=== PATIENT | male | born 1935 | race Caucasian/White ===

== ENCOUNTER → 2018-12-07 16:05 | Outpatient (CLI) | payer MEDICARE, OTHER, SELFPAY ==
[2018-12-07 13:15] VITALS: BMI 40.7
[2018-12-07 16:29] LABS: Absolute Lymphocyte Count 1.25 X10^3/uL (0.83-4.51); Absolute Neutrophil Count 6.2 X10^3/uL (2.0-7.7); Basophil# 0.05 X10^3/uL; Basophil% 0.5 % (0-1); Eosinophils% 3.1 % (0-5); Hemoglobin 14.7 g/dL (13.0-16.5); Lymphocyte # 1.25 X10^3/ul (4.0); Mean Corp Hgb Conc 33.4 g/dL (32-36); Mean Corpuscular Hgb 33.8 pg (27.0-32.0); Mean Corpuscular Volume 101.1 fL (80-94); Mean Platelet Vol. 8.9 fl (6.2-12.0); Monocyte# 1.74 X10^3/uL; Monocyte% 18.1 % (0-10); NRBC Flagged by Analyzer 0 % (0-5); Neutrophil # 6.24 X10^3/uL (2.7-7.7); Neutrophil % 64.8 % (47-70); POSITIVE DIFFERENTIAL YES; Platelet Count 293 K/mm3 (150-450); RBC Distribution Width CV 11.9 % (11.6-14.6); Red Blood Count 4.35 M/mm3 (4.6-6.2); White Blood Count 9.6 K/mm3 (4.4-11.0)
[2018-12-07 16:43] LABS: Differential Indicated SCAN CRITERIA MET
[2018-12-07 16:49] LABS: Anion Gap 6 (5-15); BUN 28 mg/dL (7-18); BUN/Creat Ratio 25.5 RATIO (10-20); Chloride 104 mmol/L (98-107); EST Glomerular Filtration Rate 68 mL/min (>60); Est Glom Filt Rate - Afr Amer 82 mL/min (>60); Glucose 139 mg/dL (74-106); Potassium 4.7 mmol/L (3.5-5.1); Sodium Level 140 mmol/L (136-145)
[2018-12-07 17:53] LABS: Reactive Lymphocyte RARE
== END ==
PROVIDERS: Nurse Practitioner Family; Family Provider Family Medicine; PCP Family Medicine; Referring Provider Orthopaedic Surgery; Visit Provider Orthopaedic Surgery
DX: Z01.810 Encounter for preprocedural cardiovascular examination (principal); Z01.818 Encounter for other preprocedural examination; I25.10 Atherosclerotic heart disease of native coronary artery without angina pectoris; I25.5 Ischemic cardiomyopathy; E78.00 Pure hypercholesterolemia, unspecified; Z95.5 Presence of coronary angioplasty implant and graft
CPT/HCPCS: 36415; 80048; 85025

== ENCOUNTER 2018-12-23 14:50 | Inpatient (IN) | payer MEDICARE, OTHER, SELFPAY ==
[2018-12-07 13:15] VITALS: BMI 40.7
[2018-12-23] VITALS (22 sets, daily range): BP systolic 96–146; BP diastolic 61–73; PULSE 68–94; RESP 12–16; TEMP 36.3–37.4; O2SAT 89–99; BMI 39.9; BMI 38.5
[2018-12-23] MEDS: Etomidate 20 MG/10 ML Vial IV (15:02)
[2018-12-23] MEDS: Rocuronium Bromide 50 MG/5 ML Vial 100 MG IV (15:05)
[2018-12-23] MEDS: Propofol 200 MG/20 ML Vial 80 MG IV BOLUS (15:07)
--- NOTE | 2018-12-23 15:07 | RAD_ITS ---
STUDY: X-RAY CHEST REASON FOR EXAM: Male, 83 years old. Endotracheal tube and orogastric tube placement. TECHNIQUE: Single AP portable view of the chest. COMPARISON: Comparison is made with prior study dated August 01, 2016. FINDINGS: An endotracheal tube is in situ. The tip is at 3.5 cm proximal to the juliane. An orogastric tube is seen. The tip is in the body of the stomach. Mild increased markings at the lung bases suggestive of atelectasis and/or scarring. There is no demonstrated pleural abnormality. Normal size heart. Normal mediastinum and aristides. Normal visualized pulmonary arteries. There is atherosclerotic calcification of the aortic arch with tortuosity. There are diffuse degenerative changes of the visualized thoracic spine. Normal visualized ribs, clavicles, and shoulders. There is no demonstrated abnormality of the visualized soft tissue structures of the upper abdomen. RAD/Chest 1 View (Portable) IMPRESSION: Mild increased markings at the lung bases suggestive of atelectasis and/or scarring. The tip of the endotracheal tube is at 3.5 cm proximal to the juliane. The tip of the orogastric tube is seen within the body of the stomach. Electronically Signed: Lake Thayer, at 15:41 EDT , Service support ,
--- NOTE | 2018-12-23 15:09 | ED.VIS.GEN ---
History of Present Illness Chief Complaint: Allergic Reaction Detail of Chief Complaint: Swollen tongue and difficulty speaking Informant: Patient Onset: Hours - Hour prior to presentation Context: Sudden Onset Timing: Continuous Quality: Angioedema Location: Upper airway Current Severity: Severe Maximum Severity: Severe Worsened by: Lisinopril Relieved by: Nothing Associated Symptoms: Difficulty speaking and swallowing Narrative: Patient is an elderly male on lisinopril who presents because of swelling of his tongue with difficulty swallowing and speaking. This started 1 hour prior to presentation. When patient was examined his Ashley Tiffany score was 4. He was moved from room 20 to room 1 and prepped for intubation. Patient was informed what was going to be done and why you need to be done. He acknowledged by and had yes that he understood what was going to occur and why. History is limited secondary to the acuity and severity of his presentation Prior similar symptoms: No Recent Illness/Hospitalization: No - Past Medical History (1) Presence of stent in coronary artery Status: Chronic Comment: PTCA/stent to mid LAD 11/26/05 (2) Pure hypercholesterolemia Status: Chronic (3) Encounter for long-term current use of high risk medication Status: Chronic (4) Diabetes mellitus type 2, controlled Status: Chronic (5) Cardiac dysrhythmia, unspecified Status: Chronic (6) Ischemic cardiomyopathy Status: Chronic Past Medical History - Allergies and Home Meds Allergies/Adverse Reactions: Allergies No Known Allergies Allergy (Verified 12/23/18 14:53) Primary Care Physician: David Howard MD [Primary Care Provider] - Prior records reviewed: Yes Surgical History: noncontributory Lives: Spouse/ Significant Other Smoking Status: Former smoker Alcohol: None Drugs: None Review of Systems ROS: Unable to Obtain ENT: Reports: - - Clean of tongue with difficulty speaking and swallowing Respiratory: Reports: Dyspnea Allergy: Reports: Swelling of the mouth, Swelling of the tongue Physical Exam Vital Signs/Narrative: Vital Signs Temp Pulse Resp BP Pulse Ox 12/23/18 14:59 79 12 143/70 H 96 12/23/18 14:51 97.4 F L 94 16 146/70 H 95 Inital Vital Signs reviewed: Yes General: Well nourished, Well developed, Obese, Acute Distress Head: Normocephalic, Atraumatic Eyes: Perrl, EOMI. Negative for: Pale conjunctiva, Scleral icterus ENT: Moist mucous membranes, No rhinorrhea Neck: Supple, Nontender, No lymphadenopathy, No JVD, - - Swelling of the anterior neck. Trachea is midline. There is stridor with auscultation of the neck noted. Cardiovascular: Regular rate, Regular rhythm, No murmurs, Normal S1, Normal S2 Respiratory: No distress, CTA bilaterally, Chest nontender Abdomen: Soft, Nontender, Nondistended, Normal bowel sounds Rectal: Deferred Back: Nontender Extremities: Nontender, No edema Skin: Normal color, No rash, No Trauma. Negative for: Cyanosis, Diaphoresis, Jaundice Neurological: Alert, Oriented x3, Cranial nerves II-XII grossly intact, Normal Strength, Normal Sensation Psychological: Normal affect, Normal Mood Diagnostic/Tx/Re-eval Chest X-Ray - ED: 1 View, Read by ED Physician, Normal, Heart, Mediastinum, Bony Structures, No Acute Disease, Chronic Changes, - - Single view x-ray of the chest reveals endotracheal tube to be 2.57 m above the juliane. Single view x-ray of the abdomen, KUB, reveal OG to be in proper position. 12/23/18 15:07 Chest 1 View (Portable) [RAD] Stat Laboratory Results 12/23/18 15:15 WBC 13.4 H RBC 4.51 L Hgb 15.0 Hct 44.8 MCV 99.3 H MCH 33.3 H MCHC 33.5 RDW Std Deviation 43.0 RDW Coeff of [place] 11.7 Plt Count 345 MPV 8.9 - Medical Decision Making Cook presents with presumed allergic reaction. Patient has angioedema secondary to lisinopril. In light of the abrupt onset of symptoms and presentation with a Ashley Tiffany score of 4 he was moved from room 20 to room 1 and prepped oral tracheal invasion. He was preoccupied with 100% nonrebreather mask. He received 20 mg etomidate. Using glide scope a 7.5 Sin[place] endotracheal tube was placed with minimal difficulty. Breath sounds were noted bilateral with appropriate capnometer color change. Patient did not tolerate the endotracheal tube with bagging. He was subsequently chemically paralyzed with 100 mg rocuronium and given a 80 mg bolus of propofol and placed on propofol drip. Baseline blood work was ordered as well as chest x-ray to confirm endotracheal tube placement and abdominal x-ray to confirm placement of NG. Dowling was placed for accurate I's and O's. - Critical Care Time Critical care time (excluding procedures): 30-74 minutes, Discussing w/Patient &/or Family/Professor Of Marketing, Discussing w/Consultants, Arranging Admission or Transfer - Critical care time 33 minutes. Case was discussed with the hospitalist Dr. Davila. Procedures Procedure(s): Intubation after administration of 20 mg of etomidate. He was in bed using glide scope. Once airway was secured he was chemically paralyzed. There was swelling of the tongue, epiglottis false cords. There was also swelling of soft tissue above the glottis. ED Disposition - Plan for ED Patient: Disposition: Acute Care Hospital [facility] Diagnosis: Angioedema due to angiotensin converting enzyme inhibitor (JINNY-I) Referrals: David Howard MD [Primary Care Provider] -
[2018-12-23] MEDS: Propofol 10MG/Ml 1,000 MG/100 ML Bottle 7.6 MG CONT INF (15:15)
[2018-12-23] MEDS: 0.9% Normal Saline 1,000 ML 150 ML IV ×2 (15:15→17:50)
[2018-12-23 15:28] LABS: Hematocrit 44.8 % (40-54); Mean Corp Hgb Conc 33.5 g/dL (32-36); Mean Corpuscular Hgb 33.3 pg (27.0-32.0); Mean Corpuscular Volume 99.3 fL (80-94); Mean Platelet Vol. 8.9 fl (6.2-12.0); Platelet Count 345 K/mm3 (150-450); RBC Distribution Width CV 11.7 % (11.6-14.6); Red Blood Count 4.51 M/mm3 (4.6-6.2); White Blood Count 13.4 K/mm3 (4.4-11.0)
[2018-12-23 15:50] LABS: ALB/GLOB Ratio 0.7 RATIO (0.9-2.4); AST(SGOT) 16 U/L (15-37); Alanine Aminotransfer ALT/SGPT 24 U/L (16-61); Albumin, Serum 2.9 g/dL (3.2-5.0); Alkaline Phosphatase 25 U/L (45-117); Anion Gap 6 (5-15); BUN 26 mg/dL (7-18); BUN/Creat Ratio 26.7 RATIO (10-20); Calcium,Total 9.1 mg/dL (8.5-10.1); Chloride 102 mmol/L (98-107); Creatinine, Serum 0.98 mg/dL (0.70-1.30); EST Glomerular Filtration Rate 78 mL/min (>60); Est Glom Filt Rate - Afr Amer 94 mL/min (>60); Estimated Creatinine Clearance 57.94 ml/min; Globulin 4.4 g/dL (2.2-4.2); Glucose 114 mg/dL (74-106); Potassium 4.5 mmol/L (3.5-5.1); Protein, Total 7.3 g/dL (6.4-8.2); Sodium Level 137 mmol/L (136-145)
--- NOTE | 2018-12-23 16:00 | EKG12_ITS ---
Test Reason : ANGIO EDEMA Blood Pressure : / mmHG Vent. Rate : 069 BPM Atrial Rate : 069 BPM P-R Int : 184 ms QRS Dur : 084 ms QT Int : 406 ms P-R-T Axes : 031 -33 016 degrees QTc Int : 435 ms Sinus rhythm with Premature atrial complexes Left axis deviation Possible Anterior infarct , age undetermined Abnormal ECG Confirmed by JOSEPH OTT ([id number]), clinical editor RIGO VASQUES ([id number]) on 12/29/2018 1:25:49 PM Referred By: Julieth Davila Confirmed By:JOSEPH OTT
--- NOTE | 2018-12-23 16:04 | PCM.HP.STD ---
History of Present Illness Date of Admission: 12/23/18 Chief Complaint: tongue swelling The patient is a 83 year old M with an extensive past medical history as listed. He was admitted through the ED on 12/23/2018 with a complaint of tongue swelling difficulty speaking. This started about 1 hour prior to presentation. On arrival in the ED he was immediately intubated on account of severity of tongue swelling. He was also sedated and paralyzed. JVD mostly to be due to lisinopril which is been taking for many years. Patient seen in the emergency room after he had been intubated and sedated and paralyzed. He was unarousable and so review of systems could not be obtained. No family member was available. He has been admitted to the ICU to be managed for angioedema. 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) 11-26-05 PTCA/stent to mid LAD Encounter for long-term current use of high risk medication (Chronic) Snoring (Chronic) Abnormal stress test (Chronic) Diabetes mellitus type 2, controlled (Chronic) Cardiac dysrhythmia, unspecified (Chronic) H/O percutaneous transluminal coronary angioplasty (Chronic) 11-26-05 PTCA/stent to mid LAD Sinus bradycardia (Chronic) PVC (premature ventricular contraction) (Chronic) Other primary cardiomyopathies (Chronic) Ischemic cardiomyopathy (Chronic) Old myocardial infarction (Chronic) Acute TX, subendocardial, subsequent episode of care (Chronic) Medical History: Medical History (Last Reviewed 12/07/18 @ 15:34 by Mervin Rachel, RUSSELL-C) Presence of stent in coronary artery (Chronic) Onset Date: ~11/26/05 Z95.5 PTCA/stent to mid LAD 11/26/05 Pure hypercholesterolemia (Chronic) E78.00 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9 Arthritis M19.90 Cancer C80.1 Heart disease I51.9 Hypertension I10 Allergies No Known Allergies Allergy (Verified 12/23/18 14:53) Home Medications: Ambulatory Orders Medication Instructions Recorded Aspirin 325 mg PO DAILY@0800 08/07/16 Glucosam/Chond/MSM/[place]/Hyal 1 ea PO DAILY 08/07/16 [Glucosamine-Chondr Complex Tab] Metformin HCl [Glucophage] 500 mg PO DAILY 08/07/16 Multivitamins,Therapeutic 1 tab PO DAILY 08/07/16 [Multivitamin] Nitroglycerin (INPATIENT USE) 0.4 mg SUBLINGUAL Q5M PRN 08/07/16 [Nitrostat] atenolol 25 mg tablet 12.5 mg PO DAILY #45 tab 01/18/18 atorvastatin 20 mg tablet 20 mg PO QHS #90 tab 08/24/18 clopidogrel 75 mg tablet 75 mg PO DAILY #90 tab 08/24/18 lisinopril 20 mg tablet 20 mg PO DAILY #90 tab 08/24/18 traMADol [Ultram] 50 - 100 mg PO Q6H PRN 12/23/18 Surgical History: Surgical History (Last Reviewed 12/07/18 @ 15:34 by Mervin Rachel NP-C) H/O percutaneous transluminal coronary angioplasty (Chronic) Z98.61 8-30-06 PTCA/stent to mid LAD HISTORY OF ANAL [place] HISTORY OF HEART CATH AND STENTS HISTORY OF RIGHT CHEEK BONE SURGERY HISTORY OF RIGHT WRIST SURGERY History of left knee replacement Z96.652 History of right knee joint replacement Z96.651 History of rotator cuff surgery Z98.890 Surgical History: noncontributory Psychiatric History: No pertinent psych hx Lives: Spouse/ Significant Other Smoking Status: Unknown if ever smoked Alcohol: None Drugs: None Review of Systems Unable to obtain accurate/complete ROS d/t: patient intubated, sedated, paralysed VTE Information - Inpt Only VTE Present on Admission: No VTE Pharm Prophylaxis ordered?: Yes Patient Problems: Active and Suspected Problems (Last Reviewed 12/07/18 @ 15:34 by Mervin Rachel MEDICAL SCREENER-C) Angioedema due to angiotensin converting enzyme inhibitor (JINNY-I) (Acute) - Physical Exam General: - - intubated, sedated HEENT: - - tongue markedly7 swollen. Intubated Oral: Moist Mucosa Neck: Supple, No JVD, Negative Carotid Bruits Lungs: Clear to auscultation, Normal air movement Cardiovascular: Regular rate, Regular Rhythm, Normal S1, Normal S2, No murmurs Abdomen: Bowel Sounds Present, Soft, Non Tender Extremities: No clubbing, No cyanosis, No edema, Capillary Refill Less than 3 Seconds Skin: No rashes, No breakdown Musculoskeletal: No Tenderness to Palpation of Joints or Extremities Lymphatic: No Cervical, Supraclavicular, or Inguinal Adenopathy Neurological: - - intubated, Sedated, RASS score -4 Psych/Mental Status: - - sedated,. unarousable Vital Signs Temp Pulse Resp BP Pulse Ox 97.4 F L 70 14 126/70 H 99 12/23/18 14:51 12/23/18 16:00 12/23/18 16:00 12/23/18 16:00 12/23/18 16:00 Oxygen Delivery Method Mechanical Ventilator Weight: 278 lb Body Mass Index (BMI) 39.9 Laboratory Tests Past 24 Hrs 12/23/18 12/23/18 15:15 15:15 WBC 13.4 H RBC 4.51 L Hgb 15.0 Hct 44.8 MCV 99.3 H MCH 33.3 H MCHC 33.5 RDW Std Deviation 43.0 RDW Coeff of [place] 11.7 Plt Count 345 MPV 8.9 Sodium 137 Potassium 4.5 Chloride 102 Carbon Dioxide 29.0 Anion Gap 6 BUN 26 H Creatinine 0.98 Estim Creat Clear Calc 57.94 Est GFR (MDRD) Af Amer 94 Est GFR (MDRD) Non-Af 78 BUN/Creatinine Ratio 26.7 H Glucose 114 H Calcium 9.1 Total Bilirubin 1.00 AST 16 ALT 24 Alkaline Phosphatase 25 L Total Protein 7.3 Albumin 2.9 L Globulin 4.4 H Albumin/Globulin Ratio 0.7 L Diagnostic Data Chest X-Ray 12/23/18 15:07 IMPRESSION: Mild increased markings at the lung bases suggestive of atelectasis and/or scarring. The tip of the endotracheal tube is at 3.5 cm proximal to the juliane. The tip of the orogastric tube is seen within the body of the stomach. Electronically Signed: Lake Thayer, at 15:41 EDT , Service support , Assessment/Plan All Active Problems (Last Reviewed 12/07/18 @ 15:34 by Mervin Rachel, RUSSELL-C) Angioedema due to angiotensin converting enzyme inhibitor (JINNY-I) (Acute) Acute bronchitis (Acute) 83 y/o admitted with a complaint of tongue swelling and promptly intubated in the ED. 1. Acute hypoxic respiratory failure due to airway occlusion from angioedema patient promptly intubated in the ED. Admit to ICU Start IV Benadryl and IV Solu-Medrol Gently with IV fluids. Consult reticle printer. Discontinue lisinopril and enter into allergies record. ABG done after intubation showed pH of 7.37 PCO2 of 52 and PaO2 of 107. 2. Angioedema due to lisinopril: As under 1. 3. Ischemic cardiomyopathy: Aspirin and Plavix as well as statin. 4. Hypertension: On atenolol. Lisinopril discontinued permanently. 5. History of sinus bradycardia: stable 6. Diabetes mellitus type II: On metformin. Insulin sliding scale. Accuchecks q6hrly DVT prophylaxis: lovenox Code Visit Inpatient E&M: 86888 Init Hosp L3 Procedures: 07610 Critial Care 1st Hr
[2018-12-23 16:05] LABS: Base Excess 5 mmol/L (-2 to +2); Bicarbonate 30.2 mmol/L (22-26); Blood Gas Specimen Type ART; FI02 40; Mode A-C; O2 Delivery Device Vent; PEEP 5; PO2 107 mmHG (75-100); RR 14; SITE R Radial; SO2 98 % (95-99); Time Given 1600; Total Carbon Dioxide 32 mmol/L; Vt 450; pCO2 52.1 mmHg (35-45); pH 7.37 (7.35-7.45)
[2018-12-23] MEDS: fentaNYL drip 100 ML 5 MCG IV (17:45)
[2018-12-23] MEDS: Propofol 10MG/Ml 1,000 MG/100 ML Bottle 18.9 MG CONT INF (19:13)
[2018-12-23 19:26] LABS: Bedside Glucose 136 mg/dL (70-110)
[2018-12-23] MEDS: DiphenhydrAMINE 50 MG/ML Syringe IV (19:28)
--- NOTE | 2018-12-23 23:45 | NURSING ---
informed hospitalists of low urine output; will continue to monitor.
[2018-12-24] VITALS (37 sets, daily range): BP systolic 90–147; BP diastolic 53–92; PULSE 60–85; RESP 13–23; TEMP 36.6–37.3; O2SAT 93–98
[2018-12-24] MEDS: 0.9% Normal Saline 1,000 ML 150 ML IV ×2 (00:35→07:12)
[2018-12-24] MEDS: DiphenhydrAMINE 50 MG/ML Syringe IV ×3 (00:36→11:11)
[2018-12-24] MEDS: Propofol 10MG/Ml 1,000 MG/100 ML Bottle 15.1 MG CONT INF (01:00)
[2018-12-24 01:36] LABS: Bedside Glucose 131 mg/dL (70-110)
[2018-12-24 04:15] LABS: Absolute Lymphocyte Count 0.77 X10^3/uL (0.83-4.51); Absolute Neutrophil Count 11.7 X10^3/uL (2.0-7.7); Basophil# 0.03 X10^3/uL; Basophil% 0.2 % (0-1); Eosinophil# 0.01 X10^3/uL; Eosinophils% 0.1 % (0-5); Hematocrit 49.6 % (40-54); Hemoglobin 16.1 g/dL (13.0-16.5); Lymphocyte # 0.77 X10^3/ul (4.0); Lymphocyte % 5.8 % (19-41); Mean Corp Hgb Conc 32.5 g/dL (32-36); Mean Corpuscular Hgb 32.9 pg (27.0-32.0); Mean Corpuscular Volume 101.2 fL (80-94); Mean Platelet Vol. 8.9 fl (6.2-12.0); Monocyte# 0.68 X10^3/uL; Monocyte% 5.1 % (0-10); NRBC Flagged by Analyzer 0 % (0-5); Neutrophil # 11.67 X10^3/uL (2.7-7.7); Platelet Count 332 K/mm3 (150-450); RBC Distribution Width SD 45.3 fl (35.1-43.9); White Blood Count 13.3 K/mm3 (4.4-11.0)
[2018-12-24 04:33] LABS: Anion Gap 10 (5-15); BUN 34 mg/dL (7-18); BUN/Creat Ratio 30.4 RATIO (10-20); Calcium,Total 8.5 mg/dL (8.5-10.1); Chloride 105 mmol/L (98-107); Creatinine, Serum 1.12 mg/dL (0.70-1.30); EST Glomerular Filtration Rate 66 mL/min (>60); Est Glom Filt Rate - Afr Amer 80 mL/min (>60); Estimated Creatinine Clearance 50.69 ml/min; Glucose 155 mg/dL (74-106); Potassium 5.4 mmol/L (3.5-5.1); Sodium Level 141 mmol/L (136-145)
[2018-12-24 05:21] LABS: Bedside Glucose 122 mg/dL (70-110)
--- NOTE | 2018-12-24 06:29 | PCM.CON.CC ---
Reason for Consult Date of Consultation: 12/24/18 Reason for Consultation: Acute respiratory failure/angioedema History of Present Illness: The patient is an 83-year-old male, with a history as outlined below, who presented to the emergency department on December 23 after having developed rather acute onset tongue swelling and difficulty with speech. The patient is currently prescribed an JINNY inhibitor on an outpatient basis. The patient does have a known history of coronary artery disease. On presentation to the emergency department, the patient was initially noted to be afebrile and hemodynamically stable. Laboratory evaluation revealed a mildly elevated white blood cell count to 13,000. Chemistry profile was largely unremarkable. Following arrival to the ED, the patient was emergently intubated. Postintubation arterial blood gas revealed a pH of 7.37 with a corresponding PCO2 of 52 and PO2 of 107. The patient was placed on Benadryl, Pepcid and IV steroids. He was subsequently admitted to the medical intensive care unit for further management. There were no overnight issues reported by the nursing staff. The patient sedation was placed on hold this morning and he did in fact pass a spontaneous awakening trial. He did have a notable cuff leak, but still had a rather significant amount of tongue swelling present. Therefore, his sedation was restarted and he was placed back on assist control mode of mechanical ventilation. Past Medical History Past Medical History (Chronic Problems): Chronic Problems (Last Reviewed 12/07/18 @ 15:34 by ROSE Sierra) Presence of stent in coronary artery (Chronic ~11/26/05) PTCA/stent to mid LAD 11/26/05 Pure hypercholesterolemia (Chronic) Atherosclerosis of grindstone coronary artery of grindstone heart without angina pectoris (Chronic) 11-26-05 PTCA/stent to mid LAD Encounter for long-term current use of high risk medication (Chronic) Snoring (Chronic) Abnormal stress test (Chronic) Diabetes mellitus type 2, controlled (Chronic) Cardiac dysrhythmia, unspecified (Chronic) H/O percutaneous transluminal coronary angioplasty (Chronic) 11-26-05 PTCA/stent to mid LAD Sinus bradycardia (Chronic) PVC (premature ventricular contraction) (Chronic) Other primary cardiomyopathies (Chronic) Ischemic cardiomyopathy (Chronic) Old myocardial infarction (Chronic) Acute MD, subendocardial, subsequent episode of care (Chronic) Medical History: Medical History (Last Reviewed 12/07/18 @ 15:34 by ROSE Sierra) Presence of stent in coronary artery (Chronic) Onset Date: ~11/26/05 Z95.5 PTCA/stent to mid LAD 11/26/05 Pure hypercholesterolemia (Chronic) E78.00 Atherosclerosis of grindstone coronary artery of grindstone heart without angina pectoris (Chronic) I25.10 11-26-05 PTCA/stent to mid LAD Encounter for long-term current use of high risk medication (Chronic) Z79.899 Snoring (Chronic) R06.83 Abnormal stress test (Chronic) R94.39 Diabetes mellitus type 2, controlled (Chronic) E11.9 Cardiac dysrhythmia, unspecified (Chronic) I49.9 Sinus bradycardia (Chronic) R00.1 PVC (premature ventricular contraction) (Chronic) I49.3 Other primary cardiomyopathies (Chronic) I42.8 Ischemic cardiomyopathy (Chronic) I25.5 Old myocardial infarction (Chronic) I25.2 Acute MD, subendocardial, subsequent episode of care (Chronic) I21.4 Acute bronchitis (Acute) J20.9 Arthritis M19.90 Cancer C80.1 Heart disease I51.9 Hypertension I10 Allergies lisinopril Allergy (Verified 12/23/18 16:52) Angioedema Home Medications: Ambulatory Orders Medication Instructions Recorded Aspirin 325 mg PO DAILY@0800 08/07/16 Glucosam/Chond/MSM/[place]/Hyal 1 ea PO DAILY 08/07/16 [Glucosamine-Chondr Complex Tab] Metformin HCl [Glucophage] 500 mg PO DAILY 08/07/16 Multivitamins,Therapeutic 1 tab PO DAILY 08/07/16 [Multivitamin] Nitroglycerin (INPATIENT USE) 0.4 mg SUBLINGUAL Q5M PRN 08/07/16 [Nitrostat] atenolol 25 mg tablet 12.5 mg PO DAILY #45 tab 01/18/18 atorvastatin 20 mg tablet 20 mg PO QHS #90 tab 08/24/18 clopidogrel 75 mg tablet 75 mg PO DAILY #90 tab 08/24/18 lisinopril 20 mg tablet 20 mg PO DAILY #90 tab 08/24/18 traMADol [Ultram] 50 - 100 mg PO Q6H PRN 12/23/18 Surgical History: Surgical History (Last Reviewed 12/07/18 @ 15:34 by ROSE Sierra) H/O percutaneous transluminal coronary angioplasty (Chronic) Z98.61 3006 PTCA/stent to mid LAD HISTORY OF ANAL F[place] HISTORY OF HEART CATH AND STENTS HISTORY OF RIGHT CHEEK BONE SURGERY HISTORY OF RIGHT WRIST SURGERY History of left knee replacement Z96.652 History of right knee joint replacement Z96.651 History of rotator cuff surgery Z98.890 Surgical History: noncontributory Psychiatric History: No pertinent psych hx Lives: Spouse/ Significant Other Smoking Status: Former smoker Alcohol: None Drugs: None Review of Systems Unable to obtain accurate/complete ROS d/t: Due to current intubation and mechanical ventilation status. Patient Problems: Active and Suspected Problems (Last Reviewed 12/07/18 @ 15:34 by Mervin Rachel NP-C) Angioedema due to angiotensin converting enzyme inhibitor (JINNY-I) (Acute) Objective: The patient's most recent lab work, culture data and imaging studies have all been personally reviewed. - Physical Exam General: - - Intubated, sedated and mechanically ventilated. HEENT: Atraumatic, PERRLA, Normocephalic Oral: - - Moderate degree of tongue swelling still exists. Endotracheal and OG tubes remain in place. Neck: Supple, No Nodes Lungs: No rhonchi, No wheeze, No rales Cardiovascular: Regular rate, Regular Rhythm, Normal S1, Normal S2 Abdomen: Bowel Sounds Present, Soft, Non Tender, Obese Extremities: No clubbing, No cyanosis, Edema Skin: No breakdown Musculoskeletal: No Tenderness to Palpation of Joints or Extremities Lymphatic: No Cervical, Supraclavicular, or Inguinal Adenopathy Neurological: - - No focal neurological deficits. Vital Signs Temp Pulse Resp BP Pulse Ox 98.6 F 66 14 91/64 96 12/24/18 06:00 12/24/18 06:00 12/24/18 06:00 12/24/18 06:00 12/24/18 06:00 Oxygen Delivery Method Mechanical Ventilator Weight: 272 lb 4.334 oz Body Mass Index (BMI) 38.5 Intake and Output for Last 24 Hours 12/22/18 12/23/18 12/24/18 23:59 23:59 23:59 Intake Total 1349.86 / 1506.12 1021.59 / 1021.59 Output Total 150 / 200 150 / 150 Balance 1199.86 / 1306.12 871.59 / 871.59 Laboratory Tests Past 24 Hrs 12/23/18 12/23/18 12/23/18 15:15 15:15 16:00 WBC 13.4 H RBC 4.51 L Hgb 15.0 Hct 44.8 MCV 99.3 H MCH 33.3 H MCHC 33.5 RDW Std Deviation 43.0 RDW Coeff of [place] 11.7 Plt Count 345 MPV 8.9 Immature Gran % (Auto) Neut % (Auto) Lymph % (Auto) [place] % (Auto) Eos % (Auto) Baso % (Auto) Absolute Neuts (auto) Absolute Lymphs (auto) Nucleated RBC % Specimen Type ART Sample Site R Radial pH 7.37 Bicarbonate Actual 30.2 H POC Total CO2 32 Base Excess 5 H O2 Saturation 98 O2 % 40 ABG pCO2 52.1 H ABG pO2 107 H Hossein Test NA Respiration Rate 14 O2 Delivery Device Vent Minute Volume 6.00 Vent Mode A-C Tidal Volume 450 POC PEEP 5 Blood Gas Notified Whom ED Blood Gas Notified Time 1600 Sodium 137 Potassium 4.5 Chloride 102 Carbon Dioxide 29.0 Anion Gap 6 BUN 26 H Creatinine 0.98 Estim Creat Clear Calc 57.94 Est GFR (MDRD) Af Amer 94 Est GFR (MDRD) Non-Af 78 BUN/Creatinine Ratio 26.7 H Glucose 114 H Calcium 9.1 Total Bilirubin 1.00 AST 16 ALT 24 Alkaline Phosphatase 25 L Total Protein 7.3 Albumin 2.9 L Globulin 4.4 H Albumin/Globulin Ratio 0.7 L 12/24/18 12/24/18 04:00 04:00 WBC 13.3 H RBC 4.90 Hgb 16.1 Hct 49.6 MCV 101.2 H MCH 32.9 H MCHC 32.5 RDW Std Deviation 45.3 H RDW Coeff of [place] 12.0 Plt Count 332 MPV 8.9 Immature Gran % (Auto) 0.800 Neut % (Auto) 88.0 H Lymph % (Auto) 5.8 L [place] % (Auto) 5.1 Eos % (Auto) 0.1 Baso % (Auto) 0.2 Absolute Neuts (auto) 11.7 H Absolute Lymphs (auto) 0.77 L Nucleated RBC % 0 Specimen Type Sample Site pH Bicarbonate Actual POC Total CO2 Base Excess O2 Saturation O2 % ABG pCO2 ABG pO2 Hossein Test Respiration Rate O2 Delivery Device Minute Volume Vent Mode Tidal Volume POC PEEP Blood Gas Notified Whom Blood Gas Notified Time Sodium 141 Potassium 5.4 H Chloride 105 Carbon Dioxide 26.0 Anion Gap 10 BUN 34 H Creatinine 1.12 Estim Creat Clear Calc 50.69 Est GFR (MDRD) Af Amer 80 Est GFR (MDRD) Non-Af 66 BUN/Creatinine Ratio 30.4 H Glucose 155 H Calcium 8.5 Total Bilirubin AST ALT Alkaline Phosphatase Total Protein Albumin Globulin Albumin/Globulin Ratio POC Glucose 12/24/18 12/24/18 12/23/18 05:16 00:30 19:07 POC Glucose 122 H 131 H 136 H Clinical Impression(s) from Imaging Studies Chest X-Ray 12/23/18 15:07 IMPRESSION: Mild increased markings at the lung bases suggestive of atelectasis and/or scarring. The tip of the endotracheal tube is at 3.5 cm proximal to the juliane. The tip of the orogastric tube is seen within the body of the stomach. Electronically Signed: [place], at 15:41 EDT , Service support , Assessment/Plan Active and Suspected Problems (Last Reviewed 12/07/18 @ 15:34 by Mervin Rachel NP-C) Angioedema due to angiotensin converting enzyme inhibitor (JINNY-I) (Acute) RECOMMENDATIONS: 1. Plan to continue assist control mode of mechanical ventilation. Plan for paired spontaneous awakening and breathing trials tomorrow morning. 2. Continue Pepcid, Benadryl and steroids. 3. Wean FiO2 to maintain oxygen saturations at or above 90%. 4. Okay from my perspective to begin tube feeds today. IMPRESSIONS: 1. Acute respiratory failure due to angioedema in the setting of IJNNY inhibitor use Continue current supportive measures including invasive mechanical ventilatory support, along with IV steroids, Benadryl and Pepcid. Anticipate further improvement in the patient's oropharyngeal edema, with hopes for potential extubation tomorrow. The patient will be placed back on assist control mode of mechanical ventilation. Tube feeds can be initiated today from my perspective. 2. Coronary artery disease status post PCI Continue outpatient medical regimen. 3. Obesity/hyperlipidemia/diabetes mellitus/hypertension Complicates care, management, recovery and prognosis. Okay to continue home medications. Physical therapy evaluation is pending. TIME: 40 minutes of critical care time, independent of procedures, was spent addressing the patient's acute respiratory failure, angioedema, coronary artery disease, review of all data and collaboration with the care team. ([id number]) Code Visit 9xxxx: [id number] Critical care first hour
--- NOTE | 2018-12-24 06:43 | PN_ITS ---
Patient Problems: Active and Suspected Problems (Last Reviewed 12/07/18 @ 15:34 by Mervin Rachel NP-C) Angioedema due to angiotensin converting enzyme inhibitor (JINNY-I) (Acute) Subjective: The patient is a 83-year-old male with a past medical history of coronary artery disease with PTCA/REMIGIO to mid LAD on 11/26/2005, hyperlipidemia, diabetes mellitus type 2, sinus bradycardia, ischemic cardiomyopathy and obesity who presented to the emergency department at [facility] on 12/23/2018 complaining of tongue swelling. He was immediately intubated in the emergency department due to the degree of tongue swelling. He had been taking lisinopril for many years. Vital signs at presentation to the emergency department were temperature 97.4, heart rate 94, blood pressure 146/70, respiratory rate 16 and he was 95% saturated on room air. CBC was remarkable for an elevated white blood cell count at 13.4. BMP was remarkable for an increased BUN at 26 with a creatinine of 0.98. An ABG obtained while mechanically ventilated with a tidal volume of 450, FiO2 of 40% and PEEP of 5 showed a pH of 7.37, PCO2 of 52 and a PO2 of 107. Chest x-ray obtained post intubation showed the ET tube to be in good position and the NG showed the tip of the tube body of the stomach. There were increased lung markings in the bases. He was admitted to the intensive care unit with a diagnosis of angioedema and Dr. Burks was consulted to participate in management. All events of the past 24 hours of been reviewed. Currently being mechanically ventilated and on fentanyl and propofol for sedation. Afebrile since admission Hemodynamically stable and requiring no pressors Fluid balance since admission is +2 L All lab was personally reviewed. The white blood cell count is 13.3 with a left shift. Hemoglobin and platelets are within normal limits. Potassium is elevated at 5.4 today and the BUN is 34 with a creatinine of 1.12, up from 0.98 at admission. Blood sugars are well controlled...but he is NPO at present. He is on sliding scale insulin until extubated. He is alert and appropriate this AM. Denies CP, abdominal pain, sore throat. Is writing me notes. He has weakness of Both upper extremities and for the past 3 weeks also weakness of his legs....has been having trouble getting up from a chair. Was sent to PT. His dtr tells me that he had an EMG of the LUE prior to CTS surgery and that some one told her he may have a problem with his cervical spine. No numbness in the legs......difficult getting hx while he is intubated - Physical Exam General: Alert, No apparent distress, - - intubated and mechanically ventilated. HEENT: Atraumatic, PERRLA, EOMI, Normocephalic Oral: Moist Mucosa, - - tongue is swollen but, apparently better than yesterday. He had an air leak today. Neck: No JVD, Negative Carotid Bruits, No Nodes, Trachea Midline Lungs: Clear to auscultation - anterior and lateral Cardiovascular: Regular rate, Regular Rhythm, Normal S1, Normal S2, No murmurs, No rub noted, No Gallop Abdomen: Bowel Sounds Present, Soft, Non Tender, Non-Distended, - - No guarding with palpation Extremities: No clubbing, No cyanosis, No edema, Peripheral Pulses Normal Skin: No rashes, No breakdown Musculoskeletal: No Muscle Wasting, Arthritic Changes Neurological: Cranial nerves II-XII grossly intact, Neuro grossly intact Psych/Mental Status: Appropriate - CAM negative RASS is 0 Vital Signs Temp Pulse Resp BP Pulse Ox 98.6 F 66 14 91/64 96 12/24/18 06:00 12/24/18 06:00 12/24/18 06:00 12/24/18 06:00 12/24/18 06:00 Oxygen Delivery Method Mechanical Ventilator Weight: 272 lb 4.334 oz Body Mass Index (BMI) 38.5 Intake and Output for Last 24 Hours 12/22/18 12/23/18 12/24/18 23:59 23:59 23:59 Intake Total 1349.86 / 1506.12 1021.59 / 1021.59 Output Total 150 / 200 150 / 150 Balance 1199.86 / 1306.12 871.59 / 871.59 Laboratory Tests Past 24 Hrs 12/23/18 12/23/18 12/23/18 15:15 15:15 16:00 WBC 13.4 H RBC 4.51 L Hgb 15.0 Hct 44.8 MCV 99.3 H MCH 33.3 H MCHC 33.5 RDW Std Deviation 43.0 RDW Coeff of [place] 11.7 Plt Count 345 MPV 8.9 Immature Gran % (Auto) Neut % (Auto) Lymph % (Auto) [place] % (Auto) Eos % (Auto) Baso % (Auto) Absolute Neuts (auto) Absolute Lymphs (auto) Nucleated RBC % Specimen Type ART Sample Site R Radial pH 7.37 Bicarbonate Actual 30.2 H POC Total CO2 32 Base Excess 5 H O2 Saturation 98 O2 % 40 ABG pCO2 52.1 H ABG pO2 107 H Hossein Test NA Respiration Rate 14 O2 Delivery Device Vent Minute Volume 6.00 Vent Mode A-C Tidal Volume 450 POC PEEP 5 Blood Gas Notified Whom ED MD Blood Gas Notified Time 1600 Sodium 137 Potassium 4.5 Chloride 102 Carbon Dioxide 29.0 Anion Gap 6 BUN 26 H Creatinine 0.98 Estim Creat Clear Calc 57.94 Est GFR (MDRD) Af Amer 94 Est GFR (MDRD) Non-Af 78 BUN/Creatinine Ratio 26.7 H Glucose 114 H Calcium 9.1 Total Bilirubin 1.00 AST 16 ALT 24 Alkaline Phosphatase 25 L Total Protein 7.3 Albumin 2.9 L Globulin 4.4 H Albumin/Globulin Ratio 0.7 L 12/24/18 12/24/18 04:00 04:00 WBC 13.3 H RBC 4.90 Hgb 16.1 Hct 49.6 MCV 101.2 H MCH 32.9 H MCHC 32.5 RDW Std Deviation 45.3 H RDW Coeff of [place] 12.0 Plt Count 332 MPV 8.9 Immature Gran % (Auto) 0.800 Neut % (Auto) 88.0 H Lymph % (Auto) 5.8 L [place] % (Auto) 5.1 Eos % (Auto) 0.1 Baso % (Auto) 0.2 Absolute Neuts (auto) 11.7 H Absolute Lymphs (auto) 0.77 L Nucleated RBC % 0 Specimen Type Sample Site pH Bicarbonate Actual POC Total CO2 Base Excess O2 Saturation O2 % ABG pCO2 ABG pO2 Hossein Test Respiration Rate O2 Delivery Device Minute Volume Vent Mode Tidal Volume POC PEEP Blood Gas Notified Whom Blood Gas Notified Time Sodium 141 Potassium 5.4 H Chloride 105 Carbon Dioxide 26.0 Anion Gap 10 BUN 34 H Creatinine 1.12 Estim Creat Clear Calc 50.69 Est GFR (MDRD) Af Amer 80 Est GFR (MDRD) Non-Af 66 BUN/Creatinine Ratio 30.4 H Glucose 155 H Calcium 8.5 Total Bilirubin AST ALT Alkaline Phosphatase Total Protein Albumin Globulin Albumin/Globulin Ratio POC Glucose 12/24/18 12/24/18 12/23/18 05:16 00:30 19:07 POC Glucose 122 H 131 H 136 H Medical Necessity - Tobacco Use Smoking Status: Former smoker Assessment/Plan All Active Problems (Last Reviewed 12/07/18 @ 15:34 by Mervin Rachel, CUSTOMER EXPERIENCE MANAGER-C) Angioedema due to angiotensin converting enzyme inhibitor (JINNY-I) (Acute) Acute bronchitis (Acute) Impressions 1. angioedema requiring intubation and mechanical ventilation. Likely culprit is the Lisinopril. We will continue intubation and mechanical ventilation today as his tongue is still significantly swollen and there is some swelling of the lips. Check for an air leak again in the a.m. and reassess. Continue Solu- Medrol, Benadryl and famotidine. 2. weakness of all 4 extremities - relatively recent onset...Needs an MRI of the cervical and the lumbar spine after he is intubated. PT/OT ordered. Obtain the EMG report from [facility] 3. CAD with PTCA/REMIGIO to the mid LAD on 11/26/2005 4. Hyperlipidemia/diabetes mellitus type 2/ischemic cardiomyopathy with an EF of 55% in 2014/obesity-chronic problems, restart home meds down the NG -Plavix and aspirin per NG tube and atenolol 12.5 mg per NG. Decrease IV fluid rate to 75. Start tube feed. Continue famotidine for GI prophylaxis Continue Lovenox for DVT prophylaxis Code Visit Inpatient E&M: 31596 Disch Hosp
[2018-12-24 07:15] LABS: Magnesium 2.1 mg/dL (1.6-2.6); Phosphorus 4.8 mg/dL (2.5-4.9)
[2018-12-24 07:59] LABS: Hemoglobin A1c 6.6 % (4.2-6.3)
--- NOTE | 2018-12-24 10:07 | CASEMGMT ---
LW/POA in summary tab of echart. Pt's Amarilis Hsu is listed as pt's POA. MICHELET John
[2018-12-24] MEDS: Chlorhexidine 15 ML PO ×2 (10:52→21:19)
[2018-12-24] MEDS: CHLORHEXIDINE GLUC 2% CLOTH 1 EACH TOWELETTE TOPICAL (10:52)
[2018-12-24] MEDS: Enoxaparin 40 MG/0.4 ML Syringe SC (10:53)
[2018-12-24] MEDS: Propofol 10MG/Ml 1,000 MG/100 ML Bottle 7.6 MG CONT INF (11:00)
[2018-12-24] MEDS: Insulin Lispro 100 UNIT/ML INSULN.PEN SC ×2 (11:34→18:34)
[2018-12-24 11:35] LABS: Bedside Glucose 162 mg/dL (70-110)
--- NOTE | 2018-12-24 12:01 | CASEMGMT ---
CM spoke w/daughter Venita, invited SW to join in conversation. Daughter explains that pt has been caring for his at home, and she has concerns about how she will manage without him there--she suspects may have some dementia. She states she went to [facility] this morning to see if pt's may be able to go there for respite while pt is in the hospital. She also spoke about pt having just had carpel tunnel surgery last week. Also, he has been having difficulty getting up at times due to some weakness on one side. We spoke about aide services at home, assisted living, transportation. SW provided lists of all three to daughter. We also talked about pt needing rehab when he leaves here, SNF list provided. Daughter states if pt needs rehab she would prefer rehab here or TCU. SW explained will make referral and SW can follow up on Thursday. SW did call rehab/TCU referral line and left pt's name, requested call back to SW on Thursday regarding appropriate level of care for pt and bed availability. SW will continue to follow. MICHELET John
--- NOTE | 2018-12-24 12:05 | CASEMGMT ---
RN CM MAT MAKING MACHINE TENDER CM to room to meet with patient for initial transition planning/care coordination assessment. Pt remains intubated and is sleeping at this time. Pt's daughter, Venita, @ bedside and stepped out of room to talk with RN DANA. Care providers, pharmacy, and demographics verified/updated at this time. During assessment, daughter voiced concerns with her father being in the hospital as he has been primary caregiver for his and needing resources. RN CM ased Gina SEGOVIA, to come talk with daughter at this time as well. See Gina's notes/documentation. PCP: Lee Specialists: [facility]--Orthopedic. Pt just had carpal tunnel surgery last Thursday per daughter. [place]--cardiology Preferred Pharmacy: [facility] [place] Insurance: [facility] Popular Pays Prescription Benefit: Yes Living Will/HPOA: Has both LW and HCPOA, who is his , Amarilis. 1st alternative is daughter: Venita. 2nd alternative is daughter: Isa LNOK: , 2 daughters: Venita and Isa Living Arrangements: Lives in ranch-style home w/4 steps to enter into the garage. FFSU. Pt does go to the lower level to do laundry. Pt is primary caregiver for his , who Venita states has been having some memory issues. uses a walker and needs assistance w/home mgmt tasks, so pt has been managing this as well. Pt manages his own medications. Venita states pt has had right-sided arm and leg weakness for the past several weeks and has had difficulty with getting up at times. She states she has been looking into getting help in the home for pt and his . (Refer to Gina SEGOVIA, note) Transportation: Patient DME: Has a couple of canes. Venita driver thinks he could use a walker. During assessment, a sales agent casualty insurance came in to see pt and Venita left to go talk with him prior to assessment being completed. CM to follow for any DME needs pt may have prior to discharge if he returns home. HHC/SNF: Venita driver is not sure if he has been to a SNF and states he has used HHC in the past, but is unsure of name of agency. Venita states pt has been going to [facility] for OP therapy. Venita states thinks pt would benefit from a SNF for therapy. She states if he does not qualify for SNF @ discharge or if he is not agreeable she thinks HHC would be beneficial. Given list of HHC agencies. She states [facility]. CM/SW to follow for further discharge planning/needs. Advised daughter to ask for CM/SW if any further questions/concerns/needs arise. Voices understanding. PLAN: TBD. SNF vs HHC. Pt remains intubated and PT/OT evals pending. Will await on pt's progress, evals, and pt preference/choice to determine appropriate and safe discharge plan. Gabriel GIPSONN RN CM
[2018-12-24] MEDS: fentaNYL drip 100 ML 5 MCG IV (13:48)
[2018-12-24] MEDS: Vital AF 1.2 Cal Liq 1,500 ML 60 ML GT (15:37)
[2018-12-24 18:40] LABS: Bedside Glucose 173 mg/dL (70-110)
[2018-12-25] VITALS (53 sets, daily range): BP systolic 94–142; BP diastolic 43–97; PULSE 64–140; RESP 9–23; TEMP 36.4–37.1; O2SAT 92–100
[2018-12-25] MEDS: Propofol 10MG/Ml 1,000 MG/100 ML Bottle 7.6 MG CONT INF
[2018-12-25] MEDS: Insulin Lispro 100 UNIT/ML INSULN.PEN SC ×4 (00:06→18:38)
[2018-12-25 00:15] LABS: Bedside Glucose 187 mg/dL (70-110)
--- NOTE | 2018-12-25 06:17 | PCM.PN.INT ---
Subjective: The patient was seen and examined at the bedside this morning. Events from the last 24 hours have been reviewed. The patient is currently afebrile, hemodynamically stable and maintaining appropriate oxygen saturations with an FiO2 requirement of 35%. The patient's tongue swelling has improved this morning. The patient was placed on a spontaneous breathing trial this morning and he did well initially. However, during the latter half of his spontaneous breathing trial, he went into atrial fibrillation with a rapid ventricular rate. The patient was then placed back on assist control mode of mechanical ventilation. I do not see a history of atrial fibrillation in the patient's medical chart. Repeat labs are currently pending. EKG was obtained. Orders for an amiodarone bolus and drip were placed. Objective: The patient's most recent lab work, culture data and imaging studies have all been personally reviewed. General: Alert, No apparent distress, - - Remains intubated and mechanically ventilated. No ventilator dyssynchrony noted. HEENT: Atraumatic, PERRLA, Normocephalic Oral: No Gingival or Mucosal Lesions/ Ulcerations, - - Tongue swelling has improved significantly from yesterday. Neck: Supple, No Nodes, Trachea Midline Lungs: - - Clear across anterior lung troy Cardiovascular: Normal S1, Normal S2, Irregular Rate, Tachycardic Abdomen: Bowel Sounds Present, Soft, Non Tender, Obese Extremities: No clubbing, No cyanosis, No edema Skin: No breakdown Musculoskeletal: No Tenderness to Palpation of Joints or Extremities Lymphatic: No Cervical, Supraclavicular, or Inguinal Adenopathy Neurological: - - No focal neurological deficits. Vital Signs Temp Pulse Resp BP Pulse Ox 98.4 F 140 H 17 111/43 L 97 12/25/18 06:00 12/25/18 06:00 12/25/18 06:00 12/25/18 06:00 12/25/18 06:00 Oxygen Delivery Method Mechanical Ventilator Weight: 272 lb 14.916 oz Body Mass Index (BMI) 38.5 Intake and Output for Last 24 Hours 12/23/18 12/24/18 12/25/18 23:59 23:59 23:59 Intake Total 1349.86 / 1506.12 2947.21 / 3298.81 414.6 / 414.6 Output Total 150 / 200 600 / 850 250 / 250 Balance 1199.86 / 1306.12 2347.21 / 2448.81 164.6 / 164.6 Labs (Last 48 Hours) 12/23/18 12/23/18 12/23/18 15:15 15:15 16:00 WBC 13.4 H RBC 4.51 L Hgb 15.0 Hct 44.8 MCV 99.3 H MCH 33.3 H MCHC 33.5 RDW Std Deviation 43.0 RDW Coeff of [place] 11.7 Plt Count 345 MPV 8.9 Immature Gran % (Auto) Neut % (Auto) Lymph % (Auto) [place] % (Auto) Eos % (Auto) Baso % (Auto) Absolute Neuts (auto) Absolute Lymphs (auto) Nucleated RBC % Specimen Type ART Sample Site R Radial pH 7.37 Bicarbonate Actual 30.2 H POC Total CO2 32 Base Excess 5 H O2 Saturation 98 O2 % 40 ABG pCO2 52.1 H ABG pO2 107 H Hossein Test NA Respiration Rate 14 O2 Delivery Device Vent Minute Volume 6.00 Vent Mode A-C Tidal Volume 450 POC PEEP 5 Blood Gas Notified Whom ED MD Blood Gas Notified Time 1600 Sodium 137 Potassium 4.5 Chloride 102 Carbon Dioxide 29.0 Anion Gap 6 BUN 26 H Creatinine 0.98 Estim Creat Clear Calc 57.94 Est GFR (MDRD) Af Amer 94 Est GFR (MDRD) Non-Af 78 BUN/Creatinine Ratio 26.7 H Glucose 114 H Hemoglobin A1c Calcium 9.1 Phosphorus Magnesium Total Bilirubin 1.00 AST 16 ALT 24 Alkaline Phosphatase 25 L Total Protein 7.3 Albumin 2.9 L Globulin 4.4 H Albumin/Globulin Ratio 0.7 L POC Glucose 12/23/18 12/24/18 12/24/18 19:07 00:30 04:00 WBC RBC Hgb Hct MCV MCH MCHC RDW Std Deviation RDW Coeff of [place] Plt Count MPV Immature Gran % (Auto) Neut % (Auto) Lymph % (Auto) [place] % (Auto) Eos % (Auto) Baso % (Auto) Absolute Neuts (auto) Absolute Lymphs (auto) Nucleated RBC % Specimen Type Sample Site pH Bicarbonate Actual POC Total CO2 Base Excess O2 Saturation O2 % ABG pCO2 ABG pO2 Hossein Test Respiration Rate O2 Delivery Device Minute Volume Vent Mode Tidal Volume POC PEEP Blood Gas Notified Whom Blood Gas Notified Time Sodium 141 Potassium 5.4 H Chloride 105 Carbon Dioxide 26.0 Anion Gap 10 BUN 34 H Creatinine 1.12 Estim Creat Clear Calc 50.69 Est GFR (MDRD) Af Amer 80 Est GFR (MDRD) Non-Af 66 BUN/Creatinine Ratio 30.4 H Glucose 155 H Hemoglobin A1c Calcium 8.5 Phosphorus Magnesium Total Bilirubin AST ALT Alkaline Phosphatase Total Protein Albumin Globulin Albumin/Globulin Ratio POC Glucose 136 H 131 H 12/24/18 12/24/18 12/24/18 04:00 04:00 04:00 WBC 13.3 H RBC 4.90 Hgb 16.1 Hct 49.6 MCV 101.2 H MCH 32.9 H MCHC 32.5 RDW Std Deviation 45.3 H RDW Coeff of [place] 12.0 Plt Count 332 MPV 8.9 Immature Gran % (Auto) 0.800 Neut % (Auto) 88.0 H Lymph % (Auto) 5.8 L [place] % (Auto) 5.1 Eos % (Auto) 0.1 Baso % (Auto) 0.2 Absolute Neuts (auto) 11.7 H Absolute Lymphs (auto) 0.77 L Nucleated RBC % 0 Specimen Type Sample Site pH Bicarbonate Actual POC Total CO2 Base Excess O2 Saturation O2 % ABG pCO2 ABG pO2 Hossein Test Respiration Rate O2 Delivery Device Minute Volume Vent Mode Tidal Volume POC PEEP Blood Gas Notified Whom Blood Gas Notified Time Sodium Potassium Chloride Carbon Dioxide Anion Gap BUN Creatinine Estim Creat Clear Calc Est GFR (MDRD) Af Amer Est GFR (MDRD) Non-Af BUN/Creatinine Ratio Glucose Hemoglobin A1c 6.6 H Calcium Phosphorus 4.8 Magnesium 2.1 Total Bilirubin AST ALT Alkaline Phosphatase Total Protein Albumin Globulin Albumin/Globulin Ratio POC Glucose 12/24/18 12/24/18 12/24/18 05:16 11:31 18:32 WBC RBC Hgb Hct MCV MCH MCHC RDW Std Deviation RDW Coeff of [place] Plt Count MPV Immature Gran % (Auto) Neut % (Auto) Lymph % (Auto) [place] % (Auto) Eos % (Auto) Baso % (Auto) Absolute Neuts (auto) Absolute Lymphs (auto) Nucleated RBC % Specimen Type Sample Site pH Bicarbonate Actual POC Total CO2 Base Excess O2 Saturation O2 % ABG pCO2 ABG pO2 Hossein Test Respiration Rate O2 Delivery Device Minute Volume Vent Mode Tidal Volume POC PEEP Blood Gas Notified Whom Blood Gas Notified Time Sodium Potassium Chloride Carbon Dioxide Anion Gap BUN Creatinine Estim Creat Clear Calc Est GFR (MDRD) Af Amer Est GFR (MDRD) Non-Af BUN/Creatinine Ratio Glucose Hemoglobin A1c Calcium Phosphorus Magnesium Total Bilirubin AST ALT Alkaline Phosphatase Total Protein Albumin Globulin Albumin/Globulin Ratio POC Glucose 122 H 162 H 173 H 12/25/18 00:01 WBC RBC Hgb Hct MCV MCH MCHC RDW Std Deviation RDW Coeff of [place] Plt Count MPV Immature Gran % (Auto) Neut % (Auto) Lymph % (Auto) [place] % (Auto) Eos % (Auto) Baso % (Auto) Absolute Neuts (auto) Absolute Lymphs (auto) Nucleated RBC % Specimen Type Sample Site pH Bicarbonate Actual POC Total CO2 Base Excess O2 Saturation O2 % ABG pCO2 ABG pO2 Hossein Test Respiration Rate O2 Delivery Device Minute Volume Vent Mode Tidal Volume POC PEEP Blood Gas Notified Whom Blood Gas Notified Time Sodium Potassium Chloride Carbon Dioxide Anion Gap BUN Creatinine Estim Creat Clear Calc Est GFR (MDRD) Af Amer Est GFR (MDRD) Non-Af BUN/Creatinine Ratio Glucose Hemoglobin A1c Calcium Phosphorus Magnesium Total Bilirubin AST ALT Alkaline Phosphatase Total Protein Albumin Globulin Albumin/Globulin Ratio POC Glucose 187 H Clinical Impression(s) from Imaging Studies Chest X-Ray 12/23/18 15:07 IMPRESSION: Mild increased markings at the lung bases suggestive of atelectasis and/or scarring. The tip of the endotracheal tube is at 3.5 cm proximal to the juliane. The tip of the orogastric tube is seen within the body of the stomach. Electronically Signed: [place], at 15:41 EDT , Service support , Medical Necessity - Tobacco Use Smoking Status: Former smoker Assessment/Plan All Active Problems (Last Reviewed 12/07/18 @ 15:34 by ROSE Sierra) Angioedema due to angiotensin converting enzyme inhibitor (JINNY-I) (Acute) Acute bronchitis (Acute) RECOMMENDATIONS: 1. Obtain EKG. Administer amiodarone bolus, which will then be followed by continuous infusion. 2. Continue patient on assist control mode mechanical ventilation for now. 3. Once atrial fibrillation is brought under control, the patient will be a candidate for a trial of extubation. 4. Recheck BNP, mag and phosphorus. 5. Steroids can be discontinued. IMPRESSIONS: 1. Acute respiratory failure due to angioedema in the setting of JINNY inhibitor use Continue current supportive measures including invasive mechanical ventilatory support. Oropharyngeal swelling is improved significantly in light of treatment with steroids, Benadryl and Pepcid. Unfortunately, the patient developed atrial fibrillation this morning, which will preclude his ability to be extubated. We will initiate medical management of his atrial fibrillation, and once under control, the patient can be placed back on a spontaneous breathing trial. 2. New onset atrial fibrillation/coronary artery disease status post PCI The patient received an amiodarone bolus and was started on a continuous infusion. Once the patient's atrial fibrillation is brought under control, consideration will be given to proceeding with a trial of extubation. Troponins and echo are pending. 3. Obesity/hyperlipidemia/diabetes mellitus/hypertension Complicates care, management, recovery and prognosis. Okay to continue home medications. TIME: 38 minutes of critical care time, independent of procedures, was spent addressing the patient's acute respiratory failure, angioedema, coronary artery disease, new onset A fib, review of all data and collaboration with the care team. ([id number]) Code Visit [id number]: [id number] Critical care first hour
[2018-12-25] MEDS: CHLORHEXIDINE GLUC 2% CLOTH 1 EACH TOWELETTE TOPICAL (06:39)
[2018-12-25 06:46] LABS: Bedside Glucose 189 mg/dL (70-110)
[2018-12-25 06:53] LABS: Anion Gap 2 (5-15); BUN 37 mg/dL (7-18); BUN/Creat Ratio 36.3 RATIO (10-20); Calcium,Total 8.6 mg/dL (8.5-10.1); Chloride 105 mmol/L (98-107); Creatinine, Serum 1.02 mg/dL (0.70-1.30); EST Glomerular Filtration Rate 74 mL/min (>60); Est Glom Filt Rate - Afr Amer 89 mL/min (>60); Estimated Creatinine Clearance 55.66 ml/min; Glucose 204 mg/dL (74-106); Potassium 4.7 mmol/L (3.5-5.1); Sodium Level 136 mmol/L (136-145)
[2018-12-25 06:58] LABS: Magnesium 2.1 mg/dL (1.6-2.6); Phosphorus 3.5 mg/dL (2.5-4.9)
--- NOTE | 2018-12-25 07:50 | PN_ITS ---
Patient Problems: Active and Suspected Problems (Last Reviewed 12/07/18 @ 15:34 by Mervin Rachle, PAIL BAILER-C) Angioedema due to angiotensin converting enzyme inhibitor (JINNY-I) (Acute) Subjective: Day #3 ventilator All events of the past 24 hours of been reviewed. Afebrile since admission. Hemodynamically stable. He remains intubated and mechanically ventilated. During the last portion of his spontaneous breathing trial today he went into atrial fibrillation with rapid ventricular response. Heart rate has ranged from 10 8-1 40. Fluid balance since admission is +[phone]. All lab was personally reviewed. Potassium is 4.7 and the magnesium is 2.1 today. Creatinine is 1.02 with a BUN of 37. Blood sugars are well controlled. Hemoglobin A1c is 6.6. EKG shows atrial fibrillation with rapid ventricular response. No ST segment elevation. No significant ST or T wave changes. Denies chest pain, shortness of breath, lightheadedness, abdominal pain, nausea. He does have a history of coronary artery disease and has had a stent to the mid LAD in 2005. He has never had an echocardiogram at this institution. - Physical Exam General: Alert, Cooperative, - - motioning that he wants the tube out HEENT: Atraumatic, PERRLA, EOMI, Normocephalic Oral: Moist Mucosa, - - tongue swelling is significantly decreased today Neck: Supple, Trachea Midline Lungs: Clear to auscultation Cardiovascular: Normal S1, Normal S2, No murmurs, Irregular Rate, No rub noted, No Gallop, Tachycardic, - - Telemetry shows AF with RVR....has been started on amiodarone Abdomen: Bowel Sounds Present, Soft, Non Tender, Non-Distended Extremities: No cyanosis, No edema, Peripheral Pulses Normal Skin: No rashes, No breakdown Neurological: Cranial nerves II-XII grossly intact, Neuro grossly intact Psych/Mental Status: - - frustrated the the ETT is still in Vital Signs Temp Pulse Resp BP Pulse Ox 98.6 F 115 H 19 H 125/73 H 96 12/25/18 07:00 12/25/18 07:21 12/25/18 07:21 12/25/18 07:21 12/25/18 07:21 Oxygen Delivery Method Mechanical Ventilator Weight: 272 lb 14.916 oz Body Mass Index (BMI) 38.5 Intake and Output for Last 24 Hours 12/23/18 12/24/18 12/25/18 23:59 23:59 23:59 Intake Total 1349.86 / 1506.12 2947.21 / 3298.81 814.22 / 814.22 Output Total 150 / 200 600 / 850 500 / 500 Balance 1199.86 / 1306.12 2347.21 / 2448.81 314.22 / 314.22 Laboratory Tests Past 24 Hrs 12/24/18 12/25/18 12/25/18 04:00 04:20 04:20 Sodium 136 Potassium 4.7 Chloride 105 Carbon Dioxide 29.0 Anion Gap 2 L BUN 37 H Creatinine 1.02 Estim Creat Clear Calc 55.66 Est GFR (MDRD) Af Amer 89 Est GFR (MDRD) Non-Af 74 BUN/Creatinine Ratio 36.3 H Glucose 204 H Hemoglobin A1c 6.6 H Calcium 8.6 Phosphorus 3.5 Magnesium 2.1 POC Glucose 12/25/18 12/25/18 12/24/18 06:40 00:01 18:32 POC Glucose 189 H 187 H 173 H 12/24/18 11:31 POC Glucose 162 H Medical Necessity - Tobacco Use Smoking Status: Former smoker Assessment/Plan All Active Problems (Last Reviewed 12/07/18 @ 15:34 by Mervin Rachel NP-C) Angioedema due to angiotensin converting enzyme inhibitor (JINNY-I) (Acute) Acute bronchitis (Acute) Impressions 1. angioedema requiring intubation and mechanical ventilation. Likely culprit is the Lisinopril. Remains intubated due to new onset AF with RVR. Will likely extubate when the rate is controlled 2. weakness of all 4 extremities - relatively recent onset...Needs an MRI of the cervical and the lumbar spine after he is intubated. PT/OT ordered. Obtain the EMG report from [facility] 3. CAD with PTCA/REMIGIO to the mid LAD on 11/26/2005 4. Hyperlipidemia/diabetes mellitus type 2/ischemic cardiomyopathy with an EF of 55% in 2013/obesity-chronic problems, restart home meds down the NG -Plavix and aspirin per NG tube and atenolol 12.5 mg per NG. 5. New onset of AF RVR in a pt with known CAD and a LAD stent in 2005. check CE's, ECHO. Start cardizem infusion at 5 mg/hr after a 10 mg bolus. Check CE's. DC steroids Code Visit Inpatient E&M: 07920 Subs Hosp L3
--- NOTE | 2018-12-25 07:58 | ECHOCS_ITS ---
Reason For Study: AFIB/FLUTTER Procedure This was a 2D Doppler, Color Flow transthoracic echocardiogram. The study was technically difficult. Due to body habitus, arrhytnmia and patient on vent. Contrast injection was performed. Exam performed portable in ICU/CCU. Left Ventricle Normal LV size. Mild concentric left ventricular hypertrophy. Segmental dysfunction with preserved ejection fraction (see wall motion). The estimated ejection fraction is 65 %. Unable to assess diastolic dysfunction. Anterior [place] : Akinetic. Inferior [place] : Hypokinetic. Lateral [place] : Dyskinetic. Septal [place] : Akinetic. Right Ventricle Normal RV size. Normal systolic function. Atria The left atrium is mildly enlarged. Normal right atrium. No doppler evidence for ASD. Mitral Valve There is no mitral annular calcification. Normal mitral valve. Trivial mitral valve insufficiency. Tricuspid Valve Normal tricuspid valve. Mild tricuspid valve insufficiency. Right ventricular systolic pressure estimated to be 29 mmHg. Aortic Valve The aortic valve is not well visualized. Pulmonic Valve The pulmonic valve is not well visualized. Great Vessels Normal sized aortic root. Pericardium/Pleural No pericardial effusion. Medication Diluted definity 5.0ml given slow IV push to enhance endocardial definition. MMode/2D Measurements & Calculations LVIDd: 4.9 cm IVSd: 1.3 cm Ao root diam: 3.6 cm LVIDs: 3.9 cm LVPWd: 1.3 cm RVDd: 3.6 cm FS: 20.5 % LAV(MOD-bp): 70.5 ml LA A4 area: 21.7 cm2 LA dimension(2D): 4.3 cm LAV(MOD-bp) Indexed: 29.6 ml/m2 LAV(MOD-sp2): 70.0 ml LAV(MOD-sp4): 70.7 ml RA A4 area: 19.3 cm2 Doppler Measurements & Calculations MV E max issa: 58.0 cm/sec Ao V2 max: 98.0 cm/sec LV V1 max: 62.2 cm/sec Ao max P.8 mmHg LV V1 max P.5 mmHg TR max issa: 252.4 cm/sec TR max P.5 mmHg Interpretation Summary The study was technically difficult. Contrast injection was performed. Segmental dysfunction with preserved ejection fraction (see wall motion). The estimated ejection fraction is 65 %. Mild concentric left ventricular hypertrophy. The left atrium is mildly enlarged. Trivial mitral valve insufficiency. Mild tricuspid valve insufficiency. Right ventricular systolic pressure estimated to be 29 mmHg. Unable to assess diastolic dysfunction. Ordering Physician: Yaneli Spaulding Referring Physician: David Howard Performed By: Theodora Schulz, KERRY, RVT
[2018-12-25 08:19] LABS: Cholesterol 108 mg/dL (200); High Density Lipoprotein 30 mg/dL; Triglycerides 162 mg/dL; Very Low Density Lipoprotein 32 mg/dL (5-40)
[2018-12-25] MEDS: dilTIAZem 25 MG/5 ML Vial 10 MG IV BOLUS (08:38)
--- NOTE | 2018-12-25 09:29 | CM.UR ---
Participated in interdisciplinary rounds this am. Patient failed SBT as he went into afib RVR about an hour into trial. Placed back on vent settings until able to get rate controlled. Echo being performed during rounds. Daughter present during rounds. Angely Gale RN, CCM.
[2018-12-25] MEDS: Enoxaparin 40 MG/0.4 ML Syringe SC (09:55)
[2018-12-25] MEDS: Chlorhexidine 15 ML PO ×2 (09:55→21:35)
[2018-12-25] MEDS: fentaNYL drip 100 ML 7.5 MCG IV (12:10)
[2018-12-25] MEDS: Propofol 10MG/Ml 1,000 MG/100 ML Bottle 11.3 MG CONT INF ×2 (12:11→20:39)
[2018-12-25 12:31] LABS: Bedside Glucose 179 mg/dL (70-110)
[2018-12-25] MEDS: Vital AF 1.2 Cal Liq 1,500 ML 60 ML GT (16:24)
[2018-12-25 18:46] LABS: Bedside Glucose 173 mg/dL (70-110)
[2018-12-25 23:25] LABS: Bedside Glucose 129 mg/dL (70-110)
[2018-12-26] VITALS (44 sets, daily range): BP systolic 94–141; BP diastolic 58–81; PULSE 57–120; RESP 12–20; TEMP 36.3–37.2; O2SAT 91–99
[2018-12-26 04:27] LABS: Anion Gap 5 (5-15); BUN 30 mg/dL (7-18); BUN/Creat Ratio 35.4 RATIO (10-20); Calcium,Total 8.1 mg/dL (8.5-10.1); Chloride 104 mmol/L (98-107); Creatinine, Serum 0.85 mg/dL (0.70-1.30); EST Glomerular Filtration Rate 92 mL/min (>60); Est Glom Filt Rate - Afr Amer 111 mL/min (>60); Glucose 174 mg/dL (74-106); Magnesium 2.1 mg/dL (1.6-2.6); Potassium 4.1 mmol/L (3.5-5.1); Sodium Level 139 mmol/L (136-145)
[2018-12-26 05:16] LABS: Bedside Glucose 83 mg/dL (70-110)
--- NOTE | 2018-12-26 06:23 | PCM.PN.INT ---
Subjective: The patient was seen and examined at the bedside this morning. Events from the last 24 hours have been reviewed. The patient is currently afebrile, hemodynamically stable and maintaining appropriate oxygen saturations on spontaneous mode mechanical ventilation with an FiO2 requirement of 25%. The patient has done well this morning on his spontaneous breathing trial. The patient remains on amiodarone and Cardizem. His rate has been under good control until his spontaneous breathing trial. Objective: The patient's most recent lab work, culture data and imaging studies have all been personally reviewed. General: Alert, Cooperative, - - Remains intubated and mechanically ventilated. HEENT: Atraumatic, PERRLA, Normocephalic Oral: No Gingival or Mucosal Lesions/ Ulcerations, - - Endotracheal and OG tubes remain in place Neck: Supple, No Nodes, Trachea Midline Lungs: No rhonchi, No wheeze, No rales, Diminished Cardiovascular: Normal S1, Normal S2, Irregular Rate, Tachycardic Abdomen: Bowel Sounds Present, Soft, Non Tender, Obese Extremities: No clubbing, No cyanosis, No edema Skin: No breakdown Musculoskeletal: No Tenderness to Palpation of Joints or Extremities, No Muscle Wasting Lymphatic: No Cervical, Supraclavicular, or Inguinal Adenopathy Neurological: Neuro grossly intact, - - The patient is alert and following commands appropriately. Vital Signs Temp Pulse Resp BP Pulse Ox 98.7 F 102 H 12 136/80 H 94 12/26/18 06:00 12/26/18 06:00 12/26/18 06:00 12/26/18 06:00 12/26/18 06:00 Oxygen Delivery Method Mechanical Ventilator Weight: 274 lb 11.135 oz Body Mass Index (BMI) 38.5 Intake and Output for Last 24 Hours 12/24/18 12/25/18 12/26/18 23:59 23:59 23:59 Intake Total 2947.21 / 3298.81 2693.36 / 2708.14 704.22 / 704.22 Output Total 600 / 850 1350 / 1350 50 / 50 Balance 2347.21 / 2448.81 1343.36 / 1358.14 654.22 / 654.22 Labs (Last 48 Hours) 12/24/18 12/24/18 12/24/18 04:00 04:00 11:31 Sodium Potassium Chloride Carbon Dioxide Anion Gap BUN Creatinine Estim Creat Clear Calc Est GFR (MDRD) Af Amer Est GFR (MDRD) Non-Af BUN/Creatinine Ratio Glucose Hemoglobin A1c 6.6 H Calcium Phosphorus 4.8 Magnesium 2.1 Troponin I Triglycerides Cholesterol LDL Cholesterol VLDL Cholesterol HDL Cholesterol POC Glucose 162 H 12/24/18 12/25/18 12/25/18 18:32 00:01 04:20 Sodium 136 Potassium 4.7 Chloride 105 Carbon Dioxide 29.0 Anion Gap 2 L BUN 37 H Creatinine 1.02 Estim Creat Clear Calc 55.66 Est GFR (MDRD) Af Amer 89 Est GFR (MDRD) Non-Af 74 BUN/Creatinine Ratio 36.3 H Glucose 204 H Hemoglobin A1c Calcium 8.6 Phosphorus Magnesium Troponin I Triglycerides Cholesterol LDL Cholesterol VLDL Cholesterol HDL Cholesterol POC Glucose 173 H 187 H 12/25/18 12/25/18 12/25/18 04:20 04:20 06:40 Sodium Potassium Chloride Carbon Dioxide Anion Gap BUN Creatinine Estim Creat Clear Calc Est GFR (MDRD) Af Amer Est GFR (MDRD) Non-Af BUN/Creatinine Ratio Glucose Hemoglobin A1c Calcium Phosphorus 3.5 Magnesium 2.1 Troponin I Triglycerides 162 Cholesterol 108 LDL Cholesterol 46 VLDL Cholesterol 32 HDL Cholesterol 30 L POC Glucose 189 H 12/25/18 12/25/18 12/25/18 09:30 12:10 13:17 Sodium Potassium Chloride Carbon Dioxide Anion Gap BUN Creatinine Estim Creat Clear Calc Est GFR (MDRD) Af Amer Est GFR (MDRD) Non-Af BUN/Creatinine Ratio Glucose Hemoglobin A1c Calcium Phosphorus Magnesium Troponin I < 0.015 < 0.015 Triglycerides Cholesterol LDL Cholesterol VLDL Cholesterol HDL Cholesterol POC Glucose 179 H 12/25/18 12/25/18 12/25/18 16:30 18:36 23:22 Sodium Potassium Chloride Carbon Dioxide Anion Gap BUN Creatinine Estim Creat Clear Calc Est GFR (MDRD) Af Amer Est GFR (MDRD) Non-Af BUN/Creatinine Ratio Glucose Hemoglobin A1c Calcium Phosphorus Magnesium Troponin I < 0.015 Triglycerides Cholesterol LDL Cholesterol VLDL Cholesterol HDL Cholesterol POC Glucose 173 H 129 H 12/26/18 12/26/18 03:36 05:05 Sodium 139 Potassium 4.1 Chloride 104 Carbon Dioxide 30.0 Anion Gap 5 BUN 30 H Creatinine 0.85 Estim Creat Clear Calc 66.80 Est GFR (MDRD) Af Amer 111 Est GFR (MDRD) Non-Af 92 BUN/Creatinine Ratio 35.4 H Glucose 174 H Hemoglobin A1c Calcium 8.1 L Phosphorus Magnesium 2.1 Troponin I Triglycerides Cholesterol LDL Cholesterol VLDL Cholesterol HDL Cholesterol POC Glucose 83 Clinical Impression(s) from Imaging Studies Chest X-Ray 12/23/18 15:07 IMPRESSION: Mild increased markings at the lung bases suggestive of atelectasis and/or scarring. The tip of the endotracheal tube is at 3.5 cm proximal to the juliane. The tip of the orogastric tube is seen within the body of the stomach. Electronically Signed: [place], at 15:41 EDT , Service support , Medical Necessity - Tobacco Use Smoking Status: Former smoker Assessment/Plan All Active Problems (Last Reviewed 12/07/18 @ 15:34 by Mervin Rachel, BIOLOGICAL SCIENCE TECHNICIAN FISH-C) Angioedema due to angiotensin converting enzyme inhibitor (JINNY-I) (Acute) Atrial fibrillation (Acute) Acute bronchitis (Acute) RECOMMENDATIONS: 1. Proceed with a trial of extubation this morning. 2. Once extubated, wean supplemental oxygen to maintain saturations at or above 90%. 3. Continue Cardizem for now. 4. Cardiology consultation, given persistent atrial fibrillation. 5. Encourage incentive spirometer use and mobilize patient as tolerated. IMPRESSIONS: 1. Acute respiratory failure due to angioedema in the setting of JINNY inhibitor use Continue current supportive measures including invasive mechanical ventilatory support. Oropharyngeal swelling is improved significantly in light of treatment with steroids, Benadryl and Pepcid. The patient's heart rate is under better control today than yesterday. The patient passed his spontaneous breathing trial and is currently a candidate for extubation. Once extubated, we will plan to wean supplemental oxygen to maintain saturations at or above 90%. Encourage incentive spirometer use and mobilize patient as tolerated. 2. New onset atrial fibrillation/coronary artery disease status post PCI The patient developed new onset atrial fibrillation approximately 24 hours ago. He is followed longitudinally by Dr. Fuentes on an outpatient basis. Repeat echocardiogram revealed intact systolic function. We will plan to continue current medical management. A consultation has been placed to cardiology to assist with management. The patient may be a candidate for bedside cardioversion. 3. Obesity/hyperlipidemia/diabetes mellitus/hypertension Complicates care, management, recovery and prognosis. Okay to continue home medications. TIME: 37 minutes of critical care time, independent of procedures, was spent addressing the patient's acute respiratory failure, angioedema, coronary artery disease, new onset A fib, review of all data and collaboration with the care team. ([id number]) Code Visit [id number]: [id number] Critical care first hour
--- NOTE | 2018-12-26 07:19 | NURSING ---
pt extubated at 0650 via respiratory therapist, this RN and Dr. Burks at bedside, pt tolerated well, placed on 2L NC. Propofol and fentanyl D/C'd.
[2018-12-26 08:24] LABS: Absolute Lymphocyte Count 1.02 X10^3/uL (0.83-4.51); Absolute Neutrophil Count 12.1 X10^3/uL (2.0-7.7); Basophil# 0.03 X10^3/uL; Basophil% 0.2 % (0-1); Eosinophil# 0.01 X10^3/uL; Eosinophils% 0.1 % (0-5); Hematocrit 44.7 % (40-54); Hemoglobin 14.7 g/dL (13.0-16.5); Lymphocyte # 1.02 X10^3/ul (4.0); Lymphocyte % 6.4 % (19-41); Mean Corp Hgb Conc 32.9 g/dL (32-36); Mean Corpuscular Volume 100.2 fL (80-94); Monocyte# 2.81 X10^3/uL; Monocyte% 17.5 % (0-10); NRBC Flagged by Analyzer 0 % (0-5); Neutrophil # 12.09 X10^3/uL (2.7-7.7); Neutrophil % 75.3 % (47-70); POSITIVE DIFFERENTIAL YES; Platelet Count 247 K/mm3 (150-450); RBC Distribution Width CV 11.9 % (11.6-14.6); RBC Distribution Width SD 43.8 fl (35.1-43.9); Red Blood Count 4.46 M/mm3 (4.6-6.2)
--- NOTE | 2018-12-26 08:25 | CON.PCM_ITS ---
Problem List (1) Angioedema due to angiotensin converting enzyme inhibitor (JINNY-I) Status: Acute (2) Atrial fibrillation Status: Acute (3) Atherosclerosis of [place] coronary artery of [place] heart without angina pectoris Status: Chronic Comment: 11-26-05 PTCA/stent to mid LAD (4) Presence of stent in coronary artery Status: Chronic Comment: PTCA/stent to mid LAD 11/26/05 (5) Ischemic cardiomyopathy Status: Chronic (6) Pure hypercholesterolemia Status: Chronic Reason for Consult Date of Consultation: 12/26/18 History of Present Illness: The patient is a 83 year old with a past cardiovascular history which is included underlying CAD, IN, ischemic mediated cardiomyopathy, status post LAD PCI-remote, hyperlipidemia, who was being evaluated and treated for angioedema thought secondary to JINNY inhibitor therapy. He had been on medical management. He presented to the [facility] emergency department with difficulty breathing. He was noted to have angioedema of the tongue. He was subsequently mechanically intubated/ventilated and placed in the ICU for further evaluation and care. He has been undergoing evaluation care per Dr. Burks. He has now been successfully extubated. However, yesterday, during a weaning trial, he developed atrial fibrillation. He was treated at that time with rate control therapy with IV diltiazem and antiarrhythmic therapy with IV amiodarone. He has had rate control but has remained in atrial fibrillation. There have been no other acute cardiovascular findings reported. He is now being referred for cardiovascular consultation for his atrial fibrillation. In the interim the patient states he has been doing well. He denies any ongoing symptoms of classic angina pectoris. Separate from his acute issue he has had no complaint of ongoing shortness of breath or dyspnea. There has been no near syncope or syncope. He is recovering from left carpal tunnel surgery. [] Past Medical History Allergies/Adverse Reactions: Allergies lisinopril Allergy (Verified 12/23/18 16:52) Angioedema Home Medications: Ambulatory Orders Medication Instructions Recorded Aspirin 325 mg PO DAILY@0800 08/07/16 Glucosam/Chond/MSM/Silvis/Hyal 1 ea PO DAILY 08/07/16 [Glucosamine-Chondr Complex Tab] Metformin HCl [Glucophage] 500 mg PO DAILY 08/07/16 Multivitamins,Therapeutic 1 tab PO DAILY 08/07/16 [Multivitamin] Nitroglycerin (INPATIENT USE) 0.4 mg SUBLINGUAL Q5M PRN 08/07/16 [Nitrostat] atenolol 25 mg tablet 12.5 mg PO DAILY #45 tab 01/18/18 atorvastatin 20 mg tablet 20 mg PO QHS #90 tab 08/24/18 clopidogrel 75 mg tablet 75 mg PO DAILY #90 tab 08/24/18 lisinopril 20 mg tablet 20 mg PO DAILY #90 tab 08/24/18 traMADol [Ultram] 50 - 100 mg PO Q6H PRN 12/23/18 Past Medical History (Chronic Problems): Chronic Problems (Last Reviewed 12/07/18 @ 15:34 by Mervin Rachel NP-C) Presence of stent in coronary artery (Chronic ~11/26/05) PTCA/stent to mid LAD 11/26/05 Pure hypercholesterolemia (Chronic) Atherosclerosis of [place] coronary artery of [place] heart without angina pectoris (Chronic) 11-26-05 PTCA/stent to mid LAD Encounter for long-term current use of high risk medication (Chronic) Snoring (Chronic) Abnormal stress test (Chronic) Diabetes mellitus type 2, controlled (Chronic) Cardiac dysrhythmia, unspecified (Chronic) H/O percutaneous transluminal coronary angioplasty (Chronic) 11-26-05 PTCA/stent to mid LAD Sinus bradycardia (Chronic) PVC (premature ventricular contraction) (Chronic) Other primary cardiomyopathies (Chronic) Ischemic cardiomyopathy (Chronic) Old myocardial infarction (Chronic) Acute IN, subendocardial, subsequent episode of care (Chronic) Surgical History: noncontributory, - - Cardiac intervention: PCI Psychiatric History: No pertinent psych hx Lives: Spouse/ Significant Other Smoking Status: Former smoker Alcohol: None Drugs: None Review of Systems - Review of Systems General: Denies: Fever, Night Sweats, Fatigue HEENT: Reports: - - Tongue swelling Cardiovascular: Reports: Shortness of Breath. Denies: Chest Discomfort, Orthopnea, PND, Peripheral Edema, Palpitations, Lightheadedness, Dizziness, Near Syncope, Syncope Respiratory: Reports: Shortness of Breath. Denies: Cough, Sputum Production, Hemoptysis Gastrointestinal: Denies: Hematemesis, Hematochezia, Melena Genitourinary: Denies: Dysuria, Hematuria Skin: Denies: Rash Subjectve: This is an 83-year-old white male in the ICU status post extubation appears to be resting comfortably at the moment. Objective: Vital Signs Temp Pulse Resp BP Pulse Ox 98.7 F 117 H 20 H 136/80 H 99 12/26/18 06:00 12/26/18 07:34 12/26/18 06:50 12/26/18 06:00 12/26/18 06:50 Oxygen Delivery Method Room Air Weight: 274 lb 11.135 oz Body Mass Index (BMI) 38.5 Intake and Output for Last 24 Hours 12/24/18 12/25/18 12/26/18 23:59 23:59 23:59 Intake Total 2947.21 / 3298.81 2693.36 / 2708.14 716.72 / 716.72 Output Total 600 / 850 1350 / 1350 50 / 50 Balance 2347.21 / 2448.81 1343.36 / 1358.14 666.72 / 666.72 General: Awake, Alert, Oriented x 3, Cooperative, No Acute Distress, Obese HEENT: Atraumatic, Normocephalic, PERRL, EOMI, Sclera Non Icteric Oral: Moist Mucosa Neck: Supple, Good ROM, No JVD Lungs: Clear to auscultation Cardiovascular: Regular Rhythm, Normal S1, Normal S2 Abdomen: Bowel Sounds Present, Soft, Non Tender Extremities: - - Mild bilateral upper extremity edema: Hands Neurological: No Focal Motor or Sensory Deficit Psych/Mental Status: Appropriate 12/25/18 09:30: Troponin I < 0.015 12/25/18 13:17: Troponin I < 0.015 12/25/18 16:30: Troponin I < 0.015 12/26/18 03:36: Sodium 139, Potassium 4.1, Chloride 104, Carbon Dioxide 30.0, Anion Gap 5, BUN 30 H, Creatinine 0.85, Est GFR (MDRD) Af Amer 111, Est GFR (MDRD) Non-Af 92, BUN/Creatinine Ratio 35.4 H, Glucose 174 H, Calcium 8.1 L, Magnesium 2.1 Rhythm: Atrial fibrillation EKG: Atrial fibrillation ECHO: Interpretation Summary The study was technically difficult. Contrast injection was performed. Segmental dysfunction with preserved ejection fraction (see wall motion). The estimated ejection fraction is 65 %. Mild concentric left ventricular hypertrophy. The left atrium is mildly enlarged. Trivial mitral valve insufficiency. Mild tricuspid valve insufficiency. Right ventricular systolic pressure estimated to be 29 mmHg. Unable to assess diastolic dysfunction. Stress Test: DATE OF SERVICE: 08/05/2016 EXERCISE TOLERANCE TEST: The patient exercised on a Ochoa protocol for 5 minutes completing stage 1 and 2 minutes of stage 2, achieving a peak heart rate of 129 beats per minute (93% predicted maximum heart rate) and a peak blood pressure of 194/76 mmHg. The baseline ECG demonstrated normal sinus rhythm. The peak exercise ECG demonstrated no obvious ECG changes. There was a rare PVC during exercise. There were occasional PACs and rare PVC during recovery. There was an isolated ventricular couplet during recovery. The functional capacity was considered average. The patient had no complaint of chest discomfort during exercise or recovery. The examination was discontinued secondary to dyspnea. IMPRESSION: 1. Technically adequate (percent predicted maximum heart rate greater than 85%), exercise tolerance test. 2. Peak exercise ECG with no obvious ECG changes. 3. Rare PVC during exercise. 4. Occasional PAC and rare PVC during recovery. 5. Isolated ventricular couplet during recovery. 6. Nuclear images pending. MYOCARDIAL PERFUSION IMAGING STUDY: TECHNIQUE: The patient was injected with 14.9 mCi of Tc99m Cardiolite and subsequently rest SPECT Cardiolite nuclear imaging was obtained in the horizontal long, vertical long and short axes views. The patient exercised on a Ochoa protocol for 5 minutes completing stage 1 and 2 minutes of stage 2, achieving a peak heart rate of 129 beats per minute (93% predicted maximal heart rate) with a peak blood pressure of 194/76 mmHg and a peak MET capacity of 7 METs. The patient was injected with 45.1 mCi of Tc99m Cardiolite and subsequently stress SPECT Cardiolite nuclear imaging was obtained in the horizontal long, vertical long and short axes views. A gated Cardiolite study at peak stress was obtained. INTERPRETATION: Rest and stress SPECT Cardiolite nuclear imaging status post realignment, normalization, and attenuation correction demonstrate areas of extracardiac/hepatic and gastrointestinal tracer uptake near the inferior segments. There appears to be notation of area of diminished tracer uptake in the apical regions at rest. Status post stress, there is notation of continued evidence of diminished tracer uptake in the apical region as well as the appearance of diminished tracer uptake in the distal anterior regions. There are similar type findings on the resting and stress polar map images. There is notation of diminished end systolic thickening and brightening in the aforementioned areas and on the gated Cardiolite study, diminished myocardial thickening and inward wall motion. The reported LVEF is 63%. The aforementioned findings appear compatible with an area of previous myocardial injury/infarction involving the apical region with associated myocardial perfusion changes compatible with periinfarct related myocardial ischemia involving portions of the distal anterior regions as well. IMPRESSION: 1. Rest and stress SPECT Cardiolite nuclear imaging demonstrate myocardial perfusion changes appearing compatible with the effects of previous myocardial injury/infarction involving the apical regions with associated myocardial perfusion changes appearing compatible with periinfarct related myocardial ischemia as well as myocardial ischemia involving the distal anterior segments as well. 2. The gated Cardiolite study reports an LVEF of 63%. Cardiac Cath: 08-08-16 DOMINANCE: Right Dominant LEFT HEART ASSESSMENT Left Ventricular Ejection Fraction: by LV Gram 55 % Apical Akinesis Normal Left Ventricular End Diastolic Pressure LVEDP: 12 mmHg LEFT MAIN: Non-obstructive, Distal eccentric 25 % Stenosis LEFT ANTERIOR DESCENDING ARTERY: PROX LAD: Diffuse eccentric 25 % Stenosis MID LAD: Previously placed stent is patent DISTAL LAD: Previously placed stent is patent CIRCUMFLEX ARTERY: Mild luminal irregularities OM 1: Proximal - Diffuse eccentric 25 % Stenosis RIGHT CORONARY ARTERY: Diffuse ectatic I eccentric 25 % Stenosis VALVE FINDINGS: Normal Aortic Valva function Normal Mitral Valva function AORTIC ROOT: Angiographically normal PCI: 11-26-2005: LAD PCI CXR: Preliminary review: Chest x-ray preextubation: Concerns of atelectasis: Please see official report Assessment/Plan 1. Angioedema The patient presented with findings compatible with angioedema. It was thought this was secondary to JINNY inhibitor therapy. The patient subsequently required ICU evaluation with mechanical intubation/ventilation. He has subsequently now been extubated. He will remain off JINNY inhibitor therapy. 2. Atrial fibrillation The patient demonstrated, during his ICU weaning trial yesterday, the development of atrial fibrillation. He has been treated with rate control therapy and antiarrhythmic therapy. He has remained in atrial fibrillation. He is going to be treated with additional medical management with anticoagulation. This will include IV heparin at this time until he is able to take oral medications. In the meantime consideration is given, noting the timing of his onset of atrial fibrillation, the duration of his atrial fibrillation, he has lack of conversion with medical therapy with IV amiodarone, to proceed with further attempts at regaining sinus rhythm with synchronized biphasic DC cardioversion. 3. CAD status post IN (remote) status post LAD PTCA/stent (remote) The patient does have the aforementioned history. He is undergone extensive noninvasive and invasive evaluation in the past. He has been treated medically. He has had no evidence of ongoing acute coronary syndrome. He will need continued future medical management. 4. Ischemic mediated cardiomyopathy The patient does have an underlying ischemic mediated cardiomyopathy. His overall LV systolic function appears to remain preserved at this time. He will continue medical management. Based upon his diagnosis of angioedema secondary to JINNY inhibitor therapy this will no longer include JINNY inhibitors. 5. Hyperlipidemia The patient will continue lipid-lowering therapy as deemed appropriate. Comment: The patient's case has been previously discussed and reviewed with the patient, the patient's family members present, and with Dr. Burks. This note was generated with [employer]end[employer] dictation software. It may contain incorrect words, spelling, and punctuation that were not noted in checking the note before signing.
[2018-12-26 08:27] LABS: Differential Indicated SCAN CRITERIA MET
[2018-12-26 08:33] LABS: International Normalized Ratio 1.2; Partial Thromboplast Time 24.1 Seconds (24.1-36.2)
[2018-12-26 08:41] LABS: Differential Comment SCANNED
[2018-12-26] MEDS: Heparin Injection (Vial) 5,000 UNIT/ML VIAL 9500 UNIT IV (08:52)
[2018-12-26] MEDS: HEPARIN/D5w 25,000 UNITS 25,000 UNITS/250 ML IV.SOLN. 16 UNITS IV (08:52)
[2018-12-26] MEDS: CHLORHEXIDINE GLUC 2% CLOTH 1 EACH TOWELETTE TOPICAL (08:53)
--- NOTE | 2018-12-26 09:18 | PN_ITS ---
Patient Problems: Active and Suspected Problems (Last Reviewed 12/07/18 @ 15:34 by Mervin Rachel NP-C) Angioedema due to angiotensin converting enzyme inhibitor (JINNY-I) (Acute) Atrial fibrillation (Acute) Subjective: Feeling well today, denies any shortness of breath or swelling. Vitals/I&O's: Vital Signs Temp Pulse Resp BP Pulse Ox 98.4 F 101 H 16 137/76 H 94 12/26/18 08:00 12/26/18 08:00 12/26/18 08:00 12/26/18 08:00 12/26/18 08:00 Oxygen Delivery Method Mechanical Ventilator Weight: 274 lb 11.135 oz Body Mass Index (BMI) 38.5 Intake and Output for Last 24 Hours 12/24/18 12/25/18 12/26/18 23:59 23:59 23:59 Intake Total 2947.21 / 3298.81 2693.36 / 2708.14 716.72 / 716.72 Output Total 600 / 850 1350 / 1350 50 / 50 Balance 2347.21 / 2448.81 1343.36 / 1358.14 666.72 / 666.72 General: Alert, Oriented x3, Cooperative, No apparent distress HEENT: Atraumatic, PERRLA, EOMI, Normocephalic Oral: Moist Mucosa Neck: Supple, No JVD Lungs: Clear to auscultation, Normal air movement, No rhonchi, No wheeze, No rales, Diminished Cardiovascular: Normal S1, Normal S2, No murmurs, Tachycardic, - - Irregular rhythm Abdomen: Soft, Non Tender, Non-Distended, No Hepato-splenomegaly Extremities: No edema, Capillary Refill Less than 3 Seconds Skin: No rashes, No breakdown Neurological: Neuro grossly intact, Sensory exam intact to light touch and pain Psych/Mental Status: Normal Affect, Appropriate Laboratory Results 12/25/18 09:30: Troponin I < 0.015 12/25/18 12:10: POC Glucose 179 H 12/25/18 13:17: Troponin I < 0.015 12/25/18 16:30: Troponin I < 0.015 12/25/18 18:36: POC Glucose 173 H 12/25/18 23:22: POC Glucose 129 H 12/26/18 03:36: Sodium 139, Potassium 4.1, Chloride 104, Carbon Dioxide 30.0, Anion Gap 5, BUN 30 H, Creatinine 0.85, Estim Creat Clear Calc 66.80, Est GFR (MDRD) Af Amer 111, Est GFR (MDRD) Non-Af 92, BUN/Creatinine Ratio 35.4 H, Glucose 174 H, Calcium 8.1 L, Magnesium 2.1 12/26/18 05:05: POC Glucose 83 12/26/18 08:05: WBC 16.0 H, RBC 4.46 L, Hgb 14.7, Hct 44.7, MCV 100.2 H, MCH 33.0 H, MCHC 32.9, RDW Std Deviation 43.8, RDW Coeff of [place] 11.9, Plt Count 247, MPV 9.0, Immature Gran % (Auto) 0.500, Neut % (Auto) 75.3 H, Lymph % (Auto) 6.4 L, [place] % (Auto) 17.5 H, Eos % (Auto) 0.1, Baso % (Auto) 0.2, Absolute Neuts (auto) 12.1 H, Absolute Lymphs (auto) 1.02, Nucleated RBC % 0, Differential Comment SCANNED, Diff Path Review July12/26/18 08:05: PT 15.0 H, INR 1.2, APTT 24.1 Current Medications Chlorhexidine Gluconate () 1 each TOPICAL DAILY [facility] Last Admin: 12/26/18 08:53 Dose: 1 each Documented by: Dextrose (D50w Syringe) 0 gm IV X1 PRN; Protocol PRN Reason: Hypoglycemia Glucagon () 1 mg IM .X1 PRN PRN Reason: Hypoglycemia Heparin Sodium (Porcine) (Heparin Na) 0 unit IV UD PRN; Protocol Famotidine 20 mg/ Sodium (Chloride) 10 mls @ 300 mls/hr IV Q12 JIGAR Last Infusion: 12/25/18 21:38 Dose: Infused Documented by: Diltiazem HCl 125 mg/ Dextrose 125 mls @ 5 mls/hr CONT INF .Q25H JIGAR; Protocol Last Titration: 12/26/18 06:50 Dose: 15 mg/hr, 15 mls/hr Documented by: Sodium Chloride () 250 mls @ 15 mls/hr IV .[id number] PRN PRN Reason: SALINE FLUSH Heparin Sodium/Dextrose () 25,000 units in 250 mls @ 16 mls/hr IV .[id number] [facility]; Protocol Last Admin: 12/26/18 08:52 Dose: 1,600 units/hr, 16 mls/hr Documented by: Amiodarone HCl/Dextrose (Nexterone 360 Mg/200 Ml Bag) 360 mg in 200 mls @ 16.667 mls/hr CONT INF .Q12H [facility] Last Admin: 12/26/18 09:04 Dose: Not Given Documented by: Insulin Human Lispro (Humalog Kwikpen (Bkc)) 0 unit SC Q6 JIGAR; Protocol Last Admin: 12/26/18 05:05 Dose: Not Given Documented by: Sodium Chloride () 10 - 40 ml IV UD PRN PRN Reason: SALINE FLUSH Medical Necessity - Tobacco Use Smoking Status: Former smoker Assessment/Plan All Active Problems (Last Reviewed 12/07/18 @ 15:34 by Mervin Rachel, CASH POSTING REPRESENTATIVE-C) Angioedema due to angiotensin converting enzyme inhibitor (JINNY-I) (Acute) Atrial fibrillation (Acute) Acute bronchitis (Acute) 1. Acute respiratory failure secondary to angioedema from lisinopril -Currently extubated -Maintaining oxygen saturations on nasal cannula -No lip or tongue swelling evident on exam -Continue with IV fluids 2. CAD status post stents/HTN/HLD/new onset A. fib -Continue with amiodarone and Cardizem drip -Appreciate cardiology input, may proceed with cardioversion today -If he is successfully cardioverted and can discontinue his drips, may consider transfer to PCU this afternoon -Prior to discharge we will have to determine a different regimen for his blood pressure management -We will continue with aspirin and Plavix when he can take p.o. 3. DM 2 -We will hold his metformin -Continue with sliding scale insulin and Accu-Cheks DVT: Heparin drip Code Visit Inpatient E&M: 83156 Subs Hosp L2
[2018-12-26] MEDS: Propofol 200 MG/20 ML Vial 40 MG IV BOLUS (10:56)
[2018-12-26] MEDS: Propofol 200 MG/20 ML Vial 30 MG IV BOLUS (10:58)
--- NOTE | 2018-12-26 11:05 | NURSING ---
Dr. Fuentes and Dr. Burks at bedside to begin cardioversion with this RN present. Lifepak pads placed per Dr. Fuentes's direction. PSN staff at bedside as well. 1055 - HR 84, SpO2 92%, RR 20, BP 121/72 1056 - 40 mg diprivan given IVP per Dr. Burks 1057 - HR 83, SpO2 94%, RR 17, BP 100/87 1058 - 30 mg diprivan given IVP per Dr. Burks 1100 - HR 65, SpO2 94%, RR 19, BP 120/69, lifepak charged with 200J, shock delivered per Dr. Fuentes, NSR noted on monitor 1103 - HR 62, SpO2 95%, RR 20, BP 117/75 1110 - Pt responsive to verbal stimuli, able to move extremeties x4, oriented x3
--- NOTE | 2018-12-26 11:11 | PCM.OP.PRO ---
Procedure Report Date of Procedure: 12/26/18 CONSCIOUS SEDATION REPORT DATE OF SERVICE: December 26, 2018 BRIEF HISTORY OF PRESENT ILLNESS: The patient is an 83-year-old male who presented to [facility] on December 23 with respiratory failure in the setting of angioedema. The patient subsequently went into atrial fibrillation with a rapid ventricular rate on December 25. The patient was maintained on Cardizem and amiodarone, but failed to convert to normal sinus rhythm. Therefore, the decision was made to proceed with bedside cardioversion. The patient has no known prior history of atrial fibrillation. He denies any previous anesthetic complications. PHYSICAL EXAMINATION: VITAL SIGNS: Reviewed and were acceptable. GENERAL: The patient is an obese male, in no apparent distress, speaking in full sentences. HEENT: Normocephalic, atraumatic. Mucous membranes are moist and pink. Good mouth opening noted. Trachea is midline. Good neck mobility. CHEST: S1, S2 irregularly irregular. No murmurs, rubs or gallops were noted. LUNGS: Clear to auscultation bilaterally without appreciable wheezes, rales or rhonchi. ABDOMEN: Soft, nontender, nondistended. Positive bowel sounds. EXTREMITIES: There is no clubbing, cyanosis or edema. ASA Class: II DESCRIPTION OF PROCEDURE: After confirmation of informed consent, the patient's anesthesia plan was reviewed in detail. Propofol was chosen. Risks and benefits were reviewed and the patient agreed to proceed. At 1056, the patient was given his first bolus of propofol. In total, the patient required 70 mg of propofol to achieve an appropriate level of sedation. Following this, the patient received a 200 joule synchronized cardioversion by Dr. Fuentes at the bedside. This was successful in achieving normal sinus rhythm. The patient was monitored until 1110, at which time he reached his baseline mental status and function. The patient tolerated the procedure well. COMPLICATIONS: None ESTIMATED BLOOD LOSS: None RECOMMENDATIONS: Okay to recover in usual fashion. Code Visit [id number]: Other Procedure See Report - 11218
--- NOTE | 2018-12-26 11:30 | CARDIOVERS ---
Cardioversion Cardioversion: Date: 12-25-18 Procedure: Synchronized Biphasic DC Cardioversion Indications: Atrial fibrillation Consent: [Per the Patient] Anesthesia: per Dr. Burks of pulmonology and critical care medicine with propofol 70 mg IV push total Procedure: Synchronized Biphasic DC Cardioversion: 200 J x1: Result: Sinus rhythm Complications: no apparent complications This note was generated with CloudHashing[employer] software. It may contain incorrect words, spelling, and punctuation that were not noted in checking the note before signing.
--- NOTE | 2018-12-26 11:32 | EKG12_ITS ---
Test Reason : RHYTHM CHANGES Blood Pressure : / mmHG Vent. Rate : 135 BPM Atrial Rate : 147 BPM P-R Int : 000 ms QRS Dur : 086 ms QT Int : 312 ms P-R-T Axes : 000 -19 036 degrees QTc Int : 468 ms Atrial fibrillation Poor R-wave Progression Inferior IA, age undetermined, cannot be excluded Abnormal ECG Confirmed by HANANE EATON, FELIX ([id number]), department editor RIGO VASQUES ([id number]) on 01/06/2019 8:21:56 AM Referred By: Julieth Davila Confirmed By:FELIX KOO MD
[2018-12-26 12:26] LABS: Bedside Glucose 135 mg/dL (70-110)
[2018-12-26] MEDS: Amiodarone 200 MG Tablet PO ×2 (15:01→21:40)
[2018-12-26] MEDS: Atenolol 25 MG Tablet PO (15:02)
[2018-12-26 15:38] LABS: Partial Thromboplast Time 140.1 Seconds (24.1-36.2)
[2018-12-26 17:35] LABS: Bedside Glucose 118 mg/dL (70-110)
[2018-12-27] VITALS (17 sets, daily range): BP systolic 115–142; BP diastolic 38–68; PULSE 54–64; RESP 11–22; TEMP 36.3–36.8; O2SAT 92–99
[2018-12-27 00:26] LABS: Bedside Glucose 103 mg/dL (70-110)
[2018-12-27 04:48] LABS: Hematocrit 38.2 % (40-54); Hemoglobin 12.3 g/dL (13.0-16.5); Mean Corp Hgb Conc 32.2 g/dL (32-36); Mean Corpuscular Hgb 32.6 pg (27.0-32.0); Mean Corpuscular Volume 101.3 fL (80-94); Mean Platelet Vol. 9.3 fl (6.2-12.0); Platelet Count 187 K/mm3 (150-450); RBC Distribution Width SD 44.8 fl (35.1-43.9); Red Blood Count 3.77 M/mm3 (4.6-6.2); White Blood Count 10.5 K/mm3 (4.4-11.0)
[2018-12-27 04:54] LABS: Partial Thromboplast Time 49.4 Seconds (24.1-36.2)
[2018-12-27] MEDS: Amiodarone 200 MG Tablet PO ×2 (05:23→14:46)
[2018-12-27] MEDS: HEPARIN/D5w 25,000 UNITS 25,000 UNITS/250 ML IV.SOLN. 11 UNITS IV (05:23)
[2018-12-27] MEDS: Heparin Injection (Vial) 5,000 UNIT/ML VIAL IV (05:25)
[2018-12-27 06:20] LABS: Bedside Glucose 103 mg/dL (70-110)
--- NOTE | 2018-12-27 07:12 | PCM.PN.INT ---
Subjective: Patient did okay overnight. Patient did receive a cardioversion yesterday and has remained in normal sinus rhythm. Nursing reports some hematuria overnight, but no obstruction has been reported. Patient does report mild dysuria, but feels he can adequately empty the bladder. Patient has remained on minimal nasal cannula oxygen. No other sources of bleeding of been reported. Objective: Patient received cardioversion and conscious sedation yesterday without complication. General: Alert, Oriented x3, Cooperative, No apparent distress, Well developed, Well nourished, - - Obese. Speaking in full sentences. HEENT: Atraumatic, PERRLA, EOMI, Normocephalic, - - No scleral icterus or injection noted. Oral: Moist Mucosa, No Gingival or Mucosal Lesions/ Ulcerations Neck: Supple, No JVD, No Nodes, Trachea Midline Lungs: No rhonchi, No wheeze, No rales, Diminished, - - Symmetric expansion. Cardiovascular: Regular rate, Regular Rhythm, Normal S1, Normal S2, No murmurs, No rub noted, No Gallop Abdomen: Bowel Sounds Present, Soft, Non Tender, Non-Distended, Obese Extremities: No clubbing, No cyanosis, Capillary Refill Less than 3 Seconds, Edema - 1-2+ Skin: No rashes, No breakdown Musculoskeletal: No Tenderness to Palpation of Joints or Extremities Lymphatic: No Cervical, Supraclavicular, or Inguinal Adenopathy Neurological: Cranial nerves II-XII grossly intact, Neuro grossly intact, Motor Exam 5/5 strength throughout Psych/Mental Status: Alert and oriented to time, place, person, mood and affect Vital Signs Temp Pulse Resp BP Pulse Ox 36.3 C L 57 L 13 121/67 H 99 12/27/18 04:00 12/27/18 06:00 12/27/18 06:00 12/27/18 06:00 12/27/18 06:00 Oxygen Flow Rate (L/min) 3 Oxygen Delivery Method Nasal Cannula Weight: 122.7 kg Body Mass Index (BMI) 38.5 Intake and Output for Last 24 Hours 12/25/18 12/26/18 12/27/18 23:59 23:59 23:59 Intake Total 2693.36 / 2708.14 1729.24 / 1729.24 50.83 / 50.83 Output Total 1350 / 1350 575 / 575 Balance 1343.36 / 1358.14 1154.24 / 1154.24 50.83 / 50.83 Labs (Last 48 Hours) 12/25/18 12/25/18 12/25/18 04:20 09:30 12:10 WBC RBC Hgb Hct MCV MCH MCHC RDW Std Deviation RDW Coeff of [place] Plt Count MPV Immature Gran % (Auto) Neut % (Auto) Lymph % (Auto) [place] % (Auto) Eos % (Auto) Baso % (Auto) Absolute Neuts (auto) Absolute Lymphs (auto) Nucleated RBC % Differential Comment Diff Path Review PT INR APTT Sodium Potassium Chloride Carbon Dioxide Anion Gap BUN Creatinine Estim Creat Clear Calc Est GFR (MDRD) Af Amer Est GFR (MDRD) Non-Af BUN/Creatinine Ratio Glucose Calcium Magnesium Troponin I < 0.015 Triglycerides 162 Cholesterol 108 LDL Cholesterol 46 VLDL Cholesterol 32 HDL Cholesterol 30 L POC Glucose 179 H 12/25/18 12/25/18 12/25/18 13:17 16:30 18:36 WBC RBC Hgb Hct MCV MCH MCHC RDW Std Deviation RDW Coeff of [place] Plt Count MPV Immature Gran % (Auto) Neut % (Auto) Lymph % (Auto) [place] % (Auto) Eos % (Auto) Baso % (Auto) Absolute Neuts (auto) Absolute Lymphs (auto) Nucleated RBC % Differential Comment Diff Path Review PT INR APTT Sodium Potassium Chloride Carbon Dioxide Anion Gap BUN Creatinine Estim Creat Clear Calc Est GFR (MDRD) Af Amer Est GFR (MDRD) Non-Af BUN/Creatinine Ratio Glucose Calcium Magnesium Troponin I < 0.015 < 0.015 Triglycerides Cholesterol LDL Cholesterol VLDL Cholesterol HDL Cholesterol POC Glucose 173 H 12/25/18 12/26/18 12/26/18 23:22 03:36 05:05 WBC RBC Hgb Hct MCV MCH MCHC RDW Std Deviation RDW Coeff of [place] Plt Count MPV Immature Gran % (Auto) Neut % (Auto) Lymph % (Auto) [place] % (Auto) Eos % (Auto) Baso % (Auto) Absolute Neuts (auto) Absolute Lymphs (auto) Nucleated RBC % Differential Comment Diff Path Review PT INR APTT Sodium 139 Potassium 4.1 Chloride 104 Carbon Dioxide 30.0 Anion Gap 5 BUN 30 H Creatinine 0.85 Estim Creat Clear Calc 66.80 Est GFR (MDRD) Af Amer 111 Est GFR (MDRD) Non-Af 92 BUN/Creatinine Ratio 35.4 H Glucose 174 H Calcium 8.1 L Magnesium 2.1 Troponin I Triglycerides Cholesterol LDL Cholesterol VLDL Cholesterol HDL Cholesterol POC Glucose 129 H 83 12/26/18 12/26/18 12/26/18 08:05 08:05 12:16 WBC 16.0 H RBC 4.46 L Hgb 14.7 Hct 44.7 MCV 100.2 H MCH 33.0 H MCHC 32.9 RDW Std Deviation 43.8 RDW Coeff of [place] 11.9 Plt Count 247 MPV 9.0 Immature Gran % (Auto) 0.500 Neut % (Auto) 75.3 H Lymph % (Auto) 6.4 L [place] % (Auto) 17.5 H Eos % (Auto) 0.1 Baso % (Auto) 0.2 Absolute Neuts (auto) 12.1 H Absolute Lymphs (auto) 1.02 Nucleated RBC % 0 Differential Comment SCANNED Diff Path Review May foll PT 15.0 H INR 1.2 APTT 24.1 Sodium Potassium Chloride Carbon Dioxide Anion Gap BUN Creatinine Estim Creat Clear Calc Est GFR (MDRD) Af Amer Est GFR (MDRD) Non-Af BUN/Creatinine Ratio Glucose Calcium Magnesium Troponin I Triglycerides Cholesterol LDL Cholesterol VLDL Cholesterol HDL Cholesterol POC Glucose 135 H 12/26/18 12/26/18 12/26/18 15:10 17:33 21:50 WBC RBC Hgb Hct MCV MCH MCHC RDW Std Deviation RDW Coeff of [place] Plt Count MPV Immature Gran % (Auto) Neut % (Auto) Lymph % (Auto) [place] % (Auto) Eos % (Auto) Baso % (Auto) Absolute Neuts (auto) Absolute Lymphs (auto) Nucleated RBC % Differential Comment Diff Path Review PT INR APTT 140.1 H* 132.0 H* Sodium Potassium Chloride Carbon Dioxide Anion Gap BUN Creatinine Estim Creat Clear Calc Est GFR (MDRD) Af Amer Est GFR (MDRD) Non-Af BUN/Creatinine Ratio Glucose Calcium Magnesium Troponin I Triglycerides Cholesterol LDL Cholesterol VLDL Cholesterol HDL Cholesterol POC Glucose 118 H 12/27/18 12/27/18 12/27/18 00:22 04:20 04:20 WBC 10.5 RBC 3.77 L Hgb 12.3 L Hct 38.2 L MCV 101.3 H MCH 32.6 H MCHC 32.2 RDW Std Deviation 44.8 H RDW Coeff of [place] 12.0 Plt Count 187 MPV 9.3 Immature Gran % (Auto) Neut % (Auto) Lymph % (Auto) [place] % (Auto) Eos % (Auto) Baso % (Auto) Absolute Neuts (auto) Absolute Lymphs (auto) Nucleated RBC % Differential Comment Diff Path Review PT INR APTT 49.4 H Sodium Potassium Chloride Carbon Dioxide Anion Gap BUN Creatinine Estim Creat Clear Calc Est GFR (MDRD) Af Amer Est GFR (MDRD) Non-Af BUN/Creatinine Ratio Glucose Calcium Magnesium Troponin I Triglycerides Cholesterol LDL Cholesterol VLDL Cholesterol HDL Cholesterol POC Glucose 103 12/27/18 06:15 WBC RBC Hgb Hct MCV MCH MCHC RDW Std Deviation RDW Coeff of [place] Plt Count MPV Immature Gran % (Auto) Neut % (Auto) Lymph % (Auto) [place] % (Auto) Eos % (Auto) Baso % (Auto) Absolute Neuts (auto) Absolute Lymphs (auto) Nucleated RBC % Differential Comment Diff Path Review PT INR APTT Sodium Potassium Chloride Carbon Dioxide Anion Gap BUN Creatinine Estim Creat Clear Calc Est GFR (MDRD) Af Amer Est GFR (MDRD) Non-Af BUN/Creatinine Ratio Glucose Calcium Magnesium Troponin I Triglycerides Cholesterol LDL Cholesterol VLDL Cholesterol HDL Cholesterol POC Glucose 103 Medical Necessity - Tobacco Use Smoking Status: Former smoker Assessment/Plan All Active Problems (Last Reviewed 12/07/18 @ 15:34 by Mervin Rachel, HOME HOSPICE AIDE-C) Angioedema due to angiotensin converting enzyme inhibitor (JINNY-I) (Acute) Atrial fibrillation (Acute) Acute bronchitis (Acute) RECOMMENDATIONS: 1. Wean supplemental oxygen as tolerated 2. Walking oximetry prior to discharge 3. Rate control per cardiology 4. Encourage incentive spirometer and mobilization as tolerated 5. Okay to leave the intensive care unit from my perspective IMPRESSIONS: 1. Acute respiratory failure due to angioedema in the setting of JINNY inhibitor use Patient extubated with good response. Patient has been on steroids, Benadryl and Pepcid. Patient responded well to cardioversion. Anticipate improvement in oxygenation given normal sinus rhythm. Wean oxygen as tolerated. Patient will need a walking oximetry prior to discharge. Ambulation as tolerated will help with any additional atelectasis. 2. New onset atrial fibrillation/coronary artery disease status post PCI Patient did develop new onset atrial fibrillation during the hospitalization. Patient has had intact systolic function and is on medical management. Patient received a cardioversion yesterday with good response. Electrolytes were acceptable yesterday. These will likely be rechecked if patient were to recur with A. fib. 3. Obesity/hyperlipidemia/diabetes mellitus/hypertension Complicates care, management, recovery and prognosis. Okay to continue home medications. Code Visit Inpatient E&M: [id number] [facility] Hosp L3
--- NOTE | 2018-12-27 08:10 | EKG12_ITS ---
Test Reason : Blood Pressure : / mmHG Vent. Rate : 058 BPM Atrial Rate : 058 BPM P-R Int : 194 ms QRS Dur : 088 ms QT Int : 466 ms P-R-T Axes : 037 -15 -03 degrees QTc Int : 457 ms Sinus bradycardia Poor R- wave progression Confirmed by HANANE EATON, FELIX ([id number]), sound editor RIGO VASQUES ([id number] on 01/06/2019 8:31:24 AM Referred By: Julieth Davila Confirmed By:FELIX KOO MD
--- NOTE | 2018-12-27 08:11 | PN.CARD_ITS ---
Subjectve: The patient is awake and alert. He denies any ongoing chest discomfort or difficulty breathing. There has been no obvious palpitations or rapid rates. Objective: Vital Signs Temp Pulse Resp BP Pulse Ox 97.4 F L 64 17 142/63 H 92 12/27/18 04:00 12/27/18 08:00 12/27/18 08:00 12/27/18 08:00 12/27/18 08:00 Oxygen Flow Rate (L/min) 3 Oxygen Delivery Method Room Air Weight: 270 lb 8.115 oz Body Mass Index (BMI) 38.5 Intake and Output for Last 24 Hours 12/25/18 12/26/18 12/27/18 23:59 23:59 23:59 Intake Total 2693.36 / 2708.14 1729.24 / 1729.24 50.83 / 50.83 Output Total 1350 / 1350 575 / 575 Balance 1343.36 / 1358.14 1154.24 / 1154.24 50.83 / 50.83 General: Awake, Alert, Oriented x 3, Cooperative, No Acute Distress, Obese HEENT: Atraumatic, Normocephalic, PERRL, EOMI, Sclera Non Icteric Oral: Moist Mucosa Neck: Supple, Good ROM, No JVD Lungs: Clear to auscultation Cardiovascular: Regular Rhythm, Normal S1, Normal S2 Abdomen: Bowel Sounds Present, Soft, Non Tender Extremities: - - Mild bilateral hand edema Psych/Mental Status: Appropriate 12/26/18 08:05: WBC 16.0 H, RBC 4.46 L, Hgb 14.7, Hct 44.7, MCV 100.2 H, MCH 33.0 H, MCHC 32.9, Plt Count 247, MPV 9.0, Immature Gran % (Auto) 0.500, Neut % (Auto) 75.3 H, Lymph % (Auto) 6.4 L, [place] % (Auto) 17.5 H, Eos % (Auto) 0.1, Baso % (Auto) 0.2, Absolute Neuts (auto) 12.1 H, Nucleated RBC % 0 12/26/18 08:05: PT 15.0 H, INR 1.2, APTT 24.1 12/26/18 15:10: APTT 140.1 H* 12/26/18 21:50: APTT 132.0 H* 12/27/18 04:20: WBC 10.5, RBC 3.77 L, Hgb 12.3 L, Hct 38.2 L, MCV 101.3 H, MCH 32.6 H, MCHC 32.2, Plt Count 187, MPV 9.3 12/27/18 04:20: APTT 49.4 H Rhythm: Sinus rhythm EKG: Sinus bradycardia; leftward axis; poor R wave progression Medical Necessity - Tobacco Use Smoking Status: Former smoker Assessment/Plan 1. Angioedema The patient presented with findings compatible with angioedema. It was thought this was secondary to JINNY inhibitor therapy. The patient subsequently required ICU evaluation with mechanical intubation/ventilation. He has subsequently now been extubated. He will remain off JINNY inhibitor therapy. 2. Atrial fibrillation The patient is now status post medical therapy and synchronized biphasic DC cardioversion. He appears to be remaining in sinus rhythm at this time. At the present time he will continue medical therapy with rate control therapy, antiarrhythmic therapy, and anticoagulant therapy. Over time consideration will be given as to whether or not he needs to remain on long-term antiarrhythmic therapy and anticoagulant therapy. 3. CAD status post NM (remote) status post LAD PTCA/stent (remote) The patient does have the aforementioned history. He is undergone extensive noninvasive and invasive evaluation in the past. He has been treated medically. He has had no evidence of ongoing acute coronary syndrome. He will need continued future medical management. 4. Ischemic mediated cardiomyopathy The patient does have an underlying ischemic mediated cardiomyopathy. His overall LV systolic function appears to remain preserved at this time. He will continue medical management. Based upon his diagnosis of angioedema secondary to JINNY inhibitor therapy this will no longer include JINNY inhibitors. 5. Hyperlipidemia The patient will continue lipid-lowering therapy as deemed appropriate. Comment: The patient's case has been previously discussed and reviewed with the patient. This note was generated with [employer] software. It may contain incorrect words, spelling, and punctuation that were not noted in checking the note before signing.
--- NOTE | 2018-12-27 09:27 | DCINST_ITS ---
- Discharge Diagnoses Current Active Problems: Current Active and Chronic Problems (Last Reviewed 12/07/18 @ 15:34 by ROSE Sierra) Angioedema due to angiotensin converting enzyme inhibitor (JINNY-I) (Acute) Atrial fibrillation (Acute) You will use the following diet at home:: Cardiac Your food should be the consistency of: Regular Your liquids should be the consistency of: Regular/Thin Discharge Activity: Return to Normal Activity Call your doctor if you observe: Fever of 101 or Higher, Shortness of breath, Dizziness, Fainting spells, Swelling in the ankles, Chest pain, Increased palpitations (irregular heartbeat) Allergies/Adverse Reactions: Allergies lisinopril Allergy (Verified 12/23/18 16:52) Angioedema Medications to take at Discharge Aspirin 325 mg PO DAILY@0800 08/07/16 Glucosam/Chond/MSM/[place]/Hyal [Glucosamine-Chondr Complex Tab] 1 ea PO DAILY 08/07/16 Metformin HCl [Glucophage] 500 mg PO DAILY 08/07/16 Multivitamins,Therapeutic [Multivitamin] 1 tab PO DAILY 08/07/16 Nitroglycerin (INPATIENT USE) [Nitrostat] 0.4 mg SUBLINGUAL Q5M PRN 08/07/16 atenolol 25 mg tablet 12.5 mg PO DAILY #45 tab 01/18/18 atorvastatin 20 mg tablet 20 mg PO QHS #90 tab 08/24/18 traMADol [Ultram] 50 - 100 mg PO Q6H PRN 12/23/18 Amiodarone HCl [Cordarone] 200 mg PO BID #14 tab 12/27/18 Amiodarone HCl [Cordarone] 200 mg PO DAILY #30 tab 12/27/18 Amiodarone HCl [Cordarone] 200 mg PO TID #15 tab 12/27/18 Rivaroxaban [Xarelto] 20 mg PO DINNER #30 tab 12/27/18 The following prescriptions were given: Amiodarone HCl [Cordarone] 200 mg PO DAILY #30 tab Transmission Status: Pending to [facility] Amiodarone HCl [Cordarone] 200 mg PO BID #14 tab Transmission Status: Pending to [facility] Amiodarone HCl [Cordarone] 200 mg PO TID #15 tab Transmission Status: Pending to [facility] Rivaroxaban [Xarelto] 20 mg PO DINNER #30 tab Transmission Status: Pending to [facility] Primary Care Physician: David Howard MD [Primary Care Provider] - Please follow up with your Primary Care Physician in: 3-5 days Test Results: Test results from this visit will be discussed in further detail at your follow- up appointment, if applicable. Please Follow Up With: Cornelius Fuentes MD When: 1-2 weeks
--- NOTE | 2018-12-27 09:29 | PCM.DC.SUM ---
Discharge Date and Diagnosis - Problem List Patient Problems: Active and Suspected Problems (Last Reviewed 12/07/18 @ 15:34 by ROSE Sierra) Angioedema due to angiotensin converting enzyme inhibitor (JINNY-I) (Acute) Atrial fibrillation (Acute) Date of Admission: 12/23/18 Date of Discharge: 12/27/18 - Primary Discharge Diagnosis Active and Suspected Problems (Last Reviewed 12/07/18 @ 15:34 by ROSE Sierra) Angioedema due to angiotensin converting enzyme inhibitor (JINNY-I) (Acute) Atrial fibrillation (Acute) - Secondary Discharge Diagnosis Chronic Problems (Last Reviewed 12/07/18 @ 15:34 by ROSE Sierra) Presence of stent in coronary artery (Chronic ~11/26/05) PTCA/stent to mid LAD 11/26/05 Pure hypercholesterolemia (Chronic) 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) 11-26-05 PTCA/stent to mid LAD Encounter for long-term current use of high risk medication (Chronic) Snoring (Chronic) Abnormal stress test (Chronic) Diabetes mellitus type 2, controlled (Chronic) Cardiac dysrhythmia, unspecified (Chronic) H/O percutaneous transluminal coronary angioplasty (Chronic) 11-26-05 PTCA/stent to mid LAD Sinus bradycardia (Chronic) PVC (premature ventricular contraction) (Chronic) Other primary cardiomyopathies (Chronic) Ischemic cardiomyopathy (Chronic) Old myocardial infarction (Chronic) Acute HI, subendocardial, subsequent episode of care (Chronic) Hospital Course and Treatment Imaging Results: CXR: IMPRESSION: Mild increased markings at the lung bases suggestive of atelectasis and/or scarring. The tip of the endotracheal tube is at 3.5 cm proximal to the juliane. The tip of the orogastric tube is seen within the body of the stomach. Echo: Interpretation Summary The study was technically difficult. Contrast injection was performed. Segmental dysfunction with preserved ejection fraction (see wall motion). The estimated ejection fraction is 65 %. Mild concentric left ventricular hypertrophy. The left atrium is mildly enlarged. Trivial mitral valve insufficiency. Mild tricuspid valve insufficiency. Right ventricular systolic pressure estimated to be 29 mmHg. Unable to assess diastolic dysfunction. Cardioversion: Date: 12-25-18 Procedure: Synchronized Biphasic DC Cardioversion Indications: Atrial fibrillation Consent: [Per the Patient] Anesthesia: per Dr. Burks of pulmonology and critical care medicine with propofol 70 mg IV push total Procedure: Synchronized Biphasic DC Cardioversion: 200 J x1: Result: Sinus rhythm Complications: no apparent complications CONSCIOUS SEDATION REPORT DATE OF SERVICE: December 26, 2018 BRIEF HISTORY OF PRESENT ILLNESS: The patient is an 83-year-old male who presented to [facility] on December 23 with respiratory failure in the setting of angioedema. The patient subsequently went into atrial fibrillation with a rapid ventricular rate on December 25. The patient was maintained on Cardizem and amiodarone, but failed to convert to normal sinus rhythm. Therefore, the decision was made to proceed with bedside cardioversion. The patient has no known prior history of atrial fibrillation. He denies any previous anesthetic complications. PHYSICAL EXAMINATION: VITAL SIGNS: Reviewed and were acceptable. GENERAL: The patient is an obese male, in no apparent distress, speaking in full sentences. HEENT: Normocephalic, atraumatic. Mucous membranes are moist and pink. Good mouth opening noted. Trachea is midline. Good neck mobility. CHEST: S1, S2 irregularly irregular. No murmurs, rubs or gallops were noted. LUNGS: Clear to auscultation bilaterally without appreciable wheezes, rales or rhonchi. ABDOMEN: Soft, nontender, nondistended. Positive bowel sounds. EXTREMITIES: There is no clubbing, cyanosis or edema. ASA Class: II DESCRIPTION OF PROCEDURE: After confirmation of informed consent, the patient's anesthesia plan was reviewed in detail. Propofol was chosen. Risks and benefits were reviewed and the patient agreed to proceed. At 1056, the patient was given his first bolus of propofol. In total, the patient required 70 mg of propofol to achieve an appropriate level of sedation. Following this, the patient received a 200 joule synchronized cardioversion by Dr. Fuentes at the bedside. This was successful in achieving normal sinus rhythm. The patient was monitored until 1110, at which time he reached his baseline mental status and function. The patient tolerated the procedure well. COMPLICATIONS: None ESTIMATED BLOOD LOSS: None RECOMMENDATIONS: Okay to recover in usual fashion. Consults: Cardiology ICU Procedures: 2-D Echocardiogram, Cardioversion, Intubation Summary of Care Provided: Per HPI: The patient is a 83 year old M with an extensive past medical history as listed. He was admitted through the ED on 12/23/2018 with a complaint of tongue swelling difficulty speaking. This started about 1 hour prior to presentation. On arrival in the ED he was immediately intubated on account of severity of tongue swelling. He was also sedated and paralyzed. JVD mostly to be due to lisinopril which is been taking for many years. Patient seen in the emergency room after he had been intubated and sedated and paralyzed. He was unarousable and so review of systems could not be obtained. No family member was available. He has been admitted to the ICU to be managed for angioedema. Hospital Course: 1. Acute respiratory failure secondary to angioedema from [id number]old male who presented to the ER on 12/23/2018 with tongue swelling and. Started about an hour prior to coming into the ER. They felt that he was having angioedema from his lisinopril and because of the degree of swelling in the ER and transferred to the ICU. He was started on Benadryl and Solu-Medrol which have since been discontinued. He was extubated on 12/26/2018 and has since done well. He is currently on room air on discharge and discharged without oxygen after having an ambulatory pulse ox which was normal. It was discussed with him that he could go home today pending a pulse ox evaluation that he would have to continue on amiodarone Xarelto on discharge. He is okay with going home and I discussed with him that should return to the hospital if he has any worsening symptoms of shortness of breath or palpitations. 2. CAD status post stent/HTN/HLD/new onset A. fib-during his stay in the ICU he did develop new onset A. fib and was started on heparin drip. His aspirin and Plavix have been held. He was restarted on his atenolol however he needed to be initiated on a Cardizem and amiodarone drip as well for the RVR. Cardiology was consulted and felt that based on the degree of certainty that this was a new onset A. fib and his anticoagulation that he has been on, he was cardioverted successfully to sinus rhythm on 12/26/2018. He has done well since and is currently on a oral amiodarone taper which he will be discharged on as well as getting his first dose of Xarelto today before discharge. He can resume Xarelto starting 12/28/2018, and the directions for his amiodarone taper are on his prescriptions. He will continue with his aspirin however in light of the Xarelto he will discontinue his Plavix. Also, given the fact that he is now unable to take lisinopril he will have to have his blood pressure monitored as an outpatient and have adjustments made to his blood pressure regimen. Currently in the hospital he is been anywhere between 120s and 140s systolic. 3. His other medical diagnoses were evaluated and his home medications were continued where appropriate Patient Problems: Active and Suspected Problems (Last Reviewed 12/07/18 @ 15:34 by Mervin Rachel NP-C) Angioedema due to angiotensin converting enzyme inhibitor (JINNY-I) (Acute) Atrial fibrillation (Acute) Objective: General: Alert, Oriented x3, Cooperative, No apparent distress HEENT: Atraumatic, PERRLA, EOMI, Normocephalic Oral: Moist Mucosa Neck: Supple, No JVD Lungs: Clear to auscultation, Normal air movement, No rhonchi, No wheeze, No rales, Diminished Cardiovascular: Regular rate, regular rhythm normal S1, Normal S2, No murmurs Abdomen: Soft, Non Tender, Non-Distended, No Hepato-splenomegaly Extremities: No edema, Capillary Refill Less than 3 Seconds Skin: No rashes, No breakdown Neurological: Neuro grossly intact, Sensory exam intact to light touch and pain Psych/Mental Status: Normal Affect, Appropriat - Physical Exam Vital Signs Temp Pulse Resp BP Pulse Ox 97.4 F L 60 15 142/63 H 93 12/27/18 04:00 12/27/18 09:00 12/27/18 09:00 12/27/18 09:00 12/27/18 09:00 Oxygen Flow Rate (L/min) 3 Oxygen Delivery Method Room Air Weight: 270 lb 8.115 oz Body Mass Index (BMI) 38.5 Intake and Output for Last 24 Hours 12/25/18 12/26/18 12/27/18 23:59 23:59 23:59 Intake Total 2693.36 / 2708.14 1729.24 / 1729.24 50.83 / 50.83 Output Total 1350 / 1350 575 / 575 Balance 1343.36 / 1358.14 1154.24 / 1154.24 50.83 / 50.83 Laboratory Tests Past 24 Hrs 12/26/18 12/26/18 12/27/18 15:10 21:50 04:20 WBC 10.5 RBC 3.77 L Hgb 12.3 L Hct 38.2 L MCV 101.3 H MCH 32.6 H MCHC 32.2 RDW Std Deviation 44.8 H RDW Coeff of Zaire 12.0 Plt Count 187 MPV 9.3 APTT 140.1 H* 132.0 H* 12/27/18 04:20 WBC RBC Hgb Hct MCV MCH MCHC RDW Std Deviation RDW Coeff of Zaire Plt Count MPV APTT 49.4 H POC Glucose 12/27/18 12/27/18 12/26/18 06:15 00:22 17:33 POC Glucose 103 103 118 H 12/26/18 12:16 POC Glucose 135 H Discharge Activity: Return to Normal Activity Call your doctor if you observe: Fever of 101 or Higher, Shortness of breath, Dizziness, Fainting spells, Swelling in the ankles, Chest pain, Increased palpitations (irregular heartbeat) Home Medications: Medications to take at Discharge Aspirin 325 mg PO DAILY@0800 08/07/16 Glucosam/Chond/MSM/Mojave/Hyal [Glucosamine-Chondr Complex Tab] 1 ea PO DAILY 08/07/16 Metformin HCl [Glucophage] 500 mg PO DAILY 08/07/16 Multivitamins,Therapeutic [Multivitamin] 1 tab PO DAILY 08/07/16 Nitroglycerin (INPATIENT USE) [Nitrostat] 0.4 mg SUBLINGUAL Q5M PRN 08/07/16 atenolol 25 mg tablet 12.5 mg PO DAILY #45 tab 01/18/18 atorvastatin 20 mg tablet 20 mg PO QHS #90 tab 08/24/18 traMADol [Ultram] 50 - 100 mg PO Q6H PRN 12/23/18 Amiodarone HCl [Cordarone] 200 mg PO BID #14 tab 12/27/18 Amiodarone HCl [Cordarone] 200 mg PO DAILY #30 tab 12/27/18 Amiodarone HCl [Cordarone] 200 mg PO TID #15 tab 12/27/18 Rivaroxaban [Xarelto] 20 mg PO DINNER #30 tab 12/27/18 Following Prescrptions Were Given to Patient: Amiodarone HCl [Cordarone] 200 mg PO DAILY #30 tab Transmission Status: Received by [facility] Amiodarone HCl [Cordarone] 200 mg PO BID #14 tab Transmission Status: Received by [facility] Amiodarone HCl [Cordarone] 200 mg PO TID #15 tab Transmission Status: Received by [facility] Rivaroxaban [Xarelto] 20 mg PO DINNER #30 tab Transmission Status: Received by [facility] Primary Care Physician: David Howard MD [Primary Care Provider] - Please follow up with your Primary Care Physician in: 3-5 days Please Follow Up With: Cornelius Fuentes MD When: 1-2 weeks Disposition: Home Minutes spent on discharge:: 35 Patient Condition:: Stable Medical Necessity - Tobacco Use Smoking Status: Former smoker Meaningful Use Info Meaningful Use Diagnoses (Choose all that apply): None applicable Code Visit Inpatient E&M: 94885 Disch Hosp
[2018-12-27 10:02] LABS: Pathologist Review Reviewed
[2018-12-27] MEDS: Atenolol 25 MG Tablet PO (10:18)
--- NOTE | 2018-12-27 13:40 | CASEMGMT ---
Addendum entered by Veena Slade 12/27/18 14:23: During earlier DC planning discussion- Patient did state that he had a walker at home that he could use if needed. JODY Nuñez Original Note: Case Management DC Planning Progress Note: S/w patient and patient Dtr Venita at bedside, plan for DC today, at the time of discussion pending PT/OT eval. Per Patient and Dtr preference would be to DC back home with HHC-preference [facility]. States based off PT/OT eval recommendations would determine and change in this goal/plan. States would like SW as patient does the driving and patient with h/o falls, Dtr Venita lives in [place]. Patient with recent wrist surgery approx x1week prior to this hospitalization and states was supposed to get sutures removed tomorrow but has transportation issue if he is unable to drive and currently home bound. Was supposed to have Outpatient PT prior to this hospitalization. Resources given for transportation, medical alert device, [facility] contact information, as well as [employer] and others. 1239- VM left for Izabela at [facility] notifying of referral placed, and DC home today. Nursing updated and aware. 1342- Confirmed with Izabela at [facility] that received referral and id good to go. JODY Nuñez
--- NOTE | 2018-12-27 13:55 | CHAPLAIN ---
Type of Pastoral Visit _x__ Initial Visit ___ Follow-up Visit ___ On-call Visit ___ General Patient Visit ___ Spiritual Assessment ___ Family Conference ___ Bereavement ___ Rapid Response ___ Code Blue ___ Other (describe below) Pastoral Care Referral From _x__ Patient ___ Family ___ Nurse ___ Physician ___ Asphalt Heater Tender ___ Industrial Waste Inspector ___ Other (describe below) Sacrament/Intervention _x__ Active listening ___ Anointing ___ Jehovah'S Witness ___ Bereavement ___ Communion ___ Mary Ann exploration ___ ___ Life review _x__ Prayer ___ Reconciliation ___ Sacrament of Sick _x__ Supportive presence ___ Wedding ___ Other (describe below) Pastoral Comments
--- NOTE | 2018-12-28 14:12 | CASEMGMT ---
TERRI CM Discharge Follow-up Phone Call: MATT: Tammi Strata: 4 Call Date: 12/28/18 Discharge Date: 12/27/18 Time of Call: 2505 Duration: 1minute ? Admitting Diagnosis: Angioedema secondary to lisinopril, Afib RVR Discharge follow-up call placed to patient's home number. Pt stated he was doing well since discharge. [facility] health RN was in the home presently. Further assessment deferred due to home health presence. Nanette Davidson RN
== END 2018-12-27 14:55 | disposition home health service (06) | DRG 915 ==
LOC: ED 15:46 → ICU 16:21
PROVIDERS: Internal Medicine; Internal Medicine Cardiovascular Disease; Internal Medicine Critical Care Medicine; Admitting Provider Student in an Organized Health Care Education/Training Program; Emergency Provider Emergency Medicine; Family Provider Family Medicine; PCP Family Medicine; Referring Provider Student in an Organized Health Care Education/Training Program; Visit Provider Family Medicine
DX: T78.3XXA Angioneurotic edema, initial encounter (principal); J96.01 Acute respiratory failure with hypoxia; T46.4X5A Adverse effect of angiotensin-converting-enzyme inhibitors, initial encounter; I48.91 Unspecified atrial fibrillation; I10 Essential (primary) hypertension; E11.9 Type 2 diabetes mellitus without complications; I25.5 Ischemic cardiomyopathy; I25.10 Atherosclerotic heart disease of native coronary artery without angina pectoris; E78.00 Pure hypercholesterolemia, unspecified; E66.9 Obesity, unspecified; Z79.82 Long term (current) use of aspirin; Z79.84 Long term (current) use of oral hypoglycemic drugs; Z87.891 Personal history of nicotine dependence; Z79.02 Long term (current) use of antithrombotics/antiplatelets; Z95.5 Presence of coronary angioplasty implant and graft; Z68.38 Body mass index [BMI] 38.0-38.9, adult; I25.2 Old myocardial infarction
CPT/HCPCS: 31500; 31720; 36600; 51702; 71045; 80048; 80053; 80061; 82803; 82962; 83036; 83735; 84100; 84484; 85025; 85027; 85610; 85730; 92960; 93005; 93306; 94002; 94003; 94660; 95831; 97162; 97166; 97530; 97802; 99251; 99285; J7030; Q9957; A4216; C8929; G0463; J3490

== ENCOUNTER → 2019-01-17 08:07 | Outpatient (CLI) | payer MEDICARE, OTHER, SELFPAY ==
[2019-01-10 11:23] VITALS: BMI 38.5
[2019-01-17 09:37] LABS: Erythrocyte Sedimentation Rate 37 mm/hr (0-20)
[2019-01-17 09:39] LABS: Absolute Lymphocyte Count 1.56 X10^3/uL (0.83-4.51); Absolute Neutrophil Count 5.8 X10^3/uL (2.0-7.7); Basophil# 0.06 X10^3/uL; Basophil% 0.6 % (0-1); Eosinophil# 0.26 X10^3/uL; Eosinophils% 2.7 % (0-5); Hematocrit 43.2 % (40-54); Hemoglobin 13.8 g/dL (13.0-16.5); Lymphocyte # 1.56 X10^3/ul (4.0); Lymphocyte % 16.4 % (19-41); Mean Corp Hgb Conc 31.9 g/dL (32-36); Mean Corpuscular Volume 103.3 fL (80-94); Mean Platelet Vol. 9.3 fl (6.2-12.0); Monocyte# 1.79 X10^3/uL; Monocyte% 18.8 % (0-10); NRBC Flagged by Analyzer 0 % (0-5); Neutrophil # 5.78 X10^3/uL (2.7-7.7); Neutrophil % 60.7 % (47-70); POSITIVE DIFFERENTIAL YES; Platelet Count 261 K/mm3 (150-450); RBC Distribution Width CV 13.4 % (11.6-14.6); RBC Distribution Width SD 51.3 fl (35.1-43.9); Red Blood Count 4.18 M/mm3 (4.6-6.2); White Blood Count 9.5 K/mm3 (4.4-11.0)
[2019-01-17 09:42] LABS: Differential Indicated SCAN CRITERIA MET
[2019-01-17 09:53] LABS: Rheumatoid Factor < 10.0 IU/mL (<15)
[2019-01-17 10:17] LABS: Differential Comment SCANNED; Platelet Estimate ADEQUATE (ADEQ)
[2019-01-17 14:06] LABS: Pathologist Review Reviewed
[2019-01-18 15:08] LABS: ANTINUCLEAR ANTIBODIES DIRECT Negative (Negative)
== END ==
PROVIDERS: Family Provider Family Medicine; PCP Family Medicine; Referring Provider Orthopaedic Surgery; Visit Provider Orthopaedic Surgery
DX: I10 Essential (primary) hypertension (principal); M19.011 Primary osteoarthritis, right shoulder
CPT/HCPCS: 36415; 84550; 85025; 85652; 86038; 86140; 86431

== ENCOUNTER → 2019-10-13 07:21 | Outpatient (CLI) | payer MEDICARE, OTHER, SELFPAY ==
[2019-04-28 13:13] VITALS: BMI 42.5
--- NOTE | 2019-10-14 08:49 | PFT ---
INTRODUCTION: The patient is an 84-year-old male that presents for pulmonary function studies secondary to high risk medication use. Respiratory therapy reports good patient effort. Bronchodilators were used during testing. INTERPRETATION: Forced expiration spirometry demonstrates no evidence of a large airways obstructive ventilatory defect. There was no significant response to aerosolized bronchodilators, based upon strict ATS criteria. Spirograms are of good quality and plateau normally. Body plethysmography was performed and reveals a decreased TLC to 4.76 L, 73% of predicted, indicative of a mild restrictive ventilatory impairment. The remainder of the lung volumes are symmetrically reduced. Diffusing capacity by single breath CO is within normal limits at 97% of predicted. IMPRESSION: Isolated mild restrictive ventilatory impairment, most likely secondary to body habitus.
== END ==
PROVIDERS: PCP Family Medicine; Referring Provider Internal Medicine Cardiovascular Disease; Visit Provider Internal Medicine Cardiovascular Disease
DX: I25.10 Atherosclerotic heart disease of native coronary artery without angina pectoris (principal); I25.5 Ischemic cardiomyopathy; I48.0 Paroxysmal atrial fibrillation; E78.00 Pure hypercholesterolemia, unspecified; Z95.5 Presence of coronary angioplasty implant and graft
CPT/HCPCS: 94060; 94726; 94729

== ENCOUNTER → 2019-11-25 08:52 | Outpatient (CLI) | payer MEDICARE, OTHER, SELFPAY ==
[2019-10-27 13:36] VITALS: BMI 42.5
--- NOTE | 2019-11-25 08:54 | ECHOCS_ITS ---
Reason For Study: Afib/Flutter Procedure This was a 2D Doppler, Color Flow transthoracic echocardiogram. The study was technically difficult. Contrast injection was performed. Exam performed in department. Left Ventricle Normal LV size. Mild concentric left ventricular hypertrophy. Segmental dysfunction with preserved ejection fraction (see wall motion). The estimated ejection fraction is 60 %. There is evidence of diastolic dysfunction. Anterior Laurens : Akinetic. Inferior Laurens : Hypokinetic. Septal Laurens : Hypokinetic. Right Ventricle Normal RV size. Normal systolic function. Atria The left atrium is mildly enlarged. Normal right atrium. No doppler evidence for ASD. Mitral Valve There is no mitral annular calcification. Normal mitral valve. The mitral valve chordae are thickened and/or calcified. Mild (1+) mitral valve insufficiency. Tricuspid Valve Normal tricuspid valve. Trivial tricuspid valve insufficiency. Right ventricular systolic pressure estimated to be 43 mmHg. Aortic Valve The aortic valve is not well visualized. Pulmonic Valve The pulmonic valve is not well visualized. Great Vessels The aortic root is not well visualized. Pericardium/Pleural No pericardial effusion. Medication 22 gauge I.V. with prn adaptor inserted into right arm. Diluted definity 3ml given slow IV push to enhance endocardial definition. MMode/2D Measurements & Calculations LVIDd: 5.6 cm IVSd: 1.4 cm LA dimension: 4.7 cm LVIDs: 4.0 cm LVPWd: 1.4 cm FS: 28.2 % LAV(MOD-bp): 85.4 ml LA A4 area: 28.3 cm2 RA A4 area: 24.7 cm2 LAV(MOD-bp) Indexed: 34.6 ml/m2 LAV(MOD-sp2): 73.4 ml LAV(MOD-sp4): 90.4 ml Time Measurements MV dec time: 0.33 sec Doppler Measurements & Calculations MV E max anderson: 44.9 cm/sec Lat Peak E' Anderson: 7.5 cm/sec Med Peak E' Anderson: 6.4 cm/sec MV A max anderson: 67.9 cm/sec E/E' lat: 6.0 E/E' med: 7.0 MV E/A: 0.66 MV V2 max: 85.8 cm/sec MV P1/2t max anderson: 67.7 cm/sec Ao V2 max: 114.7 cm/sec MV max P.9 mmHg MV P1/2t: 85.0 msec Ao max P.3 mmHg MV V2 mean: 42.7 cm/sec MV dec slope: 233.3 cm/sec2 MV mean P.88 mmHg MV V2 VTI: 27.4 cm MVA(P1/2t): 2.6 cm2 LV V1 max: 83.8 cm/sec PA V2 max: 60.8 cm/sec TR max anderson: 314.9 cm/sec LV V1 max P.8 mmHg TR max P.7 mmHg Interpretation Summary The study was technically difficult. Contrast injection was performed. Segmental dysfunction with preserved ejection fraction (see wall motion). The estimated ejection fraction is 60 %. Mild concentric left ventricular hypertrophy. The left atrium is mildly enlarged. The mitral valve chordae are thickened and/or calcified. Mild (1+) mitral valve insufficiency. Trivial tricuspid valve insufficiency. Right ventricular systolic pressure estimated to be 43 mmHg. There is evidence of diastolic dysfunction. Ordering Physician: Mervin Rachel Referring Physician: David Howard Performed By: Danilo Cárdenas RCS
== END ==
PROVIDERS: PCP Family Medicine; Referring Provider Nurse Practitioner Family; Visit Provider Nurse Practitioner Family
DX: I25.10 Atherosclerotic heart disease of native coronary artery without angina pectoris (principal); I48.91 Unspecified atrial fibrillation; Z95.5 Presence of coronary angioplasty implant and graft; I25.5 Ischemic cardiomyopathy
CPT/HCPCS: 93306; Q9957; A4216; C8929

== ENCOUNTER 2020-05-23 14:17 | Outpatient (RCR) | payer MEDICARE, OTHER, SELFPAY ==
[2019-10-27 13:36] VITALS: BMI 42.5
== END 2020-05-23 23:59 ==
LOC: IMMUN 14:17
PROVIDERS: PCP Family Medicine; Referring Provider Family Medicine; Visit Provider Family Medicine
DX: Z23 Encounter for immunization (principal)
CPT/HCPCS: 0011A; 0012A; 91301

== ENCOUNTER 2021-05-30 13:33 | Outpatient (CLI) | payer MEDICARE, OTHER, SELFPAY ==
--- NOTE | 2021-05-30 13:45 | RAD_ITS ---
EXAM: XR CHEST, 2 VIEWS : 1934 CLINICAL INDICATION: CP TECHNIQUE: Frontal and lateral views of the chest. This report was created using [employer] report generation technology. COMPARISON: 16/09/2018 FINDINGS: LUNGS AND PLEURAL SPACES: There is minimal left basilar airspace disease which may represent scar or atelectasis. No pneumothorax. No effusion. HEART: Unremarkable. Cardiac silhouette not enlarged. MEDIASTINUM: Central airways and mediastinal contour are unremarkable. BONES/JOINTS: Unremarkable. SOFT TISSUES: Unremarkable. RAD/Chest PA and Lateral IMPRESSION: Minimal left basilar airspace disease which may represent scar or atelectasis. There is no focal consolidation. at 0251 Reported and signed by: Willie To MD Electronically Signed: Willie To MD at 2:50 EST ,
[2021-05-30 14:48] LABS: BNP,B-Type NATRIURETIC PEPTIDE 103.6 pg/mL (0-100)
== END 2021-05-30 23:59 | disposition home or self-care (01) ==
PROVIDERS: PCP Family Medicine; Referring Provider Physician Assistant Medical; Visit Provider Physician Assistant Medical
DX: R06.00 Dyspnea, unspecified (principal)
CPT/HCPCS: 36415; 71046; 83880

== ENCOUNTER 2021-06-18 06:59 | Outpatient (CLI) | payer MEDICARE, OTHER, SELFPAY ==
--- NOTE | 2021-06-18 12:38 | STRESSREP_ITS ---
Stress Test Report Date: 06-18-2021 Procedure: Pharmacologic stress nuclear imaging study Indications: Shortness of breath/dyspnea on exertion; fatigue; CAD; PCI Consent: Per the patient Procedure: The patient underwent pharmacologic (Regadenoson 0.4mg ) evaluation with a peak heart rate of 79 beats per minute (58%predicted maximal heart rate) and a peak blood pressure of 130/62 mmHg. The baseline ECG demonstrated normal sinus rhythm. The peak pharmacologic ECG demonstrated no obvious ECG changes. There was an isolated ventricular couplet in recovery. There was no complaint of chest discomfort during pharmacologic infusion or recovery. The examination was discontinued secondary to completion of protocol. Impression: 1. Pharmacologic (Regadenoson) evaluation 2. Peak pharmacologic ECG with no obvious ECG changes. 3. There was an isolated ventricular couplet in recovery. 4. Nuclear images pending Myocardial perfusion imaging study: Technique: The patient was injected with 14.9 millicuries of technetium 99m Cardiolite and subsequently rest SPECT Cardiolite nuclear imaging was obtained in the horizontal long, vertical long, and short axis views. The patient underwent pharmacologic (Regadenoson) evaluation with a peak heart rate of 79 beats per minute (58% percent predicted maximal heart rate) and a peak blood pressure of 130/62 mmHg. The patient was injected with 44.5 millicuries of technetium 99m Cardiolite and subsequently stress SPECT Cardiolite nuclear imaging was obtained in the horizontal long, vertical long, and short axis views. A gated Cardiolite study at peak stress was obtained. Interpretation: Rest and stress SPECT Cardiolite nuclear imaging status post realignment, normalization, and attenuation correction demonstrate the appearance of diminished myocardial perfusion/tracer uptake in the apical areas without significant change between rest and stress. There is diminished end-systolic thickening and brightening in the aforementioned area. The gated Cardiolite study demonstrates diminished myocardial thickening and inward wall motion in the aforementioned areas. The reported LVEF is 54%. Impression: 1. Rest and stress SPECT Cardiolite nuclear imaging demonstrate myocardial perfusion changes appearing compatible with an area of previous myocardial injury/infarction involving the apical segments with no myocardial perfusion changes considered diagnostic for associated stress-induced myocardial ischemia. 2. The gated Cardiolite study reports an LVEF of 54%. This note was generated with [employer] software. It may contain incorrect words, spelling, and punctuation that were not noted in checking the note before signing.
== END 2021-06-18 23:59 | disposition home or self-care (01) ==
LOC: CVS 07:01
PROVIDERS: PCP Family Medicine; Referring Provider Nurse Practitioner Family; Visit Provider Nurse Practitioner Family
DX: I25.10 Atherosclerotic heart disease of native coronary artery without angina pectoris (principal); I48.0 Paroxysmal atrial fibrillation; Z95.5 Presence of coronary angioplasty implant and graft; E78.00 Pure hypercholesterolemia, unspecified; I25.5 Ischemic cardiomyopathy; R06.00 Dyspnea, unspecified
CPT/HCPCS: 78452; 93017; A9500; A4216; J2785

== ENCOUNTER 2022-09-03 09:55 | Inpatient (IN) | payer MEDICARE, OTHER, SELFPAY ==
[2022-09-03] VITALS (12 sets, daily range): BP systolic 116–172; BP diastolic 53–90; PULSE 49–88; RESP 15–66; TEMP 35.7–37.1; O2SAT 91–99; BMI 42.3; BMI 39.6
[2022-09-03] MEDS: Aspirin 81 MG TAB.CHEW 324 MG PO (10:12)
--- NOTE | 2022-09-03 10:12 | ED.VIS.CHEST ---
HPI History of Present Illness Chief Complaint: Chest Pain Informant: patient Onset/Context/Timing Onset: Days Activity at onset: gradual Timing: Intermittent Quality: Positive for Aching Location: Substernal Current Severity: Gone Maximum Severity: Mild Worsened By: Exertion Relieved By: Rest and NTG Associated Symptoms: Positive for Dyspnea; Negative for Nausea, Vomiting, Diaphoresis, Cough, Lightheadedness, Acid Reflux or Palpitations Narrative Narrative: 87-year-old male history of prior AK, CAD, 3 cardiac stents on Plavix and aspirin, cardiomyopathy, A-fib. Said he had a stress test 2 years ago which was negative. He has not had a heart catheter several years. Thursday he had chest pain that was relieved with sublingual nitro he was just watching TV at that time. He had it again on Thursday night and while walking yesterday he got short of breath and has some chest discomfort. Again relieved by nitroglycerin glycerin. Currently is pain-free symptom-free. Called his tree chipper office. They recommended he come the emergency department for evaluation. 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) Arthritis Atherosclerosis of [place] coronary artery of [place] heart without angina pectoris Cancer Cardiac dysrhythmia, unspecified Diabetes mellitus type 2, controlled Encounter for long-term current use of high risk medication Heart disease History of cardioversion (~12/26/18) Hypertension Ischemic cardiomyopathy Old myocardial infarction Other primary cardiomyopathies Paroxysmal atrial fibrillation Polymyalgia rheumatica Presence of stent in coronary artery (~11/26/05) Pure hypercholesterolemia PVC (premature ventricular contraction) Sinus bradycardia Snoring Home Medications multivitamin with folic acid 400 mcg tablet 1 tab PO DAILY 08/07/16 [History Last Taken 12/23/18] famotidine 20 mg tablet 20 mg PO QHS 01/20/19 [History Last Taken Unknown] aspirin 81 mg tablet,delayed release (Adult Low Dose Aspirin) 81 mg PO DAILY 04/28/19 [History Last Taken Unknown] glucosam 500 mg-chondroit 66.7 mg-msm 500 mg-boron 2 mg-hyaluro tablet 1 tab PO DAILY 07/12/20 [History Last Taken Unknown] levothyroxine 50 mcg tablet 50 mcg PO DAILY 07/12/20 [History Last Taken Unknown] cholecalciferol (vitamin D3) 50 mcg (2,000 unit) tablet 50 mcg PO BID 07/23/21 [History Last Taken Unknown] metformin 500 mg tablet,extended release 24 hr 500 mg PO DAILY 07/23/21 [History Last Taken Unknown] prednisone 1 mg tablet 3 mg PO DAILY 07/23/21 [History Last Taken Unknown] furosemide 40 mg tablet 40 mg PO DAILY #90 tabs 10/07/21 [Rx Last Taken Unknown] atenolol 25 mg tablet 12.5 mg PO DAILY #45 tabs 11/06/21 [Rx Last Taken Unknown] nitroglycerin 0.4 mg sublingual tablet 0.4 mg sublingual Q5M PRN Chest Pain #25 tabs 12/18/21 [Rx Last Taken Unknown] atorvastatin 20 mg tablet 20 mg PO QHS #90 tabs 04/28/22 [Rx Last Taken Unknown] clopidogrel 75 mg tablet (Plavix) 75 mg PO DAILY #90 tabs 05/12/22 [Rx Last Taken Unknown] Allergy/AdvReac Type Severity Reaction Status Date / Time lisinopril Allergy Angioedema Verified 09/03/22 09:56 Family History Father CVA (cerebral vascular accident) Mother Cancer lung Brother Cancer Surgical History HISTORY OF ANAL FISTULA HISTORY OF HEART CATH AND STENTS History of left knee replacement HISTORY OF RIGHT CHEEK BONE SURGERY History of right knee joint replacement HISTORY OF RIGHT WRIST SURGERY History of rotator cuff surgery Presence of coronary angioplasty implant and graft (~11/26/05) Social History Smoking Status: Former smoker how long ago did patient quit smokin years ago alcohol intake: current alcohol intake frequency: a few times a week Alcohol type: beer substance use type: does not use caffeine: Yes Type: coffee Number of servings: 2 what type of physical activity do you participate in: other details: [place], Football [place] seatbelt use: always do you feel safe at home: Yes ROS ROS ED ROS Narrative Chest discomfort. Review of Systems ROS Unobtainable: Denies due to encephalopathy Constitutional Constitutional ED: Denies chills or fever(s) Eyes Eyes: Reports none ENT ENT ED: Denies ear pain Cardiovascular Cardiovascular: Reports as per HPI and chest pain; Denies palpitations or racing heartbeat Respiratory/Chest Respiratory/Chest: Reports dyspnea on exertion; Denies cough Gastrointestinal Gastrointestinal: Denies abdominal pain Genitourinary Genitourinary ED: Denies dysuria Musculoskeletal Musculoskeletal: Denies arthralgias Integumentary Denies abscess Neurologic Neurologic: Denies headache(s) Psychiatric Psychiatric: Denies anxiety or depression Endocrine Endocrinology: Denies cold intolerance Hematologic/Lymphatic Hematologic/Lymphatic: Denies easy bleeding Allergic/Immunologic Allergic/Immunologic ED: Denies mouth swelling EXAM Physical Exam Narrative Exam Narrative: Well-appearing 87-year-old male vital signs stable afebrile. Pulse ox 94% on room air no signs of hypoxia. He is in no distress. Currently symptom-free. H EENT exam unremarkable. Neck nontender no JVD. Lungs clear to auscultation bilaterally. Heart regular rate about 70 no murmur. Chest wall nontender. Abdomen soft nontender. Moving all 4 extremities. Calves are nontender without significant edema or cords. Neurologically is awake and alert. Answering questions following commands. Const Vital Signs: 09/03/22 09:56 09/03/22 10:01 09/03/22 10:10 Temperature 97.8 F Temperature Source Temporal Pulse Rate 71 76 Respiratory Rate 18 66 H Blood Pressure 118/90 H 172/84 H Blood Pressure Mean 99 113 Pulse Ox 94 91 97 Oxygen Delivery Method Room Air Room Air Nasal Cannula Oxygen Flow Rate (L/min) 2 Positive well nourished and obese; Negative for cachectic, contractures or unkempt General Appearance ED: NAD; Negative for unkempt, cachectic, contractures or pallor Nutritional Appearance: obese; Negative for cachectic HEENT Reports moist mucous membranes normocephalic and atraumatic; Negative for trauma or tenderness Eyes PERRL and EOMs intact bilaterally General Eye ED: Negative for pale conjunctiva or scleral icterus Neck no lymphadenopathy, supple and no JVD General: Negative for tenderness Chest Wall inspection of chest normal Chest: Negative for tenderness Resp normal respiratory effort and clear to auscultation bilaterally Effort and Inspection: Negative for respiratory distress Auscultation: Negative for rales, rhonchi or wheezes Cardio regular rate, regular rhythm, S1 normal heart sound, S2 normal heart sound and no murmurs Rate: Negative for bradycardia or tachycardic Rhythm: Negative for abnormal rhythm GI normal to inspection, nondistended, normoactive bowel sounds, soft to palpation, non-tender, non-distended and no masses Auscultation: Negative for hyperactive bowel sounds Back/Spine no CVA tenderness and no thoracic nor lumbar tenderness General Back: Negative for CVA tenderness Cervical Spine: Negative for cervical spine tenderness Extremity normal to inspection General Extremety ED: Negative for edema, pulses abnormal or tenderness General Extremity: Negative for edema or pulses abnormal Neuro oriented x3 and CN's II-XII intact bilaterally Sensorium / Orientation: awake, alert, oriented to person, oriented to place and oriented to time; Negative for confused or lethargic Motor Exam: strength 5/5 throughout Psych Appearance: Negative for unkempt Attitude: No agitated Mood & Affect: Negative for depressed, anxious or tearful Skin no rashes or lesions noted General Skin Exam: Negative for jaundice or pallor Rashes: No rashes noted Trauma: Negative for abrasion or laceration Heart Score History: Moderately Suspicious ECG: Normal Age: >/= 65 years Risk Factors: >/= 3 Risk Factors or History of CAD Troponin: </= Normal Limit Score: 5 MDM MDM MDM Narrative Medical decision making narrative: 87-year-old male with exertional nonexertional chest pain with a known history of a prior AK and 3 cardiac stents. Improved with nitroglycerin consistent with angina. Patient undergo cardiac work-up. His EKG is unremarkable. Patient has had nitroglycerin for a lengthy period of time and has never had to take it and has taken it now 3 times in the last several days and has worked each time to relieve his chest pain. Most likely will need to be admitted for further evaluation. Repeat exam patient is doing well at 11:11 AM. I have both his tree chipper and the hospitalist on page for admission. History & Record Review Discussion w/independent historian: Patient Lab Data Attestation: I reviewed the patient's lab results. Lab results narrative: CBC unremarkable. White count of 9. H&H of 15.1 and 46. Platelets 276. Chest x-ray chronic no acute process. Chemistries unremarkable gap at 2 normal BUN and creatinine. Glucose 134. Initial troponin 22. Labs: Laboratory Results - last 24 hr 09/03/22 09/03/22 10:10 10:10 WBC 9.8 RBC 4.50 L Hgb 15.1 Hct 46.1 MCV 102.4 H MCH 33.6 H MCHC 32.8 RDW Std Deviation 48.6 H RDW Coeff of [place] 12.9 Plt Count 276 MPV 9.3 Immature Gran % (Auto) 0.400 Neut % (Auto) 68.5 Lymph % (Auto) 12.4 L [place] % (Auto) 16.9 H Eos % (Auto) 1.1 Baso % (Auto) 0.7 Absolute Neuts (auto) 6.7 Absolute Lymphs (auto) 1.22 Nucleated RBC % 0 Sodium 138 Potassium 4.9 Chloride 106 Carbon Dioxide 30.0 Anion Gap 2 L BUN 16 Creatinine 0.89 Estim Creat Clear Calc 57.37 Est GFR (MDRD) Af Amer 104 Est GFR (MDRD) Non-Af 86 BUN/Creatinine Ratio 18.1 Glucose 134 H Calcium 8.9 Troponin I High Sens 22 Radiography Chest X-Ray - ED: 1 View, Read by ED Physician, Normal, Heart, Lungs, Mediastinum, Bony Structures, No Acute Disease and Chronic Changes Diagnostic Testing: Clinical Impression(s) from Imaging Studies Chest X-Ray 09/03/22 10:30 IMPRESSION: Mild stable increased markings at the lung bases suggestive of scarring. Electronically Signed: Lake Thayer MD at 11:01 EDT , Chest x-ray, portable, single view, interpreted by myself shows chronic changes no new process. Rhythm Strip Rhythm Strip: Sinus Rhythm Rate: 67 Ectopy: None EKG Initial EKG: Interpretation: Sinus Rhythm and No Acute Injury Pattern Comments: Normal sinus rhythm rate of 67 no acute signs of AK or ischemia. Unchanged from a prior EKG from November 2018. Discharge Plan Triage Chief Complaint: Chest Pain ED Provider: Valeriano Marshall Dx/Rx/DC Orders Clinical Impression: Accelerating angina, History of myocardial infarction, History of placement of stent in LAD coronary artery Prescriptions: No Action famotidine 20 mg tablet 20 mg PO QHS aspirin [Adult Low Dose Aspirin] 81 mg tablet,delayed release (DR/EC) 81 mg PO DAILY levothyroxine 50 mcg tablet 50 mcg PO DAILY cholecalciferol (vitamin D3) 50 mcg (2,000 unit) tablet 50 mcg PO BID metformin 500 mg tablet extended release 24 hr 500 mg PO DAILY prednisone 1 mg tablet 3 mg PO DAILY Label Comments: TAKE 4 TABLETS BY MOUTH ONCE A DAY multivitamin with folic acid 1 TABLET tablet 1 tab PO DAILY hiwlyaeu-duqyb-zbd-boron-hyal 500-66.7-500-2 mg tablet 1 tab PO DAILY furosemide 40 mg tablet 40 mg PO DAILY Qty: 90 3RF atenolol 25 mg tablet 12.5 mg PO DAILY Qty: 45 3RF nitroglycerin 0.4 mg tablet, sublingual 0.4 mg SUBLINGUAL Q5M PRN (Reason: Chest Pain) Qty: 25 3RF atorvastatin 20 mg tablet 20 mg PO QHS Qty: 90 3RF clopidogrel [Plavix] 75 mg tablet 75 mg PO DAILY Qty: 90 3RF Primary Care Provider: David Howard Referrals: David Howard MD [Primary Care Provider] - Disposition Disposition: Acute Care Hospital [facility]
[2022-09-03 10:22] LABS: Absolute Lymphocyte Count 1.22 X10^3/uL (0.83-4.51); Absolute Neutrophil Count 6.7 X10^3/uL (2.0-7.7); Basophil# 0.07 X10^3/uL; Basophil% 0.7 % (0-1); Eosinophil# 0.11 X10^3/uL; Eosinophils% 1.1 % (0-5); Hematocrit 46.1 % (40-54); Hemoglobin 15.1 g/dL (13.0-16.5); Lymphocyte # 1.22 X10^3/ul (0.83-4.51); Lymphocyte % 12.4 % (19-41); Mean Corp Hgb Conc 32.8 g/dL (32-36); Mean Corpuscular Hgb 33.6 pg (27.0-32.0); Mean Corpuscular Volume 102.4 fL (80-94); Mean Platelet Vol. 9.3 fl (6.2-12.0); Monocyte# 1.66 X10^3/uL; Monocyte% 16.9 % (0-10); NRBC Flagged by Analyzer 0 % (0-5); Neutrophil % 68.5 % (47-70); POSITIVE DIFFERENTIAL YES; Platelet Count 276 K/mm3 (150-450); RBC Distribution Width CV 12.9 % (11.6-14.6); RBC Distribution Width SD 48.6 fl (35.1-43.9); White Blood Count 9.8 K/mm3 (4.4-11.0)
--- NOTE | 2022-09-03 10:30 | RAD_ITS ---
STUDY: X-RAY CHEST REASON FOR EXAM: Male, 87 years old. Chest pain TECHNIQUE: Single AP portable view of the chest. COMPARISON: Comparison is made with prior study dated May 30, 2021. FINDINGS: EKG electrodes are seen. Stable increased markings at the lung bases suggesting mild scarring. There is no demonstrated pleural abnormality. There is mild cardiac enlargement. Normal mediastinum and aristides. Normal visualized pulmonary arteries. There is atherosclerotic tortuosity of the aortic arch and descending thoracic aorta. There are diffuse degenerative changes of the visualized thoracic spine. Normal visualized ribs, clavicles, and shoulders. There is no demonstrated abnormality of the visualized soft tissue structures of the upper abdomen. RAD/Chest 1 View (Portable) IMPRESSION: Mild stable increased markings at the lung bases suggestive of scarring. Electronically Signed: Lake Thayer MD at 11:01 EDT ,
[2022-09-03 10:42] LABS: Differential Indicated SCAN CRITERIA MET
[2022-09-03 10:48] LABS: Anion Gap 2 (5-15); BUN 16 mg/dL (7-18); BUN/Creat Ratio 18.1 RATIO (10-20); Calcium,Total 8.9 mg/dL (8.5-10.1); Chloride 106 mmol/L (98-107); Creatinine, Serum 0.89 mg/dL (0.70-1.30); EST Glomerular Filtration Rate 86 mL/min (>60); Est Glom Filt Rate - Afr Amer 104 mL/min (>60); Estimated Creatinine Clearance 57.37 ml/min; Glucose 134 mg/dL (74-106); Potassium 4.9 mmol/L (3.5-5.1); Sodium Level 138 mmol/L (136-145); Troponin-I HS (w/2H Reflex) 22 pg/mL (3.0-78.0)
--- NOTE | 2022-09-03 11:15 | HP.PCM.HOS_ITS ---
HPI - General General Date of Admission: 09/03/22 Date of Service: 09/03/22 Chief Complaint: chest pain HPI Narrative ROCK WESLEY, is a 87 M with a PMH as outlined who presents via the ED on 09/03/2022 with a complaint of chest pain. He has a history of CAD s/p stents x 3 as well as cardiomyopathy and afib. He started having chest pain 3 days ago which as relieved with SL nitroglycerin. Chest pain recurred on Thursday and also the day before admission when it was reproducible with palpation. He therefore decided to come in to the ED to be checked out. He denied any lightheadedness, nausea, palpitaitons or any other symptoms. Review of systems is otherwise negative. Vitals at time of review were etmp of 98F, MI of 63, BP of 116/68, MI of 16 and he was saturating at 95% n 2L of oxygen. CBC was unremarkable and BMP was also unremarkable. CXR showed mild stable increased markings at the lung bases suggestive of scarring. Troponins x 2 were negative. 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) Arthritis Atherosclerosis of [place] coronary artery of [place] heart without angina pectoris Cancer Cardiac dysrhythmia, unspecified Diabetes mellitus type 2, controlled Encounter for long-term current use of high risk medication Heart disease History of cardioversion (~12/26/18) Hypertension Ischemic cardiomyopathy Old myocardial infarction Other primary cardiomyopathies Paroxysmal atrial fibrillation Polymyalgia rheumatica Presence of stent in coronary artery (~11/26/05) Pure hypercholesterolemia PVC (premature ventricular contraction) Sinus bradycardia Snoring Home Medications multivitamin with folic acid 400 mcg tablet 1 tab PO DAILY 08/07/16 [History Last Taken 09/03/22] famotidine 20 mg tablet 20 mg PO QHS 01/20/19 [History Last Taken 09/02/22] aspirin 81 mg tablet,delayed release (Adult Low Dose Aspirin) 81 mg PO DAILY 04/28/19 [History Last Taken 09/02/22] glucosam 500 mg-chondroit 66.7 mg-msm 500 mg-boron 2 mg-hyaluro tablet 1 tab PO DAILY 07/12/20 [History Last Taken 09/02/22] levothyroxine 50 mcg tablet 50 mcg PO DAILY 07/12/20 [History Last Taken 09/03/22] cholecalciferol (vitamin D3) 50 mcg (2,000 unit) tablet 50 mcg PO BID 07/23/21 [History Last Taken 09/03/22] metformin 500 mg tablet,extended release 24 hr 500 mg PO DAILY 07/23/21 [History Last Taken 09/03/22] furosemide 40 mg tablet 40 mg PO DAILY #90 tabs 10/07/21 [Rx Last Taken 09/03/22] atenolol 25 mg tablet 12.5 mg PO DAILY #45 tabs 11/06/21 [Rx Last Taken 09/03/22] nitroglycerin 0.4 mg sublingual tablet 0.4 mg sublingual Q5M PRN Chest Pain #25 tabs 12/18/21 [Rx Last Taken 09/02/22] atorvastatin 20 mg tablet 20 mg PO QHS #90 tabs 04/28/22 [Rx Last Taken 09/02/22] clopidogrel 75 mg tablet (Plavix) 75 mg PO DAILY #90 tabs 05/12/22 [Rx Last Taken 09/03/22] Allergy/AdvReac Type Severity Reaction Status Date / Time lisinopril Allergy Angioedema Verified 09/03/22 09:56 Family History Father CVA (cerebral vascular accident) Mother Cancer lung Brother Cancer Surgical History HISTORY OF ANAL FISTULA HISTORY OF HEART CATH AND STENTS History of left knee replacement HISTORY OF RIGHT CHEEK BONE SURGERY History of right knee joint replacement HISTORY OF RIGHT WRIST SURGERY History of rotator cuff surgery Presence of coronary angioplasty implant and graft (~11/26/05) Social History Smoking Status: Former smoker how long ago did patient quit smokin years ago alcohol intake: current alcohol intake frequency: a few times a week Alcohol type: beer substance use type: does not use caffeine: Yes Type: coffee Number of servings: 2 what type of physical activity do you participate in: other details: [place], golf seatbelt use: always do you feel safe at home: Yes ROS Constitutional Constitutional: Denies anorexia, chills, fatigue, fever(s), malaise or weakness ENT HEENT: Denies dysphagia or headache(s) Cardiovascular Cardiovascular: Denies chest pain, dyspnea on exertion, edema, lightheadedness, orthopnea, rapid heart rate or syncope Gastrointestinal Gastrointestinal: Denies abdominal pain, constipation, diarrhea, nausea or vomiting Genitourinary Genitourinary: Denies burning urination or dysuria Musculoskeletal Musculoskeletal: Denies arthralgias or joint pain Neurologic Neurologic: Denies abnormal gait, confusion, dizziness, focal weakness or headache(s) Psychiatric Psychiatric: Denies anxiety Endocrine Endocrinology: Denies change in body appearance Hematologic/Lymphatic Hematologic/Lymphatic: Denies anemia Vital Signs Vital Signs Vital Signs: 09/03/22 09:56 09/03/22 10:01 09/03/22 10:10 Temperature 97.8 F Temperature Source Temporal Pulse Rate 71 76 Respiratory Rate 18 66 H Blood Pressure 118/90 H 172/84 H Blood Pressure Mean 99 113 Pulse Ox 94 91 97 Oxygen Delivery Method Room Air Room Air Nasal Cannula Oxygen Flow Rate (L/min) 2 09/03/22 11:10 Temperature Temperature Source Pulse Rate 63 Respiratory Rate 15 Blood Pressure 116/68 Blood Pressure Mean 84 Pulse Ox 95 Oxygen Delivery Method Nasal Cannula Oxygen Flow Rate (L/min) 2 Weight Weight: 286 lb 9.615 oz Body Mass Index (BMI) 42.3 Physical Exam Const alert, oriented x3 and no apparent distress General Appearance: cooperative HEENT normocephalic, head/scalp atraumatic, hearing grossly normal bilaterally and moist oral mucous membranes Mouth: oral and palatal mucosa normal Eyes PERRL, EOMs intact bilaterally and conjunctivae normal Neck no lymphadenopathy and supple Resp normal respiratory effort, no retractions, no use of accessory muscles and clear to auscultation bilaterally Cardio regular rate, regular rhythm, S1 normal heart sound, S2 normal heart sound and no murmurs GI normal to inspection, nondistended, normoactive bowel sounds, soft to palpation, non-tender and non-distended Extremity normal to inspection, full ROM and no clubbing, cyanosis or edema Neuro oriented x3, CN's II-XII intact bilaterally, moves all extremities and no focal motor deficits Sensorium / Orientation: awake and alert Motor Exam: strength 5/5 throughout Psych affect normal Results Lab / Micro Data Result Diagrams: 09/03/22 10:10 09/03/22 10:10 Labs: Laboratory Results - last 24 hr 09/03/22 10:10: WBC 9.8, RBC 4.50 L, Hgb 15.1, Hct 46.1, MCV 102.4 H, MCH 33.6 H , MCHC 32.8, RDW Std Deviation 48.6 H, RDW Coeff of [place] 12.9, Plt Count 276, MPV 9.3, Immature Gran % (Auto) 0.400, Neut % (Auto) 68.5, Lymph % (Auto) 12.4 L, [place] % (Auto) 16.9 H, Eos % (Auto) 1.1, Baso % (Auto) 0.7, Absolute Neuts (auto) 6.7, Absolute Lymphs (auto) 1.22, Nucleated RBC % 0 09/03/22 10:10: Sodium 138, Potassium 4.9, Chloride 106, Carbon Dioxide 30.0, Anion Gap 2 L, BUN 16, Creatinine 0.89, Estim Creat Clear Calc 57.37, Est GFR (MDRD) Af Amer 104, Est GFR (MDRD) Non-Af 86, BUN/Creatinine Ratio 18.1, Glucose 134 H, Calcium 8.9, Troponin I High Sens 22 Rhythm Strip Rhythm Strip: Sinus Rhythm Rate: 67 Ectopy: None Radiology Impression Chest X-Ray 09/03/22 10:30 IMPRESSION: Mild stable increased markings at the lung bases suggestive of scarring. Electronically Signed: Lake Thayer MD at 11:01 EDT Reading Location ID and State: [facility] / [place] , Service support , Assessment & Plan Assessment/Plan (1) Chest pain: PLAN: Plan #Chest pain to rule out ACS * has been having episodic chest pain for 3 days prior to admission, only relieved by SL nitroglycerin * troponins x 2 were negative. * CXR showed no acute cardiopulmonary process * due to his extensive history of CAD s/p stents 15 years ago, cardiology consulted * on aspirin, plavix or statin. * per cardiology, for cardiac cath tomorrow. per cardiology, to give a dose of S Q lovenox therapeutic dose x 1. * #Hypertension; on lisinopril and atenolol #CAD s/p stents: on aspirin, statin and plavix #Hypothyroidism: on statin #TYpe 2 diabetes mellitus: on metformin. ISS. Accuchecks ACHS GERD: on PPI DVT prophylaxis; lovenox Code status: full code * Patient counseled extensively about different types of CODE STATUS including full code, DNR CCA and DNR CCA. Patient elects to be full code. * Total [id number] time 16 minutes. Charges/Coding Visit Charges Inpatient E&M: 67640 Init Hosp L2 Procedures Hospitalists Procedures: 77294 Advncd Care Plan 30 Min
[2022-09-03 11:39] LABS: Differential Comment SCANNED
[2022-09-03 12:17] LABS: Reflex Troponin-HS? (from REC) Y
[2022-09-03 12:58] LABS: Troponin-I HS 25 pg/mL (3.0-78.0)
[2022-09-03] MEDS: Enoxaparin 120 MG/0.8 ML Syringe SC (16:03)
--- NOTE | 2022-09-03 17:03 | PCM.CONS.C ---
Assessment & Plan Assessment/Plan (1) Accelerating angina: PLAN: He presents with what appears to be accelerating angina. My recommendation at this time is to continue the current medical therapy and to perform a left heart catheterization. Risk benefits alternatives have been explained to him he understands and agrees to proceed. Depending on the findings further recommendations will be made. (2) Presence of stent in coronary artery: PLAN: Does have a history of coronary artery stenting. I would not recommend that we make any changes at this particular time. (3) Hypertension: PLAN: His blood pressure appears to be under good control. No major changes will be made he will continue on the current medical therapy. Thank you for allowing me to participate in the care of your patient. Please don't hesitate to call if any issues arise. HPI Consult Data Date of Consult: 09/03/22 HPI Narrative HPI Narrative: ROCK WESLEY, is a 87 M who presents to the emergency room after calling our office today with complaints of epigastric discomfort and belching for which she had taken an antacid with no relief and subsequently taking sublingual nitroglycerin with relief. He also had a discomfort after exerting himself. He denied any dizziness or diaphoresis near syncope or syncope. He has been compliant with all his medications up-to-date. In the emergency room he was evaluated and noted to have have normal EKG and no abnormal cardiac enzymes. However due to his suggestive history he was admitted for further evaluation and management. He has a history of coronary artery disease status post stenting to mid and distal LAD in October 2005, ischemic cardiomyopathy, hyperlipidemia, sinus bradycardia, paroxysmal atrial fibrillation with cardioversion on 12/26/2018, PVCs, and diabetes. In addition,As you recall he was evaluated at [facility] for concerns of JINNY inhibitor angioedema in November 2018.? He required temporary intubation/ventilation.? During his hospitalization he had an episode of atrial fibrillation.? He was treated medically with rate control therapy antiarrhythmic therapy and anticoagulant therapy.? He required synchronized biphasic DC cardioversion to regain sinus rhythm.? 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) Arthritis Atherosclerosis of [place] coronary artery of [place] heart without angina pectoris Cancer Cardiac dysrhythmia, unspecified Diabetes mellitus type 2, controlled Encounter for long-term current use of high risk medication Heart disease History of cardioversion (~12/26/18) Hypertension Ischemic cardiomyopathy Old myocardial infarction Other primary cardiomyopathies Paroxysmal atrial fibrillation Polymyalgia rheumatica Presence of stent in coronary artery (~11/26/05) Pure hypercholesterolemia PVC (premature ventricular contraction) Sinus bradycardia Snoring Home Medications multivitamin with folic acid 400 mcg tablet 1 tab PO DAILY 08/07/16 [History Last Taken 09/03/22] famotidine 20 mg tablet 20 mg PO QHS 01/20/19 [History Last Taken 09/02/22] aspirin 81 mg tablet,delayed release (Adult Low Dose Aspirin) 81 mg PO DAILY 04/28/19 [History Last Taken 09/02/22] glucosam 500 mg-chondroit 66.7 mg-msm 500 mg-boron 2 mg-hyaluro tablet 1 tab PO DAILY 07/12/20 [History Last Taken 09/02/22] levothyroxine 50 mcg tablet 50 mcg PO DAILY 07/12/20 [History Last Taken 09/03/22] cholecalciferol (vitamin D3) 50 mcg (2,000 unit) tablet 50 mcg PO BID 07/23/21 [History Last Taken 09/03/22] metformin 500 mg tablet,extended release 24 hr 500 mg PO DAILY 07/23/21 [History Last Taken 09/03/22] furosemide 40 mg tablet 40 mg PO DAILY #90 tabs 10/07/21 [Rx Last Taken 09/03/22] atenolol 25 mg tablet 12.5 mg PO DAILY #45 tabs 11/06/21 [Rx Last Taken 09/03/22] nitroglycerin 0.4 mg sublingual tablet 0.4 mg sublingual Q5M PRN Chest Pain #25 tabs 12/18/21 [Rx Last Taken 09/02/22] atorvastatin 20 mg tablet 20 mg PO QHS #90 tabs 04/28/22 [Rx Last Taken 09/02/22] clopidogrel 75 mg tablet (Plavix) 75 mg PO DAILY #90 tabs 05/12/22 [Rx Last Taken 09/03/22] Allergy/AdvReac Type Severity Reaction Status Date / Time lisinopril Allergy Angioedema Verified 09/03/22 09:56 Family History Father CVA (cerebral vascular accident) Mother Cancer lung Brother Cancer Surgical History HISTORY OF ANAL FISTULA HISTORY OF HEART CATH AND STENTS History of left knee replacement HISTORY OF RIGHT CHEEK BONE SURGERY History of right knee joint replacement HISTORY OF RIGHT WRIST SURGERY History of rotator cuff surgery Presence of coronary angioplasty implant and graft (~11/26/05) Social History Smoking Status: Former smoker how long ago did patient quit smokin years ago alcohol intake: current alcohol intake frequency: a few times a week Alcohol type: beer substance use type: does not use caffeine: Yes Type: coffee Number of servings: 2 what type of physical activity do you participate in: other details: [address] [place], golf seatbelt use: always do you feel safe at home: Yes ROS Constitutional Constitutional: Denies fever(s) or weight loss Eyes Eyes: Reports systems reviewed and no addt'l complaints, except as documented ENT HEENT: Reports systems reviewed and no addt'l complaints, except as documented Cardiovascular Cardiovascular: Reports chest pain at rest and chest pain with activity; Denies dyspnea at rest, dyspnea on exertion, edema, palpitations or paroxysmal nocturnal dyspnea Respiratory/Chest Respiratory/Chest: Denies dyspnea on exertion, productive cough, shortness of breath at rest or shortness of breath with exertion Gastrointestinal Gastrointestinal: Denies change in bowel habits, nausea, vomiting or weight changes Genitourinary Genitourinary: Denies difficulty urinating Musculoskeletal Musculoskeletal: Denies joint stiffness or muscle weakness Integumentary Integumentary: Denies lesions Neurologic Neurologic: Denies dizziness or syncope Psychiatric Psychiatric: Denies anxiety Endocrine Endocrinology: Denies excessive sweating or fatigue Hematologic/Lymphatic Hematologic/Lymphatic: Denies anemia Allergic/Immunologic Allergic/Immunologic: Denies seasonal rhinorrhea Physical Exam Const alert, oriented x3 and no apparent distress General Appearance: cooperative HEENT hearing grossly normal bilaterally Head and Scalp: atraumatic Eyes EOMs intact bilaterally Neck General: normal visual inspection Chest inspection of chest normal and palpation of chest normal Resp normal respiratory effort Auscultation: clear to auscultation bilaterally Cardio regular rate, regular rhythm, S1 normal heart sound and S2 normal heart sound Jugular Venous Distention: JVD GI normal to inspection, nondistended, normoactive bowel sounds Extremity normal capillary refill and no pedal edema Peripheral Pulses: Yes pulses 2+ throughout and femoral pulses present Skin no rashes or lesions noted Neuro oriented x3 and CN's II-XII intact bilaterally Psych Appearance: grossly normal and appropriate Risk Stratification Risk Stratification Applicable: Yes Age >/= 65: Yes >/= 3 CAD Risk Factors (HTN, HLD, DM, family hx of CAD, or current smoker): Yes Aspirin Use in the Past 7 Days: Yes Severe Angina (>/= episodes in 24 hours): No EKG ST Changes >/= 0.5mm: No Positive Cardiac Marker: No EMA Risk Stratification Score: 3 EMA % Risk: 13% Risk Objective Data Vital Signs: Vital Signs Temp Pulse Resp BP Pulse Ox O2 Del Method O2 Flow Rate 97.9 F 49 L 16 131/53 H 94 Nasal Cannula 2 09/03/22 16:11 09/03/22 16:11 09/03/22 16:11 09/03/22 16:11 09/03/22 16:11 09/03/22 16:11 09/03/22 16:11 Oxygen Flow Rate (L/min) 2 Oxygen Delivery Method Nasal Cannula Weight: 280 lb 0.9 oz Body Mass Index (BMI) 39.6 Lab / Micro Data Result Diagrams: 09/03/22 10:10 09/03/22 10:10 Labs: Laboratory Results - last 24 hr 09/03/22 10:10: WBC 9.8, RBC 4.50 L, Hgb 15.1, Hct 46.1, MCV 102.4 H, MCH 33.6 H, MCHC 32.8, RDW Std Deviation 48.6 H, RDW Coeff of [place] 12.9, Plt Count 276, MPV 9.3, Immature Gran % (Auto) 0.400, Neut % (Auto) 68.5, Lymph % (Auto) 12.4 L, [place] % (Auto) 16.9 H, Eos % (Auto) 1.1, Baso % (Auto) 0.7, Absolute Neuts (auto) 6.7, Absolute Lymphs (auto) 1.22, Nucleated RBC % 0, Differential Comment SCANNED 09/03/22 10:10: Sodium 138, Potassium 4.9, Chloride 106, Carbon Dioxide 30.0, Anion Gap 2 L, BUN 16, Creatinine 0.89, Estim Creat Clear Calc 57.37, Est GFR (MDRD) Af Amer 104, Est GFR (MDRD) Non-Af 86, BUN/Creatinine Ratio 18.1, Glucose 134 H, Calcium 8.9, Troponin I High Sens 22 09/03/22 12:32: Troponin I High Sens 25 Rhythm Strip Rhythm Strip: Sinus Rhythm Rate: 67 Ectopy: None Cardiology Labs/Tests 09/03/22 10:10: WBC 9.8, RBC 4.50 L, Hgb 15.1, Hct 46.1, MCV 102.4 H, MCH 33.6 H, MCHC 32.8, Plt Count 276, MPV 9.3, Immature Gran % (Auto) 0.400, Neut % (Auto) 68.5, Lymph % (Auto) 12.4 L, [place] % (Auto) 16.9 H, Eos % (Auto) 1.1, Baso % (Auto) 0.7, Absolute Neuts (auto) 6.7, Nucleated RBC % 0 09/03/22 10:10: Sodium 138, Potassium 4.9, Chloride 106, Carbon Dioxide 30.0, Anion Gap 2 L, BUN 16, Creatinine 0.89, Est GFR (MDRD) Af Amer 104, Est GFR (MDRD) Non-Af 86, BUN/Creatinine Ratio 18.1, Glucose 134 H, Calcium 8.9 Rhythm: EKG: ECHO: Stress Test: Cardiac Cath: PCI: CT Surgery: Holter monitor: EPS: PPM: CXR: Chest CT Scan: Radiography Diagnostic Testing: Radiology Impression Chest X-Ray 09/03/22 10:30 IMPRESSION: Mild stable increased markings at the lung bases suggestive of scarring. Electronically Signed: Lake Thayer MD at 11:01 EDT ,
[2022-09-03 18:03] LABS: Bedside Glucose 156 mg/dL (74-106)
[2022-09-03] MEDS: Famotidine 20 MG Tablet PO (21:19)
[2022-09-03] MEDS: Cholecalciferol (VIT D3) 25 MCG TABLET (1,000 UNITS) 50 MCG PO (21:19)
[2022-09-03] MEDS: Atorvastatin Calcium 20 MG Tablet PO (21:19)
[2022-09-03 22:17] LABS: Bedside Glucose 113 mg/dL (74-106)
[2022-09-04] VITALS (12 sets, daily range): BP systolic 97–136; BP diastolic 53–83; PULSE 45–63; RESP 16–18; TEMP 35.7–36.7; O2SAT 92–99
[2022-09-04 06:12] LABS: Absolute Neutrophil Count 5.2 X10^3/uL (2.0-7.7); Basophil# 0.07 X10^3/uL; Basophil% 0.8 % (0-1); Eosinophil# 0.36 X10^3/uL; Eosinophils% 4.3 % (0-5); Hematocrit 44.1 % (40-54); Lymphocyte % 15.6 % (19-41); Mean Corp Hgb Conc 31.7 g/dL (32-36); Mean Corpuscular Hgb 33.3 pg (27.0-32.0); Mean Corpuscular Volume 104.8 fL (80-94); Mean Platelet Vol. 9.6 fl (6.2-12.0); Monocyte# 1.37 X10^3/uL; Monocyte% 16.4 % (0-10); NRBC Flagged by Analyzer 0 % (0-5); Neutrophil % 62.5 % (47-70); Platelet Count 253 K/mm3 (150-450); Red Blood Count 4.21 M/mm3 (4.6-6.2); White Blood Count 8.3 K/mm3 (4.4-11.0)
[2022-09-04] MEDS: Atenolol 25 MG Tablet 12.5 MG PO (06:16)
[2022-09-04] MEDS: Levothyroxine 50 MCG Tablet PO (06:16)
[2022-09-04] MEDS: Clopidogrel Bisulfate 75 MG Tablet PO (06:16)
[2022-09-04] MEDS: Aspirin E.C. 81 MG Tablet PO (06:16)
[2022-09-04 06:46] LABS: Anion Gap 6 (5-15); BUN 19 mg/dL (7-18); BUN/Creat Ratio 24.1 RATIO (10-20); Calcium,Total 8.7 mg/dL (8.5-10.1); Chloride 102 mmol/L (98-107); Creatinine, Serum 0.79 mg/dL (0.70-1.30); EST Glomerular Filtration Rate 99 mL/min (>60); Est Glom Filt Rate - Afr Amer 119 mL/min (>60); Estimated Creatinine Clearance 52.72 ml/min; Glucose 108 mg/dL (74-106); Potassium 3.8 mmol/L (3.5-5.1); Sodium Level 138 mmol/L (136-145)
[2022-09-04 07:12] LABS: Bedside Glucose 108 mg/dL (74-106)
--- NOTE | 2022-09-04 10:35 | CASEMGMT ---
Advanced directives, including POA and LW are on file. Martha Burton, ADJUSTER AND INSPECTOR, AIRPORT BAGGAGE SCREENER
--- NOTE | 2022-09-04 10:40 | CASEMGMT ---
Sw presented to bedside and introduced self to patient and his daughter. Sw explained sw role during current admission. Sw completed SDOH with patient- no concerns and no resources requested at this time. Martha Burton, HOUSEKEEPING MANAGER, [employer]
--- NOTE | 2022-09-04 11:01 | PN_ITS ---
Subjective Subjective Patient seen and examined. He had no complaints and had an uneventful night. Review of systems otherwise negative. Chest pain did not recur. He is getting cardiac cath today. Objective Data Objective Data Vital Signs: Vital Signs Temp Pulse Resp BP Pulse Ox O2 Del Method O2 Flow Rate 98.1 F 58 L 18 136/64 H 96 Nasal Cannula 2 09/04/22 08:45 09/04/22 08:45 09/04/22 08:45 09/04/22 08:45 09/04/22 08:45 09/04/22 08:45 09/04/22 08:45 Oxygen Flow Rate (L/min) 2 Oxygen Delivery Method Nasal Cannula Weight: 280 lb 0.9 oz Body Mass Index (BMI) 39.6 Intake & Output: Intake and Output for Last 24 Hours 09/02/22 09/03/22 09/04/22 23:59 23:59 23:59 Intake Total 200 / 200 Balance 200 / 200 Lab / Micro Data Result Diagrams: 09/04/22 04:42 09/04/22 04:42 Labs: Laboratory Results - last 24 hr 09/03/22 10:10: Differential Comment SCANNED 09/03/22 12:32: Troponin I High Sens 25 09/03/22 17:46: POC Glucose 156 H 09/03/22 21:18: POC Glucose 113 H 09/04/22 04:42: WBC 8.3, RBC 4.21 L, Hgb 14.0, Hct 44.1, MCV 104.8 H, MCH 33.3 H , MCHC 31.7 L, RDW Std Deviation 50.0 H, RDW Coeff of [place] 13.0, Plt Count 253, MPV 9.6, Immature Gran % (Auto) 0.400, Neut % (Auto) 62.5, Lymph % (Auto) 15.6 L , [place] % (Auto) 16.4 H, Eos % (Auto) 4.3, Baso % (Auto) 0.8, Absolute Neuts (auto) 5.2, Absolute Lymphs (auto) 1.30, Nucleated RBC % 0 09/04/22 04:42: Sodium 138, Potassium 3.8, Chloride 102, Carbon Dioxide 30.0, Anion Gap 6, BUN 19 H, Creatinine 0.79, Estim Creat Clear Calc 52.72, Est GFR (MDRD) Af Amer 119, Est GFR (MDRD) Non-Af 99, BUN/Creatinine Ratio 24.1 H, Glucose 108 H, Calcium 8.7 09/04/22 06:10: POC Glucose 108 H Radiography Diagnostic Testing: Radiology Impression Chest X-Ray 09/03/22 10:30 IMPRESSION: Mild stable increased markings at the lung bases suggestive of scarring. Electronically Signed: Lake Thayer MD at 11:01 EDT , Rhythm Strip Rhythm Strip: Sinus Rhythm Rate: 67 Ectopy: None Physical Exam Const alert, oriented x3 and no apparent distress General Appearance: cooperative HEENT normocephalic, head/scalp atraumatic, hearing grossly normal bilaterally and moist oral mucous membranes Eyes PERRL, EOMs intact bilaterally and conjunctivae normal Neck no lymphadenopathy and supple Resp normal respiratory effort, normal air movement, no retractions, no use of accessory muscles and clear to auscultation bilaterally Cardio regular rate, regular rhythm, S1 normal heart sound, S2 normal heart sound and no murmurs GI normal to inspection, nondistended, normoactive bowel sounds, soft to palpation, non-tender and non-distended Extremity normal to inspection, full ROM, normal capillary refill and no clubbing, cyanosis or edema Skin General Skin Exam: no breakdown Neuro oriented x3, CN's II-XII intact bilaterally, moves all extremities and no focal motor deficits Sensorium / Orientation: awake and alert Motor Exam: strength 5/5 throughout Psych thought process normal, cooperative and affect normal Appearance: appropriate Assessment & Plan Assessment/Plan (1) Chest pain: PLAN: Plan #Chest pain to rule out ACS * has been having episodic chest pain for 3 days prior to admission, only relieved by SL nitroglycerin * troponins x 2 were negative. * CXR showed no acute cardiopulmonary process * due to his extensive history of CAD s/p stents 15 years ago, cardiology consulted * on aspirin, plavix or statin. * for cardiac cath today * * #Hypertension; on lisinopril and atenolol #CAD s/p stents: on aspirin, statin and plavix #Hypothyroidism: on statin #TYpe 2 diabetes mellitus: on metformin. ISS. Accuchecks ACHS GERD: on PPI DVT prophylaxis; lovenox Code status: full code * Charges/Coding Visit Charges Inpatient E&M: 48263 Subs Hosp L2
--- NOTE | 2022-09-04 14:01 | CRPHASE1 ---
Patient Communication PHII Cardiac Rehab Discussed with Patient:: Yes Guide to Cardiac Rehab Given to Patient:: Yes Cardiac Rehab Facility Choice List Given to Patient:: Yes Choice Program [facility] CR PHII:: Communication Given to CR Choice Program Other:: Communication Given to CR American Sign Language Interpreter:: Jv Matute Cardiac Rehabilitation Info Cardiac Rehabilitation Program Information: Cardiac Rehab The cardiac rehab team at [facility] consists of highly skilled exercise physiologists, nurses, respiratory therapists and physicians working together with you. Our purpose is to help you have a full recovery and achieve the goals you set for yourself. Over the years many of our patients have returned to activities they assumed they would never do again! We can help restore your confidence and motivation to make lifestyle changes that can have a significant impact on your health and quality of life! We can help answer questions and concerns you may have about exercise, lifestyle, medications, diet, stress and anxiety which are common following a hospitalization. WE monitor ECG and vital signs during exercise and discuss your progress with you and report to your physician(s). Cardiac Rehab is proven to help reduce readmissions, improve functional capacity and lower recurrence of problems with your heart. Our Cardiac Rehab program is Certified by the [place] [employer]monary [employer] (AACVPR) and Accredited by the [place] [employer] through our [facility]. You can contact us at . We invite you to call us with your questions or to get started in our program. If you have other questions or concerns be sure to ask your physician/provider during your follow-up visit. WE look forward to seeing you!
--- NOTE | 2022-09-04 14:04 | CRPH1.INST_ITS ---
General Education CAD and cardiac anatomy and function:: Patient communicates acknowledgment Explanation of diagnoses and procedures:: Patient communicates acknowledgment Sign/Symptoms of OR:: Patient communicates acknowledgment Antiplatelet therapy: Patient communicates acknowledgment Proper use of NTG-SL: Patient communicates acknowledgment Emergency procedures and activation of EMS: Patient communicates acknowledgment Compliance of all prescribed medications: Patient communicates acknowledgment Smoking Patient Nicotine/Smoking Risk Factors Are:: Non-smoker Recommendations Include:: Smoking cessation strategies/Smoking packet, Second- hand smoke recommendation, Previous smoker; encourage continued cessation Nicotine/Smoking Response Code:: Patient communicates acknowledgment Dyslipidemia Recommendations Include:: Lipid profile not available Dyslipidemia Response Code:: Patient communicates acknowledgment Overweight/Obesity Patient Overweight/Obesity Risk Factors Are:: Obesity - > or = 30 Recommendations Include:: Weight loss of 5-10% Overweight/Obesity:: Patient communicates acknowledgment Hypertension Recommendations Include:: Maintain BP <130/85 Hypertension:: Patient communicates acknowledgment Heart Disease Patient Heart Disease Risk Factors Are:: Family history of heart disease < 65 years old, Previous cardiac event Recommendations Include:: Educated family members of their risk Heart Disease Response Code:: Patient communicates acknowledgment Diabetes Patient Diabetes Risk Factors Are:: Elevated blood sugars, Post-op hyperglycemia Recommendations Include:: Maintain fasting blood sugars 70-110 md/dL, Maintain HgbA1c of 6% or less, Monitor blood sugar as prescribed, Diabetic dietary guidelines, Decrease/maintain body weight Diabetes:: Patient communicates acknowledgment Metabolic Syndrome Patient Metabolic Syndrome Risk Factors Are [3 of 5]:: Fasting blood sugar > 100 mg/dL, Waist circumference > 35 [female] or 40 [male], High triglyceride >150, Hypertension, Low HDL <40 [male] or < 50 [female] Recommendations Include:: Does not meet criteria, Reinforce compliance to risk factor modifications, Patient is diabetic, Encouraged follow-up with Primary Care Physician Metabolic Syndrome Response Code:: Patient communicates acknowledgment Sedentary Patient Sedentary Risk Factors Are:: Lack of regular exercise Recommendations Include:: Aerobic exercise 5-7 times/week for 20-30 minutes continuously, Benefits of regular exercise, Discussed home walking program, Monitored Outpatient Cardiac Rehab Sedentary Response Code:: Patient communicates acknowledgment Stress Patient Stress Risk Factors Are:: Patient denies stress as a risk factor Recommendations Include:: Identification of stressors, and assessment of coping skills, Stress management techniques Stress Response Code:: Patient communicates acknowledgment
--- NOTE | 2022-09-04 14:13 | CL.I_ITS ---
Patient Name: ROCK WESLEY Study Date: 09/04/2022 Performing: Cari Matute MD Ht: 70 inches 179.07 cm : 1935 Wt: 280.4 lbs 127.03 kg Age: 87 Gender: male BSA: 2.42 PROCEDURE(S) PERFORMED IC12-(02716/C9600)REMIGIO W/WO PTCA, SINGLE CORONARY ARTERY CLINICAL PROFILE AND CO-MORBIDITIES Heart Failure: None CAD Presentations: Unstable angina. CONCLUSIONS Successful REMIGIO to dRCA RECOMMENDATIONS DESCRIPTION OF PROCEDURE The patient arrived to the procedure lab. The risks and benefits of the procedure as well as a full description of our services here and current unavailability of surgical backup were fully explained to the patient and/or their significant other prior to the catheterization. The Timeout was completed, verifying the correct patient and procedure. The patient's procedural site was prepped and draped in the usual fashion. Local anesthetic was given subcutaneously to right radial region with Lidocaine 2% Using a modified Seldinger technique,arterial access was obtained via the right radial artery, a 6Fr sheath was inserted. Right Coronary Artery selective angiography was then performed in multiple views using a 5 Fr. 4.0 [place] catheter. Left Coronary Artery selective angiography was performed in multiple views using a 5 Fr. 4.0 [place] catheter. Left Ventriculography was performed in STUBBS projection using a 5 Fr. Pigtail catheter. LV to AO pullback pressures were then recorded.The images were reviewed and options discussed. A decision was then made to proceed with an Intervention, IVUS or other adjunct procedure. AL1 Guide catheter was inserted and engaged into the RCA. BMW Valentines Guide wire was advanced to the RCA. Emerge 1.50 x 15 Balloon catheter was inserted. Balloon catheter was advanced across lesion in the right coronary, distal. PTCA balloon inflated at 14 atms for 20 secs. PTCA balloon inflated at 14 atms for 7 secs. PTCA balloon inflated at 14 atms for 8 secs. Emerge 3.0 x 20 Balloon catheter was inserted. Balloon catheter was advanced across lesion in the right coronary, distal. PTCA balloon inflated at 6 atms for 6 secs. PTCA balloon inflated at 10 atms for 17 secs. Angiogram performed post balloon dilatation. NC Emerge 3.50 x 30 Balloon catheter was inserted. Balloon catheter was advanced across lesion in the right coronary, distal. PTCA balloon inflated at 12 atms for 20 secs. PTCA balloon inflated at 20 atms for 23 secs. PTCA balloon inflated at 20 atms for 10 secs. PTCA balloon inflated at 20 atms for 8 secs. Resolute [place] 4.0 x 38 Drug Eluting stent was inserted. NC Emerge 3.50 x 30 Balloon catheter was reinserted Balloon catheter was advanced across lesion in the right coronary, distal. Resolute [place] 4.0 x 38 Drug Eluting stent was reinserted Drug Eluting stent was advanced across the lesion in the right coronary, distal. Angiogram performed pre stent deployment. Angiogram performed post stent deployment. 4x22 Resolute Drug Eluting stent was inserted. Drug Eluting stent was advanced across the lesion in the right coronary, distal. Angiogram performed post stent deployment. Priority One inserted Pass # 1 Priority One Removed AL 1 Guide catheter was inserted and engaged into the LCA. XB 3.5 Guide catheter was inserted and engaged into the LCA. BMW Guide wire was advanced to the Circumflex. BMW Guide wire was exchanged for a Whisper The arterial sheath was pulled and a TR Band was applied for hemostasis INTERVENTION INFORMATION LESION SITE: RCA (Distal) Lesion Complexity: High/C, chronic total occlusion: No, lesion at bifurcation: No, thrombus present: No, lesion length: 50 mm, culprit lesion: Yes, Previously treated lesion: No Pre Stenosis: 99 % Pre intervention EMA flow: 3 PROCEDURE: Drug Eluting Stent with pre dilatation. Post Stenosis: 0 % Post intervention EMA flow: 3 Lesion Devices: Cordis 6 Fr AL1.0 100cm Guide Catheter Mitchell .014 190cm BMW Valentines Straight Darren Sci EMERGE MR 1.50x15 BALLOON Darren Sci EMERGE MR 3.00x20 BALLOON Darren Sci NC EMERGE MR 3.50x30 BALLOON Medtronic Resolute [place] RX REMIGIO 4.0x38 [employer] 6 Serbian GuideLiner Medtronic Resolute [place] RX REMIGIO 4.0x22 Terumo Priority One Aspiration Catheter LESION SITE: Circumflex (Ostial) PROCEDURE: Unsuccessful angioplasty. Wire did not cross We tried to cross the lesion with a BMW wire and then a whisper wire. Initial attempts were unsuccessful. Since we had given a fair amount of contrast and radiation to fix the RCA, we felt that it is best not to pursue further attempts at PCI of LCx at this time. If patient has significant anginal symptoms despite maximal medical therapy then, he can be referred for PCI of pLCx to a tertiary center Lesion Devices: Mitchell .014 190cm BMW Valentines Straight Cordis 6 Fr XB3.5 100cm Guide Catheter Mitchell .014 190cm HT Whisper MS [place] COMPLICATIONS No Complications PROCEDURE MEDICATIONS Versed 1 mg IV Fentanyl 50 mcg IV Versed 1 mg IV Versed 1 mg IV Fentanyl 25 mcg IV Fentanyl 25 mcg IV Oxygen: 2 L/min via nasal cannula Oxygen: 4 L/min via nasal cannula Heparin given IA 09/04/2022 11:33:19 Heparin 8000 unit(s) IV 09/04/2022 12:04:13 Verapamil 2.5mg, Ntg 100mcgs, 3000 units of Heparin given IA 09/04/2022 11:33:19 SUMMARY OF HEMODYNAMIC DATA Time AIR REST ECG 11:11:08 Art 129/66 (85) 11:23:57 AO 145/70 (98) SA 11:36:21 LV 131/15, 24 11:48:24 LV 129/14, 21 11:48:33 LV 138/17, 24 11:49:30 LV 131/16, 23 11:49:38 LVp 129/18, 28 11:49:43 AOp 131/65 (91) 11:49:50 Signed By Cari Matute MD On 09/04/2022 14:12:25 Cari Matute MD
[2022-09-04] MEDS: 0.9% Normal Saline 1,000 ML 80 ML IV (14:21)
[2022-09-04] MEDS: Furosemide 40 MG Tablet PO (14:24)
[2022-09-04] MEDS: Cholecalciferol (VIT D3) 25 MCG TABLET (1,000 UNITS) 50 MCG PO ×2 (14:24→21:42)
[2022-09-04] MEDS: Multivitamins,Therapeutic Tablet 1 TABLET PO (14:24)
[2022-09-04 14:45] LABS: Bedside Glucose 110 mg/dL (74-106)
--- NOTE | 2022-09-04 15:01 | EKG12_ITS ---
Test Reason : Blood Pressure : / mmHG Vent. Rate : 046 BPM Atrial Rate : 046 BPM P-R Int : 216 ms QRS Dur : 084 ms QT Int : 458 ms P-R-T Axes : 021 -37 -52 degrees QTc Int : 400 ms Sinus bradycardia with marked sinus arrhythmia with 1st degree A-V block Left axis deviation Inferior infarct , age undetermined Anterolateral infarct , age undetermined Abnormal ECG When compared with ECG of 03-SEP-2022 10:01, MANUAL COMPARISON REQUIRED, DATA IS UNCONFIRMED Confirmed by ISRRAEL EATON, SEFERINO ([id number]), supervising editor trailer AAYUSH [facility] ([id number]) on 09/08/2022 1:45:07 PM Referred By: ZACHERY Confirmed By:SEFERINO ARCOS MD
--- NOTE | 2022-09-04 16:13 | CL.D_ITS ---
Patient Name: ROCK WESLEY Study Date: 09/04/2022 Performing: Blake Shaffer MD Ht: 70 inches 179.07 cm : 1935 Wt: 280.4 lbs 127.03 kg Age: 87 Gender: male BSA: 2.42 PROCEDURE(S) PERFORMED DC01-(40062)LHC/COR/LV IC12-(84204/C9600)REMIGIO W/WO PTCA, SINGLE CORONARY ARTERY CLINICAL PROFILE AND INDICATIONS Indications: Suspected CAD Heart Failure: None Stress/Imaging Stress/Image Study Performed: No CAD Presentations: Unstable angina. Unstable angina. CONCLUSIONS Severe coronary artery disease involving the right coronary artery with 2 sequential 90 and 95% stenosis respectively, ostial 99% left circumflex artery stenosis and patent stents noted in the LAD with mild distal left main disease. RECOMMENDATIONS Referred for immediate PCI DESCRIPTION OF PROCEDURE The patient arrived to the procedure lab. The risks and benefits of the procedure as well as a full description of our services here and current unavailability of surgical backup were fully explained to the patient and/or their significant other prior to the catheterization. The Timeout was completed, verifying the correct patient and procedure. The patient's procedural site was prepped and draped in the usual fashion. Local anesthetic was given subcutaneously to right radial region with Lidocaine 2%. Using a modified Seldinger technique, arterial access was obtained via the right radial artery, a 6Fr sheath was inserted. Right Coronary Artery selective angiography was then performed in multiple views using a 5 Fr. 4.0 [place] catheter. Left Coronary Artery selective angiography was performed in multiple views using a 5 Fr. 4.0 [place] catheter. Left Ventriculography was performed in STUBBS projection using a 5 Fr. Pigtail catheter. LV to AO pullback pressures were then recorded.The arterial sheath was pulled and a TR Band was applied for hemostasis CORONARY ANGIOGRAPHY DOMINANCE: Right Dominant LEFT HEART ASSESSMENT Left Ventricular Ejection Fraction: by LV Gram 55 % Normal LV wall motion Normal Left Ventricular systolic function LEFT MAIN: Distal left main with 30% stenosis LEFT ANTERIOR DESCENDING ARTERY: Previously stented vessel which is patent with mild 30% in-stent stenosis and diffuse distal disease CIRCUMFLEX ARTERY: OSTIAL CIRC: 99 % Stenosis RAMUS: Mild luminal irregularities less than 30% RIGHT CORONARY ARTERY: Dominant right coronary artery calcified and tortuous with mid segment 90% eccentric stenosis followed by another 95% stenosis and then bifurcating to posterior descending artery and posterolateral vessel both of which were large. COMPLICATIONS No Complications PROCEDURE MEDICATIONS Versed 1 mg IV Fentanyl 50 mcg IV Versed 1 mg IV Versed 1 mg IV Fentanyl 25 mcg IV Fentanyl 25 mcg IV Oxygen: 2 L/min via nasal cannula Oxygen: 4 L/min via nasal cannula Heparin given IA 09/04/2022 11:33:19 Heparin 8000 unit(s) IV 09/04/2022 12:04:13 Verapamil 2.5mg, Ntg 100mcgs, 3000 units of Heparin given IA 09/04/2022 11:33:19 SUMMARY OF HEMODYNAMIC DATA Time AIR REST ECG 11:11:08 Art 129/66 (85) 11:23:57 AO 145/70 (98) SA 11:36:21 LV 131/15, 24 11:48:24 LV 129/14, 21 11:48:33 LV 138/17, 24 11:49:30 LV 131/16, 23 11:49:38 LVp 129/18, 28 11:49:43 AOp 131/65 (91) 11:49:50 Signed By Blake Shaffer MD On 09/04/2022 16:12:15 Blake Shaffer MD
--- NOTE | 2022-09-04 16:42 | CASEMGMT ---
Addendum entered by Kristie Brady 09/04/22 16:59: Pt states he lives alone, drives, and is indep w/ADL's and IADL's. His dtr will take him home @ discharge. He denies having any discharge planning needs or concerns. CM to follow for anti-coag @ d/c. Original Note: TERRI CORTEZ NOTE: Intro role of CM to patient and [facility] form explained re: Observation status for treatment of chest pain.? Explained hospitalization will be paid per?his insurance policy for Outpatient billing?and condition will continue to be evaluated for Inpt necessity. Also let pt know that [facility] sends paper in the billing packet with their phone number if questions arise. Discussed Pharmacy section of [facility] form and self administered medication guideline.? Pt verbalizes understanding and does not have further questions. ?Form signed, copy made and placed in chart, and original given to pt. Gabriel LENTZ RN, CM
[2022-09-04 16:57] LABS: Bedside Glucose 127 mg/dL (74-106)
[2022-09-04] MEDS: Atorvastatin Calcium 20 MG Tablet PO (21:42)
[2022-09-04] MEDS: Famotidine 20 MG Tablet PO (21:42)
[2022-09-04] MEDS: Fluorometholone 0.1% Susp 1 DRP DROPS EACH EYE (21:43)
[2022-09-04 22:11] LABS: Bedside Glucose 110 mg/dL (74-106)
[2022-09-05] VITALS (7 sets, daily range): BP systolic 124–156; BP diastolic 67–68; PULSE 62–70; RESP 16–18; TEMP 36.6–36.8; O2SAT 87–95
[2022-09-05 04:26] LABS: Absolute Lymphocyte Count 0.99 X10^3/uL (0.83-4.51); Absolute Neutrophil Count 6.4 X10^3/uL (2.0-7.7); Basophil# 0.05 X10^3/uL; Basophil% 0.5 % (0-1); Eosinophil# 0.34 X10^3/uL; Eosinophils% 3.6 % (0-5); Hematocrit 42.4 % (40-54); Hemoglobin 13.7 g/dL (13.0-16.5); Lymphocyte # 0.99 X10^3/ul (0.83-4.51); Lymphocyte % 10.5 % (19-41); Mean Corp Hgb Conc 32.3 g/dL (32-36); Mean Corpuscular Hgb 33.4 pg (27.0-32.0); Mean Corpuscular Volume 103.4 fL (80-94); Mean Platelet Vol. 9.2 fl (6.2-12.0); Monocyte# 1.57 X10^3/uL; Monocyte% 16.7 % (0-10); NRBC Flagged by Analyzer 0 % (0-5); Neutrophil # 6.42 X10^3/uL (2.7-7.7); Neutrophil % 68.4 % (47-70); POSITIVE DIFFERENTIAL YES; Platelet Count 243 K/mm3 (150-450); RBC Distribution Width SD 48.9 fl (35.1-43.9); White Blood Count 9.4 K/mm3 (4.4-11.0)
[2022-09-05 05:17] LABS: Differential Indicated SCAN CRITERIA MET
[2022-09-05 05:18] LABS: Differential Comment SCANNED
--- NOTE | 2022-09-05 05:21 | EKG12_ITS ---
Test Reason : PCI Blood Pressure : / mmHG Vent. Rate : 056 BPM Atrial Rate : 056 BPM P-R Int : 196 ms QRS Dur : 086 ms QT Int : 420 ms P-R-T Axes : -04 -29 -33 degrees QTc Int : 405 ms Sinus bradycardia with sinus arrhythmia Inferior infarct , age undetermined Anterior infarct , age undetermined Abnormal ECG When compared with ECG of 04-SEP-2022 15:01, MANUAL COMPARISON REQUIRED, DATA IS UNCONFIRMED Confirmed by ISRRAEL EATON, SEFERINO ([id number]), editorial clerk AAYUSH [facility] ([id number]) on 09/08/2022 1:46:52 PM Referred By: Confirmed By:SEFERINO ARCOS MD
[2022-09-05 05:35] LABS: ALB/GLOB Ratio 0.7 RATIO (0.9-2.4); AST(SGOT) 17 U/L (15-37); Alanine Aminotransfer ALT/SGPT 19 U/L (16-61); Albumin, Serum 2.8 g/dL (3.2-5.0); Alkaline Phosphatase 20 U/L (45-117); Anion Gap 6 (5-15); BUN 17 mg/dL (7-18); Calcium,Total 8.9 mg/dL (8.5-10.1); Chloride 103 mmol/L (98-107); Creatinine, Serum 0.77 mg/dL (0.70-1.30); EST Glomerular Filtration Rate 101 mL/min (>60); Est Glom Filt Rate - Afr Amer 122 mL/min (>60); Estimated Creatinine Clearance 52.72 ml/min; Globulin 3.8 g/dL (2.2-4.2); Glucose 107 mg/dL (74-106); Protein, Total 6.6 g/dL (6.4-8.2); Sodium Level 138 mmol/L (136-145)
[2022-09-05 06:54] LABS: Bedside Glucose 125 mg/dL (74-106)
--- NOTE | 2022-09-05 08:25 | PN.CARD_ITS ---
Subjective Subjective Patient seen and evaluated. Appears to be doing well at this time. Status post PCI of the right coronary artery. Objective Data Vital Signs: Vital Signs Temp Pulse Resp BP Pulse Ox O2 Del Method O2 Flow Rate 97.9 F 70 16 126/68 H 92 Nasal Cannula 2 09/05/22 08:08 09/05/22 08:08 09/05/22 08:08 09/05/22 08:08 09/05/22 08:11 09/05/22 08:11 09/05/22 08:11 Oxygen Flow Rate (L/min) 2 Oxygen Delivery Method Nasal Cannula Weight: 280 lb 0.9 oz Body Mass Index (BMI) 39.6 Intake & Output: Intake and Output for Last 24 Hours 09/03/22 09/04/22 09/05/22 23:59 23:59 23:59 Intake Total 200 / 200 540 / 540 1060 / 1060 Balance 200 / 200 540 / 540 1060 / 1060 Lab / Micro Data Result Diagrams: 09/05/22 03:53 09/05/22 03:53 Labs: Laboratory Results - last 24 hr 09/04/22 14:20: POC Glucose 110 H 09/04/22 16:03: POC Glucose 127 H 09/04/22 21:47: POC Glucose 110 H 09/05/22 03:53: WBC 9.4, RBC 4.10 L, Hgb 13.7, Hct 42.4, MCV 103.4 H, MCH 33.4 H , MCHC 32.3, RDW Std Deviation 48.9 H, RDW Coeff of [place] 13.0, Plt Count 243, MPV 9.2, Immature Gran % (Auto) 0.300, Neut % (Auto) 68.4, Lymph % (Auto) 10.5 L, [place] % (Auto) 16.7 H, Eos % (Auto) 3.6, Baso % (Auto) 0.5, Absolute Neuts (auto) 6.4, Absolute Lymphs (auto) 0.99, Nucleated RBC % 0, Differential Comment SCANNED 09/05/22 03:53: Sodium 138, Potassium 4.0, Chloride 103, Carbon Dioxide 29.0, Anion Gap 6, BUN 17, Creatinine 0.77, Estim Creat Clear Calc 52.72, Est GFR (MDR D) Af Amer 122, Est GFR (MDRD) Non-Af 101, BUN/Creatinine Ratio 22.0 H, Glucose 107 H, Calcium 8.9, Total Bilirubin 1.10 H, AST 17, ALT 19, Alkaline Phosphatase 20 L, Total Protein 6.6, Albumin 2.8 L, Globulin 3.8, Albumin/Globulin Ratio 0.7 L 09/05/22 06:36: POC Glucose 125 H Rhythm Strip Rhythm Strip: Sinus Rhythm Rate: 67 Ectopy: None Cardiology Labs/Tests 09/05/22 03:53: WBC 9.4, RBC 4.10 L, Hgb 13.7, Hct 42.4, MCV 103.4 H, MCH 33.4 H , MCHC 32.3, Plt Count 243, MPV 9.2, Immature Gran % (Auto) 0.300, Neut % (Auto) 68.4, Lymph % (Auto) 10.5 L, [place] % (Auto) 16.7 H, Eos % (Auto) 3.6, Baso % (Auto) 0.5, Absolute Neuts (auto) 6.4, Nucleated RBC % 0 09/05/22 03:53: Sodium 138, Potassium 4.0, Chloride 103, Carbon Dioxide 29.0, Anion Gap 6, BUN 17, Creatinine 0.77, Est GFR (MDRD) Af Amer 122, Est GFR (MDRD) Non-Af 101, BUN/Creatinine Ratio 22.0 H, Glucose 107 H, Calcium 8.9, Total Bilirubin 1.10 H Rhythm: EKG: ECHO: Stress Test: Cardiac Cath: PCI: CT Surgery: Holter monitor: EPS: PPM: CXR: Chest CT Scan: Physical Exam Const alert, oriented x3 and no apparent distress General Appearance: cooperative HEENT hearing grossly normal bilaterally Head and Scalp: atraumatic Eyes EOMs intact bilaterally Neck General: normal visual inspection Chest inspection of chest normal and palpation of chest normal Resp normal respiratory effort Auscultation: clear to auscultation bilaterally Cardio regular rate, regular rhythm, S1 normal heart sound and S2 normal heart sound Jugular Venous Distention: JVD GI normal to inspection, nondistended, normoactive bowel sounds Extremity normal capillary refill and no pedal edema Peripheral Pulses: Yes pulses 2+ throughout and femoral pulses present Skin no rashes or lesions noted Neuro oriented x3 and CN's II-XII intact bilaterally Psych Appearance: grossly normal and appropriate Assessment & Plan Assessment/Plan (1) Accelerating angina: PLAN: He presents with what appears to be accelerating angina. His cardiac catheterization demonstrated patent stent in the LAD, severe disease noted in the ostial circumflex artery and severe disease noted of the right coronary artery. He underwent PCI of the right coronary artery. The circumflex artery could not be crossed. And medical therapy will be continued for the above. He should continue his current medical therapy including clopidogrel and we will add isosorbide. He will be followed up as an outpatient with cardiac rehabilitation. (2) Presence of stent in coronary artery: PLAN: Does have a history of coronary artery stenting. I would not recommend that we make any changes at this particular time. (3) Hypertension: PLAN: His blood pressure appears to be under good control. No major changes will be made he will continue on the current medical therapy. Thank you for allowing me to participate in the care of your patient. Please don't hesitate to call if any issues arise.
[2022-09-05] MEDS: Isosorbide Mononitrate 30 MG Tablet PO (09:33)
--- NOTE | 2022-09-05 10:00 | EKG12_ITS ---
Test Reason : CP Blood Pressure : / mmHG Vent. Rate : 067 BPM Atrial Rate : 067 BPM P-R Int : 194 ms QRS Dur : 084 ms QT Int : 382 ms P-R-T Axes : 016 -30 -31 degrees QTc Int : 403 ms Normal sinus rhythm with sinus arrhythmia Left axis deviation Nonspecific T wave abnormality Abnormal ECG Confirmed by ISRRAEL EATON, SEFERINO ([id number]), editorial manager AAYUSH [facility] ([id number]) on 09/05/2022 8:05:12 AM Referred By: ANABEL Confirmed By:SEFERINO ARCOS MD
--- NOTE | 2022-09-05 10:44 | PCM.DC.SUM ---
Providers Date of Admission: 09/04/22 Date of Discharge: 09/05/22 Primary Care Physician: Dr. David Howard MD Consultations 09/03/22 13:17 Consult: Cardiology Routine Consulting Provider: Blake Shaffer Reason for Consult: chest pain EMERGENT Consult: No MD Notified: Yes Date Notified: 09/03/22 Time Notified: 13:21 Method of Notification: Verbal Reason For Visit: CHEST PAIN Diagnosis Discharge Diagnosis (1) Accelerating angina: Status: Acute Code(s): I20.0 - Unstable angina (2) Presence of stent in coronary artery: Status: Chronic Code(s): Z95.5 - Presence of coronary angioplasty implant and graft (3) Hypertension: Status: Chronic Code(s): I10 - Essential (primary) hypertension Plan #Chest pain to rule out ACS has been having episodic chest pain for 3 days prior to admission, only relieved by SL nitroglycerin troponins x 2 were negative. CXR showed no acute cardiopulmonary process due to his extensive history of CAD s/p stents 15 years ago, cardiology consulted on aspirin, plavix or statin. 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 ISS. Jagjit HARDWICK GERD: on PPI DVT prophylaxis; lovenox Code status: full code Medications at Discharge Home Medications multivitamin with folic acid 400 mcg tablet 1 tab PO DAILY 08/07/16 famotidine 20 mg tablet 20 mg PO QHS 01/20/19 aspirin 81 mg tablet,delayed release (Adult Low Dose Aspirin) 81 mg PO DAILY 04/28/19 glucosam 500 mg-chondroit 66.7 mg-msm 500 mg-boron 2 mg-hyaluro tablet 1 tab PO DAILY 07/12/20 levothyroxine 50 mcg tablet 50 mcg PO DAILY 07/12/20 cholecalciferol (vitamin D3) 50 mcg (2,000 unit) tablet 50 mcg PO BID 07/23/21 metformin 500 mg tablet,extended release 24 hr 500 mg PO DAILY 07/23/21 furosemide 40 mg tablet 40 mg PO DAILY #90 tabs 10/07/21 atenolol 25 mg tablet 12.5 mg PO DAILY #45 tabs 11/06/21 nitroglycerin 0.4 mg sublingual tablet 0.4 mg sublingual Q5M PRN Chest Pain #25 tabs 12/18/21 clopidogrel 75 mg tablet (Plavix) 75 mg PO DAILY #90 tabs 05/12/22 fluorometholone 0.1 % eye drops,suspension 1 drp EACH EYE BID cataract surgery 09/04/22 atorvastatin 40 mg tablet 40 mg PO DAILY #30 tabs 09/05/22 isosorbide mononitrate 30 mg tablet,extended release 24 hr 30 mg PO DAILY #30 tabs 09/05/22 Hospital Course Operations None Procedures Cardiac catheterization Summary of Care Provided Minutes Spent on Discharge: 55 Hospital Course: ROCK WESLEY, is a 87 M with a PMH as outlined who presents via the ED on 09/03/2022 with a complaint of chest pain. He has a history of CAD s/p stents x 3 as well as cardiomyopathy and afib. He started having chest pain 3 days ago which as relieved with SL nitroglycerin. Chest pain recurred on Thursday and also the day before admission when it was reproducible with palpation. He therefore decided to come in to the ED to be checked out. He denied any lightheadedness, nausea, palpitations or any other symptoms.? Review of systems is otherwise negative. Vitals at time of review were etmp of 98F, NV of 63, BP of 116/68, NV of 16 and he was saturating at 95% n 2L of oxygen. CBC was unremarkable and BMP was also unremarkable. CXR showed mild stable increased markings at the lung bases suggestive of scarring. Troponins x 2 were negative. Cardiology was consulted on account of his history of CAD. He was given a dose of therapeutic Lovenox x1. He was continued on his aspirin and statin. He did have cardiac cath which showed severe CAD of the RCA with 2 sequential 90 and 95% stenosis respectively an ostial 99% left circumflex artery stenosis with patent stents noted in the LAD with mild distal left main disease. He had PCI with placement of stents in the RCA. His symptoms resolved and he felt much better. He was continued on aspirin and Plavix and Imdur was added on. He remained stable and was discharged home on 09/05/2022. Of note the circumflex artery could not be crossed during PCI. He is follow-up with his primary care doctor and follow-up with cardiology. Patient seen and examined prior to discharge. He had no complaints and had an uneventful night. Review of systems otherwise negative. Labs and vitals reviewed. Home medication reviewed and reconciled. Physical Exam Const alert, oriented x3 and no apparent distress General Appearance: cooperative and comfortable Orientation / Consciousness: awake HEENT normocephalic, head/scalp atraumatic, hearing grossly normal bilaterally and moist oral mucous membranes Mouth: oral and palatal mucosa normal Eyes PERRL, EOMs intact bilaterally and conjunctivae normal Neck no lymphadenopathy, supple and no JVD Resp normal respiratory effort, normal air movement, no retractions, no use of accessory muscles and clear to auscultation bilaterally Cardio regular rate, regular rhythm, S1 normal heart sound, S2 normal heart sound and no murmurs GI normal to inspection, nondistended, normoactive bowel sounds, soft to palpation, non-tender and non-distended Extremity normal to inspection, full ROM, normal capillary refill and no clubbing, cyanosis or edema Skin no rashes or lesions noted General Skin Exam: no breakdown Neuro oriented x3, CN's II-XII intact bilaterally, moves all extremities and no focal motor deficits Sensorium / Orientation: awake and alert Motor Exam: strength 5/5 throughout Psych thought process normal, cooperative and affect normal Appearance: appropriate Weight / BMI Weight Weight: 280 lb 0.9 oz Body Mass Index (BMI) 39.6 ABG / Lab / Microbiology Data Result Diagrams: 09/05/22 03:53 09/05/22 03:53 Laboratory: Laboratory Results - last 24 hr 09/04/22 14:20: POC Glucose 110 H 09/04/22 16:03: POC Glucose 127 H 09/04/22 21:47: POC Glucose 110 H 09/05/22 03:53: WBC 9.4, RBC 4.10 L, Hgb 13.7, Hct 42.4, MCV 103.4 H, MCH 33.4 H, MCHC 32.3, RDW Std Deviation 48.9 H, RDW Coeff of [place] 13.0, Plt Count 243, MPV 9.2, Immature Gran % (Auto) 0.300, Neut % (Auto) 68.4, Lymph % (Auto) 10.5 L, Dixon % (Auto) 16.7 H, Eos % (Auto) 3.6, Baso % (Auto) 0.5, Absolute Neuts (auto) 6.4, Absolute Lymphs (auto) 0.99, Nucleated RBC % 0, Differential Comment SCANNED 09/05/22 03:53: Sodium 138, Potassium 4.0, Chloride 103, Carbon Dioxide 29.0, Anion Gap 6, BUN 17, Creatinine 0.77, Estim Creat Clear Calc 52.72, Est GFR (MDRD) Af Amer 122, Est GFR (MDRD) Non-Af 101, BUN/Creatinine Ratio 22.0 H, Glucose 107 H, Calcium 8.9, Total Bilirubin 1.10 H, AST 17, ALT 19, Alkaline Phosphatase 20 L, Total Protein 6.6, Albumin 2.8 L, Globulin 3.8, Albumin/Globulin Ratio 0.7 L 09/05/22 06:36: POC Glucose 125 H D/C Instructions Discharge Diet: Low fat / Low cholesterol Discharge Activity: Return to Normal Activity Weight Bearing Status: Weight bearing as tolerated Call your doctor if you observe: Fever of 101 or Higher, Shortness of breath, Dizziness, Swelling in the ankles, Chest pain and Increased palpitations (irregular heartbeat) Meaningful Use Info Meaningful Use Diagnoses (Choose all that apply): None applicable Discharge Plan Admission Admit Date/Time: 09/04/22 21:28 Primary Reason for Your Visit: nonstemi Attending Provider: Julieth Davila Primary Care Provider: David Howard Consulting Providers: Blake Shaffer Instructions Patient Instructions: Heart Attack Dc, Heart Attack Meds Discharge Orders/Prescriptions Prescriptions: New isosorbide mononitrate 30 mg Tablet Extended Release 24 Hr 30 mg PO DAILY Qty: 30 2RF atorvastatin 40 mg tablet 40 mg PO DAILY Qty: 30 2RF Continued famotidine 20 mg tablet 20 mg PO QHS aspirin [Adult Low Dose Aspirin] 81 mg tablet,delayed release (DR/EC) 81 mg PO DAILY levothyroxine 50 mcg tablet 50 mcg PO DAILY cholecalciferol (vitamin D3) 50 mcg (2,000 unit) tablet 50 mcg PO BID metformin 500 mg tablet extended release 24 hr 500 mg PO DAILY multivitamin with folic acid 1 TABLET tablet 1 tab PO DAILY gtcmklwl-rfdda-ccn-boron-hyal 500-66.7-500-2 mg tablet 1 tab PO DAILY fluorometholone 0.1 % drops,suspension 1 drp EACH EYE BID Label Comments: instill 1 drop into both eyes twice a day furosemide 40 mg tablet 40 mg PO DAILY Qty: 90 3RF atenolol 25 mg tablet 12.5 mg PO DAILY Qty: 45 3RF nitroglycerin 0.4 mg tablet, sublingual 0.4 mg SUBLINGUAL Q5M PRN (Reason: Chest Pain) Qty: 25 3RF clopidogrel [Plavix] 75 mg tablet 75 mg PO DAILY Qty: 90 3RF Discontinued atorvastatin 20 mg tablet 20 mg PO QHS Qty: 90 3RF Referrals / Follow Up: Blake Shaffer MD [Med Staff - Active Staff] - Within 2 Weeks David Howard MD [Primary Care Provider] - Within 2 Weeks Disposition Disposition (needs filled in before D/C Order can be placed): Home, Self Care Charges/Coding Visit Charges Inpatient E&M: 32279 Disch Hosp >30min
--- NOTE | 2022-09-05 11:12 | PHA.DC.MC ---
Pharmacy Service has performed discharge medication reconciliation and counseling for this patient. Patient requested meds to beds. This [facility] called retail and requested meds to beds. Home Medications multivitamin with folic acid 400 mcg tablet 1 tab PO DAILY 08/07/16 famotidine 20 mg tablet 20 mg PO QHS 01/20/19 aspirin 81 mg tablet,delayed release (Adult Low Dose Aspirin) 81 mg PO DAILY 04/28/19 glucosam 500 mg-chondroit 66.7 mg-msm 500 mg-boron 2 mg-hyaluro tablet 1 tab PO DAILY 07/12/20 levothyroxine 50 mcg tablet 50 mcg PO DAILY 07/12/20 cholecalciferol (vitamin D3) 50 mcg (2,000 unit) tablet 50 mcg PO BID 07/23/21 metformin 500 mg tablet,extended release 24 hr 500 mg PO DAILY 07/23/21 furosemide 40 mg tablet 40 mg PO DAILY #90 tabs 10/07/21 atenolol 25 mg tablet 12.5 mg PO DAILY #45 tabs 11/06/21 nitroglycerin 0.4 mg sublingual tablet 0.4 mg sublingual Q5M PRN Chest Pain #25 tabs 12/18/21 clopidogrel 75 mg tablet (Plavix) 75 mg PO DAILY #90 tabs 05/12/22 fluorometholone 0.1 % eye drops,suspension 1 drp EACH EYE BID cataract surgery 09/04/22 atorvastatin 40 mg tablet 40 mg PO DAILY #30 tabs 09/05/22 isosorbide mononitrate 30 mg tablet,extended release 24 hr 30 mg PO DAILY #30 tabs 09/05/22 The patient's discharge medication list was reviewed for discrepancies and discrepancies were resolved. The patient was counseled on the following discharge medications and changes in medications for homegoing were reviewed. The Reason for Use, instructions for use, and potential side effects were reviewed for all new medications. The patient's questions regarding all of their medications were answered. The patient was able to verbally demonstrate an understanding of their discharge medications. Patient counseled by lead pharmacy technicianMilan.
[2022-09-05 12:45] LABS: Bedside Glucose 110 mg/dL (74-106)
== END 2022-09-05 13:15 | disposition home or self-care (01) | DRG 247 ==
LOC: ED 11:23 → PCU 11:44
PROVIDERS: Admitting Provider Student in an Organized Health Care Education/Training Program; Emergency Provider Emergency Medicine; PCP Family Medicine; Visit Provider Student in an Organized Health Care Education/Training Program
DX: I25.110 Atherosclerotic heart disease of native coronary artery with unstable angina pectoris (principal); E03.9 Hypothyroidism, unspecified; I48.91 Unspecified atrial fibrillation; E11.9 Type 2 diabetes mellitus without complications; I10 Essential (primary) hypertension; I25.5 Ischemic cardiomyopathy; E78.00 Pure hypercholesterolemia, unspecified; K21.9 Gastro-esophageal reflux disease without esophagitis; Z82.3 Family history of stroke; Z95.5 Presence of coronary angioplasty implant and graft; Z79.82 Long term (current) use of aspirin; Z79.02 Long term (current) use of antithrombotics/antiplatelets; Z87.891 Personal history of nicotine dependence; Z79.84 Long term (current) use of oral hypoglycemic drugs; Z66 Do not resuscitate
CPT/HCPCS: 36415; 71045; 80048; 80053; 82962; 84484; 85025; 92928; 93005; 93458; 99152; 99153; 99284; C1757; J7030; J7040; Q9967; A4216; C1725; C1769; C1874; C1887; C1894; C9600; J1327

== ENCOUNTER → 2022-09-23 | Outpatient (CLI) | payer MEDICARE, OTHER, SELFPAY ==
--- NOTE | 2022-09-23 08:05 | PCM.CR.HP2 ---
CR - History & Physical - General Arrival date:: 09/23/22 Arrival time:: 08:00 Date of Referral:: 09/04/22 Date of CR Evaluation:: 09/23/22 Referring Physician: Dr. Blake Shaffer Primary Diagnosis: PCI w/coronary stenting - History of Present Cardiac Event Onset Date: Enter Onset Date of cardiac illnesses in Comment field below Current stable Angina Pectoris:: Yes - seen in the emergency room on 09/03/2022 Acute Myocardial Infarction within 12 months:: No - Previous NH in 2005 PTCA or coronary stenting:: Yes - Previous stent in 2005 and recently on 09/04/2022 Heart or Heart-Lung Transplant:: No Heart Failure EF <35%:: No Type of Symptoms:: chest pain and was popping nitroglycerine daily. Patient called Dr. Shaffer and was scheduled to the emergency room and tadmitted to the hospital and scheduled for a heart cath. Interventions with present event:: Heart cath and PCI w/coronary angioplasty implant & graft. Were there any complications?: None - Sleep Disorder Evaluation Hx of Sleep Apnea: No Do you snore loudly (louder than talking or can be heard through closed doors)?: Yes Do you often feel tired/ fatigued/ sleepy during daytime?: Yes Has anyone observed you stop breathing during sleep?: No History of Hypertension (for STOP score): Yes - recently had overnight sleep study at home has not gotten the results from Dr. Lee MIGUEL Results: Positive - Medications Home Medications: Ambulatory Orders Medication Instructions Recorded multivitamin with folic acid 400 1 tab PO DAILY 08/07/16 mcg tablet famotidine 20 mg tablet 20 mg PO QHS 01/20/19 aspirin 81 mg tablet,delayed 81 mg PO DAILY 04/28/19 release (Adult Low Dose Aspirin) glucosam 500 mg-chondroit 66.7 1 tab PO DAILY 07/12/20 mg-msm 500 mg-boron 2 mg-hyaluro tablet levothyroxine 50 mcg tablet 50 mcg PO DAILY 07/12/20 cholecalciferol (vitamin D3) 50 50 mcg PO BID 07/23/21 mcg (2,000 unit) tablet metformin 500 mg tablet,extended 500 mg PO DAILY 07/23/21 release 24 hr furosemide 40 mg tablet 40 mg PO DAILY #90 tabs 10/07/21 atenolol 25 mg tablet 12.5 mg PO DAILY #45 tabs 11/06/21 nitroglycerin 0.4 mg sublingual 0.4 mg sublingual Q5M PRN Chest 12/18/21 tablet Pain #25 tabs clopidogrel 75 mg tablet (Plavix) 75 mg PO DAILY #90 tabs 05/12/22 fluorometholone 0.1 % eye 1 drp EACH EYE BID cataract surgery 09/04/22 drops,suspension atorvastatin 40 mg tablet 40 mg PO DAILY #30 tabs 09/05/22 amlodipine 5 mg tablet 5 mg PO QHS #30 tabs 09/19/22 isosorbide mononitrate 30 mg 30 mg PO QAM #30 tabs 09/19/22 tablet,extended release 24 hr - Allergies Allergies/Adverse Reactions: Allergies lisinopril Allergy (Verified 09/03/22 09:56) Angioedema Advanced Directives - Advanced Directives Power of Manager Student Services: Yes - Daughter is his POA for healthcare Living Will: Yes Advance Directives Information Provided: No Advance Directives on File: Yes - MOLST See MOLST form: No Past Medical History - Covid-19 Screening Fever: No Unexplained muscle aches: No Current respiratory symptoms: No Upper respiratory infections symptoms: No Gastro-intestinal symptoms: Yes - GERD in the past nothing really now [id number] symptoms: No Has tested positive for COVID-19 in last 30 days: No Date of testin09/23/22 - Fully vaccinated w/boosters Had contact w/person w/symptoms or Covid-19 (+) last 14 days: No Has High Risk Exposures ID'd by Health dept/Inf Control team: No 65 years or older:: Yes Lives in Assisted Living facility:: No Has a chronic lung disease or moderate to severe asthma:: No Has a serious heart condition:: Yes Immunocompromised:: No Severely obese (Body Mass Index of 40 or higher):: Yes Diabetic:: Yes Has chronic kidney disease undergoing dialysis:: No Has liver disease:: No - Past Medical Illness Medical History: Past Medical History (Last Updated 09/04/22 @ 16:11 by Izabela Rhoades) Abnormal stress test R94.39 Accelerating angina I20.0 Acute bronchitis J20.9 Acute NH, subendocardial, subsequent episode of care I21.4 Angioedema due to angiotensin converting enzyme inhibitor (JINNY-I) T78.3XXA, T46.4X5A Arthritis M19.90 Atherosclerosis of [place] coronary artery of [place] heart without angina pectoris I25.10 11-26-05 PTCA/stent to mid LAD Cancer C80.1 Cardiac dysrhythmia, unspecified I49.9 Diabetes mellitus type 2, controlled E11.9 Encounter for long-term current use of high risk medication Z79.899 Heart disease I51.9 History of cardioversion Onset Date: ~12/26/18 Z98.890 History of myocardial infarction I25.2 History of placement of stent in LAD coronary artery Z95.5 Hypertension I10 Ischemic cardiomyopathy I25.5 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 Blake Shaffer MD) HISTORY OF ANAL FISTULA HISTORY OF HEART CATH AND STENTS History of left knee replacement Z96.652 HISTORY OF RIGHT CHEEK BONE SURGERY History of right knee joint replacement Z96.651 HISTORY OF RIGHT WRIST SURGERY History of rotator cuff surgery Z98.890 Presence of coronary angioplasty implant and graft Onset Date: ~11/26/05 Z95.5 PTCA/stent to mid LAD 11/26/05 Surgical History: noncontributory - Family History Summary Family History: Family History (Last Reviewed 09/03/22 @ 17:[address] Blake Shaffer MD) Father CVA (cerebral vascular accident) Mother Cancer lung Brother Cancer Social History - Smoking History Smoking Status: Former smoker - quit 60= years ago. Hx Tobacco Use: No Hx Smoking Exposure: No - Alcohol Use Alcohol Usage: Yes - A beer a few times weekly. - Substance Abuse Hx Substance Use: No - Occupation Occupation (List type of work in comments):: Retired - Hobbies, Recreation, Social Activities Hobbies: Sports - playing golf but due to arthritis had slowed down playing., Reading, Watch TV, Other - play cards Recreational Activities: I am able to engage in most, but not all activities Social Environment - Status Marital Status: - Current Living Arrangements Living Environment:: Alone - Children How many children do you have?: 2 Do any of your children live nearby?: No - [place] and [place] - Safety Do you feel safe in your surroundings?: Yes - Assistance Do you need any assistance at home?: no Review of Systems - Review of Systems Hints: Right click = Denies ([place]). Left click = Reports ([place]) Review of Present Symptoms: Reports: Shortness of Breath with Exertion - some, Angina - a little, but nothing that has required nitro. Heart rate is bradycardic, Dizziness/Lightheadedness - with the new medicine is having some lightheadedness, gets up slowly, Fatigue, Heart Arrhythmia/Irregularities - PVCs, sinus bradycardia, had cardioversion in the past., Appetite - Normal - doesn't eat as much and cooking for one person isnt the greatest thing., Sleep - Normal. Denies: Shortness of Breath at Rest, Appetite - Special Diet, Sexual Changes - Pain Is Patient Pain Free?: Yes Pain Location: none Pain Level: 0/10 - athroscopy of right knee with replacement, arthiritis in hands Risk Factor Assessment - Vital Signs Temperature: 97.9 F Respiratory Rate: 14 Pulse Ox: 92 Blood Pressure: 126/68 - Pulse Pulse Rate: 70 Pulse Rhythm: Regular - Hypertension How long have you been treated?: at least since 2005 On medication(s)?: yes Blood Pressure Sitting - Left Arm: 126/68 - Blood Cholesterol/Lipids Total Cholesterol (mg/dL) Goal = less than 200 mg/dL: 108 HDL Cholesterol (mg/dL) Goal = less than 40 mg/dL: 30 LDL Cholesterol (mg/dL) Goal = less than 70 mg/dL: 46 Triglycerides (mg/dL) Goal = less than 150 mg/dL: 162 - Diabetes Diabetic History: Type II, Medication Dependent, Insulin Dependent Nutrition Referral for Diabetes: Yes - Obesity Height: 5 ft 10.5 in Weight:: 280 lb Weight in Pounds: 280.0 lbs Weight [facility]: [facility] Body Mass Index (BMI): 39.6 Nutritional Referral for Obesity: Yes - Physical Inactivity Physical Inactivity: Reg Exercise 30 min/day - Risk Stratification Risk Guidelines: Lowest Risk: Risk Factor for Dyslipidemia, Risk Factor for Diabetes - Glucose 107; A1c 6.6, Risk Factor for Hypertension - 126/68, Risk Factor for Sedentary Lifestyle, Highest Risk: Risk Factor for Obesity - BMI 39.6 - Family History Family History: Family History (Last Reviewed 09/03/22 @ 17:[address] Blake Shaffer MD) Father CVA (cerebral vascular accident) Mother Cancer Brother Cancer Motivation - Motivation to Participate On a scale of 1 to 10, how prepared are you to commit to attending program?: 9 What do you see as barriers to successfully being able to complete the program?: nothing What do you see as the benefits of succesfully completing the program? In other words, what do you hope to get out of participating in the program?: rebuilding my strength back up. Are there issues you are dealing with that will interfere with completing the program?: no Do you have a spouse or signficant other, family or friends who will help support you to complete the program?: Yes
--- NOTE | 2022-09-23 08:06 | PCM.CR.ITP ---
Diagnosis - General Information Admitting Diagnosis: PCI w/coronary stenting Secondary Diagnosis: Angina, Hypertension, Hypercholesterolemia, Type II DM, other primary cardiomyopathies Personal Learning Style:: Audio/Visual, Written Barriers to Learning: Vision Impairment - recently got new glasses following cataract removal and lense implant Stage of change r/t lifestyle modifications:: Action Gave educational material for:: Treating Heart Disease, Emotions & Heart Disease, Stress Management & Relaxation, Sleep Disorders & Heart Disease, How The Heart Works, What it means to have Heart Disease, How Coronary Artery Disease is Diagnosed, Heart Procedures, What Heart Medications Do, Risk Factors & Modifications, Living an Active Life, Nutrition - Education/Goals Individual Counseling: Initial Assessment: Abnormal Cholesterol Levels, High Blood Pressure, Overweight/Obesity, Diabetes, A. Fasting Blood Sugar >100 - 107, C. High Triglycerides >150 - 162, Hypertension - 126/68, Low HDL <40/Males or <50/Females - 30 Cardiac Rehabilitation Goals: 1. Maintain the individual as the primary focus of care. 2. To improve the patient's quality of life. 3. Identification of cardiac risk factors and provide cardiac risk factor management. 4. Enhance the psychosocial status of the patient. 5. Reconditioning enough to allow the patient to resume customary activities. 6. Control symptoms of cardiac disease Personal Goals: Initial Assessment: Improve energy level, Get back to work, or to resume activities faster, Improve muscle strength and endurance, Control risk factors (learn risk factor modification) Scale for measuring improvement of personal goals: Enter appropriate number in Comments. 2 = Unchanged. 3 = Slightly Better. 4 = Moderate Improvement. 5 = Met my Goal - Diagnosis & Disease Process Outcomes/Goals: Pt IDs own risk factors & lifestyle modifications by Session 10, Verbalizes symptoms of angina & response by session 3., Pt independently manages Plan/Interventions: Assist Pt to ID & engage in lifestyle modification to reduce CVD risk, Instruct on individual risk factors, Review symptoms of angina & emergency actions, Review secondary diagnosis & identify educational needs. - Safety Referral to Physical Therapy: No Referral to [facility] Case Management: No Fall Risk Assessed:: Yes Assistive Devices:: None Exercise - Initial Assessment - Visit Date of Eval: 09/23/22 Session #:: 0 - Pre-cardaic rehab evaluation Mets: Pre-: >7 METS for 30 minutes by discharge - Physician Prescribed Exercise Modalities: Treadmill, Rower, NuStep Frequency: 3x/week for 12 weeks [36 sessions] Intensity: 60-80% of age predicted maximum heart rate reserve Duration: 30 - 45 minutes Current METSs:: 4.0 Target Heart Rate:: 86-100 Resting Blood Pressure: 126/68 EKG Type: Normal Sinus Rhythm w/sinus arrythmia - Outcomes & Goals Goals:: Verbalizes understanding of THR, RPE & goal METS by session 6, Documents in home exercise log/reports 30 min aerobic 5 day/wk by DC, Demonstrates accurate pulse taking by DC - Intervention & Plan Exercise Program Goals: Instruct on personal THR & RPE, Instruct on MET level & personal MET goal, Show patient to take own pulse /validate performance until accurate, Instruct on home exercise - Physical Activity Home Exercise Physical Activity - Home Exercise: Safe Exercise, Warm-up, Self-monitoring, Cool-Down, Home Exercise > 30 min Daily, Sitting Time <3 hours/daily - Outcomes & Goals Outcomes/Goals: Demonstrates correct Warm-up/exercise Cool-Down (S3) if = 2.5 METs, Verbalizes symptoms of exercise intolerance by Session 3 (S3), Demonstrate safe equipment use (S3) & follows exercise prescrition (6) - Intervention & Plan Plan/Intervention: Instruct warm-up & cool-down if exercising at > 2 METs, Instruct on symptoms of exercise intolerance & actions to take, Instruct & monitor on saf, Assess intial functional capacity & safety risk Nutrition - Initial Assessment - Program Goals Nutrition Program Goals: LDL <100 optimal. 100 - 129 Near optimal. 130 - 159 Borderline High. 160 - 189 High. Total Cholesterol <200 desirable. 200 - 239 Borderline High. >/= 240 High. HDL < 40 Low >/=60 High. Triglycerides <150 desirable. <199 optimal. VlDL 5 - 40. HgbA1C <7%. BMI <25 Patient has diagnosis of Hyperlipidemia (ICD E78)?: Yes - Visit Date of Assessment:: 09/23/22 Session #:: 0 - Pre-cardai rehab evaluation - Cholesterol/Lipids (Other Core Measures) Triglycerides (mg/dL): 162 Total Cholesterol (mg/dL): 108 LDL Cholesterol (mg/dL): 46 HDL Cholesterol (mg/dL): 30 Determine presence & major risk factors that modify LDL goal: Hypertension or hypertensive medication, Low HDL cholesterol <40 mg/dL*, Family history of premature CHD in Male < 55 years: female <65 yearsFa, Age men > 45 years; women >/= 55 years Outcomes/Goals: Pt IDs own risk factors & lifestyle modifications by Session 10, Verbalizes symptoms of angina & response by session 3., Pt independently manages Intervention/Plan: Instruct on personal lipid levels & lipid goals/NCEP guidelines, Instruct on cholesterol Referral to dietitian:: Yes - Medical Nutrition - Diabetes (Other Core Measures) Diabetes Type: Diagnosis Type II ICD-10 E11 Fasting blood glucose:: 107 Hgb A1C (4.2 - 6.3): 6.2 Insulin dependent injection/pump?: Yes Non-Insulin Dependent?: Yes Do you monitor your blood sugar at home?: Yes Referral to Diabetic Clinic:: Yes Outcomes/Goals:: Able to state symptoms of, Able to state, Able to state Intervention/Plan:: Instruct on, Refer to, Instruct on - Weight Mgt (Other Care) Not Applicable: No Height: 5 ft 10 in Weight:: 280 lb BMI: 40.1 Diagnosis Overweight/Obesity BMI> 30% ICD-10 E66: Yes 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 Outcomes/Goals: Pt sets, maintains & shows weight loss goal & trend during rehab Intervention/Plan: Instruct on ideal BMI & set weight loss goal w/patient, Assist pt to ID & incorporate diet changes for weight loss by S9, Refer to Structured Weight Loss program as appropriate, Encourage goal of using 250-300dcal per session for weight loss - Healthy Eating Habits Will attend diet classes:: Yes Outcomes/Goals:: Consume diet rich in vegs,fruits,whole grain/high fiber,fish,lean meat, Limit sat/trans fats,cholesterol & added salts & sugars Intervention/Plan:: Assess current eating habits - Education Gave educational materials for:: Signs & symptoms of hypoglycemia, Signs & symptoms of hyperglycemia, Relate diabetes to coronary artery disease, Healthy eating Nutrition - 30-Day Assessment Nutrition - 60-Day Assessment Nutrition - 90-Day Assessment Nutrition - Final Assessment Core - Initial Assessment - Visit Date of Eval: 09/23/22 Session #:: 0 - Pre-cardiac rehab evaluation - Medication Compliance Preventative Medication(s):: Aspirin, Clopidogrel/P2Y12 inhibit, Statin/lipid, Beta catherine H/O mental health issues: depression, anxiety, or addiction?: No Doesn?t believe in the benefits of treatment?: No Believes medications are unnecessary or harmful?: No Has a concern about medication side effects?: No Expresses concern over the cost of medications?: No Outcomes/Goals: Verbalizes medications,desired effect & common side effects @ DC, Pt self-reports following medication regimen, Keeps card in wallet w/medications listed by DC Interventions/plans: Instruct on medication effects & side effects, Review medication list w/patient every two weeks, Instruct importance of taking meds as ordered & assist problem solving - Tobacco Use Tobacco Use: Non-smoker - Hypertension Hypertension Diagnosis:: Hypertension ICD-10 I10 Resting Blood Pressure:: 126/68 [place] [employer] Hypertension Guidelines: [place] [employer] Hypertension Guidelines. Normal BP Less than 120/80. Elevated BP 120/80. Hypertension Stage 1: BP 130-139/80-89. Hypertesnion Stage 2: BP 140 or higher/90 or higher. Hypertension Crisis: BP higher than 180/120 Outcomes/Goals: Able to verbalize/achieve optimal blood pressure <130/80, Incorporates diet changes & exercise for blood pressure control by DC Interventions/plan: Instruct on optimal blood pressure, hypertension & medications, Instruct on effects of sodium, alcohol, stress, exercise &hypertension - Tobacco Cessation Referral Smoking Cessation Referral:: No Individual Education/Counseling:: No Education Schedule Given:: Yes Core - 30-Day Assessment Core - 60-Day Assessment Core - 90 Day Assessment Core - Final Assessment Psychosocial - Initial Assess - VIsit Date of Eval: 09/23/22 Session #:: 0 - Pre-cardaic rehab evaluation Not Applicable: Yes History of previous Mental disease:: No - Psychosocial Test Tool Used:: Daphne Byrne QOL Cardiac, PHQ-9 Questionnaire phq-9 Severity: Severity. 1-4 Minimal Depression. 5-9 Mild Depression. 10-14 Moderate Depression. 15-19 Moderately Sever Depression. 20-27 Severe Depression. Rule: See PHQ-9 Score: 12 - PHQ-9 indicates moderate depression - Referral to Behavioral Health PS - Interventions: Yes Attend Stress Management Classes, No Referral to Behavioral Health if PHQ-9 score >9:, No Referral to [facility], No Referral to Physician if PHQ-9 if score is 5-9: - Outcomes/Goals: See list Psychosocial Outcomes/Goals:: ID's personal stressors & 2 strategies to manage stress by discharge - Intervention/Plan: See List Interventions/Plan:: Assess stressors,coping strategies & signs of derpression on admission, Instruct/assist pt to develop coping & personal stress Mgt strategies, Instruct patient to recognize signs & symptoms of depression, Instruct patient to recog Psychosocial - 30-Day Assess Psychosocial - 60-Day Assess Psychosocial - 90-Day Assess Psychosocial - Final Assessmen Patient Health Questionnaire Initial Assessment 1. Little interest or pleasure in doing things: Nearly every day 2. Feeling down, depressed, or hopeless: Not at all 3. Trouble falling or staying asleep, or sleeping too much: More than half the days 4. Feeling tired or having little energy: Nearly every day 5. Poor appetite or overeating: More than half the days 6. Feeling bad about yourself -- or that you are a failure or have let yourself or your family down: Not at all 7. Trouble concentrating on things, such as reading the newspaper or watching television: Several days 8. Moving or speaking so slowly that other people could have noticed. Or the opposite - being so fidgety or restless that you have been moving around a lot more than usual: Not at all 9. Thoughts that you would be better off , or of hurting yourself in some way: Several days How difficult have these problems made it for you to do your work, take care of things at home, or get along with other people?: Somewhat difficult Total Score: 12 AJITH-Q SV Test - Statements CAD is a disease of the arteries in the heart: False Examples of risk factors for heart disease: True Angina is chest pain or discomfort: True The benefits of resistance training include: True Eating more meat and dairy products: False Anti-platelet medications such as aspirin are important: True The only effective way to manage stress: False An exercise warm-up slowly increases heart rate: True Prepared, processed foods usually have high sodium: True Depression is common after a heart attack: False The statin medications lower cholesterol: True To control blood pressure, lower the amount of sodium: True If someone gets chest discomfort during walking: False Transfats are partially hydrogenated vegetable oils: True Sleep apnea that is not treated increases the risk: False To control cholesterol, one should become a vegetarian: False Someone knows if he/she is exercising at the right level: True Diabetes cannot be prevented with exercise & health eating: False Stress is a large risk for heart attack: True A diet that can help lower blood pressure is rich in: True - Total Score Total Correct Responses: 19 Self-Efficacy Initial Assessment We would like to know how confident you are in doing certain activities. Please select your confidence level for:: Select your confidence level for the following using the scale 1-10 where 1 is not at all confident and 10 is totally confident. Your score is the average of all 6 responses. Fatigue: How confident are you that you can keep the fatigue caused by your disease from interfering with the things you want to do? Select Number: 5 Physical Discomfort or Pain: How confident are you that you can keep the physical discomfort or pain of your disease from interfering with the things you want to do? Select Number: 5 Emotional Distress: How confident are you that you can keep the emotional distress caused by your disease from interfering with the things you want to do? Select Number: 10 Other Symptoms or Health Problems: How confident are you that you can keep other symptoms or health problems from interfering with the things you want to do? Select Number: 8 Different Tasks and Activities: How confident are you that you can do the different tasks and activities needed to manage your health condition so as to reduce your need to see a doctor? Select Number: 8 Medication: How confident are you that you can do things other than just taking medication to reduce how much your illness affects your everyday life? Select Number: 9 Total Score:: 7 Nutrition Survey - Nutrition Survey Initial Have you lost >10 lbs over the past 2 months without trying?: No Are you following a special diet at home for diabetes, low fat, or low salt?: No Are you interested in meeting with a dietitian for help understanding your diet?: No Do you eat less than 3 meals a day?: Yes Do you eat fatty meats (noel, sausage, ribs, etc), fried foods, desserts, large amounts of salad dressings, margarine, butter, or cheese most days?: Yes Do you have food allergies? [Enter types in comment field]: No Do you eat in restaurants more than 3 times a week?: No Do you season food with salt, seasoning salt, or garlic salt?: No Do you used canned, boxed, frozen meals, or soups, seasoning packets?: No Total Score:: 2
[2022-09-23 08:33] VITALS: BP 126/68; BMI 40.1
[2022-09-23 08:46] VITALS: BP 126/68; PULSE 70; RESP 14; TEMP 36.6; O2SAT 92; BMI 39.6
== END | disposition home or self-care (01) ==
LOC: CR 08:00
PROVIDERS: PCP Family Medicine; Referring Provider Internal Medicine Cardiovascular Disease; Visit Provider Internal Medicine Cardiovascular Disease
DX: Z95.5 Presence of coronary angioplasty implant and graft (principal); M35.3 Polymyalgia rheumatica; I42.8 Other cardiomyopathies; I11.0 Hypertensive heart disease with heart failure; I48.0 Paroxysmal atrial fibrillation; E11.9 Type 2 diabetes mellitus without complications; I25.2 Old myocardial infarction; R06.83 Snoring; R53.83 Other fatigue; M19.90 Unspecified osteoarthritis, unspecified site; T78.3XXA Angioneurotic edema, initial encounter; T46.4X5A Adverse effect of angiotensin-converting-enzyme inhibitors, initial encounter; I25.10 Atherosclerotic heart disease of native coronary artery without angina pectoris; Z79.899 Other long term (current) drug therapy; Z98.890 Other specified postprocedural states; I25.5 Ischemic cardiomyopathy; E78.00 Pure hypercholesterolemia, unspecified; I49.3 Ventricular premature depolarization; R00.1 Bradycardia, unspecified; Z85.9 Personal history of malignant neoplasm, unspecified; Z96.651 Presence of right artificial knee joint

== ENCOUNTER 2022-09-26 10:15 | Outpatient (RCR) | payer MEDICARE, OTHER, SELFPAY ==
[2022-09-23 08:33] VITALS: BMI 40.1
== END 2022-09-26 23:59 ==
LOC: CR 10:15
PROVIDERS: PCP Internal Medicine Cardiovascular Disease; Referring Provider Internal Medicine Cardiovascular Disease; Visit Provider Internal Medicine Cardiovascular Disease
DX: Z95.5 Presence of coronary angioplasty implant and graft (principal); I25.10 Atherosclerotic heart disease of native coronary artery without angina pectoris
CPT/HCPCS: 93798

== ENCOUNTER 2022-09-28 00:47 | Inpatient (IN) | payer MEDICARE, OTHER, SELFPAY ==
[2022-09-23 08:33] VITALS: BMI 40.1
[2022-09-28] VITALS (11 sets, daily range): BP systolic 119–166; BP diastolic 64–74; PULSE 49–72; RESP 12–20; TEMP 36.1–36.8; O2SAT 92–98; BMI 46.5; BMI 41.5
--- NOTE | 2022-09-28 01:01 | EKG12_ITS ---
Test Reason : CP Blood Pressure : / mmHG Vent. Rate : 064 BPM Atrial Rate : 064 BPM P-R Int : 186 ms QRS Dur : 082 ms QT Int : 422 ms P-R-T Axes : 060 -31 012 degrees QTc Int : 435 ms Normal sinus rhythm with sinus arrhythmia Left axis deviation Minimal voltage criteria for LVH, may be normal variant ( R in aVL ) Anterior infarct , age undetermined Abnormal ECG Confirmed by KENYA EATON, MARIE ([id number]), loan expeditor AAYUSH LEWIS ([id number]) on 10/01/2022 11:38:14 AM Referred By: JAIME Confirmed By:CHAY ZAMBRANO MD
--- NOTE | 2022-09-28 01:10 | RAD_ITS ---
STUDY: X-RAY CHEST REASON FOR EXAM: Male, 87 years old patient with chest pain. TECHNIQUE: Single AP portable view of the chest. COMPARISON: September 03, 2022. FINDINGS: Cardiac monitoring leads are present. Lungs are expanded. There are prominent bronchovascular markings in both lungs. There is no demonstrated pleural abnormality. There is mild cardiac enlargement. Normal mediastinum and aristides. There is prominence of the pulmonary hilar arteries with peripheral pulmonary vascular congestion. There is atherosclerotic calcification of the aortic arch with tortuosity. There are diffuse degenerative changes of the visualized thoracic spine. Normal visualized ribs, clavicles, and shoulders. There is no demonstrated abnormality of the visualized soft tissue structures of the upper abdomen. RAD/Chest 1 View (Portable) IMPRESSION: Cardiomegaly and mild pulmonary congestion. Electronically Signed: Kaya Mari MD at 1:41 EDT ,
[2022-09-28 01:16] LABS: Absolute Lymphocyte Count 1.45 X10^3/uL (0.83-4.51); Absolute Neutrophil Count 5.9 X10^3/uL (2.0-7.7); Basophil# 0.04 X10^3/uL; Basophil% 0.4 % (0-1); Eosinophil# 0.49 X10^3/uL; Eosinophils% 5.2 % (0-5); Hemoglobin 14.8 g/dL (13.0-16.5); Lymphocyte # 1.45 X10^3/ul (0.83-4.51); Lymphocyte % 15.4 % (19-41); Mean Corp Hgb Conc 32.2 g/dL (32-36); Mean Corpuscular Hgb 33.4 pg (27.0-32.0); Mean Corpuscular Volume 103.8 fL (80-94); Mean Platelet Vol. 9.5 fl (6.2-12.0); Monocyte# 1.52 X10^3/uL; Monocyte% 16.1 % (0-10); NRBC Flagged by Analyzer 0 % (0-5); Neutrophil % 62.5 % (47-70); POSITIVE DIFFERENTIAL YES; Platelet Count 192 K/mm3 (150-450); RBC Distribution Width CV 13.7 % (11.6-14.6); RBC Distribution Width SD 52.8 fl (35.1-43.9); Red Blood Count 4.43 M/mm3 (4.6-6.2); White Blood Count 9.4 K/mm3 (4.4-11.0)
[2022-09-28 01:20] LABS: Differential Indicated SCAN CRITERIA MET
[2022-09-28 01:30] LABS: Anion Gap 6 (5-15); BUN 29 mg/dL (7-18); BUN/Creat Ratio 27.9 RATIO (10-20); Calcium,Total 9.3 mg/dL (8.5-10.1); Chloride 104 mmol/L (98-107); Creatinine, Serum 1.04 mg/dL (0.70-1.30); EST Glomerular Filtration Rate 72 mL/min (>60); Est Glom Filt Rate - Afr Amer 87 mL/min (>60); Glucose 187 mg/dL (74-106); Sodium Level 139 mmol/L (136-145); Troponin-I HS (w/2H Reflex) 30 pg/mL (3.0-78.0)
[2022-09-28 03:08] LABS: Reflex Troponin-HS? (from REC) Y
--- NOTE | 2022-09-28 04:23 | ED.VIS.CHEST ---
HPI History of Present Illness Chief Complaint: Chest Pain Informant: patient Onset/Context/Timing Onset: Today Activity at onset: sudden and rest Timing: Continuous Quality: Positive for Dull Location: Left Parasternal and Left Chest Worsened By: Nothing Relieved By: NTG Associated Symptoms: Positive for Acid Reflux; Negative for Nausea, Vomiting, Diaphoresis, Dyspnea, Cough, Fever, Lightheadedness or Palpitations Narrative Narrative: Patient presents with chest pain that began today. Patient states she was laying in bed when the pain began. Patient states it began rather suddenly. Patient states it is constant. Patient states it is dull. Patient states it is over the left side of his chest. Patient states nothing makes it worse. Patient states EMS administered nitroglycerin which seemed to help. Patient states he took 2 of his own nitroglycerin with no relief. Patient states to 1 nitroglycerin that EMS gave him completely relieves his pain. Patient admits to some reflux symptoms with this pain tonight. Patient denies any nausea or vomiting. Patient denies any diaphoresis. Patient denies any shortness of breath or cough. 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) Arthritis Atherosclerosis of [place] coronary artery of [place] heart without angina pectoris Cancer Cardiac dysrhythmia, unspecified Diabetes mellitus type 2, controlled Encounter for long-term current use of high risk medication Heart disease History of cardioversion (~12/26/18) History of myocardial infarction History of placement of stent in LAD coronary artery Hypertension Ischemic cardiomyopathy Old myocardial infarction Other primary cardiomyopathies Paroxysmal atrial fibrillation Polymyalgia rheumatica Presence of stent in coronary artery (~09/04/22) Pure hypercholesterolemia PVC (premature ventricular contraction) Sinus bradycardia Snoring Home Medications multivitamin with folic acid 400 mcg tablet 1 tab PO DAILY 08/07/16 [History Last Taken 09/03/22] famotidine 20 mg tablet 20 mg PO QHS 01/20/19 [History Last Taken 09/02/22] aspirin 81 mg tablet,delayed release (Adult Low Dose Aspirin) 81 mg PO DAILY 04/28/19 [History Last Taken 09/02/22] glucosam 500 mg-chondroit 66.7 mg-msm 500 mg-boron 2 mg-hyaluro tablet 1 tab PO DAILY 07/12/20 [History Last Taken 09/02/22] levothyroxine 50 mcg tablet 50 mcg PO DAILY 07/12/20 [History Last Taken 09/03/22] cholecalciferol (vitamin D3) 50 mcg (2,000 unit) tablet 50 mcg PO BID 07/23/21 [History Last Taken 09/03/22] metformin 500 mg tablet,extended release 24 hr 500 mg PO DAILY 07/23/21 [History Last Taken 09/03/22] furosemide 40 mg tablet 40 mg PO DAILY #90 tabs 10/07/21 [Rx Last Taken 09/03/22] atenolol 25 mg tablet 12.5 mg (1/2 x 25 mg) PO DAILY #45 tabs 11/06/21 [Rx Last Taken 09/03/22] nitroglycerin 0.4 mg sublingual tablet 0.4 mg sublingual Q5M PRN Chest Pain #25 tabs 12/18/21 [Rx Last Taken 09/02/22] clopidogrel 75 mg tablet (Plavix) 75 mg PO DAILY #90 tabs 05/12/22 [Rx Last Taken 09/03/22] fluorometholone 0.1 % eye drops,suspension 1 drp EACH EYE BID cataract surgery 09/04/22 [History Last Taken Unknown] atorvastatin 40 mg tablet 40 mg PO DAILY #30 tabs 09/05/22 [Rx Last Taken Unknown] amlodipine 5 mg tablet 5 mg PO QHS #30 tabs 09/19/22 [Rx Last Taken Unknown] isosorbide mononitrate 30 mg tablet,extended release 24 hr 30 mg PO QAM #30 tabs 09/19/22 [Rx Last Taken Unknown] Allergy/AdvReac Type Severity Reaction Status Date / Time lisinopril Allergy Angioedema Verified 09/28/22 00:48 Family History Father CVA (cerebral vascular accident) Mother Cancer lung Brother Cancer Surgical History HISTORY OF ANAL FISTULA HISTORY OF HEART CATH AND STENTS History of left knee replacement HISTORY OF RIGHT CHEEK BONE SURGERY History of right knee joint replacement HISTORY OF RIGHT WRIST SURGERY History of rotator cuff surgery Presence of coronary angioplasty implant and graft (~11/26/05) Social History Smoking Status: Former smoker how long ago did patient quit smokin years ago alcohol intake: current alcohol intake frequency: a few times a week Alcohol type: beer substance use type: does not use caffeine: Yes Type: coffee Number of servings: 2 what type of physical activity do you participate in: other details: eflow seatbelt use: always do you feel safe at home: Yes ROS ROS ED Constitutional Constitutional ED: Denies chills or fever(s) Eyes Eyes: Denies blurry vision or change in vision ENT ENT ED: Denies rhinorrhea or sore throat Cardiovascular Cardiovascular: Reports as per HPI and chest pain; Denies palpitations Respiratory/Chest Respiratory/Chest: Denies cough or dyspnea Gastrointestinal Gastrointestinal: Denies nausea or vomiting Genitourinary Genitourinary ED: Denies dysuria or hematuria Musculoskeletal Musculoskeletal: Reports back pain; Denies neck pain Integumentary Denies abscess or rash Neurologic Neurologic: Reports headache(s); Denies weakness Allergic/Immunologic Allergic/Immunologic ED: Denies mouth swelling or urticaria EXAM Physical Exam Const Vital Signs: 09/28/22 00:48 09/28/22 00:48 09/28/22 01:04 Temperature 97.6 F L Temperature Source Temporal Pulse Rate 60 Respiratory Rate 17 Respiratory Effort Normal Blood Pressure 166/74 H Blood Pressure Mean 104 Pulse Ox 92 Oxygen Delivery Method Room Air Room Air Oxygen Flow Rate (L/min) 09/28/22 01:47 09/28/22 04:33 Temperature Temperature Source Pulse Rate 58 L 51 L Respiratory Rate 12 14 Respiratory Effort Blood Pressure 163/70 H 144/68 H Blood Pressure Mean 101 93 Pulse Ox 97 96 Oxygen Delivery Method Nasal Cannula Oxygen Flow Rate (L/min) 2 Positive well nourished, well developed and obese General Appearance ED: well developed and NAD Nutritional Appearance: obese HEENT normocephalic and atraumatic Eyes PERRL and EOMs intact bilaterally Neck supple and no JVD Chest Wall palpation of chest normal Resp normal respiratory effort and clear to auscultation bilaterally Effort and Inspection: Negative for respiratory distress Cardio regular rate and regular rhythm GI normal to inspection, nondistended, normoactive bowel sounds, soft to palpation, non-tender and non-distended Extremity normal to inspection General Extremety ED: Negative for edema or tenderness General Extremity: Negative for edema Neuro oriented x3, CN's II-XII intact bilaterally and no sensory deficits noted Sensorium / Orientation: awake and alert Motor Exam: strength 5/5 throughout Psych mental status grossly normal Heart Score History: Slightly/Non-Suspicious ECG: Nonspecific Repolarization Age: >/= 65 years Risk Factors: >/= 3 Risk Factors or History of CAD Troponin: >1 - <3 Normal Limit Score: 6 MDM MDM MDM Narrative Medical decision making narrative: Differential diagnosis includes cardiac dysrhythmia, cardiac ischemia, pneumonia, pneumothorax, musculoskeletal pain, anxiety, and gastroesophageal reflux disease. EKG will be obtained to assess for cardiac dysrhythmia and cardiac ischemia. Chest x-ray will be obtained to assess for pneumonia and pneumothorax. CBC will be obtained to assess for leukocytosis and anemia. Basic metabolic profile will be obtained to assess for electrolyte abnormality and renal function. High-sensitivity troponin will be obtained to assess for cardiac ischemia. 2-hour repeat high-sensitivity troponin will be obtained to assess for ongoing cardiac ischemia. Lab Data Attestation: I reviewed the patient's lab results. Lab results narrative: CBC was reviewed and was essentially within normal limits. Basic metabolic profile was reviewed. BUN was slightly elevated at 29. Glucose was elevated at 187. Remainder is within normal limits. Initial high-sensitivity troponin was reviewed and was normal at 30. 2-hour repeat high-sensitivity troponin was reviewed and was elevated at 267. Labs: Laboratory Results - last 24 hr 09/28/22 09/28/22 00:40 03:15 WBC 9.4 RBC 4.43 L Hgb 14.8 Hct 46.0 MCV 103.8 H MCH 33.4 H MCHC 32.2 RDW Std Deviation 52.8 H RDW Coeff of [place] 13.7 Plt Count 192 MPV 9.5 Immature Gran % (Auto) 0.400 Neut % (Auto) 62.5 Lymph % (Auto) 15.4 L [place] % (Auto) 16.1 H Eos % (Auto) 5.2 H Baso % (Auto) 0.4 Absolute Neuts (auto) 5.9 Absolute Lymphs (auto) 1.45 Nucleated RBC % 0 Sodium 139 Potassium 4.0 Chloride 104 Carbon Dioxide 29.0 Anion Gap 6 BUN 29 H Creatinine 1.04 Estim Creat Clear Calc 45.90 Est GFR (MDRD) Af Amer 87 Est GFR (MDRD) Non-Af 72 BUN/Creatinine Ratio 27.9 H Glucose 187 H Calcium 9.3 Troponin I High Sens 30 267 H* Radiography Chest X-Ray - ED: 1 View, Read by ED Physician, Read by Radiologist, Lungs (Mild pulmonary vascular congestion) and Cardiomegaly Diagnostic Testing: Clinical Impression(s) from Imaging Studies Chest X-Ray 09/28/22 01:10 IMPRESSION: Cardiomegaly and mild pulmonary congestion. Electronically Signed: Kaya Mari MD at 1:41 EDT Reading Location ID and State: [address] [place] [address] , Service support , Portable 1 view chest x-ray was obtained. On my independent interpretation, lung troy show mild vascular congestion. There is cardiomegaly. Bony thorax is normal. There is no acute process noted. Radiologist also interpreted the x-ray and agrees. EKG Initial EKG: Attestation: I personally reviewed and interpreted this EKG as follows: Interpretation: Sinus Rhythm (64) and Non-Specific ST Changes Comments: EKG was obtained. On my independent interpretation, it showed a normal sinus rhythm with a rate of 64. [place] interval, QRS interval, and QTc intervals were all normal. There is left axis deviation at -31. There is left ventricular hypertrophy noted. There are nonspecific ST-T wave changes. Prior EKG tracings: available for review Prior: Unchanged (09/03/2022) Management Discussion w/another healthcare provider: Hospitalist Additional Tests and Interventions Additional Tests or Interventions: Because of the elevated troponin and the need for IV heparin, PT with INR and PTT were obtained. Treatment and Re-Evaluation :: Patient was given aspirin. Patient was advised of his findings. Patient has no further chest pain. Patient has a HEART score of 6. Patient was advised of the need for IV heparin and admission to the hospital. Patient is agreeable with this. Case was discussed with the hospitalist. She will admit the patient to her service. Patient understood and was agreeable with the plan. All questions were answered. Discharge Plan Triage Chief Complaint: Chest Pain ED Provider: Georges Jurado Dx/Rx/DC Orders Clinical Impression: Non-STEMI (non-ST elevated myocardial infarction), Chest pain Prescriptions: No Action famotidine 20 mg tablet 20 mg PO QHS aspirin [Adult Low Dose Aspirin] 81 mg tablet,delayed release (DR/EC) 81 mg PO DAILY levothyroxine 50 mcg tablet 50 mcg PO DAILY cholecalciferol (vitamin D3) 50 mcg (2,000 unit) tablet 50 mcg PO BID metformin 500 mg tablet extended release 24 hr 500 mg PO DAILY multivitamin with folic acid 1 TABLET tablet 1 tab PO DAILY [id number]-hyal 500-66.7-500-2 mg tablet 1 tab PO DAILY fluorometholone 0.1 % drops,suspension 1 drp EACH EYE BID Patient Comments: instill 1 drop into both eyes twice a day atorvastatin 40 mg tablet 40 mg PO DAILY Qty: 30 2RF furosemide 40 mg tablet 40 mg PO DAILY Qty: 90 3RF atenolol 25 mg tablet 12.5 mg PO DAILY Qty: 45 3RF nitroglycerin 0.4 mg tablet, sublingual 0.4 mg SUBLINGUAL Q5M PRN (Reason: Chest Pain) Qty: 25 3RF clopidogrel [Plavix] 75 mg tablet 75 mg PO DAILY Qty: 90 3RF amlodipine 5 mg tablet 5 mg PO QHS Qty: 30 11RF isosorbide mononitrate 30 mg tablet extended release 24 hr 30 mg PO QAM Qty: 30 2RF Primary Care Provider: Blake Shaffer Referrals: Blake Shaffer MD [Primary Care Provider] - Disposition Disposition: Acute Care Hospital [facility]
[2022-09-28 04:33] LABS: Troponin-I HS 267 pg/mL (3.0-78.0)
[2022-09-28 04:57] LABS: Prothrombin Time (Protime)PT. 12.8 SECONDS (11.7-14.9)
[2022-09-28 04:58] LABS: Partial Thromboplast Time 27.9 Seconds (24.1-36.2)
[2022-09-28] MEDS: HEPARIN/D5w 25,000 UNITS 25,000 UNITS/250 ML IV.SOLN. 17 UNITS CONT INF (05:07)
[2022-09-28] MEDS: Heparin Injection (Vial) 5,000 UNIT/ML VIAL 10500 UNIT IV (05:07)
--- NOTE | 2022-09-28 05:51 | HP.PCM.HOS_ITS ---
HPI - General General Date of Admission: 09/28/22 Date of Service: 09/28/22 Chief Complaint: Chest pain. HPI Narrative The patient is an 87 y/o M w/ PMHx: Morbid Obesity, PAF, CAD s/p PCI/Ischemic cardiomyopathy, HTN, HLD, Chronic bradycardia, PMR, Former tobacco use, recent 09/04/22 cardiac catheterization secondary to concerns for unstable angina at that time w/ noted severe CAD involving the RCA with 2 sequential 90 and 95% stenosed regions and ostial 99% L circ artery stenosis, patent stents in the LAD with mild distal L main disease who now re-presents to the [facility] ED on 09/28/22 with history of onset of chest discomfort beginning on day of presentation while he is actually lying in bed, and on rather suddenly and noted to be constant in nature described as dull over the left side of his chest with no improvement with any positional changes or other interventions prompting EMS call with administration of nitroglycerin which she notes did help with his symptoms although he did take 2 of his own and had no relief at that time prompting eventual ED evaluation. Currently he notes his chest pain is completely resolved. He denies any associated nausea, emesis or diaphoresis nor any shortness of breath. Work-up in the ED included T97.6, heart rate 60, BP initially 166/74 with most recent repeat 144/68, respiratory rate 17, 92% on room air eventually placed on 2 L nasal cannula noted to be 97%, CBC with WBC 9.4, hemoglobin 14.8, platelet 192 without marked shift, unremarkable coags, BMP with glucose 197, initial troponin 38 with repeat delta 267, chest x-ray with cardiomegaly and evidence of mild pulmonary congestion, EKG with sinus rhythm with no acute evidence of ischemia similar to prior. EMS also gave him 4-baby as pirin. In the ED patient ministered full-strength aspirin therapy and started on a heparin drip. ED discussed case with Dr. Shaffer who agreed with current intervention with planned evaluation. COUNTS INCLUDE 234 BEDS AT THE [facility] Medical History (Updated 09/28/22 @ 05:[address] Vikki Rosales MD) Accelerating angina Acute NV, subendocardial, subsequent episode of care Angioedema due to angiotensin converting enzyme inhibitor (JINNY-I) Arthritis Atherosclerosis of [place] coronary artery of [place] heart without angina pectoris Cancer Cardiac dysrhythmia, unspecified Diabetes mellitus type 2, controlled Encounter for long-term current use of high risk medication History of cardioversion (~12/26/18) History of placement of stent in LAD coronary artery Hypertension Ischemic cardiomyopathy Paroxysmal atrial fibrillation Polymyalgia rheumatica Presence of stent in coronary artery (~09/04/22) Pure hypercholesterolemia PVC (premature ventricular contraction) Sinus bradycardia Home Medications multivitamin with folic acid 400 mcg tablet 1 tab PO DAILY 08/07/16 [History Last Taken 09/03/22] famotidine 20 mg tablet 20 mg PO QHS 01/20/19 [History Last Taken 09/02/22] aspirin 81 mg tablet,delayed release (Adult Low Dose Aspirin) 81 mg PO DAILY 04/28/19 [History Last Taken 09/02/22] glucosam 500 mg-chondroit 66.7 mg-msm 500 mg-boron 2 mg-hyaluro tablet 1 tab PO DAILY 07/12/20 [History Last Taken 09/02/22] levothyroxine 50 mcg tablet 50 mcg PO DAILY 07/12/20 [History Last Taken 09/03/22] cholecalciferol (vitamin D3) 50 mcg (2,000 unit) tablet 50 mcg PO BID 07/23/21 [History Last Taken 09/03/22] metformin 500 mg tablet,extended release 24 hr 500 mg PO DAILY 07/23/21 [History Last Taken 09/03/22] furosemide 40 mg tablet 40 mg PO DAILY #90 tabs 10/07/21 [Rx Last Taken 09/03/22] atenolol 25 mg tablet 12.5 mg (1/2 x 25 mg) PO DAILY #45 tabs 11/06/21 [Rx Last Taken 09/03/22] nitroglycerin 0.4 mg sublingual tablet 0.4 mg sublingual Q5M PRN Chest Pain #25 tabs 12/18/21 [Rx Last Taken 09/02/22] clopidogrel 75 mg tablet (Plavix) 75 mg PO DAILY #90 tabs 05/12/22 [Rx Last Taken 09/03/22] fluorometholone 0.1 % eye drops,suspension 1 drp EACH EYE BID cataract surgery 09/04/22 [History Last Taken Unknown] atorvastatin 40 mg tablet 40 mg PO DAILY #30 tabs 09/05/22 [Rx Last Taken Unknown] amlodipine 5 mg tablet 5 mg PO QHS #30 tabs 09/19/22 [Rx Last Taken Unknown] isosorbide mononitrate 30 mg tablet,extended release 24 hr 30 mg PO QAM #30 tabs 09/19/22 [Rx Last Taken Unknown] Allergy/AdvReac Type Severity Reaction Status Date / Time lisinopril Allergy Angioedema Verified 09/28/22 00:48 Family History Father CVA (cerebral vascular accident) Mother Cancer lung Brother Cancer Surgical History HISTORY OF ANAL FISTULA HISTORY OF HEART CATH AND STENTS History of left knee replacement HISTORY OF RIGHT CHEEK BONE SURGERY History of right knee joint replacement HISTORY OF RIGHT WRIST SURGERY History of rotator cuff surgery Presence of coronary angioplasty implant and graft (~11/26/05) Social History Smoking Status: Former smoker how long ago did patient quit smokin years ago alcohol intake: current alcohol intake frequency: a few times a week Alcohol type: beer substance use type: does not use caffeine: Yes Type: coffee Number of servings: 2 what type of physical activity do you participate in: other details: [employer], golf seatbelt use: always do you feel safe at home: Yes ROS ROS Narrative Admission Review of Systems: CONSTITUTIONAL: No weight loss, fever, chills, + weakness or fatigue. HEENT: Eyes: No visual loss, blurred vision, double vision or yellow sclerae. Ears, Nose, Throat: No hearing loss, sneezing, congestion, runny nose or sore throat. SKIN: No rash or itching, lesions, wounds. CARDIOVASCULAR: + chest pain, chest pressure or chest discomfort, edema, orthopnea. No palpitations, syncopal events. RESPIRATORY: No shortness of breath, cough or sputum, wheezing, hemoptysis. GASTROINTESTINAL: No anorexia, nausea, vomiting or diarrhea, abdominal pain, melena, BRBPR. GENITOURINARY: No dysuria, frequency, urgency or retention. NEUROLOGICAL: No headache, dizziness, syncope, paralysis, ataxia, numbness or tingling in the extremities, focal weakness, change in bowel or bladder control, seizure. MUSCULOSKELETAL:+ muscle, back pain, joint pain or stiffness. HEMATOLOGIC: + Easy bleeding or bruising. LYMPHATICS: No enlarged nodes. No history of splenectomy. PSYCHIATRIC: No history of depression or anxiety. ENDOCRINOLOGIC: No reports of sweating, cold or heat intolerance. No polyuria or polydipsia. ALLERGIES: + Hx angioedema. Vital Signs Vital Signs Vital Signs: 09/28/22 00:48 09/28/22 00:48 09/28/22 01:04 Temperature 97.6 F L Temperature Source Temporal Pulse Rate 60 Respiratory Rate 17 Respiratory Effort Normal Blood Pressure 166/74 H Blood Pressure Mean 104 Pulse Ox 92 Oxygen Delivery Method Room Air Room Air Oxygen Flow Rate (L/min) 09/28/22 01:47 09/28/22 04:33 09/28/22 05:00 Temperature Temperature Source Pulse Rate 58 L 51 L 53 L Respiratory Rate 12 14 15 Respiratory Effort Blood Pressure 163/70 H 144/68 H 145/74 H Blood Pressure Mean 101 93 97 Pulse Ox 97 96 98 Oxygen Delivery Method Nasal Cannula Room Air Oxygen Flow Rate (L/min) 2 2 Weight Weight: 296 lb 11.875 oz Body Mass Index (BMI) 46.5 Physical Exam Narrative Physical Examination: General: Awake, alert, oriented x 3 and cooperative, seated upright in the ED bed, reports being still chest pain-free. Skin: Normal color, normal turgor, no icterus, no cyanosis. HEENT: AT/NC, EOMI, PERRLA, MMM, no carotid bruits or JVD noted; however, thickened neck makes evaluation difficult. Lungs: Diminished, greater bases, appropriate effort, no rales, ronchi or wheezing. Heart: Bradycardic with regular rhythm; no gallop, rub audible. Abdomen: Soft, morbidly obese, NTTP, difficult to assess distention and HSM given habitus, distant BS. Extremities: No cyanosis, no clubbing, mild bilateral pedal to mid hdez 1+ pitting edema. Neurological: Patient awake, alert, oriented as noted, cognitive function intact; pupils equally reactive to light and accommodation, cranial nerves II- XII grossly normal, moving all 4 extremities, no focal deficits, strength moderately global decrease secondary to acute presentation complaints. Psychiatric: Affect appears fatigued otherwise normal, no acute evidence of depressive or anxiety feelings. Results Lab / Micro Data 09/28/22 00:40 09/28/22 00:40 Labs: Laboratory Results - last 24 hr 09/28/22 00:40: WBC 9.4, RBC 4.43 L, Hgb 14.8, Hct 46.0, MCV 103.8 H, MCH 33.4 H , MCHC 32.2, RDW Std Deviation 52.8 H, RDW Coeff of [place] 13.7, Plt Count 192, MPV 9.5, Immature Gran % (Auto) 0.400, Neut % (Auto) 62.5, Lymph % (Auto) 15.4 L, [place] % (Auto) 16.1 H, Eos % (Auto) 5.2 H, Baso % (Auto) 0.4, Absolute Neuts (auto) 5.9, Absolute Lymphs (auto) 1.45, Nucleated RBC % 0, Sodium 139, Potassium 4.0, Chloride 104, Carbon Dioxide 29.0, Anion Gap 6, BUN 29 H, Creatinine 1.04, Estim Creat Clear Calc 45.90, Est GFR (MDRD) Af Amer 87, Est GFR (MDRD) Non-Af 72, BUN/Creatinine Ratio 27.9 H, Glucose 187 H, Calcium 9.3, Troponin I High Sens 30 09/28/22 03:15: Troponin I High Sens 267 H* 09/28/22 04:41: PT 12.8, INR 1.0, APTT 27.9 Radiology Impression Chest X-Ray 09/28/22 01:10 IMPRESSION: Cardiomegaly and mild pulmonary congestion. Electronically Signed: Kaya Mari MD at 1:41 EDT Reading Location ID and State: [address] [place] [address] , Service support , Assessment & Plan Assessment/Plan (1) Non-STEMI (non-ST elevated myocardial infarction): PLAN: Plan The patient is an 87 y/o M w/ PMHx: Morbid Obesity, PAF, CAD s/p PCI/Ischemic cardiomyopathy, HTN, HLD, Chronic bradycardia, PMR, Former tobacco use, recent 09/04/22 cardiac catheterization secondary to concerns for unstable angina at that time w/ noted severe CAD involving the RCA with 2 sequential 90 and 95% stenosed regions and ostial 99% L circ artery stenosis, patent stents in the LAD with mild distal L main disease who now re-presents to the [facility] ED on 09/28/22 with history of onset of chest discomfort beginning on day of presentation while he is actually lying in bed, and on rather suddenly and noted to be constant in nature described as dull over the left side of his chest with no improvement with any positional changes or other interventions prompting EMS call with administration of nitroglycerin which she notes did help with his symptoms although he did take 2 of his own and had no relief at that time prompting eventual ED evaluation. #1. Chest Pain w/ Acute NSTEMI with evidence of mild volume overload: EKG in ED w/ sinus rhythm with no acute evidence of ischemia similar to prior, CXR w/ evidence of cardiomegaly and mild pulmonary congestion. Trop elevated, initial troponin 38 with repeat delta Sofi is 7. Will admit to PCU, maintain on a monitored bed, continue serial cardiac enzymes and EKGs. Obtain magnesium level upon admission. Continue heparin drip initiated in the ED. Continue medical management w/ asa, Plavix, BB, statin w/ AM FLP. ECHO requested. Cardiology consulted, pending evaluation. ASA, NG, morphine. #2. CAD/ischemic cardiomyopathy: Status post PCI most recently 09/04/22 cardiac catheterization secondary to concerns for unstable angina at that time w/ noted severe CAD involving the RCA with 2 sequential 90 and 95% stenosed regions and ostial 99% L circ artery stenosis, patent stents in the LAD with mild distal L main disease, continue aspirin, Plavix, statin, atenolol, noted angioedema with JINNY inhibitor previously. #3. Diabetes mellitus type II: Hold oral home regimen, until Cardiology assesses will maintain NPO but if no intervention intention would transition back to ADA diet, accu checks w/ ISS. #4. Hypertension: Continue home regimen including isosorbide, atenolol, Lasix with an IV pulse dose x1 now as noted, PRN hydralazine. #5. Hyperlipidemia: We will can be shown statin, FLP in AM. #6. PAF: Not chronically anticoagulated per most recent list, will continue aspirin, Plavix, atenolol home regimen. #7. Hypothyroidism: We will continue patient home levothyroxine regimen. #8. Morbid Obesity: Weight loss and lifestyle changes encouraged. #9. PMR: Noted history, per current list on a chronic steroid regimen, encourage continued outpatient follow-up. #10. Former tobacco use: Encourage continued tobacco cessation. #11. DVT prophylaxis: Continue heparin drip. #12. CODE status: Patient REENTTA is his daughter and living will is currently in place. Discussed CODE status at length including difference between FULL code, DNR-CCA and DNR-CC status. Following discussions about the differences in these status, requested DNR-CCA, no intubation status. Advanced Care Planning Face to Face Time: 16 minutes. Admission Evaluation Time spent evaluating chart, patient history, patient evaluation, care planning and discussion with specialists: 75 minutes.
--- NOTE | 2022-09-28 06:47 | EKG12_ITS ---
Test Reason : Blood Pressure : / mmHG Vent. Rate : 052 BPM Atrial Rate : 052 BPM P-R Int : 190 ms QRS Dur : 084 ms QT Int : 464 ms P-R-T Axes : 065 -29 -05 degrees QTc Int : 431 ms Sinus bradycardia Inferior infarct , age undetermined Anterior infarct , age undetermined Abnormal ECG When compared with ECG of 28-SEP-2022 00:52, MANUAL COMPARISON REQUIRED, DATA IS UNCONFIRMED Confirmed by ISRRAEL EATON, SEFERINO ([id number]), senior editor AAYUSH LEWIS ([id number]) on 10/01/2022 11:13:59 AM Referred By: ROSSY Confirmed By:SEFERINO ARCOS MD
--- NOTE | 2022-09-28 06:47 | ECHOCS_ITS ---
Reason For Study: NSTEMI Procedure This was a 2D Doppler, Color Flow transthoracic echocardiogram. Contrast injection was performed. Exam performed portable in patient room. Left Ventricle Normal LV size. Left ventricular systolic function is normal. The estimated ejection fraction is 55 %. Segmental dysfunction with preserved ejection fraction (see wall motion). Septal [place] : Akinetic. Right Ventricle Normal RV size. Normal systolic function. Tricuspid Valve Normal tricuspid valve. Aortic Valve Trisinus/trileaflet aortic valve. Mild focal aortic valve calcification. Pulmonic Valve Normal pulmonic valve. Great Vessels Normal aortic root. The pulmonary artery is normal size. Normal inferior vena cava. Pericardium/Pleural No pericardial effusion. Medication Definity3.5ml given slow IV push to enhance endocardial definition. MMode/2D Measurements & Calculations LVIDd: 5.3 cm IVSd: 1.2 cm Ao root diam: 3.9 cm LVIDs: 3.8 cm LVPWd: 1.3 cm RVDd: 3.1 cm FS: 29.0 % LAV(MOD-bp): 46.6 ml LVAd ap4: 23.8 cm2 SV(MOD-sp4): 37.1 ml LAV(MOD-bp) Indexed: 19.7 ml/m2 LVLd ap4: 7.5 cm LAV(MOD-sp2): 32.6 ml EDV(MOD-sp4): 64.7 ml LAV(MOD-sp4): 55.1 ml EDV(sp4-el): 64.2 ml LVAs ap4: 14.2 cm2 LVLs ap4: 6.3 cm ESV(MOD-sp4): 27.6 ml ESV(sp4-el): 27.0 ml EF(MOD-sp4): 57.3 % EF(sp4-el): 57.9 % SV(sp4-el): 37.2 ml LA dimension(2D): 3.8 cm LA A4 area: 20.2 cm2 RA A4 area: 10.6 cm2 Time Measurements MV dec time: 0.32 sec Doppler Measurements & Calculations MV E max anderson: 37.1 cm/sec Lat Peak E' Anderson: 5.8 cm/sec Med Peak E' Anderson: 6.1 cm/sec MV A max anderson: 77.6 cm/sec E/E' lat: 6.4 E/E' med: 6.1 MV E/A: 0.48 Ao V2 max: 134.9 cm/sec LV V1 max: 96.4 cm/sec MV dec slope: 115.0 cm/sec2 Ao max P.3 mmHg LV V1 max P.7 mmHg Ao V2 mean: 100.2 cm/sec Ao mean P.3 mmHg Ao V2 VTI: 26.7 cm PA V2 max: 75.2 cm/sec ECHO/Echo Complete W/ Contrast Interpretation Summary Normal LV size. Left ventricular systolic function is normal. The estimated ejection fraction is 55 %. Septal [place] : Akinetic. Contrast injection was performed. Ordering Physician: Vikki Rosales Performed By: Aleyda Rachel, KERRY, RVT
[2022-09-28 07:36] LABS: Magnesium 2.4 mg/dL (1.6-2.6)
[2022-09-28 09:07] LABS: Troponin-I HS 2122 pg/mL (3.0-78.0)
--- NOTE | 2022-09-28 09:20 | CON.PCM.CA_ITS ---
Assessment & Plan Assessment/Plan (1) Non-STEMI (non-ST elevated myocardial infarction): PLAN: He presents with chest discomfort and is noted to have an non-ST elevation myocardial infarction. His cardiac catheterization films were reviewed. It appears that the circumflex artery lesion is chronic and subtotally occluded in his right coronary artery was a rather complex vessel. At this point in time we will obtain an echocardiogram to assess his ventricular function. If his ventricular function is not significantly changed I would recommend that we pursue medical therapy at this time. We will recommend the addition of Ranexa 500 mg twice a day Increase isosorbide to 60 mg once a day. Continue atenolol. This has been discussed with the patient and family they understand and agree to proceed. (2) Paroxysmal atrial fibrillation: PLAN: Patient has a history of paroxysmal atrial fibrillation. Appears to be maintaining sinus rhythm at this particular time. (3) Hypertension: QUALIFIERS: Hypertension type: primary hypertension Qualified Code(s): I10 - Essential (primary) hypertension PLAN: His blood pressure appears to be under good control and no changes will be made. (4) Presence of stent in coronary artery: PLAN: He is status post recent angioplasty and stenting of the right coronary artery. He presents this time with likely restenosis or an occlusion. We will assess his ventricular function and depending on those findings further recommendations made. Continue risk factor modification with statin and aspirin. And clopidogrel. Thank you for allowing me to participate in the care of your patient. Please don't hesitate to call if any issues arise. HPI Consult Data Date of Consult: 09/28/22 HPI Narrative HPI Narrative: ROCK WESLEY, is a 87 M who presents to the emergency room with a complaint of chest discomfort. He did take a sublingual nitroglycerin but says that did not improve his symptoms and he had repeat symptoms and so called 911 they gave him 1 sublingual nitroglycerin with improvement in his discomfort. He presented to the emergency room. Initial EKG demonstrated sinus rhythm with no acute changes. He has a history of coronary artery disease status post stenting to mid and distal LAD in October 2005, ischemic cardiomyopathy, hyperlipidemia, sinus bradycardia, paroxysmal atrial fibrillation with cardioversion on 12/26/2018, PVCs, and diabetes. In addition,As you recall he was evaluated at [facility] for concerns of JINNY inhibitor angioedema in November 2018.? He required temporary intubation/ventilation.? During his hospitalization he had an episode of atrial fibrillation.? He was treated medically with rate control therapy antiarrhythmic therapy and anticoagulant therapy.? He required synchronized biphasic DC cardioversion to regain sinus rhythm.? He was recently admitted to the hospital in August of this year and underwent a cardiac catheterization which demonstrated a patent but calcified left anterior descending artery, ramus intermedius with mild stenosis and nondominant left circumflex artery with a proximal 90% stenosis which appears to be a chronic subtotal occlusion, diffusely diseased and calcified and tortuous right coronary artery with multiple areas of stenosis in the mid and distal segments. Attempt at PCI with placement of a stent was undertaken with some residual disease noted in the posterior descending artery. This was a tortuous vessel. It was determined that we would pursue medical therapy only further. His ejection fraction was preserved. At this particular time he is pain-free. [facility] Medical History (Updated 09/28/22 @ 09:[address] 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) Arthritis Atherosclerosis of [place] coronary artery of [place] heart without angina pectoris Cancer Cardiac dysrhythmia, unspecified Diabetes mellitus type 2, controlled Encounter for long-term current use of high risk medication History of cardioversion (~12/26/18) History of placement of stent in LAD coronary artery Hypertension Ischemic cardiomyopathy Paroxysmal atrial fibrillation Polymyalgia rheumatica Presence of stent in coronary artery (~09/04/22) Pure hypercholesterolemia PVC (premature ventricular contraction) Sinus bradycardia Home Medications multivitamin with folic acid 400 mcg tablet 1 tab PO DAILY supplement 08/07/16 [History Last Taken 09/27/22] famotidine 20 mg tablet 20 mg PO QHS acid reflux 01/20/19 [History Last Taken 09/27/22] aspirin 81 mg tablet,delayed release (Adult Low Dose Aspirin) 81 mg PO DAILY heart health 04/28/19 [History Last Taken 09/27/22] glucosam 500 mg-chondroit 66.7 mg-msm 500 mg-boron 2 mg-hyaluro tablet 1 tab PO DAILY supplement 07/12/20 [History Last Taken 09/27/22] levothyroxine 50 mcg tablet 50 mcg PO DAILY thyroid 07/12/20 [History Last Taken 09/27/22] cholecalciferol (vitamin D3) 50 mcg (2,000 unit) tablet 50 mcg PO BID supplement 07/23/21 [History Last Taken 09/27/22] metformin 500 mg tablet,extended release 24 hr 500 mg PO DAILY diabetes 07/23/21 [History Last Taken 09/27/22] furosemide 40 mg tablet 40 mg PO DAILY fluid retention #90 tabs 10/07/21 [Rx Last Taken 09/27/22] atenolol 25 mg tablet 12.5 mg (1/2 x 25 mg) PO DAILY blood pressure & heart rate #45 tabs 11/06/21 [Rx Last Taken 09/27/22] nitroglycerin 0.4 mg sublingual tablet 0.4 mg sublingual Q5M PRN Chest Pain #25 tabs 12/18/21 [Rx Last Taken 09/02/22] clopidogrel 75 mg tablet (Plavix) 75 mg PO DAILY antiplatelet #90 tabs 05/12/22 [Rx Last Taken 09/27/22] fluorometholone 0.1 % eye drops,suspension 1 drp EACH EYE BID cataract surgery 09/04/22 [History Last Taken 09/27/22] atorvastatin 40 mg tablet 40 mg PO DAILY cholesterol #30 tabs 09/05/22 [Rx Last Taken 09/27/22] amlodipine 5 mg tablet 5 mg PO QHS blood pressure #30 tabs 09/19/22 [Rx Last Taken 09/27/22] isosorbide mononitrate 30 mg tablet,extended release 24 hr 30 mg PO QAM heart #30 tabs 09/19/22 [Rx Last Taken 09/27/22] Allergy/AdvReac Type Severity Reaction Status Date / Time lisinopril Allergy Angioedema Verified 09/28/22 00:48 Family History Father CVA (cerebral vascular accident) Mother Cancer lung Brother Cancer Surgical History HISTORY OF ANAL FISTULA HISTORY OF HEART CATH AND STENTS History of left knee replacement HISTORY OF RIGHT CHEEK BONE SURGERY History of right knee joint replacement HISTORY OF RIGHT WRIST SURGERY History of rotator cuff surgery Presence of coronary angioplasty implant and graft (~11/26/05) Social History Smoking Status: Former smoker how long ago did patient quit smokin years ago alcohol intake: current alcohol intake frequency: a few times a week Alcohol type: beer substance use type: does not use caffeine: Yes Type: coffee Number of servings: 2 what type of physical activity do you participate in: other details: [employer], golf seatbelt use: always do you feel safe at home: Yes ROS Constitutional Constitutional: Denies fever(s) or weight loss Eyes Eyes: Reports systems reviewed and no addt'l complaints, except as documented ENT HEENT: Reports systems reviewed and no addt'l complaints, except as documented Cardiovascular Cardiovascular: Reports chest pain at rest and chest pain with activity; Denies dyspnea at rest, dyspnea on exertion, edema, palpitations or paroxysmal nocturnal dyspnea Respiratory/Chest Respiratory/Chest: Denies dyspnea on exertion, productive cough, shortness of breath at rest or shortness of breath with exertion Gastrointestinal Gastrointestinal: Denies change in bowel habits, nausea, vomiting or weight changes Genitourinary Genitourinary: Denies difficulty urinating Musculoskeletal Musculoskeletal: Denies joint stiffness or muscle weakness Integumentary Integumentary: Denies lesions Neurologic Neurologic: Denies dizziness or syncope Psychiatric Psychiatric: Denies anxiety Endocrine Endocrinology: Denies excessive sweating or fatigue Hematologic/Lymphatic Hematologic/Lymphatic: Denies anemia Allergic/Immunologic Allergic/Immunologic: Denies seasonal rhinorrhea Physical Exam Const alert, oriented x3 and no apparent distress General Appearance: cooperative HEENT hearing grossly normal bilaterally Head and Scalp: atraumatic Eyes EOMs intact bilaterally Neck General: normal visual inspection Chest inspection of chest normal and palpation of chest normal Resp normal respiratory effort Auscultation: clear to auscultation bilaterally Cardio regular rate, regular rhythm, S1 normal heart sound and S2 normal heart sound Jugular Venous Distention: JVD GI normal to inspection, nondistended, normoactive bowel sounds Extremity normal capillary refill and no pedal edema Peripheral Pulses: Yes pulses 2+ throughout and femoral pulses present Skin no rashes or lesions noted Neuro oriented x3 and CN's II-XII intact bilaterally Psych Appearance: grossly normal and appropriate Risk Stratification Risk Stratification Applicable: Yes Age >/= 65: Yes >/= 3 CAD Risk Factors (HTN, HLD, DM, family hx of CAD, or current smoker): Yes Aspirin Use in the Past 7 Days: Yes Severe Angina (>/= episodes in 24 hours): No EKG ST Changes >/= 0.5mm: No Positive Cardiac Marker: Yes EMA Risk Stratification Score: 4 EMA % Risk: 20% Risk Objective Data Vital Signs: Vital Signs Temp Pulse Resp BP Pulse Ox O2 Del Method O2 Flow Rate 97.8 F 57 L 16 120/68 94 Room Air 2 09/28/22 08:41 09/28/22 08:41 09/28/22 08:41 09/28/22 08:41 09/28/22 08:41 09/28/22 08:41 09/28/22 05:25 Oxygen Flow Rate (L/min) 2 Oxygen Delivery Method Room Air Weight: 289 lb 10.998 oz Body Mass Index (BMI) 41.5 Lab / Micro Data 09/28/22 00:40 09/28/22 00:40 Labs: Laboratory Results - last 24 hr 09/28/22 00:40: WBC 9.4, RBC 4.43 L, Hgb 14.8, Hct 46.0, MCV 103.8 H, MCH 33.4 H , MCHC 32.2, RDW Std Deviation 52.8 H, RDW Coeff of [place] 13.7, Plt Count 192, MPV 9.5, Immature Gran % (Auto) 0.400, Neut % (Auto) 62.5, Lymph % (Auto) 15.4 L, [place] % (Auto) 16.1 H, Eos % (Auto) 5.2 H, Baso % (Auto) 0.4, Absolute Neuts (auto) 5.9, Absolute Lymphs (auto) 1.45, Nucleated RBC % 0, Sodium 139, Pot assium 4.0, Chloride 104, Carbon Dioxide 29.0, Anion Gap 6, BUN 29 H, Creatinine 1.04, Estim Creat Clear Calc 45.90, Est GFR (MDRD) Af Amer 87, Est GFR (MDRD) Non-Af 72, BUN/Creatinine Ratio 27.9 H, Glucose 187 H, Calcium 9.3, Troponin I High Sens 30 09/28/22 03:15: Magnesium 2.4, Troponin I High Sens 267 H* 09/28/22 04:41: PT 12.8, INR 1.0, APTT 27.9 09/28/22 08:38: Troponin I High Sens 2122 H* Cardiology Labs/Tests 09/28/22 00:40: WBC 9.4, RBC 4.43 L, Hgb 14.8, Hct 46.0, MCV 103.8 H, MCH 33.4 H , MCHC 32.2, Plt Count 192, MPV 9.5, Immature Gran % (Auto) 0.400, Neut % (Auto) 62.5, Lymph % (Auto) 15.4 L, [place] % (Auto) 16.1 H, Eos % (Auto) 5.2 H, Baso % (Auto) 0.4, Absolute Neuts (auto) 5.9, Nucleated RBC % 0, Sodium 139, Potassium 4.0, Chloride 104, Carbon Dioxide 29.0, Anion Gap 6, BUN 29 H, Creatinine 1.04, Est GFR (MDRD) Af Amer 87, Est GFR (MDRD) Non-Af 72, BUN/Creatinine Ratio 27.9 H , Glucose 187 H, Calcium 9.3 09/28/22 03:15: Magnesium 2.4 09/28/22 04:41: PT 12.8, INR 1.0, APTT 27.9 Rhythm: EKG: ECHO: Stress Test: Cardiac Cath: PCI: CT Surgery: Holter monitor: EPS: PPM: CXR: Chest CT Scan: Radiography Diagnostic Testing: Radiology Impression Chest X-Ray 09/28/22 01:10 IMPRESSION: Cardiomegaly and mild pulmonary congestion. Electronically Signed: Kaya Mari MD at 1:41 EDT Reading Location ID and State: [address] [place] [address] , Service support ,
[2022-09-28] MEDS: Furosemide 40 MG/4 ML Vial IV (09:26)
[2022-09-28] MEDS: Levothyroxine 50 MCG Tablet PO (09:26)
[2022-09-28 09:54] LABS: Bedside Glucose 114 mg/dL (74-106)
[2022-09-28 11:49] LABS: Partial Thromboplast Time 191.8 Seconds (24.1-36.2)
[2022-09-28] MEDS: Aspirin E.C. 81 MG Tablet PO (12:25)
[2022-09-28] MEDS: Clopidogrel Bisulfate 75 MG Tablet PO (12:25)
[2022-09-28] MEDS: Atenolol 25 MG Tablet 12.5 MG PO (12:25)
[2022-09-28] MEDS: Isosorbide Mononitrate 60 MG Tablet PO (12:32)
[2022-09-28] MEDS: Ranolazine 500 MG Tablet PO ×2 (12:32→23:07)
[2022-09-28 13:25] LABS: Bedside Glucose 184 mg/dL (74-106)
[2022-09-28 17:42] LABS: Bedside Glucose 130 mg/dL (74-106)
--- NOTE | 2022-09-28 18:49 | PCM.HOSP.N ---
Hospitalist Note Patient was seen and examined today, I talked briefly with cardiology about his care, cardiology does not feel the patient needs to undergo cardiac catheterization, he recommended that the patient be kept on full anticoagulation with heparin for now, patient's medications will be readjusted by cardiology. Cardiology states the patient has complex anatomy that would not be addressed easily with cardiac catheterization. Patient had Ranexa 500 mg twice a day added to his medications and his isosorbide was increased to 60 mg once a day, patient's atenolol will be continued.
[2022-09-28 20:46] LABS: Partial Thromboplast Time 116.8 Seconds (24.1-36.2)
[2022-09-28 22:26] LABS: Bedside Glucose 127 mg/dL (74-106)
[2022-09-28] MEDS: 0.9% Saline Lock 10 ML Syringe IV (23:05)
[2022-09-28] MEDS: Famotidine 20 MG Tablet PO (23:06)
[2022-09-28] MEDS: amLODIPine 5 MG Tablet PO (23:06)
[2022-09-28] MEDS: Atorvastatin Calcium 40 MG Tablet PO (23:06)
[2022-09-29] MEDS: HEPARIN/D5w 25,000 UNITS 25,000 UNITS/250 ML IV.SOLN. 11 UNITS CONT INF (03:08)
[2022-09-29 04:10] VITALS: BP 142/76; PULSE 76; RESP 20; TEMP 36.8; O2SAT 80; O2SAT 94
[2022-09-29 04:32] VITALS: BMI 41.4
[2022-09-29 05:21] LABS: Absolute Lymphocyte Count 1.12 X10^3/uL (0.83-4.51); Absolute Neutrophil Count 6.7 X10^3/uL (2.0-7.7); Basophil# 0.07 X10^3/uL; Basophil% 0.7 % (0-1); Eosinophil# 0.45 X10^3/uL; Eosinophils% 4.4 % (0-5); Hematocrit 43.9 % (40-54); Hemoglobin 14.1 g/dL (13.0-16.5); Lymphocyte # 1.12 X10^3/ul (0.83-4.51); Mean Corp Hgb Conc 32.1 g/dL (32-36); Mean Corpuscular Hgb 32.9 pg (27.0-32.0); Mean Corpuscular Volume 102.3 fL (80-94); Monocyte# 1.82 X10^3/uL; Monocyte% 17.9 % (0-10); NRBC Flagged by Analyzer 0 % (0-5); Neutrophil # 6.66 X10^3/uL (2.7-7.7); Neutrophil % 65.6 % (47-70); POSITIVE DIFFERENTIAL YES; Platelet Count 178 K/mm3 (150-450); RBC Distribution Width CV 13.8 % (11.6-14.6); RBC Distribution Width SD 52.1 fl (35.1-43.9); Red Blood Count 4.29 M/mm3 (4.6-6.2); White Blood Count 10.2 K/mm3 (4.4-11.0)
[2022-09-29 05:32] LABS: Partial Thromboplast Time 71.9 Seconds (24.1-36.2)
[2022-09-29 05:51] LABS: ALB/GLOB Ratio 0.9 RATIO (0.9-2.4); AST(SGOT) 24 U/L (15-37); Alanine Aminotransfer ALT/SGPT 25 U/L (16-61); Alkaline Phosphatase 23 U/L (45-117); Anion Gap 5 (5-15); BUN 26 mg/dL (7-18); BUN/Creat Ratio 27.8 RATIO (10-20); Calcium,Total 8.8 mg/dL (8.5-10.1); Chloride 101 mmol/L (98-107); Cholesterol 118 mg/dL (200); Creatinine, Serum 0.93 mg/dL (0.70-1.30); EST Glomerular Filtration Rate 81 mL/min (>60); Est Glom Filt Rate - Afr Amer 98 mL/min (>60); Estimated Creatinine Clearance 56.69 ml/min; Globulin 3.5 g/dL (2.2-4.2); Glucose 134 mg/dL (74-106); High Density Lipoprotein 49 mg/dL; Potassium 4.1 mmol/L (3.5-5.1); Protein, Total 6.5 g/dL (6.4-8.2); Sodium Level 135 mmol/L (136-145); Triglycerides 84 mg/dL; Very Low Density Lipoprotein 17 mg/dL (5-40)
[2022-09-29 06:01] LABS: Differential Indicated SCAN CRITERIA MET
[2022-09-29 06:15] LABS: Differential Comment SCANNED
[2022-09-29] MEDS: Levothyroxine 50 MCG Tablet PO (06:27)
[2022-09-29 07:01] LABS: Bedside Glucose 152 mg/dL (74-106)
[2022-09-29 07:53] VITALS: O2SAT 96
[2022-09-29] MEDS: Clopidogrel Bisulfate 75 MG Tablet PO (09:19)
[2022-09-29] MEDS: Atenolol 25 MG Tablet 12.5 MG PO (09:19)
[2022-09-29] MEDS: Furosemide 40 MG Tablet PO (09:19)
[2022-09-29] MEDS: Aspirin E.C. 81 MG Tablet PO (09:19)
[2022-09-29] MEDS: Isosorbide Mononitrate 60 MG Tablet PO (09:19)
[2022-09-29] MEDS: Ranolazine 500 MG Tablet PO (09:20)
[2022-09-29 10:00] VITALS: PULSE 81
[2022-09-29 11:39] LABS: Bedside Glucose 149 mg/dL (74-106)
--- NOTE | 2022-09-29 12:10 | CASEMGMT ---
RN CM Face to Face with patient for initial transition planning/care coordination assessment. RN CM introduced self and role at [facility]. Patient lying in bed, alert and oriented. Patient willing to participate in assessment and is able to answer all questions appropriately. Care providers, pharmacy, and demographics verified. Patient wishes to discharge home, denies need for home health at this time. Patient states he has no further needs or concerns at this time. CM to follow for discharge planning needs that may arise. PCP: Lee Specialists: Deena, career advisor; Mabel ortho; Isaac, aircraft fuselage framer Preferred Pharmacy: [facility] Insurance: [employer], [employer] Prescription Benefit: yes Living Will/HPOA: yes, daughter Megha Bergeron LNOK: daughter Living Arrangements: Patient lives alone in a single story home with 2 steps and railing to enter the home. Patient is independent at home. Transportation: self, neighbor DME/HHC: Patient has shower chair, raised toilet, cane, walker, grab bars, wheelchair at home. No previous HHC or SNF. Disposition Plan: Patient to discharge home with family support and follow-up plans in place. Veena LENTZ, RN, CM
--- NOTE | 2022-09-29 14:35 | PN.CARD_ITS ---
Subjective Subjective Evaluated. He is to be doing well. Objective Data Vital Signs: Vital Signs Temp Pulse Resp BP Pulse Ox O2 Del Method O2 Flow Rate 98.2 F 81 20 H 142/76 H 96 Room Air 2 09/29/22 04:10 09/29/22 10:00 09/29/22 04:10 09/29/22 04:10 09/29/22 07:53 09/29/22 07:53 09/29/22 04:10 Oxygen Flow Rate (L/min) 2 Oxygen Delivery Method Room Air Weight: 289 lb 7.471 oz Body Mass Index (BMI) 41.4 Intake & Output: Intake and Output for Last 24 Hours 09/27/22 09/28/22 09/29/22 23:59 23:59 23:59 Intake Total 1172.94 / 1172.94 701.23 / 701.23 Balance 1172.94 / 1172.94 701.23 / 701.23 Lab / Micro Data 09/29/22 05:04 09/29/22 05:04 Labs: Laboratory Results - last 24 hr 09/28/22 16:18: POC Glucose 130 H 09/28/22 19:55: APTT 116.8 H* 09/28/22 22:08: POC Glucose 127 H 09/29/22 05:04: WBC 10.2, RBC 4.29 L, Hgb 14.1, Hct 43.9, MCV 102.3 H, MCH 32.9 H, MCHC 32.1, RDW Std Deviation 52.1 H, RDW Coeff of [place] 13.8, Plt Count 178, MPV 9.0, Immature Gran % (Auto) 0.400, Neut % (Auto) 65.6, Lymph % (Auto) 11.0 L , [place] % (Auto) 17.9 H, Eos % (Auto) 4.4, Baso % (Auto) 0.7, Absolute Neuts (auto) 6.7, Absolute Lymphs (auto) 1.12, Nucleated RBC % 0, Differential Comment SCANNED, APTT 71.9 H, Sodium 135 L, Potassium 4.1, Chloride 101, Carbon Dioxide 29.0, Anion Gap 5, BUN 26 H, Creatinine 0.93, Estim Creat Clear Calc 56.69, Est GFR (MDRD) Af Amer 98, Est GFR (MDRD) Non-Af 81, BUN/Creatinine Ratio 27.8 H, Glucose 134 H, Calcium 8.8, Total Bilirubin 1.80 H, AST 24, ALT 25, Alkaline Phosphatase 23 L, Total Protein 6.5, Albumin 3.0 L, Globulin 3.5, Albumin/Globulin Ratio 0.9, Triglycerides 84, Cholesterol 118, LDL Cholesterol 52, VLDL Cholesterol 17, HDL Cholesterol 49 09/29/22 06:28: POC Glucose 152 H 09/29/22 11:07: POC Glucose 149 H Cardiology Labs/Tests 09/28/22 19:55: APTT 116.8 H* 09/29/22 05:04: WBC 10.2, RBC 4.29 L, Hgb 14.1, Hct 43.9, MCV 102.3 H, MCH 32.9 H, MCHC 32.1, Plt Count 178, MPV 9.0, Immature Gran % (Auto) 0.400, Neut % (Auto) 65.6, Lymph % (Auto) 11.0 L, [place] % (Auto) 17.9 H, Eos % (Auto) 4.4, Baso % (Auto) 0.7, Absolute Neuts (auto) 6.7, Nucleated RBC % 0, APTT 71.9 H, Sodium 135 L, Potassium 4.1, Chloride 101, Carbon Dioxide 29.0, Anion Gap 5, BUN 26 H, Creatinine 0.93, Est GFR (MDRD) Af Amer 98, Est GFR (MDRD) Non-Af 81, BUN/Creatinine Ratio 27.8 H, Glucose 134 H, Calcium 8.8, Total Bilirubin 1.80 H, Triglycerides 84, Cholesterol 118, LDL Cholesterol 52, VLDL Cholesterol 17, HDL Cholesterol 49 Rhythm: EKG: ECHO: Stress Test: Cardiac Cath: PCI: CT Surgery: Holter monitor: EPS: PPM: CXR: Chest CT Scan: Radiography Diagnostic Testing: Radiology Impression Echocardiogram 09/28/22 06:47 Interpretation Summary Normal LV size. Left ventricular systolic function is normal. The estimated ejection fraction is 55 %. Septal [place] : Akinetic. Contrast injection was performed. Ordering Physician: Vikki Rosales Performed By: Aleyda Rachel, KERRY, RVT Physical Exam Const alert, oriented x3 and no apparent distress General Appearance: cooperative HEENT hearing grossly normal bilaterally Head and Scalp: atraumatic Eyes EOMs intact bilaterally Neck General: normal visual inspection Chest inspection of chest normal and palpation of chest normal Resp normal respiratory effort Auscultation: clear to auscultation bilaterally Cardio regular rate, regular rhythm, S1 normal heart sound and S2 normal heart sound Jugular Venous Distention: JVD GI normal to inspection, nondistended, normoactive bowel sounds Extremity normal capillary refill and no pedal edema Peripheral Pulses: Yes pulses 2+ throughout and femoral pulses present Skin no rashes or lesions noted Neuro oriented x3 and CN's II-XII intact bilaterally Psych Appearance: grossly normal and appropriate Assessment & Plan Assessment/Plan (1) Non-STEMI (non-ST elevated myocardial infarction): PLAN: He presents with chest discomfort and is noted to have an non-ST elevation myocardial infarction. His cardiac catheterization films were reviewed. It appears that the circumflex artery lesion is chronic and subtotally occluded in his right coronary artery was a rather complex vessel. If his ventricular function is not significantly changed I would recommend that we pursue medical therapy at this time. We will recommend the addition of Ranexa 500 mg twice a day Increase isosorbide to 60 mg once a day. Continue atenolol. Echocardiogram done today demonstrated preserved left ventricular systolic function with septal akinesis. This has been discussed with the patient and family they understand and agree to proceed. (2) Paroxysmal atrial fibrillation: PLAN: Patient has a history of paroxysmal atrial fibrillation. Appears to be maintaining sinus rhythm at this particular time. (3) Hypertension: QUALIFIERS: Hypertension type: primary hypertension Qualified Code(s): I10 - Essential (primary) hypertension PLAN: His blood pressure appears to be under good control and no changes will be made. (4) Presence of stent in coronary artery: PLAN: He is status post recent angioplasty and stenting of the right coronary artery. He presents this time with likely restenosis or an occlusion. Based on the results of the echocardiogram I will recommend that we pursue medical therapy. Continue risk factor modification with statin and aspirin. And clopidogrel. Thank you for allowing me to participate in the care of your patient. Please don't hesitate to call if any issues arise.
--- NOTE | 2022-09-29 16:00 | DCINST_ITS ---
Discharge Instructions Diet Discharge Diet: Low fat / Low cholesterol and Carb Control Diet Activity Discharge Activity: Return to Normal Activity Dressing / Incision Call your doctor if you observe: Fever of 101 or Higher, Shortness of breath, Dizziness, Fainting spells, Swelling in the ankles, Chest pain and Increased palpitations (irregular heartbeat) Follow Up Care Test Results: Test results from this visit will be discussed in further detail at your follow- up appointment, if applicable. Discharge Plan Admission Admit Date/Time: 09/28/22 05:18 Attending Provider: Adair Hoang Primary Care Provider: Blake Shaffer Consulting Providers: Vikki Rosales; Blake Shaffer; Rajesh Liu Discharge Orders/Prescriptions Prescriptions: New isosorbide mononitrate 60 mg Tablet Extended Release 24 Hr 60 mg PO QAM 30 Days Qty: 30 0RF ranolazine 500 mg Tablet Extended Release 12 Hr 500 mg PO BID 30 Days Qty: 60 0RF Continued famotidine 20 mg tablet 20 mg PO QHS aspirin [Adult Low Dose Aspirin] 81 mg tablet,delayed release (DR/EC) 81 mg PO DAILY levothyroxine 50 mcg tablet 50 mcg PO DAILY cholecalciferol (vitamin D3) 50 mcg (2,000 unit) tablet 50 mcg PO BID metformin 500 mg tablet extended release 24 hr 500 mg PO DAILY multivitamin with folic acid 1 TABLET tablet 1 tab PO DAILY [id number]-hyal 500-66.7-500-2 mg tablet 1 tab PO DAILY fluorometholone 0.1 % drops,suspension 1 drp EACH EYE BID Patient Comments: instill 1 drop into both eyes twice a day atorvastatin 40 mg tablet 40 mg PO QHS furosemide 40 mg tablet 40 mg PO DAILY Qty: 90 3RF atenolol 25 mg tablet 12.5 mg PO DAILY Qty: 45 3RF nitroglycerin 0.4 mg tablet, sublingual 0.4 mg SUBLINGUAL Q5M PRN (Reason: Chest Pain) Qty: 25 3RF clopidogrel [Plavix] 75 mg tablet 75 mg PO DAILY Qty: 90 3RF amlodipine 5 mg tablet 5 mg PO QHS Qty: 30 11RF Discontinued isosorbide mononitrate 30 mg tablet extended release 24 hr 30 mg PO QAM Qty: 30 2RF Referrals / Follow Up: Blake Shaffer MD [Primary Care Provider] - Within 3 Months Disposition Disposition (needs filled in before D/C Order can be placed): Home, Self Care
[2022-09-29 16:05] VITALS: BP 101/67; PULSE 81; RESP 18; TEMP 36.4; O2SAT 91
[2022-09-29 17:08] LABS: Bedside Glucose 130 mg/dL (74-106)
--- NOTE | 2022-09-29 17:57 | DS.PCM_ITS ---
Providers Date of Admission: 09/28/22 Primary Care Physician: Dr. Blake Shaffer MD Consultations 09/28/22 06:47 Consult: Cardiology Routine Consulting Provider: Blake Shaffer Reason for Consult: Chest Pain EMERGENT Consult: No MD Notified: Yes Date Notified: 09/28/22 Time Notified: 05:19 Method of Notification: Text Reason For Visit: NSTEMI, RECENT PCI Diagnosis Discharge Diagnosis (1) Non-STEMI (non-ST elevated myocardial infarction): Status: Acute Code(s): I21.4 - Non-ST elevation (NSTEMI) myocardial infarction (2) Paroxysmal atrial fibrillation: Status: Chronic Code(s): I48.0 - Paroxysmal atrial fibrillation (3) Hypertension: Status: Chronic Code(s): I10 - Essential (primary) hypertension Qualifiers: Hypertension type: primary hypertension Qualified Code(s): I10 - Essential (primary) hypertension (4) Presence of stent in coronary artery: Status: Acute Code(s): Z95.5 - Presence of coronary angioplasty implant and graft Medications at Discharge Home Medications multivitamin with folic acid 400 mcg tablet 1 tab PO DAILY supplement 08/07/16 famotidine 20 mg tablet 20 mg PO QHS acid reflux 01/20/19 aspirin 81 mg tablet,delayed release (Adult Low Dose Aspirin) 81 mg PO DAILY heart health 04/28/19 glucosam 500 mg-chondroit 66.7 mg-msm 500 mg-boron 2 mg-hyaluro tablet 1 tab PO DAILY supplement 07/12/20 levothyroxine 50 mcg tablet 50 mcg PO DAILY thyroid 07/12/20 cholecalciferol (vitamin D3) 50 mcg (2,000 unit) tablet 50 mcg PO BID supplement 07/23/21 metformin 500 mg tablet,extended release 24 hr 500 mg PO DAILY diabetes 07/23/21 furosemide 40 mg tablet 40 mg PO DAILY fluid retention #90 tabs 10/07/21 atenolol 25 mg tablet 12.5 mg (1/2 x 25 mg) PO DAILY blood pressure & heart rate #45 tabs 11/06/21 nitroglycerin 0.4 mg sublingual tablet 0.4 mg sublingual Q5M PRN Chest Pain #25 tabs 12/18/21 clopidogrel 75 mg tablet (Plavix) 75 mg PO DAILY antiplatelet #90 tabs 05/12/22 fluorometholone 0.1 % eye drops,suspension 1 drp EACH EYE BID cataract surgery 09/04/22 amlodipine 5 mg tablet 5 mg PO QHS blood pressure #30 tabs 09/19/22 atorvastatin 40 mg tablet 40 mg PO QHS cholesterol 09/28/22 isosorbide mononitrate 60 mg tablet,extended release 24 hr 60 mg PO QAM 30 days #30 tabs 09/29/22 ranolazine 500 mg tablet,extended release,12 hr 500 mg PO BID 30 days #60 tabs 09/29/22 Hospital Course Operations None Procedures 2-D Echocardiogram Summary of Care Provided Minutes Spent on Discharge: 37 Hospital Course: Per HPI: The patient is an 87 y/o M w/ PMHx: Morbid Obesity, PAF, CAD s/p PCI/Ischemic cardiomyopathy, HTN, HLD, Chronic bradycardia, PMR, Former tobacco use, recent 09/04/22 cardiac catheterization secondary to concerns for unstable angina at that time w/ noted severe CAD involving the RCA with 2 sequential 90 and 95% stenosed regions and ostial 99% L circ artery stenosis, patent stents in the LAD with mild distal L main disease who now re-presents to the [facility] ED on 09/28/22 with history of onset of chest discomfort beginning on day of presentation while he is actually lying in bed, and on rather suddenly and noted to be constant in nature described as dull over the left side of his chest with no improvement with any positional changes or other interventions prompting EMS call with administration of nitroglycerin which she notes did help with his symp toms although he did take 2 of his own and had no relief at that time prompting eventual ED evaluation. Currently he notes his chest pain is completely resolved. He denies any associated nausea, emesis or diaphoresis nor any shortness of breath. Work-up in the ED included T97.6, heart rate 60, BP initially 166/74 with most recent repeat 144/68, respiratory rate 17, 92% on room air eventually placed on 2 L nasal cannula noted to be 97%, CBC with WBC 9.4, hemoglobin 14.8, platelet 192 without marked shift, unremarkable coags, BMP with glucose 197, initial troponin 38 with repeat delta 267, chest x-ray with cardiomegaly and evidence of mild pulmonary congestion, EKG with sinus rhythm with no acute evidence of ischemia similar to prior. EMS also gave him 4-baby aspirin. In the ED patient ministered full-strength aspirin therapy and started on a heparin drip. ED discussed case with Dr. Shaffer who agreed with current intervention with planned evaluation. Hospital Course: 1. Chest pain with demand ischemia/CAD status post stents/HTN/HLD/A-fib? 87-year-old male who recently had stents placed on 09/04/2022 presented to the hospital with recurrent chest pain. He was started on a heparin drip and cardiology was consulted. Troponins were elevated however cardiology felt that this was secondary to demand ischemia and recommended medical therapy. He did have 2 stents placed and there was a third area that needed the potential intervention but the anatomy was too complicated at this time. Echo demonstrated a normal EF with an akinetic apex which is unchanged from his baseline. As his chest pain is completely resolved and in the setting of an unchanged echo cardiology recommended discharge with an increase in Imdur and starting Ranexa 500 mg p.o. twice daily. He has an appointment next with cardiology. I discussed with him the plan for discharge today he expressed understanding of the risk and benefits of going home and he would like to go h ome today. 2. Type 2 diabetes, and hypothyroidism are chronic medical conditions which complicate his care. His home medications were continued where appropriate Physical Exam Narrative General: Alert, Oriented x3, Cooperative, No apparent distress HEENT: Atraumatic, PERRLA, EOMI, Normocephalic Oral: Moist Mucosa Neck: Supple, No JVD Lungs: Clear to auscultation, Normal air movement, No rhonchi, No wheeze, No rales Cardiovascular: Regular rate, Regular Rhythm, Normal S1, Normal S2, No murmurs Abdomen: Soft, Non Tender, Non-Distended, No Hepato-splenomegaly Extremities: No edema, Capillary Refill Less than 3 Seconds Skin: No rashes, No breakdown Musculoskeletal: No Tenderness to Palpation of Joints or Extremities Neurological: Cranial nerves II-XII grossly intact, Motor Exam 5/5 strength throughout, Sensory exam intact to light touch and pain Psych/Mental Status: Normal Affect, Appropriate Weight / BMI Weight Weight: 289 lb 7.471 oz Body Mass Index (BMI) 41.4 ABG / Lab / Microbiology Data 09/29/22 05:04 09/29/22 05:04 Laboratory: Laboratory Results - last 24 hr 09/28/22 19:55: APTT 116.8 H* 09/28/22 22:08: POC Glucose 127 H 09/29/22 05:04: WBC 10.2, RBC 4.29 L, Hgb 14.1, Hct 43.9, MCV 102.3 H, MCH 32.9 H, MCHC 32.1, RDW Std Deviation 52.1 H, RDW Coeff of [place] 13.8, Plt Count 178, MPV 9.0, Immature Gran % (Auto) 0.400, Neut % (Auto) 65.6, Lymph % (Auto) 11.0 L , [place] % (Auto) 17.9 H, Eos % (Auto) 4.4, Baso % (Auto) 0.7, Absolute Neuts (auto) 6.7, Absolute Lymphs (auto) 1.12, Nucleated RBC % 0, Differential Comment SCANNED, APTT 71.9 H, Sodium 135 L, Potassium 4.1, Chloride 101, Carbon Dioxide 29.0, Anion Gap 5, BUN 26 H, Creatinine 0.93, Estim Creat Clear Calc 56.69, Est GFR (MDRD) Af Amer 98, Est GFR (MDRD) Non-Af 81, BUN/Creatinine Ratio 27.8 H, Glucose 134 H, Calcium 8.8, Total Bilirubin 1.80 H, AST 24, ALT 25, Alkaline Phosphatase 23 L, Total Protein 6.5, Albumin 3.0 L, Globulin 3.5, Albumin/Globulin Ratio 0.9, Triglycerides 84, Cholesterol 118, LDL Cholesterol 52, VLDL Cholesterol 17, HDL Cholesterol 49 09/29/22 06:28: POC Glucose 152 H 09/29/22 11:07: POC Glucose 149 H 09/29/22 16:08: POC Glucose 130 H Radiography Diagnostic Testing: Radiology Impression Echocardiogram 09/28/22 06:47 Interpretation Summary Normal LV size. Left ventricular systolic function is normal. The estimated ejection fraction is 55 %. Septal [place]elope : Akinetic. Contrast injection was performed. Ordering Physician: Vikki Rosales Performed By: Aleyda Rachel, KERRY, RVT D/C Instructions Discharge Diet: Low fat / Low cholesterol and Carb Control Diet Call your doctor if you observe: Fever of 101 or Higher, Shortness of breath, Dizziness, Fainting spells, Swelling in the ankles, Chest pain and Increased palpitations (irregular heartbeat) Meaningful Use Info Meaningful Use Diagnoses (Choose all that apply): None applicable Discharge Plan Admission Admit Date/Time: 09/28/22 05:18 Attending Provider: Adair Hoang Primary Care Provider: Blake Shaffer Consulting Providers: Vikki Rosales; Blake Shaffer; Rajesh Liu Discharge Orders/Prescriptions Prescriptions: New isosorbide mononitrate 60 mg Tablet Extended Release 24 Hr 60 mg PO QAM 30 Days Qty: 30 0RF ranolazine 500 mg Tablet Extended Release 12 Hr 500 mg PO BID 30 Days Qty: 60 0RF Continued famotidine 20 mg tablet 20 mg PO QHS aspirin [Adult Low Dose Aspirin] 81 mg tablet,delayed release (DR/EC) 81 mg PO DAILY levothyroxine 50 mcg tablet 50 mcg PO DAILY cholecalciferol (vitamin D3) 50 mcg (2,000 unit) tablet 50 mcg PO BID metformin 500 mg tablet extended release 24 hr 500 mg PO DAILY multivitamin with folic acid 1 TABLET tablet 1 tab PO DAILY myatobmx-ufnam-zxp-boron-hyal 500-66.7-500-2 mg tablet 1 tab PO DAILY fluorometholone 0.1 % drops,suspension 1 drp EACH EYE BID Patient Comments: instill 1 drop into both eyes twice a day atorvastatin 40 mg tablet 40 mg PO QHS furosemide 40 mg tablet 40 mg PO DAILY Qty: 90 3RF atenolol 25 mg tablet 12.5 mg PO DAILY Qty: 45 3RF nitroglycerin 0.4 mg tablet, sublingual 0.4 mg SUBLINGUAL Q5M PRN (Reason: Chest Pain) Qty: 25 3RF clopidogrel [Plavix] 75 mg tablet 75 mg PO DAILY Qty: 90 3RF amlodipine 5 mg tablet 5 mg PO QHS Qty: 30 11RF Discontinued isosorbide mononitrate 30 mg tablet extended release 24 hr 30 mg PO QAM Qty: 30 2RF Referrals / Follow Up: Blake Shaffer MD [Primary Care Provider] - 10/02/22 1:30 pm (Appointment is with Mervin Rachel N.P.) Disposition Disposition (needs filled in before D/C Order can be placed): Home, Self Care Charges/Coding Visit Charges Inpatient E&M: 61470 Disch Hosp >30min
== END 2022-09-29 17:31 | disposition home or self-care (01) | DRG 281 ==
LOC: ED 04:44 → PCU 05:29
PROVIDERS: Internal Medicine; Admitting Provider Family Medicine; Emergency Provider Emergency Medicine; PCP Internal Medicine Cardiovascular Disease; Visit Provider Family Medicine
DX: I21.4 Non-ST elevation (NSTEMI) myocardial infarction (principal); Z68.41 Body mass index [BMI] 40.0-44.9, adult; E03.9 Hypothyroidism, unspecified; E11.9 Type 2 diabetes mellitus without complications; E87.70 Fluid overload, unspecified; I48.0 Paroxysmal atrial fibrillation; E66.01 Morbid (severe) obesity due to excess calories; I24.8 Other forms of acute ischemic heart disease; E78.00 Pure hypercholesterolemia, unspecified; I10 Essential (primary) hypertension; K21.9 Gastro-esophageal reflux disease without esophagitis; I25.10 Atherosclerotic heart disease of native coronary artery without angina pectoris; I25.5 Ischemic cardiomyopathy; Z66 Do not resuscitate; Z95.5 Presence of coronary angioplasty implant and graft; Z82.3 Family history of stroke; Z87.891 Personal history of nicotine dependence; Z79.82 Long term (current) use of aspirin; Z79.84 Long term (current) use of oral hypoglycemic drugs; Z51.5 Encounter for palliative care; Z79.02 Long term (current) use of antithrombotics/antiplatelets
CPT/HCPCS: 36415; 71045; 80048; 80053; 80061; 82962; 83735; 84484; 85025; 85610; 85730; 93005; 93306; 93798; 94668; 99285; Q9957; A4216; C8929; J1940

== ENCOUNTER → 2022-10-24 | Outpatient (CLI) | payer MEDICARE, OTHER, SELFPAY ==
[2022-09-23 08:33] VITALS: BMI 40.1
[2022-10-22 13:04] VITALS: BMI 41.5
--- NOTE | 2022-10-24 08:54 | AAAS_ITS ---
Reason For Study: EECP Therapy Aorta Measurements Aorta Doppler Measurements Proximal aorta measures2.28cm x 2.23cm. in cross- Peak systolic flow velocities within the proximal sectional axis. aorta measure 83 cm/sec. Proximal aorta measures2.24cm. in longitudinal Peak systolic flow velocities within the mid aorta axis. measure 78 cm/sec. Mid aorta measures2.28cm x 2.22cm. in cross- Peak systolic flow velocities within the distal sectional axis. aorta measure 69 cm/sec. Mid aorta measures2.14cm. in longitudinal axis. Distal aorta measures1.89cm x 1.91cm. in cross- sectional axis. Distal aorta measures1.89cm. in longitudinal axis. Left Iliac Artery Left iliac artery measures 1.30cm x 1.30 cm. in the cross-sectional axis. Left iliac artery measures 1.35 cm. in the longitudinal axis. Peak systolic velocity in the left iliac artery measures 89 cm/sec. Right Iliac Artery Right iliac artery measures 1.21cmx 1.16 cm. in the cross-sectional axis. Right iliac artery measures 1.36 cm. in the longitudinal axis. Peak systolic velocity in the right iliac artery measures 86 cm/sec. Procedure Aorta IVC Iliac vasculature or bypass grafts [id number]. Exam performed in department. VL/AAA Screening Interpretation Summary Aorta patent, normal caliber Bilateral iliac arteries patent, normal caliber Ordering Physician: Mervin Rachel Referring Physician: David Howard Performed By: Aleyda Rachel, RDCS, RVT
== END | disposition home or self-care (01) ==
LOC: CVS 08:53
PROVIDERS: PCP Family Medicine; Referring Provider Nurse Practitioner Family; Visit Provider Nurse Practitioner Family
DX: Z95.5 Presence of coronary angioplasty implant and graft (principal); R06.00 Dyspnea, unspecified; R07.9 Chest pain, unspecified
CPT/HCPCS: 76706

== ENCOUNTER 2022-10-27 10:15 | Outpatient (RCR) | payer MEDICARE, OTHER, SELFPAY ==
[2022-09-23 08:33] VITALS: BMI 40.1
--- NOTE | 2022-10-22 12:49 | CR.ITP_ITS ---
Exercise - Initial Assessment Visit Session #:: 9 Nutrition - Initial Assessment Weight Mgt (Other Care) Height: 5 ft 10 in Weight:: 290 lb BMI: 41.5 Psychosocial - Initial Assess Target Goals Target Goals Patient Health Questionnaire PHQ-9 Screening 30-Day Re-eval Assessment: 1. Little interest or pleasure in doing things: Nearly every day 2. Feeling down, depressed, or hopeless: Not at all 3. Trouble falling or staying asleep, or sleeping too much: More than half the days 4. Feeling tired or having little energy: Nearly every day 5. Poor appetite or overeating: More than half the days 6. Feeling bad about yourself -- or that you are a failure or have let yourself or your family down: Not at all 7. Trouble concentrating on things, such as reading the newspaper or watching television: Several days 8. Moving or speaking so slowly that other people could have noticed. Or the opposite - being so fidgety or restless that you have been moving around a lot more than usual: Several days 9. Thoughts that you would be better off , or of hurting yourself in some way: Several days How difficult have these problems made it for you to do your work, take care of things at home, or get along with other people?: Somewhat difficult Total Score: 13 Nutrition Survey Nutrition Survey Instructions Scoring Instructions Exercise - 30-day Assessment Visit Date of Eval: 10/22/22 Session #:: 9 Physician Prescribed Exercise Modalities: Treadmill, Airdyne and NuStep Frequency: 3x/week for 12 weeks [36 sessions] Intensity: 60-80% of age predicted maximum heart rate reserve Current METSs:: 3.3 Target Heart Rate:: 86-100 Current RPE:: 12 Maximum Excercise HR:: 86 Resting Blood Pressure: 110/50 Maximum Exercise Blood Pressure: 140/56 EKG Type: SR borderline 1st degree AVB wandering atrial pacer, Twave abnormality, rar Outcomes & Goals Goals:: Verbalizes understanding of THR, RPE & goal METS by session 6, Documents in home exercise log/reports 30 min aerobic 5 day/wk by DC, Demonstrates accurate pulse taking by DC and Other additional outcome/goals: see below Intervention & Plan Exercise Program Goals: Instruct on personal THR & RPE, Instruct on MET level & personal MET goal, Show patient to take own pulse /validate performance until accurate, Instruct on home exercise and Other additional plan/int 30-day Reassessments 30 day Reassessments:: Progressing Reassessment Notes & Comments:: pulse taking demonstrated Physical Activity Home Exercise Physical Activity - Home Exercise: Safe Exercise, Warm-up, Self-monitoring, Cool-Down, Home Exercise > 30 min Daily and Sitting Time <3 hours/daily Outcomes & Goals Outcomes/Goals: Demonstrates correct Warm-up/exercise Cool-Down (S3) if = 2.5 M ETs, Verbalizes symptoms of exercise intolerance by Session 3 (S3), Demonstrate safe equipment use (S3) & follows exercise prescrition (6) and Other: See below Intervention & Plan Plan/Intervention: Instruct warm-up & cool-down if exercising at > 2 METs, Instruct on symptoms of exercise intolerance & actions to take, Instruct & monitor on saf, Assess intial functional capacity & safety risk and Other See below 30-day Reassessments 30 day Reassessments:: Progressing Reassessment Notes & Comments:: cool down encouraged Nutrition - 30-Day Assessment Program Goals Nutrition Program Goals Patient has diagnosis of Hyperlipidemia (ICD E78)?: Yes Visit Date of Eval: 10/22/22 Session #:: 9 Cholesterol/Lipids (Other Core Measures) Determine presence & major risk factors that modify LDL goal: Hypertension or hypertensive medication, Low HDL cholesterol <40 mg/dL*, Family history of premature CHD in Male < 55 years: female <65 yearsFa and Age men > 45 years; women >/= 55 years Outcomes/Goals: Pt IDs own risk factors & lifestyle modifications by Session 10, Verbalizes symptoms of angina & response by session 3., Pt independently manages and Other Additional Outcomes/Goals: Intervention/Plan: Advocate for lipid panel cholesterol medication if applicable, Instruct on personal lipid levels & lipid goals/NCEP guidelines, Instruct on cholesterol and Other additional plan/int 30-day Reassessments:: Progressing Reassessment Notes & Comments:: risk factors explained Diabetes (Other Core Measures) Diabetes Type: Diagnosis Type II ICD-10 E11 Insulin dependent injection/pump?: Yes Non-Insulin Dependent?: Yes Do you monitor your blood sugar at home?: Yes Referral to Diabetic Clinic:: Yes Outcomes/Goals:: Able to state symptoms of, Able to state, Able to state and Other additional Intervention/Plan:: Instruct on, Refer to, Instruct on and Other Weight Mgt (Other Care) Height: 5 ft 10 in Weight:: 290 lb BMI: 41.5 Diagnosis Overweight/Obesity BMI> 30% ICD-10 E66: Yes 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 Outcomes/Goals: Pt sets, maintains & shows weight loss goal & trend during rehab and Other additional outcomes/goals Intervention/Plan: Instruct on ideal BMI & set weight loss goal w/patient, Assist pt to ID & incorporate diet changes for weight loss by S9, Refer to Structured Weight Loss program as appropriate, Encourage goal of using 250- 300dcal per session for weight loss and Other additional plan/interventions 30 day Reassessments:: Progressing Reassessment Notes & Comments:: pt to attend nutrition class Healthy Eating Habits Will attend diet classes:: Yes Outcomes/Goals:: Consume diet rich in vegs,fruits,whole grain/high fiber,fish,lean meat, Limit sat/trans fats,cholesterol & added salts & sugars and Other additional outcome/goals: Intervention/Plan:: Assess current eating habits and Other Additional plan/interventions 30-day Reassessments:: Progressing Reassessment Notes & Comments:: pt to attend nutrition class Education Gave educational materials for:: Signs & symptoms of hypoglycemia, Signs & symptoms of hyperglycemia, Relate diabetes to coronary artery disease and Healthy eating Nutrition - 60-Day Assessment Weight Mgt (Other Care) Height: 5 ft 10 in Weight:: 290 lb BMI: 41.5 Core - 30-Day Assessment Visit Date of Eval: 10/22/22 Session #:: 9 Medication Compliance Preventative Medication(s):: Aspirin, Clopidogrel/P2Y12 inhibit, Statin/lipid and Beta catherine H/O mental health issues: depression, anxiety, or addiction?: No Doesn?t believe in the benefits of treatment?: No Believes medications are unnecessary or harmful?: No Has a concern about medication side effects?: No Expresses concern over the cost of medications?: No Outcomes/Goals: Verbalizes medications,desired effect & common side effects @ DC, Pt self-reports following medication regimen, Keeps card in wallet w/medications listed by DC and Other additional outcome/goals: Interventions/plans: Instruct on medication effects & side effects, Review medication list w/patient every two weeks, Instruct importance of taking meds as ordered & assist problem solving and Other additional 30-day Reassessments:: Progressing Reassessment Notes & Comments:: pt encouraged to take meds Tobacco Use Tobacco Use: Non-smoker Hypertension Hypertension Diagnosis:: Hypertension ICD-10 I10 Resting Blood Pressure:: 110/50 [place] [employer] Hypertension Guidelines Peak Exercise Blood Pressure:: 140/56 Outcomes/Goals: Able to verbalize/achieve optimal blood pressure <130/80, Incorporates diet changes & exercise for blood pressure control by DC and Other additional outcomes/goals Interventions/plan: Instruct on optimal blood pressure, hypertension & medications, Instruct on effects of sodium, alcohol, stress, exercise &hypertension and Other additional plan/interventions 30 day Reassessments:: Progressing Reassessment Notes & Comments:: pt encouraged to take his meds Tobacco Cessation Referral Smoking Cessation Referral:: No Individual Education/Counseling:: No Education Schedule Given:: Yes Psychosocial - 30-Day Assess VIsit Date of Eval: 10/22/22 Session #:: 9 History of previous Mental disease:: No Target Goals Target Goals Psychosocial - 60-Day Assess Target Goals Target Goals Psychosocial - 90-Day Assess Target Goals Target Goals Psychosocial - Final Assessmen Target Goals Target Goals Nutrition - 90-Day Assessment Weight Mgt (Other Care) Height: 5 ft 10 in Weight:: 290 lb BMI: 41.5 Nutrition - Final Assessment Weight Mgt (Other Care) Height: 5 ft 10 in Weight:: 290 lb BMI: 41.5
[2022-10-22 12:54] VITALS: BP 110/50
[2022-10-22 13:04] VITALS: BP 110/50; BMI 41.5
== END 2022-10-27 23:59 ==
LOC: CR 10:15
PROVIDERS: PCP Internal Medicine Cardiovascular Disease; Referring Provider Internal Medicine Cardiovascular Disease; Visit Provider Internal Medicine Cardiovascular Disease
DX: Z95.5 Presence of coronary angioplasty implant and graft (principal); I25.10 Atherosclerotic heart disease of native coronary artery without angina pectoris
CPT/HCPCS: 93798

== ENCOUNTER → 2022-10-31 | Outpatient (CLI) | payer MEDICARE, OTHER, SELFPAY ==
[2022-10-22 13:04] VITALS: BMI 41.5
== END | disposition home or self-care (01) ==
LOC: CR 11:30
PROVIDERS: PCP Family Medicine; Referring Provider Internal Medicine Cardiovascular Disease; Visit Provider Internal Medicine Cardiovascular Disease
DX: I25.118 Atherosclerotic heart disease of native coronary artery with other forms of angina pectoris (principal)

== ENCOUNTER → 2022-11-11 | Outpatient (CLI) | payer MEDICARE, OTHER, SELFPAY ==
[2022-10-22 13:04] VITALS: BMI 41.5
--- NOTE | 2022-11-11 10:09 | RAD_ITS ---
STUDY: X-RAY CHEST REASON FOR EXAM: Male, 87 years old. Atypical chest pain TECHNIQUE: PA and lateral views of the chest. COMPARISON: 09/28/2022 FINDINGS: Chronic interstitial changes in both lung troy without a superimposed acute pulmonary process, no significant interval change. There is no demonstrated pleural abnormality. Normal size heart. Normal mediastinum and aristides. Normal visualized pulmonary arteries. Normal visualized aortic arch and descending thoracic aorta. There are diffuse degenerative changes of the visualized thoracic spine. There is degenerative osteoarthritis of the bilateral shoulders. Previous left rotator cuff repair There is no demonstrated abnormality of the visualized soft tissue structures of the upper abdomen. RAD/Chest PA and Lateral IMPRESSION: Chronic interstitial changes, no superimposed acute pulmonary process Electronically Signed: Julius Reyes MD at 13:00 EDT ,
[2022-11-11 10:52] LABS: Hematocrit 44.6 % (40-54); Hemoglobin 14.3 g/dL (13.0-16.5); Mean Corp Hgb Conc 32.1 g/dL (32-36); Mean Corpuscular Hgb 32.9 pg (27.0-32.0); Mean Corpuscular Volume 102.8 fL (80-94); Platelet Count 212 K/mm3 (150-450); RBC Distribution Width CV 14.4 % (11.6-14.6); RBC Distribution Width SD 55.3 fl (35.1-43.9); Red Blood Count 4.34 M/mm3 (4.6-6.2)
[2022-11-11 11:14] LABS: Anion Gap 3 (5-15); BUN 22 mg/dL (7-18); BUN/Creat Ratio 22.1 RATIO (10-20); Calcium,Total 8.9 mg/dL (8.5-10.1); Chloride 102 mmol/L (98-107); EST Glomerular Filtration Rate 75 mL/min (>60); Est Glom Filt Rate - Afr Amer 91 mL/min (>60); Glucose 165 mg/dL (74-106); Potassium 3.6 mmol/L (3.5-5.1); Sodium Level 138 mmol/L (136-145)
[2022-11-11 11:15] LABS: BNP,B-Type NATRIURETIC PEPTIDE 149.6 pg/mL (0-100)
== END | disposition home or self-care (01) ==
PROVIDERS: PCP Family Medicine; Referring Provider Nurse Practitioner Family; Visit Provider Nurse Practitioner Family
DX: I42.8 Other cardiomyopathies (principal); I25.119 Atherosclerotic heart disease of native coronary artery with unspecified angina pectoris; I25.5 Ischemic cardiomyopathy; R06.00 Dyspnea, unspecified; R79.81 Abnormal blood-gas level; Z51.81 Encounter for therapeutic drug level monitoring; Z79.899 Other long term (current) drug therapy
CPT/HCPCS: 36415; 71046; 80048; 83880; 85027; 92971; G0166

== ENCOUNTER → 2022-11-20 | Outpatient (CLI) | payer MEDICARE, OTHER, SELFPAY ==
[2022-10-22 13:04] VITALS: BMI 41.5
[2022-11-20 11:16] LABS: Anion Gap 5 (5-15); BUN 26 mg/dL (7-18); BUN/Creat Ratio 21.7 RATIO (10-20); Calcium,Total 9.1 mg/dL (8.5-10.1); Chloride 101 mmol/L (98-107); EST Glomerular Filtration Rate 61 mL/min (>60); Est Glom Filt Rate - Afr Amer 73 mL/min (>60); Glucose 170 mg/dL (74-106); Potassium 4.2 mmol/L (3.5-5.1); Sodium Level 134 mmol/L (136-145)
== END | disposition home or self-care (01) ==
LOC: LAB 10:03
PROVIDERS: PCP Family Medicine; Referring Provider Nurse Practitioner Family; Visit Provider Nurse Practitioner Family
DX: Z51.81 Encounter for therapeutic drug level monitoring (principal); E11.9 Type 2 diabetes mellitus without complications; Z79.899 Other long term (current) drug therapy; I25.5 Ischemic cardiomyopathy
CPT/HCPCS: 36415; 80048

== ENCOUNTER 2022-11-26 10:15 | Outpatient (RCR) | payer MEDICARE, OTHER, SELFPAY ==
[2022-10-22 13:04] VITALS: BMI 41.5
[2022-10-28 00:40] VITALS: BP 110/50
--- NOTE | 2022-11-24 08:18 | PCM.CR.ITP ---
Nutrition - Initial Assessment Weight Mgt (Other Care) Height: 5 ft 10 in Weight:: 284 lb BMI: 40.7 Psychosocial - Initial Assess Target Goals Target Goals Referral to Behavioral Health PS - Interventions: No: Referral to Behavioral Health if PHQ-9 score >9:, No: Referral to [facility] and No: Referral to Physician if PHQ-9 if score is 5-9: Patient Health Questionnaire PHQ-9 Screening 60-Day Re-eval Assessment: 1. Little interest or pleasure in doing things: Nearly every day 2. Feeling down, depressed, or hopeless: Not at all 3. Trouble falling or staying asleep, or sleeping too much: More than half the days 4. Feeling tired or having little energy: Nearly every day 5. Poor appetite or overeating: More than half the days 6. Feeling bad about yourself -- or that you are a failure or have let yourself or your family down: Not at all 7. Trouble concentrating on things, such as reading the newspaper or watching television: Several days 8. Moving or speaking so slowly that other people could have noticed. Or the opposite - being so fidgety or restless that you have been moving around a lot more than usual: Not at all How difficult have these problems made it for you to do your work, take care of things at home, or get along with other people?: Somewhat difficult Total Score: 11 Self-Efficacy 6-Item Scale 60-Day Re-eval Assessment: We would like to know how confident you are in doing certain activities. Please select your confidence level for: Fatigue Select Number: 5 Physical Discomfort or Pain Select Number: 5 Emotional Distress Select Number: 10 Other Symptoms or Health Problems Select Number: 8 Different Tasks and Activities Select Number: 8 Medication Select Number: 9 Total Score:: 7 Nutrition Survey Nutrition Survey Instructions Scoring Instructions Exercise - 60-day Assessment Visit Date of Eval: 11/24/22 Session #:: 20 Physician Prescribed Exercise Modalities: Treadmill, Airdyne and NuStep Frequency: 3x/week for 12 weeks [36 sessions] Intensity: 60-80% of age predicted maximum heart rate reserve Duration: 30 - 45 minutes Current METSs:: 4.0 Target Heart Rate:: 86-100 Current RPE:: 12 Maximum Excercise HR:: 97 Resting Blood Pressure: 118/60 EKG Type: NSR to sinus tach, AVB, Rare PACs PVCs Current Physical Activity or Exercising minutes: 35:44 Outcomes & Goals Goals:: Verbalizes understanding of THR, RPE & goal METS by session 6, Documents in home exercise log/reports 30 min aerobic 5 day/wk by DC and Demonstrates accurate pulse taking by DC Intervention & Plan Exercise Program Goals: Instruct on personal THR & RPE, Instruct on MET level & personal MET goal, Show patient to take own pulse /validate performance until accurate and Instruct on home exercise 30-day Reassessments 30 day Reassessments:: Met Reassessment Notes & Comments:: Patient has been exercised on 2 to 3 liters of oxygen to maintain SpO2 > 90%. He recently was referred to Dr. Dionte Burks and is undergoing additional test. His resting SpO2s have been significantly below 90% with noted cyanotic nail beds. The patient remains being treated on EECP Therapy 5 x weekly without further incident. Physical Activity Home Exercise Physical Activity - Home Exercise: Safe Exercise, Warm-up, Self-monitoring, Cool-Down, Home Exercise > 30 min Daily and Sitting Time <3 hours/daily Outcomes & Goals Outcomes/Goals: Demonstrates correct Warm-up/exercise Cool-Down (S3) if = 2.5 METs, Verbalizes symptoms of exercise intolerance by Session 3 (S3) and Demonstrate safe equipment use (S3) & follows exercise prescrition (6) Intervention & Plan Plan/Intervention: Instruct warm-up & cool-down if exercising at > 2 METs, Instruct on symptoms of exercise intolerance & actions to take, Instruct & monitor on saf and Assess intial functional capacity & safety risk 30-day Reassessments 30 day Reassessments:: Met Nutrition - 30-Day Assessment Weight Mgt (Other Care) Height: 5 ft 10 in Weight:: 284 lb BMI: 40.7 Nutrition - 60-Day Assessment Program Goals Nutrition Program Goals Patient has diagnosis of Hyperlipidemia (ICD E78)?: Yes Visit Date of Eval: 11/24/22 Session #:: 20 Cholesterol/Lipids (Other Core Measures) Total Triglycerides (mg/dL): 162 Total Cholesterol: 108 LDL Cholesterol (mg/dL): 46 HDL Cholesterol (mg/dL): 30 Determine presence & major risk factors that modify LDL goal: Hypertension or hypertensive medication, Low HDL cholesterol <40 mg/dL*, Family history of premature CHD in Male < 55 years: female <65 yearsFa and Age men > 45 years; women >/= 55 years Outcomes/Goals: Pt IDs own risk factors & lifestyle modifications by Session 10, Verbalizes symptoms of angina & response by session 3. and Pt independently manages Intervention/Plan: Instruct on personal lipid levels & lipid goals/NCEP guidelines and Instruct on cholesterol Referral to dietitian:: Yes 30-day Reassessments:: Progressing Diabetes (Other Core Measures) Diabetes Type: Diagnosis Type II ICD-10 E11 Fasting blood glucose:: 107 Hgb A1C (4.2 -6.3): 6.6 Insulin dependent injection/pump?: No Non-Insulin Dependent?: Yes Do you monitor your blood sugar at home?: Yes Referral to Diabetic Clinic:: Yes Outcomes/Goals:: Able to state symptoms of, Able to state and Able to state Intervention/Plan:: Instruct on, Refer to and Instruct on 30-day Reassessments:: Progressing Weight Mgt (Other Care) Not Applicable: Yes Height: 5 ft 10 in Weight:: 284 lb BMI: 40.7 Diagnosis Overweight/Obesity BMI> 30% ICD-10 E66: Yes 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 Outcomes/Goals: Pt sets, maintains & shows weight loss goal & trend during rehab Intervention/Plan: Instruct on ideal BMI & set weight loss goal w/patient, Assist pt to ID & incorporate diet changes for weight loss by S9, Refer to Structured Weight Loss program as appropriate and Encourage goal of using 250-300dcal per session for weight loss 30 day Reassessments:: Progressing Reassessment Notes & Comments:: Patient's weight has been stable 282-284 Healthy Eating Habits Will attend diet classes:: Yes Outcomes/Goals:: Consume diet rich in vegs,fruits,whole grain/high fiber,fish,lean meat and Limit sat/trans fats,cholesterol & added salts & sugars Intervention/Plan:: Assess current eating habits 30-day Reassessments:: Not Met Education Gave educational materials for:: Signs & symptoms of hypoglycemia, Signs & symptoms of hyperglycemia, Relate diabetes to coronary artery disease and Healthy eating Core - 60-Day Assessment Visit Date of Eval: 11/24/22 Session #:: 20 Medication Compliance Preventative Medication(s):: Aspirin, Clopidogrel/P2Y12 inhibit, Statin/lipid and Beta catherine H/O mental health issues: depression, anxiety, or addiction?: No Doesn?t believe in the benefits of treatment?: No Believes medications are unnecessary or harmful?: No Has a concern about medication side effects?: No Expresses concern over the cost of medications?: No Outcomes/Goals: Verbalizes medications,desired effect & common side effects @ DC, Pt self-reports following medication regimen and Keeps card in wallet w/medications listed by DC Interventions/plans: Instruct on medication effects & side effects and Instruct importance of taking meds as ordered & assist problem solving 30-day Reassessments:: Met Tobacco Use Tobacco Use: Non-smoker Hypertension Hypertension Diagnosis:: Hypertension ICD-10 I10 Resting Blood Pressure:: 118/60 [place] [employer] Hypertension Guidelines Peak Exercise Blood Pressure:: 160/68 Outcomes/Goals: Able to verbalize/achieve optimal blood pressure <130/80 and Incorporates diet changes & exercise for blood pressure control by DC Interventions/plan: Instruct on optimal blood pressure, hypertension & medications and Instruct on effects of sodium, alcohol, stress, exercise &hypertension 30 day Reassessments:: Progressing Tobacco Cessation Referral Smoking Cessation Referral:: No Individual Education/Counseling:: No Education Schedule Given:: Yes Psychosocial - 30-Day Assess Target Goals Target Goals Referral to Behavioral Health PS - Interventions: No: Referral to Behavioral Health if PHQ-9 score >9:, No: Referral to [facility] and No: Referral to Physician if PHQ-9 if score is 5-9: Outcomes/Goals: See list Psychosocial Outcomes/Goals:: ID's personal stressors & 2 strategies to manage stress by discharge Psychosocial - 60-Day Assess VIsit Date of Eval: 11/24/22 Session #:: 20 Not Applicable: Yes History of previous Mental disease:: No Target Goals Target Goals Psychosocial Test Tool Used:: PHQ-9 Questionnaire phq-9 Severity Referral to Behavioral Health PS - Interventions: No: Referral to Behavioral Health if PHQ-9 score >9:, No: Referral to [facility] and No: Referral to Physician if PHQ-9 if score is 5-9: Outcomes/Goals: See list Psychosocial Outcomes/Goals:: ID's personal stressors & 2 strategies to manage stress by discharge Intervention/Plan: See List Interventions/Plan:: Assess stressors,coping strategies & signs of derpression on admission, Instruct/assist pt to develop coping & personal stress Mgt strategies, Instruct patient to recognize signs & symptoms of depression and Instruct patient to recog 30-day Reassessments: 30 day Reassessments:: Progressing Psychosocial - 90-Day Assess Target Goals Target Goals Referral to Behavioral Health PS - Interventions: No: Referral to Behavioral Health if PHQ-9 score >9:, No: Referral to [facility] and No: Referral to Physician if PHQ-9 if score is 5-9: Psychosocial - Final Assessmen Target Goals Target Goals Referral to Behavioral Health PS - Interventions: No: Referral to Behavioral Health if PHQ-9 score >9:, No: Referral to [facility] and No: Referral to Physician if PHQ-9 if score is 5-9: Nutrition - 90-Day Assessment Weight Mgt (Other Care) Height: 5 ft 10 in Weight:: 284 lb BMI: 40.7 Nutrition - Final Assessment Weight Mgt (Other Care) Height: 5 ft 10 in Weight:: 284 lb BMI: 40.7
[2022-11-24 08:32] VITALS: BP 118/60
[2022-11-24 08:40] VITALS: BP 118/60; BMI 40.7
== END 2022-11-27 23:59 ==
LOC: CR 10:15
PROVIDERS: PCP Family Medicine; Referring Provider Internal Medicine Cardiovascular Disease; Visit Provider Internal Medicine Cardiovascular Disease
DX: I25.118 Atherosclerotic heart disease of native coronary artery with other forms of angina pectoris (principal); Z95.5 Presence of coronary angioplasty implant and graft
CPT/HCPCS: 93798

== ENCOUNTER 2022-11-27 09:00 | Outpatient (RCR) | payer MEDICARE, OTHER, SELFPAY ==
[2022-10-22 13:04] VITALS: BMI 41.5
== END 2022-11-27 23:59 ==
LOC: CR 09:00
PROVIDERS: PCP Family Medicine; Visit Provider Internal Medicine Cardiovascular Disease
DX: I25.119 Atherosclerotic heart disease of native coronary artery with unspecified angina pectoris (principal)
CPT/HCPCS: 92971; G0166

== ENCOUNTER → 2022-11-28 | Outpatient (CLI) | payer MEDICARE, OTHER, SELFPAY ==
[2022-10-22 13:04] VITALS: BMI 41.5
[2022-11-24 08:40] VITALS: BMI 40.7
--- NOTE | 2022-11-28 18:53 | CT_ITS ---
ACR Level 3 findings have been noted. An addendum which confirms receipt of the report will follow. EXAM: CT CHEST WITHOUT INTRAVENOUS CONTRAST CLINICAL INDICATION: Abnormal CXR, Eval for ILD TECHNIQUE: Helically acquired images were obtained of the chest without intravenous contrast. This CT exam was performed using one or more of the following dose reduction techniques: automated exposure control, adjustment of the mA and/or kV according to patient size, and/or use of iterative reconstruction technique. RADIATION DOSE: CTDIvol = 20.19 mGy, DLP = 631.55 mGy-cmContrast: COMPARISON: May 30, 2021, November 11, 2022 FINDINGS: LUNGS AND PLEURAL SPACES: Mild increased subpleural markings at the periphery of both lungs, greater on the right, presumed early chronic changes. Minimal bronchiectasis in the distal bilateral lower lobe periphery posteriorly. No confluent alveolar infiltrate. Ovoid nonjuxtapleural 9 mm x 8 mm x 1.2 cm nodule or small vascular malformation in the right middle lobe, well-circumscribed margins. No pneumothorax. HEART: Marked coronary artery calcification or numerous stents in the bilateral coronary arteries, probably both. Normal heart size. Slight aortic valve region calcifications. No pericardial effusion. MEDIASTINUM: Mild mediastinal lipomatosis. Multiple but fairly small mediastinal lymph nodes and a few small right hilar lymph nodes, not necessarily pathologic by size criteria, the largest. Esophagus is unremarkable. No hiatal hernia. THYROID: Unremarkable. No thyroid lesions. BONES/JOINTS: Multilevel ligamentous ossification and syndesmosis at mid to lower thoracic levels, presumed diffuse idiopathic skeletal hyperostosis. A few old left rib fractures with callus, no acute fracture. No suspicious lytic or blastic abnormality. VASCULATURE: Atherosclerotic scattered calcification of the aorta. Ascending aorta is 4.4 cm, descending aorta is 3 cm. No aneurysm or intimal calcification displacement to suggest dissection. GALLBLADDER AND BILE DUCTS: Partially included is cholelithiasis, at least one stone thought to be of the gallbladder neck. Most of the gallbladder is not included. CT/Chest without Contrast IMPRESSION: 1. Partially included appears to be gallstone in the gallbladder neck, most of the gallbladder is not included. 2. Advanced coronary artery calcifications and/or extensive coronary stents. Normal heart size. 3. Subpleural lung changes and minimal bibasilar bronchiectasis. 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 4. 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 Old left posterior and lateral rib fractures. 5. Indeterminate but well-circumscribed right middle lobe nodule of 12 mm maximum diameter, likely incidental and benign considering the well-circumscribed and elongated appearance but indeterminate. Not clearly seen on prior chest radiographs. Recommendations: For low-risk or high-risk patients consider a follow-up chest CT at 3 months. If unchanged consider an additional follow-up CT at 18-24 months. Alternatively (or additionally) PET/CT or tissue sampling could be performed. Electronically Signed: Magui Yañez MD at 2:59 EDT ,
== END | disposition home or self-care (01) ==
LOC: CT 18:50
PROVIDERS: PCP Family Medicine; Visit Provider Internal Medicine Critical Care Medicine
DX: R93.89 Abnormal findings on diagnostic imaging of other specified body structures (principal)
CPT/HCPCS: 71250

== ENCOUNTER 2022-12-04 11:09 | Outpatient (CLI) | payer MEDICARE, OTHER, SELFPAY ==
[2022-10-22 13:04] VITALS: BMI 41.5
[2022-11-24 08:40] VITALS: BMI 40.7
[2022-12-04 11:15] VITALS: PULSE 77; PULSE 79; PULSE 86; PULSE 88; PULSE 89; PULSE 92; PULSE 93; O2SAT 83; O2SAT 88; O2SAT 90; O2SAT 91; O2SAT 94
--- NOTE | 2022-12-05 09:45 | PCM.PSN.6M ---
PSN 6 Minute Walk Test 6 Minute Walk Test 6 Minute Walk Test: 6 Minute Walk Test PSN:6-Minute Walk Test Start: 12/04/22 11:36 Freq: Status: Active Protocol: [id number] Document 12/04/22 11:15 DWP (Rec: 12/04/22 11:43 DWP [id number]) 6 Minute Walk Test Date Performed 12/04/22 Time Performed 11:[address]: Dionte Burks FIO2 (% Oxygen) 0.21 Assistive device used: None Pre-test Oxygen Delivery Method Room Air Pulse Ox 94 Pulse Rate (60-100) 77 Dyspnea Gloria Scale (0-10) 1 Exertion Gloria Scale (6-20) 8 1st minute Oxygen Delivery Method Room Air Pulse Ox 90 Pulse Rate (60-100) 79 Reported Symptoms Increased Work of Breathing 2nd minute Oxygen Flow Rate (L/min) 1 Oxygen Delivery Method Nasal Cannula Pulse Ox 83 Pulse Rate (60-100) 86 Reported Symptoms Increased Work of Breathing 3rd minute Oxygen Flow Rate (L/min) 1 Oxygen Delivery Method Nasal Cannula Pulse Ox 88 Pulse Rate (60-100) 86 Reported Symptoms Increased Work of Breathing 4th minute Oxygen Flow Rate (L/min) 2 Oxygen Delivery Method Nasal Cannula Pulse Ox 91 Pulse Rate (60-100) 88 5th minute Oxygen Flow Rate (L/min) 2 Oxygen Delivery Method Nasal Cannula Pulse Ox 90 Pulse Rate (60-100) 89 6th minute Oxygen Flow Rate (L/min) 2 Oxygen Delivery Method Nasal Cannula Pulse Ox 90 Pulse Rate (60-100) 92 Post-test Oxygen Delivery Method Room Air Pulse Ox 91 Pulse Rate (60-100) 93 Dyspnea Gloria Scale (0-10) 1 Exertion Gloria Scale (6-20) 8 Full Laps Walked 12 Partial Lap, Number of Tiles Walked 0 Total Distance Walked (ft) 708 Interpretation Interpretation: The patient ambulated 708 feet over the course of 6 minutes beginning on room air without assistive devices. Pretesting oxygen saturation was noted to be 94% on room air. With ambulation, the patient desaturated on several occasions, requiring 2 L/min of supplemental oxygen to maintain appropriate saturations. Recommendations Recommendations: 2 L/min of supplemental oxygen should be utilized with exertion.
== END 2022-12-04 23:59 | disposition home or self-care (01) ==
PROVIDERS: PCP Family Medicine; Referring Provider Internal Medicine Critical Care Medicine; Visit Provider Internal Medicine Critical Care Medicine
DX: R06.00 Dyspnea, unspecified (principal); I25.10 Atherosclerotic heart disease of native coronary artery without angina pectoris; Z95.5 Presence of coronary angioplasty implant and graft
CPT/HCPCS: 92971; 94618; G0166

== ENCOUNTER → 2022-12-09 | Outpatient (CLI) | payer MEDICARE, OTHER, SELFPAY ==
[2022-10-22 13:04] VITALS: BMI 41.5
[2022-11-24 08:40] VITALS: BMI 40.7
--- NOTE | 2022-12-09 16:10 | PFTCOMP ---
COMPLETE PULMONARY FUNCTION TEST INTERPRETATION Brief HPI: Patient is an 87-year-old male, currently under the care of Dr. Burks, who presents to [facility] for complete pulmonary function tests secondary to diagnosis of dyspnea. Respiratory therapist reports good effort and reproducible results. Interpretation: Forced expiration spirometry shows no large airways obstructive ventilatory defect with an FEV1 of 77% predicted. There is no significant bronchodilator response by strict ATS criteria. Spirograms are of good quality and plateau normally. The respiratory flow volume loop shows a normal pattern. Lung volumes by body plethysmography show a decreased total lung capacity at 4.45 L, 63% predicted. All other lung volumes are reduced symmetrically. Diffusion capacity by carbon monoxide is normal at 71% predicted. The airway resistance is normal. No previous pulmonary function tests were available for review. Impression: Moderate restrictive ventilatory defect with relatively preserved diffusion capacity
== END | disposition home or self-care (01) ==
LOC: PSN 12:48
PROVIDERS: PCP Family Medicine; Referring Provider Internal Medicine Critical Care Medicine; Visit Provider Internal Medicine Critical Care Medicine
DX: R06.00 Dyspnea, unspecified (principal)
CPT/HCPCS: 94060; 94726; 94729

== ENCOUNTER → 2022-12-16 | Outpatient (CLI) | payer MEDICARE, OTHER, SELFPAY ==
[2022-11-24 08:40] VITALS: BMI 40.7
--- NOTE | 2022-12-16 10:15 | VDLE_ITS ---
Reason For Study: swelling Procedure LEFT This is a venous duplex using B-mode, color GSV is normal. flow and spectral Doppler. CFV is compressible, spontaneous, phasic, Exam performed in department. competent, and demonstrates normal The exam was abbreviated due to the COVID 19 augmentation. protocol. FV is compressible, spontaneous, phasic, The exam was diagnostic. competent and demonstrates normal A preliminary report was called and/or faxed augmentation. to Mervin Rachel CLINICAL STAFF RN-C. POP V is compressible, spontaneous, phasic, competent and demonstrates normal augmentation. T/P Trunk is compressible. PTV is compressible. LT PerV is compressible. VL/Venous Duplex US, Unilateral Interpretation Summary Deep veins of the left lower extremity are patent and compressible segmentally. There is no evidence of left lower extremity deep vein thrombosis. The left great saphenous vein neno ears patent and compressible segmentally. Ordering Physician: Mervin Rachel Performed By: Dhaval Wheat RVT
== END | disposition home or self-care (01) ==
LOC: CVS 10:15
PROVIDERS: PCP Family Medicine; Referring Provider Nurse Practitioner Family; Visit Provider Nurse Practitioner Family
DX: M79.662 Pain in left lower leg (principal); R60.9 Edema, unspecified
CPT/HCPCS: 93971

== ENCOUNTER 2022-12-23 09:00 | Outpatient (RCR) | payer MEDICARE, OTHER, SELFPAY ==
[2022-11-24 08:40] VITALS: BMI 40.7
--- NOTE | 2022-12-24 08:09 | PCM.CR.ITP ---
Nutrition - Initial Assessment Weight Mgt (Other Care) Height: 5 ft 10 in Weight:: 286 lb BMI: 41.0 Psychosocial - Initial Assess Target Goals Target Goals Patient Health Questionnaire PHQ-9 Screening 90-Day Re-eval Assessment: 1. Little interest or pleasure in doing things: Nearly every day 2. Feeling down, depressed, or hopeless: Not at all 3. Trouble falling or staying asleep, or sleeping too much: More than half the days 4. Feeling tired or having little energy: Nearly every day 5. Poor appetite or overeating: More than half the days 6. Feeling bad about yourself -- or that you are a failure or have let yourself or your family down: Not at all 7. Trouble concentrating on things, such as reading the newspaper or watching television: Several days 8. Moving or speaking so slowly that other people could have noticed. Or the opposite - being so fidgety or restless that you have been moving around a lot more than usual: Not at all How difficult have these problems made it for you to do your work, take care of things at home, or get along with other people?: Somewhat difficult Total Score: 11 Self-Efficacy 6-Item Scale 90-Day Re-eval Assessment: We would like to know how confident you are in doing certain activities. Please select your confidence level for: Fatigue Select Number: 5 Physical Discomfort or Pain Select Number: 5 Emotional Distress Select Number: 10 Other Symptoms or Health Problems Select Number: 8 Different Tasks and Activities Select Number: 8 Medication Select Number: 9 Total Score:: 7 Nutrition Survey Nutrition Survey Instructions Scoring Instructions Exercise - 90-day Assessment Visit Date of Eval: 12/24/22 Session #:: 35 Physician Prescribed Exercise Modalities: Treadmill, Airdyne and NuStep Frequency: 3x/week for 12 weeks [36 sessions] Intensity: 60-80% of age predicted maximum heart rate reserve Duration: 30 - 45 minutes Current METSs:: 4 Target Heart Rate:: 86-100 Current RPE:: 12 Maximum Excercise HR:: 97 Resting Blood Pressure: 108/60 Maximum Exercise Blood Pressure: 126/70 EKG Type: SR, borderline 1st degree AVB, wandering atrial pacer, Twave abnormality wi Outcomes & Goals Goals:: Verbalizes understanding of THR, RPE & goal METS by session 6, Documents in home exercise log/reports 30 min aerobic 5 day/wk by DC, Demonstrates accurate pulse taking by DC and Other additional outcome/goals: see below Intervention & Plan Exercise Program Goals: Instruct on personal THR & RPE, Instruct on MET level & personal MET goal, Show patient to take own pulse /validate performance until accurate, Instruct on home exercise and Other additional plan/int 30-day Reassessments 30 day Reassessments:: Met Physical Activity Home Exercise Physical Activity - Home Exercise: Safe Exercise, Warm-up, Self-monitoring, Cool-Down, Home Exercise > 30 min Daily and Sitting Time <3 hours/daily Outcomes & Goals Outcomes/Goals: Demonstrates correct Warm-up/exercise Cool-Down (S3) if = 2.5 METs, Verbalizes symptoms of exercise intolerance by Session 3 (S3), Demonstrate safe equipment use (S3) & follows exercise prescrition (6) and Other: See below Intervention & Plan Plan/Intervention: Instruct warm-up & cool-down if exercising at > 2 METs, Instruct on symptoms of exercise intolerance & actions to take, Instruct & monitor on saf, Assess intial functional capacity & safety risk and Other See below 30-day Reassessments 30 day Reassessments:: Met Nutrition - 30-Day Assessment Weight Mgt (Other Care) Height: 5 ft 10 in Weight:: 286 lb BMI: 41.0 Nutrition - 60-Day Assessment Weight Mgt (Other Care) Height: 5 ft 10 in Weight:: 286 lb BMI: 41.0 Core - 90 Day Assessment Visit Date of Eval: 12/24/22 Session #:: 35 Medication Compliance Preventative Medication(s):: Aspirin, Clopidogrel/P2Y12 inhibit, Statin/lipid and Beta catherine H/O mental health issues: depression, anxiety, or addiction?: No Doesn?t believe in the benefits of treatment?: No Believes medications are unnecessary or harmful?: No Has a concern about medication side effects?: No Expresses concern over the cost of medications?: No Outcomes/Goals: Verbalizes medications,desired effect & common side effects @ DC, Pt self-reports following medication regimen, Keeps card in wallet w/medications listed by DC and Other additional outcome/goals: Interventions/plans: Instruct on medication effects & side effects, Review medication list w/patient every two weeks, Instruct importance of taking meds as ordered & assist problem solving and Other additional 30-day Reassessments:: Met Tobacco Use Tobacco Use: Non-smoker Hypertension Hypertension Diagnosis:: Hypertension ICD-10 I10 Resting Blood Pressure:: 108/60 [place] [employer] Hypertension Guidelines Peak Exercise Blood Pressure:: 126/70 Outcomes/Goals: Able to verbalize/achieve optimal blood pressure <130/80, Incorporates diet changes & exercise for blood pressure control by DC and Other additional outcomes/goals Interventions/plan: Instruct on optimal blood pressure, hypertension & medications, Instruct on effects of sodium, alcohol, stress, exercise &hypertension and Other additional plan/interventions 30 day Reassessments:: Met Tobacco Cessation Referral Smoking Cessation Referral:: No Individual Education/Counseling:: No Education Schedule Given:: Yes Psychosocial - 30-Day Assess Target Goals Target Goals Psychosocial - 60-Day Assess Target Goals Target Goals Psychosocial - 90-Day Assess VIsit Date of Eval: 12/24/22 Session #:: 35 History of previous Mental disease:: No Target Goals Target Goals Psychosocial - Final Assessmen Target Goals Target Goals Nutrition - 90-Day Assessment Program Goals Nutrition Program Goals Patient has diagnosis of Hyperlipidemia (ICD E78)?: Yes Visit Date of Eval: 12/24/22 Session #:: 35 Cholesterol/Lipids (Other Core Measures) Determine presence & major risk factors that modify LDL goal: Cigarette smoking, Hypertension or hypertensive medication, Low HDL cholesterol <40 mg/dL*, Family history of premature CHD in Male < 55 years: female <65 yearsFa and Age men > 45 years; women >/= 55 years Outcomes/Goals: Pt IDs own risk factors & lifestyle modifications by Session 10, Verbalizes symptoms of angina & response by session 3., Pt independently manages and Other Additional Outcomes/Goals: Intervention/Plan: Advocate for lipid panel cholesterol medication if applicable, Instruct on personal lipid levels & lipid goals/NCEP guidelines, Instruct on cholesterol and Other additional plan/int 30-day Reassessments:: Met Diabetes (Other Core Measures) Diabetes Type: Diagnosis Type II ICD-10 E11 Insulin dependent injection/pump?: No Non-Insulin Dependent?: Yes Do you monitor your blood sugar at home?: Yes Outcomes/Goals:: Able to state symptoms of, Able to state, Able to state and Other additional Intervention/Plan:: Instruct on, Refer to, Instruct on and Other 30-day Reassessments:: Met Weight Mgt (Other Care) Height: 5 ft 10 in Weight:: 286 lb BMI: 41.0 Diagnosis Overweight/Obesity BMI> 30% ICD-10 E66: Yes 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 Outcomes/Goals: Pt sets, maintains & shows weight loss goal & trend during rehab and Other additional outcomes/goals Intervention/Plan: Instruct on ideal BMI & set weight loss goal w/patient, Assist pt to ID & incorporate diet changes for weight loss by S9, Refer to Structured Weight Loss program as appropriate, Encourage goal of using 250-300dcal per session for weight loss and Other additional plan/interventions 30 day Reassessments:: Met Healthy Eating Habits Will attend diet classes:: Yes Outcomes/Goals:: Consume diet rich in vegs,fruits,whole grain/high fiber,fish,lean meat, Limit sat/trans fats,cholesterol & added salts & sugars and Other additional outcome/goals: Intervention/Plan:: Assess current eating habits and Other Additional plan/interventions 30-day Reassessments:: Met Education Gave educational materials for:: Signs & symptoms of hypoglycemia, Signs & symptoms of hyperglycemia, Relate diabetes to coronary artery disease and Healthy eating Nutrition - Final Assessment Weight Mgt (Other Care) Height: 5 ft 10 in Weight:: 286 lb BMI: 41.0
[2022-12-24 08:18] VITALS: BP 108/60; BMI 41.0
== END 2022-12-27 23:59 ==
LOC: CR 09:00
PROVIDERS: PCP Family Medicine; Visit Provider Internal Medicine Cardiovascular Disease
DX: Z95.5 Presence of coronary angioplasty implant and graft; I25.10 Atherosclerotic heart disease of native coronary artery without angina pectoris
CPT/HCPCS: 92971; G0166

== ENCOUNTER → 2022-12-23 | Outpatient (CLI) | payer MEDICARE, OTHER, SELFPAY ==
[2022-11-24 08:40] VITALS: BMI 40.7
[2022-12-23 11:04] LABS: Anion Gap 6 (5-15); BUN 19 mg/dL (7-18); BUN/Creat Ratio 16.1 RATIO (10-20); Calcium,Total 8.7 mg/dL (8.5-10.1); Chloride 101 mmol/L (98-107); Creatinine, Serum 1.18 mg/dL (0.70-1.30); EST Glomerular Filtration Rate 62 mL/min (>60); Est Glom Filt Rate - Afr Amer 75 mL/min (>60); Glucose 198 mg/dL (74-106); Potassium 4.2 mmol/L (3.5-5.1); Sodium Level 136 mmol/L (136-145)
== END | disposition home or self-care (01) ==
LOC: LAB 10:11
PROVIDERS: PCP Family Medicine; Referring Provider Nurse Practitioner Family; Visit Provider Nurse Practitioner Family
DX: R60.9 Edema, unspecified (principal)
CPT/HCPCS: 36415; 80048

== ENCOUNTER 2022-12-26 10:15 | Outpatient (RCR) | payer MEDICARE, OTHER, SELFPAY ==
[2022-11-24 08:40] VITALS: BMI 40.7
[2022-11-28 00:38] VITALS: BP 110/50; BP 118/60
== END 2022-12-27 23:59 ==
LOC: CR 10:15
PROVIDERS: PCP Family Medicine; Referring Provider Internal Medicine Cardiovascular Disease; Visit Provider Internal Medicine Cardiovascular Disease
DX: Z95.5 Presence of coronary angioplasty implant and graft; I25.10 Atherosclerotic heart disease of native coronary artery without angina pectoris; R07.9 Chest pain, unspecified; I25.2 Old myocardial infarction; I20.0 Unstable angina
CPT/HCPCS: 93798

== ENCOUNTER 2022-12-31 10:15 | Outpatient (RCR) | payer MEDICARE, OTHER, SELFPAY ==
[2022-12-28 00:44] VITALS: BP 110/50; BP 118/60
== END 2023-01-27 23:59 ==
LOC: CR 10:15
PROVIDERS: PCP Family Medicine; Referring Provider Internal Medicine Cardiovascular Disease; Visit Provider Internal Medicine Cardiovascular Disease
DX: Z95.5 Presence of coronary angioplasty implant and graft; I25.10 Atherosclerotic heart disease of native coronary artery without angina pectoris
CPT/HCPCS: 93798

== ENCOUNTER → 2023-01-06 | Outpatient (CLI) | payer MEDICARE, OTHER, SELFPAY ==
[2022-12-24 08:18] VITALS: BMI 41.0
[2023-01-06 11:58] LABS: Rheumatoid Factor < 10.0 IU/mL (<15)
[2023-01-07 15:08] LABS: ANTINUCLEAR ANTIBODIES DIRECT Negative (Negative); CCP IgG Antibodies 4 units (0-19); Cytoplasmic Ab (C-ANCA) <1:20 titer (Neg:<1:20); Perinuclear Ab (P-ANCA) <1:20 titer (Neg:<1:20)
== END | disposition home or self-care (01) ==
PROVIDERS: PCP Family Medicine; Referring Provider Internal Medicine Critical Care Medicine; Visit Provider Internal Medicine Critical Care Medicine
DX: R06.00 Dyspnea, unspecified (principal)
CPT/HCPCS: 36415; 86038; 86200; 86225; 86235; 86256; 86431

== ENCOUNTER 2023-01-27 08:00 | Outpatient (RCR) | payer SELFPAY | END 2023-01-27 23:59 | LOC: CR 08:00 | PROVIDERS: PCP Family Medicine; Visit Provider Internal Medicine Cardiovascular Disease | DX: Z00.00 Encounter for general adult medical examination without abnormal findings (principal) ==

== ENCOUNTER 2023-02-26 08:00 | Outpatient (RCR) | payer SELFPAY | END 2023-02-26 23:59 | LOC: CR 08:00 | PROVIDERS: PCP Family Medicine; Visit Provider Internal Medicine Cardiovascular Disease | DX: Z00.00 Encounter for general adult medical examination without abnormal findings (principal) ==

== ENCOUNTER 2023-03-19 08:00 | Outpatient (RCR) | payer SELFPAY | END 2023-03-29 23:59 | LOC: CR 08:00 | PROVIDERS: PCP Family Medicine; Referring Provider Internal Medicine Cardiovascular Disease; Visit Provider Internal Medicine Cardiovascular Disease | DX: Z00.00 Encounter for general adult medical examination without abnormal findings (principal) ==

== ENCOUNTER → 2023-04-10 | Outpatient (CLI) | payer MEDICARE, OTHER, SELFPAY ==
--- NOTE | 2023-04-10 13:54 | CT_ITS ---
STUDY: CT CHEST WITHOUT CONTRAST REASON FOR EXAM: Male, 87 years old. Lung Nodule RADIATION DOSAGE (If Supplied By Facility): CTDIvol = ( 19.76 ) mGy, DLP = ( 633.13 ) mGycm TECHNIQUE: Transaxial imaging was performed without the administration of intravenous contrast material. Multiplanar coronal and sagittal images were reformatted. Individualized dose optimization techniques were used for this CT. COMPARISON: Comparison is made with prior study November 28, 2022. FINDINGS: CHEST Stable 9 mm x 8 mm nodular density in the lateral aspect of the right middle lobe axial image #75. Stable increased interstitial markings with areas of scarring in the lateral aspect of the right upper lobe as well as left upper lobe. Similar-appearing increased markings with areas of confluence and subpleural blebs in the posterior medial aspect of the right lower lobe and lateral aspect of the right lower lobe. Mild scarring at the left lung base as well. There is no demonstrated pleural abnormality. There are calcifications of the coronary arteries. There are multiple small lymph nodes within the mediastinum, which are normal in size and morphology most compatible with reactive lymph hyperplasia. Normal hilar regions. Normal unenhanced pulmonary arteries. There is atherosclerotic calcification of the aortic arch with tortuosity and elongation of the aortic arch and descending thoracic aorta. There are multi-level degenerative changes of the thoracic spine. Stable healed left rib fractures. Gallstones. CT/Chest without Contrast IMPRESSION: Stable examination. 12 month follow-up recommended. Electronically Signed: Lake Thayer MD at 14:43 EST ,
--- OUTSIDE RECORDS SUMMARY | 2023-04-10 15:11 | XMS RPT_ITS | CCD ---
Author Name Unknown Address [address] [place] [address] Organization [facility] Care Team Providers Care Cloud Architect Name Role Phone John Singh Unavailable Unavailable Martha MURRAY, Meme Hernandez Unavailable Unavailable Jf MURRAY, Izabela Carrasco Unavailable Jf MURRAY, Izabela Carrasco Unavailable Cornelius Fuentes MD Unavailable [phone] Meme Thomas RN Unavailable Unavailable John Singh Unavailable Unavailable Kelly Neville Unavailable Unavailable Mary Grace Edmonds MD Primary Care Provider Mary Grace Edmonds MD Primary Care Provider Mary Grace Edmonds MD Primary Care Provider [phone] Mary Grace Edmonds MD Primary Care Provider [phone] MARY GRACE EDMONDS Primary Care Unavailable MARY GRACE EDMONDS Attending Unavailable MARY GRACE EDMONDS Referring Unavailable MARY GRACE EDMONDS Primary Care Unavailable MARY GRACE EDMONDS Referring Unavailable MARY GRACE EDMONDS Primary Care Unavailable MICHELLE RAMIREZ Attending Unavailable SELF Referring Unavailable MARY GRACE EDMONDS Primary Care Unavailable MARY GRACE EDMONDS Primary Care Unavailable MARY GRACE EDMONDS Primary Care Unavailable JAMIE BAUTISTA Attending Unavailab le MARY GRACE EDMONDS Primary Care Unavailable MARY GRACE EDMONDS Attending Unavailable MARY GRACE EDMONDS Primary Care Unavailable CARLOTTA GARCIA Attending Unavailable MARY GRACE EDMONDS Referring Unavailable MARY GRACE EDMONDS A Primary Care Unavailable MARY GRACE EDMONDS Primary Care Unavailable MICHELLE RAMIREZ Referring Unavailable MICHELLE RAMIREZ Referring Unavailable MARY GRACE EDMONDS Primary Care Unavailable CARLOTTA GARCIA Attending Unavailable GREY, MARY GRACE A Primary Care Unavailable GREY, MARY GRACE A Primary Care Unavailable NHANTATIANA Referring Unavailable GREY, MARY GRACE A Primary Care Unavailable GREY, MARY GRACE A Referring Unavailable GREYJUAN PORTILLOREY A Primary Care Unavailable GREYJUAN PORTILLOREY A Referring Unavailable GREYJUAN PORTILLOREY A Primary Care Unavailable MAURICE DAVILA Referring Unavailable GREY, MARY GRACE A Primary Care Unavailable CARLOTTA GARCIA Referring Unavailable GREY, MARY GRACE A Primary Care Unavailable GREY, MARY GRACE A Referring Unavailable GREY, MARY GRACE A Primary Care Unavailable GREYJUAN PORTILLOREY A Referring Unavailable GREYJUAN PORTILLOREY A Attending Unavailable JUAN EDMONDSREY A Primary Care Unavailable MARY GRACE EDMONDS A Referring Unavailable GREY, MARY GRACE A Attending Unavailable Allergies Allergy Classification Reported Allergen(s) Allergy Type Date of Onset Reaction(s) Facility (6 sources) NKDA drug allergy 10-30-2011 [facility] Work Phone: (6 sources) NKA drug allergy 10-30-2011 [facility] Work Phone: (20 sources) Lisinopril; Translations: [LISINOPRIL] Drug Allergy 12-28-2018 [facility] Work Phone: (20 sources) amLODIPine; Translations: [AMLODIPINE] Drug Allergy 01-02-2022 Other: See Comments [facility] Work Phone: Medications Current Medications Medication Drug Class(es) Dates Sig (Normalized) Sig (Original) azithromycin 250 mg oral tablet (3 sources) Macrolide Antimicrobial Start: 11-05-2022 End: 11-10-2022 take 2 tablets by mouth once daily, then take 1 tablet by mouth once daily azithromycin (ZITHROMAX) 250 mg tablet Indications: Lower resp. tract infection Take 2 tablets by mouth once daily for 1 day, THEN 1 tablet once daily for 4 days. 6 tablet 0 11/05/2022 11/10/2022 Active Completed/Discontinued Medications Medication Drug Class(es) Dates Sig (Normalized) Sig (Original) [id number] 200 actuat albuterol 0.09 mg/actuat metered dose inhaler (20 sources) beta2-Adrenergic Agonist Start: 10-06-2022 End: 01-21-2023 take 2 puff(s) by inhalation every four hours as needed for wheezing albuterol HFA (PROVENTIL HFA, VENTOLIN HFA) 90 mcg/actuation inhaler Indications: Bacterial pneumonia Inhale 2 Puffs as instructed every 4 hours as needed for wheezing/shortnes s of breath. 1 Each 0 01/21/2023 Active Problems Active Problems Problem Classification Problem Date Documented Date Episodic/Chronic Acute myocardial infarction (9 sources) Non-ST elevation (NSTEMI) myocardial infarction; Translations: [Non-ST elevation (NSTEMI) myocardial infarction] Onset: 06-27-2010 06-27-2010 Chronic Adjustment disorders (20 sources) Reactive depression (situational); Translations: [Adjustment disorder with depressed mood] Onset: 04-09-2020 06-12-2021 Chronic Cardiac dysrhythmias (20 sources) Sinus bradycardia; Translations: [Cardiac arrhythmia, unspecified] Onset: 06-27-2010 06-27-2010 Chronic Coronary atherosclerosis and other heart disease (20 sources) Myocardial ischemia; Translations: [Coronary atherosclerosis] Onset: 10-15-2005 06-27-2010 Chronic Diabetes mellitus without complication (20 sources) Type 2 diabetes mellitus; Translations: [Type 2 diabetes mellitus without complication] Onset: 09-19-2015 08-11-2016 Chronic Diseases of white blood cells (1 source) Elevated white blood cell count, unspecified; Translations: [Leukocytosis, unspecified type] Onset: 08-13-2022 Chronic Disorders of lipid metabolism (20 sources) Hyperlipidemia; Translations: [Mixed hyperlipidemia] Onset: 07-16-2005 06-27-2010 Chronic Diverticulosis and diverticulitis (20 sources) Diverticulosis of colon; Translations: [Diverticulosis of large intestine without perforation or abscess without bleeding] 02-04-2017 Chronic Esophageal disorders (20 sources) Gastroesophageal reflux disease without esophagitis; Translations: [Gastro-esophageal reflux disease without esophagitis] Onset: 07-16-2005 02-04-2017 Chronic Hyperplasia of prostate (20 sources) Benign prostatic hyperplasia; Translations: [Benign prostatic hyperplasia with lower urinary tract symptoms] Onset: 04-17-2005 02-17-2017 Chronic Immunizations and screening for infectious disease (1 source) Encounter for immunization; Translations: [Encounter for immunization] Onset: 01-21-2023 Episodic Occlusion or stenosis of precerebral arteries (20 sources) Bilateral stenosis of carotid arteries; Translations: [Occlusion and stenosis of bilateral carotid arteries] Onset: 04-05-2021 04-07-2021 Chronic Osteoarthritis (20 sources) Inflammation of joint of both hands; Translations: [Primary osteoarthritis, right hand] Onset: 07-04-2022 07-04-2022 Chronic Other and unspecified benign neoplasm (20 sources) Benign neoplasm of colon; Translations: [Benign neoplasm of colon, unspecified] 03-25-2021 Episodic Other circulatory disease (1 source) Respiratory crackles; Translations: [Other specified symptoms and signs involving the circulatory and respiratory systems] 01-21-2023 Episodic Other circulatory disease (1 source) Other specified symptoms and signs involving the circulatory and respiratory systems; Translations: [Lung crackles] Onset: 01-21-2023 Episodic Other connective tissue disease (20 sources) Polymyalgia rheumatica; Translations: [Polymyalgia rheumatica] Onset: 04-21-2019 04-21-2019 Chronic Other connective tissue disease (1 source) Polymyalgia rheumatica; Translations: [PMR (polymyalgia rheumatica) (HCC)] Onset: 04-21-2019 Chronic Other connective tissue disease (1 source) Pain of left hand; Translations: [Pain in left hand] Episodic Other diseases of bladder and urethra (20 sources) Bladder neck obstruction; Translations: [Bladder-neck obstruction] Onset: 04-17-2005 02-04-2017 Chronic Other hematologic conditions (1 source) Other specified diseases of blood and blood-forming organs; Translations: [Macrocytosis] Onset: 08-26-2022 Chronic Other inflammatory condition of skin (1 source) Red color; Translations: [Erythematous condition, unspecified] 12-16-2022 Episodic Other lower respiratory disease (2 sources) Cough; Translations: [Acute cough] 10-06-2022 Episodic Other lower respiratory disease (1 source) Lower respiratory tract infection; Translations: [Unspecified acute lower respiratory infection] 11-05-2022 Episodic Other lower respiratory disease (1 source) Wheezing; Translations: [Wheezing] 01-21-2023 Episodic Other lower respiratory disease (1 source) Personal history of pneumonia (recurrent); Translations: [History of pneumonia] Onset: 02-24-2023 Episodic Other lower respiratory disease (1 source) Wheezing; Translations: [Wheezing] Onset: 01-21-2023 Episodic Other nutritional; endocrine; and metabolic disorders (10 sources) Body mass index (BMI) 40.0-44.9, adult; Translations: [Body mass index (BMI) 40.0-44.9, adult] Onset: 01-24-2013 01-24-2013 Chronic Other nutritional; endocrine; and metabolic disorders (20 sources) Body mass index 40+ - severely obese; Translations: [Body mass index (BMI) 40.0-44.9, adult] Onset: 09-19-2015 02-04-2017 Chronic Other nutritional; endocrine; and metabolic disorders (2 sources) Obesity; Translations: [Obesity, unspecified] Onset: 07-16-2005 03-18-2023 Chronic Other screening for suspected conditions (not mental disorders or infectious disease) (1 source) Imaging of thorax abnormal; Translations: [Abnormal findings on diagnostic imaging of other specified body structures] 03-18-2023 Chronic Faith-; endo-; and myocarditis; cardiomyopathy (9 sources) Primary cardiomyopathy; Translations: [Other primary cardiomyopathies] Onset: 06-27-2010 06-27-2010 Chronic Residual codes; unclassified (20 sources) Sleep apnea; Translations: [Sleep apnea, unspecified] Onset: 09-22-2022 09-22-2022 Chronic Residual codes; unclassified (1 source) Hypersomnia, unspecified; Translations: [Hypersomnolence] Onset: 09-09-2022 Chronic Spondylosis; intervertebral disc disorders; other back problems (20 sources) Degeneration of cervical intervertebral disc; Translations: [Other cervical disc degeneration, unspecified cervical region] Onset: 07-04-2022 07-04-2022 Chronic Thyroid disorders (20 sources) Acquired hypothyroidism; Translations: [Hypothyroidism, unspecified] Onset: 05-17-2019 11-15-2019 Chronic Unclassified (3 sources) Long-term drug therapy; Translations: [Other senior living (current) drug therapy] Onset: 06-27-2010 06-27-2010 Unclassified (20 sources) Active living will ; Translations: [Living will on file] Onset: 06-12-2021 06-12-2021 Unclassified (1 source) Acute cough; Translations: [Acute cough] Onset: 10-06-2022 Past or Other Problems Problem Classification Problem Date Documented Da te Episodic/Chronic Abdominal hernia (20 sources) Left inguinal hernia ; Translations: [Unilateral inguinal hernia, without obstruction or gangrene, not specified as recurrent] Onset: 02-17-2017 02-17-2017 Episodic Administrative/social admission (20 sources) Patient encounter status; Translations: [Other specified counseling] Onset: 06-12-2021 06-12-2021 Episodic Cancer of prostate (20 sources) History of malignant neoplasm of prostate; Translations: [Personal history of malignant neoplasm of prostate] Onset: 06-01-2009 04-30-2018 Episodic Chronic obstructive pulmonary disease and bronchiectasis (2 sources) Bronchitis; Translations: [Bronchitis, not specified as acute or chronic] Onset: 10-06-2022 10-06-2022 Episodic Coronary atherosclerosis and other heart disease (12 sources) Coronary angioplasty status; Translations: [History of myocardial infarction] Onset: 06-27-2010 06-27-2010 Episodic Genitourinary symptoms and ill-defined conditions (20 sources) Microscopic hematuria; Translations: [Other microscopic hematuria] Onset: 05-17-2019 06-12-2021 Episodic Nonspecific chest pain (9 sources) Chest pain, unspecified; Translations: [Chest pain, unspecified] Onset: 06-27-2010 06-27-2010 Episodic Other aftercare (6 sources) Other intermediate manager (current) drug therapy; Translations: [Other intermediate manager (current) drug therapy] Onset: 06-27-2010 06-27-2010 Episodic Other circulatory disease (10 sources) History of myocardial infarction; Translations: [Abnormal result of cardiovascular function study, unspecified] Onset: 06-27-2010 06-27-2010 Episodic Other circulatory disease (12 sources) Elevated blood-pressure reading without diagnosis of hypertension; Translations: [Elevated blood-pressure reading, without diagnosis of hypertension] Onset: 04-02-2021 04-02-2021 Episodic Other connective tissue disease (1 source) Pain in left hand; Translations: [Left hand pain] Onset: 03-25-2022 Episodic Other inflammatory condition of skin (1 source) Erythematous condition, unspecified; Translations: [Dependent rubor] Onset: 12-16-2022 Episodic Other lower respiratory disease (15 sources) Snoring; Translations: [Dyspnea] Onset: 06-27-2010 08-10-2013 Episodic Other lower respiratory disease (3 sources) Dyspnea; Translations: [Shortness of breath] Onset: 06-27-2010 06-27-2010 Episodic Other lower respiratory disease (12 sources) Multiple nodules of lung; Translations: [Other nonspecific abnormal finding of lung field] Onset: 04-02-2021 04-02-2021 Episodic Other nutritional; endocrine; and metabolic disorders (20 sources) Decrease in appetite; Translations: [Anorexia] Onset: 04-09-2020 04-09-2020 Episodic Other screening for suspected conditions (not mental disorders or infectious disease) (20 sources) Abnormal result of cardiovascular function study, unspecified; Translations: [Raised prostate specific antigen] Onset: 08-06-2016 08-06-2016 Episodic Other skin disorders (20 sources) Foot callus; Translations: [Corns and callosities] Onset: 06-06-2020 06-06-2020 Episodic Pneumonia (except that caused by tuberculosis or sexually transmitted disease) (3 sources) Bacterial pneumonia; Translations: [Unspecified bacterial pneumonia] Onset: 10-23-2022 10-23-2022 Episodic Residual codes; unclassified (4 sources) Active living will ; Translations: [Personal history of other specified conditions] Onset: 06-12-2021 06-12-2021 Episodic Screening and history of mental health and substance abuse codes (20 sources) Ex-smoker; Translations: [Personal history of nicotine dependence] Onset: 04-30-2018 05-05-2018 Episodic Unclassified (9 sources) Family history of stroke; Translations: [Family history of stroke] 02-06-2014 Episodic Results Test Name Value Interpretation Reference Range Facil ity Vital Signs Date Time Vital Sign Value Performing Clinician Daylin champion 03-18-2023 18:08-0500 Body temperature 97.7 [degF] Mary Grace Edmonds MD Work Phone: [facility] 03-18-2023 18:08-0500 Body weight 128.82 kg Mary Grace Edmonds MD Work Phone: [facility] 03-18-2023 18:08-0500 Diastolic blood pressure 64 mm[Hg] Mary Grace Edmonds MD Work Phone: [facility] 03-18-2023 18:08-0500 Heart rate 70 /min Mary Grace Edmonds MD Work Phone: [facility] 03-18-2023 18:08-0500 SaO2% (BldA) [Mass fraction] 94 % Mary Grace Edmonds MD Work Phone: [facility] 03-18-2023 18:08-0500 Systolic blood pressure 104 mm[Hg] Mary Grace Edmonds MD Work Phone: [facility] 01-21-2023 13:45-0400 Body temperature 98.4 [degF] Mary Grace Edmonds MD Work Phone: [facility] 01-21-2023 13:45-0400 Body weight 130.64 kg Mary Grace Edmonds MD Work Phone: [facility] 01-21-2023 13:45-0400 Diastolic blood pressure 62 mm[Hg] Mary Grace Edmonds MD Work Phone: [facility] 01-21-2023 13:45-0400 Heart rate 75 /min Mary Grace Edmonds MD Work Phone: [facility] 01-21-2023 13:45-0400 Respiratory rate 20 /min Mary Grace Edmonds MD Work Phone: [facility] 01-21-2023 13:45-0400 SaO2% (BldA) [Mass fraction] 95 % Mary Grace Edmonds MD Work Phone: [facility] 01-21-2023 13:45-0400 Systolic blood pressure 118 mm[Hg] Mary Grace Edmonds MD Work Phone: [facility] 12-16-2022 17:53-0400 Body temperature 97.81 [degF] Jamie Bautista MD Work Phone: [facility] 12-16-2022 17:53-0400 Body weight 130.82 kg Jamie Bautista MD Work Phone: [facility] 12-16-2022 17:53-0400 Diastolic blood pressure 72 mm[Hg] Jamie Bautista MD Work Phone: [facility] 12-16-2022 17:53-0400 Heart rate 79 /min Jamie Bautista MD Work Phone: [facility] 12-16-2022 17:53-0400 Respiratory rate 18 /min Jamie Bautista MD Work Phone: [facility] 12-16-2022 17:53-0400 SaO2% (BldA) [Mass fraction] 91 % Jamie Bautista MD Work Phone: [facility] 12-16-2022 17:53-0400 Systolic blood pressure 134 mm[Hg] Jamie Bautista MD Work Phone: [facility] 11-05-2022 13:31-0400 Body temperature 98.8 [degF] Tatiana Praisler-Wood SHIRT CLEANER.TELEPHONE EXCHANGE OPERATOR Work Phone: [facility] 11-05-2022 13:31-0400 Body weight 131.54 kg Tatiana Praisler-Wood SHIRT CLEANER.TELEPHONE EXCHANGE OPERATOR Work Phone: [facility] 11-05-2022 13:31-0400 Diastolic blood pressure 64 mm[Hg] Tatiana Praisler-Wood SHIRT CLEANER.TELEPHONE EXCHANGE OPERATOR Work Phone: [facility] 11-05-2022 13:31-0400 Heart rate 66 /min Tatiana Praisler-Wood SHIRT CLEANER.TELEPHONE EXCHANGE OPERATOR Work Phone: [facility] 11-05-2022 13:31-0400 Respiratory rate 22 /min Tatiana Praisler-Wood SHIRT CLEANER.TELEPHONE EXCHANGE OPERATOR Work Phone: [facility] 11-05-2022 13:31-0400 SaO2% (BldA) [Mass fraction] 93 % Tatiana Praisler-Wood SHIRT CLEANER.TELEPHONE EXCHANGE OPERATOR Work Phone: [facility] 11-05-2022 13:31-0400 Systolic blood pressure 125 mm[Hg] Tatiana Praisler-Wood SHIRT CLEANER.TELEPHONE EXCHANGE OPERATOR Work Phone: [facility] 10-23-2022 14:28-0400 Body weight 130.64 kg Carlotta Garcia SHIRT CLEANER.TELEPHONE EXCHANGE OPERATOR Work Phone: [facility] 10-23-2022 14:28-0400 Diastolic blood pressure 74 mm[Hg] Carlotta Garcia SHIRT CLEANER.TELEPHONE EXCHANGE OPERATOR Work Phone: [facility] 10-23-2022 14:28-0400 Heart rate 78 /min Carlotta Garcia SHIRT CLEANER.TELEPHONE EXCHANGE OPERATOR Work Phone: [facility] 10-23-2022 14:28-0400 Respiratory rate 16 /min Carlotta Garcia SHIRT CLEANER.TELEPHONE EXCHANGE OPERATOR Work Phone: [facility] 10-23-2022 14:28-0400 Systolic blood pressure 126 mm[Hg] Carlotta Garcia SHIRT CLEANER.TELEPHONE EXCHANGE OPERATOR Work Phone: [facility] 10-06-2022 12:09-0400 Body temperature 98.49 [degF] Michelle Ramirez PA-C Work Phone: [facility] 10-06-2022 12:09-0400 Body weight 129.28 kg Michelle Ramirez PA-C Work Phone: [facility] 10-06-2022 12:09-0400 Diastolic blood pressure 70 mm[Hg] Michelle Ramirez PA-C Work Phone: [facility] 10-06-2022 12:09-0400 Heart rate 77 /min Michelle Ramirez PA-C Work Phone: [facility] 10-06-2022 12:09-0400 Respiratory rate 20 /min Michelle Ramirez PA-C Work Phone: [facility] 10-06-2022 12:09-0400 SaO2% (BldA) [Mass fraction] 91 % Michelle Ramirez PA-C Work Phone: [facility] 10-06-2022 12:09-0400 Systolic blood pressure 120 mm[Hg] Michelle Ramirez PA-C Work Phone: [facility] 03-25-2022 15:59-0500 Body weight 131.09 kg Carlotta Garcia SHIRT CLEANER.TELEPHONE EXCHANGE OPERATOR Work Phone: [facility] 03-25-2022 15:59-0500 Diastolic blood pressure 72 mm[Hg] Carlotta Garcia SHIRT CLEANER.TELEPHONE EXCHANGE OPERATOR Work Phone: [facility] 03-25-2022 15:59-0500 Heart rate 75 /min Carlotta Garcia SHIRT CLEANER.TELEPHONE EXCHANGE OPERATOR Work Phone: [facility] 03-25-2022 15:59-0500 Respiratory rate 14 /min Carlotta Garcia SHIRT CLEANER.TELEPHONE EXCHANGE OPERATOR Work Phone: [facility] 03-25-2022 15:59-0500 Systolic blood pressure 130 mm[Hg] Carlotta Garcia SHIRT CLEANER.TELEPHONE EXCHANGE OPERATOR Work Phone: [facility] 01-02-2022 11:29-0400 Diastolic blood pressure 70 mm[Hg] Mary Grace Edmonds MD Work Phone: [facility] 01-02-2022 11:29-0400 Systolic blood pressure 134 mm[Hg] Mary Grace Edmonds MD Work Phone: [facility] 01-02-2022 11:09-0400 Body weight 130.18 kg Mary Grace Edmonds MD Work Phone: [facility] 01-02-2022 11:09-0400 Heart rate 70 /min Mary Grace Edmonds MD Work Phone: [facility] 01-02-2022 11:09-0400 Respiratory rate 18 /min Mary Grace Edmonds MD Work Phone: [facility] 11-12-2016 14:16-0400 BMI (Body Mass Index) 41.03 kg/m2 John Singh [facility] Work Phone: 11-12-2016 14:16-0400 BP Diastolic 42 mm[Hg] John Singh [facility] Work Phone: 11-12-2016 14:16-0400 BP Systolic 90 mm[Hg] John Singh [facility] Work Phone: 11-12-2016 14:16-0400 Height 177.8 cm John Singh [facility] Work Phone: 11-12-2016 14:16-0400 Pulse (Heart Rate) 66 /min John Singh [facility] Work Phone: 11-12-2016 14:16-0400 Respiratory Rate 18 /min John Singh [facility] Work Phone: 11-12-2016 14:16-0400 Weight 129.73 kg John Singh [facility] Work Phone: 08-01-2016 13:04-0400 BMI (Body Mass Index) 42.04 kg/m2 Cornelius Fuentes MD [facility] Work Phone: 08-01-2016 13:04-0400 Body weight 132.9 kg Kelly Jamin [facility] Work Phone: 08-01-2016 13:04-0400 BP Diastolic 64 mm[Hg] Cornelius Fuentes MD [facility] Work Phone: 08-01-2016 13:04-0400 BP Systolic 108 mm[Hg] Cornelius Fuentes MD [facility] Work Phone: 08-01-2016 13:04-0400 Pulse (Heart Rate) 60 /min Cornelius Fuentes MD [facility] Work Phone: 08-01-2016 13:04-0400 Respiratory Rate 16 /min Cornelius Fuentes MD [facility] Work Phone: 08-01-2016 13:04-0400 Weight 132.9 kg Cornelius Fuentes MD [facility] Work Phone: 02-06-2016 13:25-0500 BMI (Body Mass Index) 41.48 kg/m2 Cornelius Fuentes MD [facility] Work Phone: 02-06-2016 13:25-0500 BP Diastolic 60 mm[Hg] Cornelius Fuentes MD [facility] Work Phone: 02-06-2016 13:25-0500 BP Systolic 120 mm[Hg] Cornelius Fuentes MD [facility] Work Phone: 02-06-2016 13:25-0500 BSA (Body Surface Area) 2.44 m2 Cornelius Fuentes MD [facility] Work Phone: 02-06-2016 13:25-0500 Pulse (Heart Rate) 64 /min Cornelius Fuentes MD [facility] Work Phone: 02-06-2016 13:25-0500 Respiratory Rate 14 /min Cornelius Fuentes MD [facility] Work Phone: 02-06-2016 13:25-0500 Weight 131.14 kg Cornelius Fuentes MD [facility] Work Phone: 08-10-2013 15:01-0400 Heart rate 66 /min Meme Thomas RN [facility] Work Phone: 04-10-2011 11:36-0500 Height 177.8 cm Cornelius Fuentes MD [facility] Work Phone: Encounters Encounter Date Encounter Type Care Provider Facility Start: 03-19-2023 ambulatory Mary Grace portillo MD Work Phone: [facility] Procedures Date Procedure Procedure Detail Performing Clinician Start: 01-21-2023 PFIZER-BIONTECH COVID-19 VACCINE ( SEASON) AGE 12+ YR Mary Grace Edmonds MD Work Phone: Start: 01-21-2023 INFLUENZA VACCINE, PRSV FREE, AGE 65+ YR, HIGH DOSE, QUADRIVALENT (FLUZONE HIGH-DOSE) Mary Grace Edmonds MD Work Phone: Start: 01-02-2022 INFLUENZA SEASONAL QUADRIVALENT HIGH DOSE AGE 65+ Mary Grace Edmonds MD Work Phone: Start: 01-02-2022 P[employer]ER[employer] COVID-19 BIVALENT BOOSTER VACCINE, AGE 12+ YR Mary Grace Edmonds MD Work Phone: Start: 11-12-2016 End: 11-12-2016 Dietary management education, guidance, and counseling John Singh Start: 11-12-2016 End: 11-12-2016 Follow Up Appt 6 months Cornelius Fuentes MD Start: 11-12-2016 End: 11-12-2016 PFM Cornelius Fuentes MD Start: 08-11-2016 End: 08-11-2016 *BMP Cornelius Fuentes MD Start: 08-07-2016 End: 08-07-2016 Nurse, Teaching, Wound Check (no charge) Cornelius Fuentes MD Start: 08-06-2016 End: 08-07-2016 aPTT Cornelius Fuentes MD Start: 08-06-2016 End: 08-07-2016 Coagulation factor induced.INR assay in platelet poor plasma Cornelius Fuentes MD Start: 08-04-2016 End: 08-04-2016 *Hepatic Function Panel Cornelius Fuentes MD Start: 08-04-2016 End: 08-04-2016 Lipid panel [AGGREGATE] Cornelius Fuentes MD Start: 08-01-2016 End: 08-01-2016 Dietary management education, guidance, and counseling Meme Thomas RN Start: 08-01-2016 End: 08-01-2016 Documentation of current medications Kelly Neville Start: 08-01-2016 End: 08-04-2016 *BMP Cornelius Fuentes MD Start: 08-01-2016 End: 08-16-2016 *Hepatic Function Panel Cornelius Fuentes MD Start: 08-01-2016 End: 08-04-2016 CBC W Auto Differential panel - Blood Cornelius Fuentes MD Start: 08-01-2016 End: 08-16-2016 Chest x-ray Cornelius Fuentes MD Start: 08-01-2016 End: 08-16-2016 Lipid panel [AGGREGATE] Cornelius Fuentes MD Start: 08-01-2016 End: 08-06-2016 Nuclear stress test -exercise Cornelius Fuentes MD Start: 02-06-2016 End: 02-11-2016 *Hepatic Function Panel Cornelius Fuentes MD Start: 02-06-2016 End: 02-06-2016 Follow Up Appt 6 months Cornelius Fuentes MD Start: 02-06-2016 End: 02-11-2016 Lipid panel [AGGREGATE] Cornelius Fuentes MD Start: 02-06-2016 End: 02-06-2016 PFM Cornelius Fuentes MD Start: 08-08-2015 End: 08-08-2015 Follow Up Appt 6 months Cornelius Fuentes MD Start: 08-08-2015 End: 08-08-2015 PFM Cornelius Fuentes MD Start: 01-29-2015 End: 01-30-2015 Documentation of current medications Cornelius Fuentes MD Start: 01-29-2015 End: 01-29-2015 Follow Up Appt 6 months Cornelius Fuentes MD Start: 01-29-2015 End: 01-29-2015 PFM Cornelius Fuentes MD Start: 10-02-2014 End: 10-02-2014 Follow Up Appt 6 months Cornelius Fuentes MD Start: 10-02-2014 End: 10-02-2014 PFM Cornelius Fuentes MD Start: 02-06-2014 End: 02-06-2016 *Hepatic Function Panel Cornelius Fuentes MD Start: 02-06-2014 End: 10-02-2014 Follow Up Appt 6 months Cornelius Fuentes MD Start: 02-06-2014 End: 02-06-2016 Lipid panel [AGGREGATE] Cornelius Fuentes MD Start: 02-06-2014 End: 10-02-2014 PFM Cornelius Fuentes MD Start: 08-10-2013 End: 08-19-2013 Chest x-ray Cornelius Fuentes MD Start: 08-10-2013 End: 10-02-2014 Echocardiography Cornelius Fuentes MD Start: 08-10-2013 End: 08-10-2013 Electrocardiogram, complete Cornelius clayton MD Start: 08-10-2013 End: 10-02-2014 Follow Up Appt 6 months Cornelius Fuentes MD Start: 08-10-2013 End: 10-02-2014 Nuclear stress test -exercise Cornelius Fuentes MD Start: 08-10-2013 End: 10-02-2014 PFM Cornelius Fuentes MD Start: 01-24-2013 End: 01-24-2013 Follow Up Appt 6 months Cornelius Fuentes MD Start: 01-24-2013 End: 01-24-2013 PFM Cornelius Fuentes MD Start: 06-24-2012 End: 06-24-2012 Follow Up Appt 6 months Cornelius Fuentes MD Start: 06-24-2012 End: 01-24-2013 PFM Cornelius Fuentes MD Start: 10-30-2011 End: 10-02-2014 *Hepatic Function Panel Cornelius Fuentes MD Start: 10-30-2011 End: 10-30-2011 Follow Up Appt 6 months Cornelius Fuentes MD Start: 10-30-2011 End: 10-02-2014 Lipid panel [AGGREGATE] Cornelius Fuentes MD Start: 04-10-2011 End: 04-10-2011 Follow Up Appt 6 months Cornelius Fuentes MD Start: 02-18-2005 H/O: artificial joint Knee joint 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 Mary Grace Edmonds MD Work Phone: Plan of Treatment Date Care Activity Detail Author Start: 07-12-2028 Urine microalbumin profile [facility] Start: 01-17-2024 Glaucoma screening Dilated Retinal E xam [facility] Start: 01-17-2024 Hepatitis C antibody , confirmatory test Dilated Retinal Exam [facility] Start: 08-14-2023 Hemoglobin A1c measurement HbA1C [facility] Start: 08-14-2023 Hemoglobin A1c/Hemoglobin.total in Blood HbA1C [facility] Start: 08-14-2023 SHINGRIX VACCINE (1 of 2) BURCIAGA GRIX VACCINE (1 of 2) [facility] Immunizations Immunization Date Immunization Notes Care Provider Fa nick 01-21-2023 COVID-19 vaccine, ag e 12+ yr, season (PFIZER-BIONTECH) Mary Grace Edmonds MD Work Phone: [facility] 01-21-2023 influenza (HD-IIV4) vaccine, age 65+ yr, high dose, quadrivalent, PF (FLUZONE HIGH-DOSE) Mary Grace Edmonds MD Work Phone: [facility] 01-02-2022 COVID-19 booster vaccine, age 12+ yr, bivalent (PFIZER-BIONTECH) Mary Grace Edmonds MD Work Phone: [facility] 01-02-2022 influenza, high-dose , quadrivalent vaccine (FLUZONE HIGH DOSE QUADRIVALENT) Mary Grace Edmonds MD Work Phone: [facility] 01-02-2022 influenza virus vacc ine, unspecified formulation Mary Grace Edmonds MD Work Phone: [facility] 12-07-2020 influenza, high-dose , quadrivalent vaccine (FLUZONE HIGH DOSE QUADRIVALENT) Mary Grace Edmonds MD Work Phone: [facility] 05-23-2020 COVID-19 vaccine, fu ll dose (MODERNA) Mary Grace Edmonds MD Work Phone: [facility] 01-05-2019 influenza, high dose seasonal, preservative-free Mary Grace Edmonds MD Work Phone: [facility] 07-12-2018 tetanus toxoid, redu rito diphtheria toxoid, and acellular pertussis vaccine, adsorbed Mary Grace Edmonds MD Work Phone: [facility] 04-30-2018 pneumococcal polysaccharide vaccine, 23 valent Mary Grace Edmonds MD Work Phone: [facility] 01-09-2018 influenza, high dose seasonal, preservative-free Mary Grace Edmonds MD Work Phone: [facility] 02-17-2017 pneumococcal conjuga te vaccine, 13 valent Mary Grace Edmonds MD Work Phone: [facility] 01-03-2017 influenza, high dose seasonal, preservative-free Mary Grace Edmonds MD Work Phone: [facility] 01-23-2016 influenza, high dose seasonal, preservative-free Mary Grace Edmonds MD Work Phone: [facility] 01-18-2015 influenza, high dose seasonal, preservative-free Mary Grace Edmonds MD Work Phone: [facility] 01-12-2014 influenza, seasonal, injectable Mary Grace Edmonds MD Work Phone: [facility] Work Phone: 01-28-2013 influenza virus vacc ine, unspecified formulation Mary Grace Edmonds MD Work Phone: [facility] 01-17-2012 influenza virus vacc ine, unspecified formulation Mary Grace Edmonds MD Work Phone: [facility] Work Phone: 01-08-2011 influenza virus vacc ine, unspecified formulation Mary Grace Edmonds MD Work Phone: [facility] 01-08-2011 tetanus toxoid, redu rito diphtheria toxoid, and acellular pertussis vaccine, adsorbed Mary Grace Edmonds MD Work Phone: [facility] 01-22-2010 influenza virus vacc ine, unspecified formulation Mary Grace Edmonds MD Work Phone: [facility] 12-28-2008 influenza virus vacc ine, unspecified formulation Mary Grace Edmonds MD Work Phone: [facility] Work Phone: 02-02-2008 influenza virus vacc ine, unspecified formulation Mary Grace Edmonds MD Work Phone: [facility] 02-03-2007 influenza virus vacc ine, unspecified formulation Mary Grace Edmonds MD Work Phone: [facility] 01-28-2006 influenza virus vacc ine, unspecified formulation Mary Grace Edmonds MD Work Phone: [facility] Work Phone: 02-04-2005 influenza virus vacc ine, unspecified formulation Mary Grace Edmonds MD Work Phone: [facility] Work Phone: 07-17-2004 pneumococcal polysaccharide vaccine, 23 valent Mary Grace Edmonds MD Work Phone: [facility] Work Phone: Payers Date Payer Category Payer Medicare [id number] 2015 Private Health Insurance HUMANA HUMANA MEDICARE SUPPLEMENT [id number] 2015-Present [phone] [address] [address] [place] [address] Indemnity [id number] 2015 Private Health Insurance HUMANA HUMANA MEDICARE SUPPLEMENT [id number] 2015-Present [phone] [address] [address] [place] [address] Indemnity [id number] 1999 Medicare MEDICARE MEDICAR E A AND B [id number] 1999-Present [phone] [address] [address] [place] [address] Medicare [id number] 1999 Medicare MEDICARE MEDICAR E A AND B [id number] 1999-Present [phone] [place] [address] Medicare [id number] 1999 Medicare [id number] Social History Date Type Detail Facility Start: 01-02-2022 End: 10-06-2022 Tobacco smoking status NHIS Ex-smoker [facility] History of tobacco use Cigar Smoker [facility] Start: 06-14-2021 End: 03-19-2023 Alcohol intake Current drinker of alcohol (finding) [facility] Start: 01-17-2020 End: 07-03-2022 History SDOH Alcohol Frequency 4 [facility] Start: 11-15-2019 End: 07-03-2022 History SDOH Alcohol Std Drinks 1 [facility] Start: 11-09-2019 End: 07-03-2022 History SDOH Social Connections Phone 5 [facility] Start: 11-09-2019 End: 07-03-2022 History SDOH Social Connections Get Together 2 [facility] Start: 11-09-2019 End: 07-03-2022 History SDOH Social Connections Faith 3 [facility] Start: 11-09-2019 Education 17 [facility] Start: 1935 Sex Assigned At Male [facility] Start: 06-02-2021 End: 01-02-2022 Exposure to SARS-CoV-2 (event) Not sure [facility] History of tobacco use Current smoker [facility] Start: 01-02-2022 End: 10-06-2022 Tobacco use and exposure Smokeless tobacco non-user [facility] Start: 01-02-2022 Tobacco Comment Quit 1960's [facility] Start: 07-03-2022 History SDOH Physical Activity DPW 7 [facility] Start: 07-03-2022 End: 08-13-2022 History of Social function [facility] Start: 07-03-2022 End: 08-13-2022 Social connection and isolation panel [facility] Do you belong to any clubs or organizations such as buddhism groups, unions, fraternal or athletic groups, or school groups? Yes [facility] Are you now , , , , never or living with a partner? [facility] How often to you hav e a drink containing alcohol? 4 or more times a week [facility] How many standard dr inks containing alcohol do you have on a typical day? 1 or 2 [facility] How often do you hav e 6 or more drinks on 1 occasion? Never [facility] How hard is it for y ou to pay for the very basics like food, housing, medical care, and heating Not very hard [facility] Adult Depression Screening Assessment 0 [facility] Work Phone: Do you feel stress - tense, restless, nervous, or anxious, or unable to sleep at night because your mind is troubled all the time - these days [OSQ] Not at all [facility] (I/We) worried wheerma er (my/our) food would run out before (I/we) got money to buy more. Never true [facility] In the past 12 month s, was there a time when you were not able to pay the mortgage or rent on time? No [facility] Start: 01-03-2021 Gender identity Identifies as male gender (finding) [facility] Start: 01-03-2021 Sexual orientation Heterosexual (finding) [facility] Clinical Notes 07-16-2005 to 03-19-2023 Telephone Encounter - Sonya Alonso Ma - 03/19/2023 10:31 AM ESTPatient Mary Grace March MD - 03/18/2023 6:07 PM Mary Grace Max MD - 01/21/2023 1:40 PM EDT Note Date & Type Note Facility 03-19-2023 Miscellaneous Notes Please see patient message do not see future date on xray or documentation in note stating to wait till mar to complete? Sonya Alonso Ma documented in this encounter [facility] 03-18-2023 Note HNO ID: [id number] Author: Mary Grace Edmonds MD Service: ? Author Type: Physician Type: Progress Notes Filed: 03/19/2023 9:00 AM Note Text: Chief Complaint Patient presents with: Follow Up HPI Gus Wesley is a 87 year old male who presents here today for follow up on flu. Patient is feeling better. Still has chest congestion, Upper area of chest. The cough is not as bad as it had been. Seems more in the upper chest. Will cough and bring up a chunk of yellow mucus every so often. Still doing cardiac rehab twice a week. He also did ECP: Where he had compression on his legs to see if this could produce collaterals in his heart. He did this for 7 weeks and over all feels better. Patient is on 2 L of oxygen at home when he exercises. He will take his portable when he walks the dog. Patient had a sleep test in August that came back showing sever sleep apnea. He was contacted and was referred to sleep med but then had his heart attack and stent placement and got lost to follow up. Office visit - ASSESSMENT/PLAN: 1. Acute cough - ICD9: 786.2, ICD10: R05.1 (primary diagnosis) 3 days prior to arrival Denies other sx States that he has been dealing with pneumonia Endorses first diagnosed October. Most recently provided Levaquin, Tessalon Perles and Prednisone taper that was prescribed January 21, 2023 - XR CHEST 2V FRONTAL/LAT - COVID AND INFLUENZA A/B AND RSV NAAT, ROUTINE 2. History of pneumonia - ICD9: V12.61, ICD10: Z87.01 - XR CHEST 2V FRONTAL/LAT- Stable chronic peripheral reticular opacities. Stable nonspecific hazy opacity in the right midlung zone. Discussed results with patient. F/U appt with Dr. Edmonds on 02/27/23 Past medical history, appointments, medications, allergies reviewed. Previous Medical History PAST MEDICAL HISTORY Diagnosis Date Benign neoplasm of colon colon polyps Benign prostatic hyperplasia with lower urinary tract symptoms 04/17/2005 Bilateral carotid artery stenosis 04/05/2021 04/20 20-40% bilaterall Bladder neck obstruction 04/17/2005 BMI 40.0-44.9, adult ([facility]) 09/19/2015 Controlled type 2 diabetes mellitus without complication, without long-term current use of insulin ([facility]) 09/19/2015 Coronary artery disease due to lipid rich plaque 10/15/2005 Dr. Fuentes Cath, [facility] 07-09-05 3 LAD stents DDD (degenerative disc disease), cervical 07/04/2022 Seeing [facility]. Decreased appetite 04/09/2020 Diabetic eye exam (HCC) 03/12/2017 Last done: 08/28/2017 Diverticulosis of colon (without mention of hemorrhage) Ex-smoker 04/30/2018 Foot callus 06/06/2020 Sees Podiatry Gastroesophageal reflux disease without esophagitis 07/16/2005 History of prostate cancer 06/01/2009 PSA per PCP, was released by urology. Treated with radiation Hypothyroidism, acquired 05/17/2019 Knee joint 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 02/18/2005 Left inguinal hernia 02/17/2017 Very small and none tender will monitor Living will on file 06/12/2021 DPA: Daughter (Venita) Lung nodules 04/02/2021 Noted on cxr 04/02/21. No nodules on chest x-ray [facility] 05/2021 Malignant neoplasm of prostate ([facility]) 06/01/2009 PSA per PCP, was released by urology, radiation 06/06 to 08/06 Microscopic hematuria 05/17/2019 Sees Urology Mixed hyperlipidemia 07/16/2005 Nodular prostate with urinary obstruction 05/01/2009 Paroxysmal atrial fibrillation ([facility]) 01/05/2019 Seeing Alfredo: developed during hosp stay at [facility] 12/2018 for angioedema. Was cardioverted. PMR (polymyalgia rheumatica) ([facility]) 04/21/[address] Miller Situational depression 04/09/2020 Spondylosis of cervical region without myelopathy or radiculopathy 07/04/2022 Seeing [facility]. Previous Surgical History PAST SURGICAL HISTORY Procedure Laterality Date 2D ECHO (EXEP) 11/25/2019 EF=60%, mild LVH, mild LA enlargement, 1+ [place], CC CORONARY STENT 08/2022 stent to RCA COLONOSCOPY FLX DX W/COLLJ SPEC WHEN PFRMD 10/29, 12/01 Colonoscopy COLONOSCOPY FLX DX W/COLLJ SPEC WHEN PFRMD 07/24/2011 Colonoscopy NEUROPLASTY AND/TRANSPOS MEDIAN NRV CARPAL TUNNE Left 12/24/2018 PAST SURGICAL HISTORY OF 07/03, 11/02 Heart Cath, stent to LAD PAST SURGICAL HISTORY OF 1974 anal fistula repair PAST SURGICAL HISTORY OF 04/24/2008 Left total knee REMV CATARACT EXTRACAP,INSERT LENS Bilateral 06/2022, 07/2022 Family History FAMILY HISTORY Problem Relation Age of Onset Cancer Mother lung other (lymphoma) Brother Stroke Father Patient Allergies ALLERGIES Allergen Reactions Lisinopril Swelling Tongue swelling, angio edema requiring intubation. Amlodipine Other: See Comments SOB Current Medications Current Outpatient Medications on File Prior to Visit Medication Sig metFORMIN ER (GLUCOPHAGE XR) 500 mg 24 hr tablet Take 1 tablet by mouth daily with breakfast. albuterol HFA (PROVENTIL HFA, VENTOLIN HFA) 90 mcg/actuation inhaler Inhale 2 Puffs as instructed every 4 hours as needed f (more content not included)... [facility] 03-18-2023 Instructions Mary Grace Edmonds MD - 03/18/2023 6:51 PM EST Please get the non-fasting labs and the chest x-ray done on or after 04/13/2023. Consider getting the RSV vaccine from your local pharmacy. documented in this encounter [facility] 03-18-2023 History of Presen t illness Narrative Chief Complaint Patient presents with: Follow Up HPI Gus Wesley is a 87 year old male who presents here today for follow up on flu. Patient is feeling better. Still has chest congestion, Upper area of chest. The cough is not as bad as it had been. Seems more in the upper chest. Will cough and bring up a chunk of yellow mucus every so often. Still doing cardiac rehab twice a week. He also did ECP: Where he had compression on his legs to see if this could produce collaterals in his heart. He did this for 7 weeks and over all feels better. Patient is on 2 L of oxygen at home when he exercises. He will take his portable when he walks the dog. Patient had a sleep test in August that came back showing sever sleep apnea. He was contacted and was referred to sleep med but then had his heart attack and stent placement and got lost to follow up. Office visit - ASSESSMENT/PLAN: 1. Acute cough - ICD9: 786.2, ICD10: R05.1 (primary diagnosis) 3 days prior to arrival Denies other sx States that he has been dealing with pneumonia Endorses first diagnosed October. Most recently provided Levaquin, Tessalon Perles and Prednisone taper that was prescribed January 21, 2023 - XR CHEST 2V FRONTAL/LAT - COVID & INFLUENZA A/B & RSV NAAT, ROUTINE 2. History of pneumonia - ICD9: V12.61, ICD10: Z87.01 - XR CHEST 2V FRONTAL/LAT- Stable chronic peripheral reticular opacities. Stable nonspecific hazy opacity in the right midlung zone. Discussed results with patient. F/U appt with Dr. Edmonds on 02/27/23 Past medical history, appointments, medications, allergies reviewed. Previous Medical History PAST MEDICAL HISTORY Diagnosis Date Benign neoplasm of colon colon polyps Benign prostatic hyperplasia with lower urinary tract symptoms 04/17/2005 Bilateral carotid artery stenosis 04/05/2021 04/20 20-40% bilaterall Bladder neck obstruction 04/17/2005 BMI 40.0-44.9, adult ([facility]) 09/19/2015 Controlled type 2 diabetes mellitus without complication, without long-term current use of insulin ([facility]) 09/19/2015 Coronary artery disease due to lipid rich plaque 10/15/2005 Dr. Fuentes [facility] 07-09-05 3 LAD stents DDD (degenerative disc disease), cervical 07/04/2022 Seeing [facility]. Decreased appetite 04/09/2020 Diabetic eye exam ([facility]) 03/12/2017 Last done: 08/28/2017 Diverticulosis of colon (without mention of hemorrhage) Ex-smoker 04/30/2018 Foot callus 06/06/2020 Sees Podiatry Gastroesophageal reflux disease without esophagitis 07/16/2005 History of prostate cancer 06/01/2009 PSA per PCP, was released by urology. Treated with radiation Hypothyroidism, acquired 05/17/2019 Knee joint 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 02/18/2005 Left inguinal hernia 02/17/2017 Very small and none tender will monitor Living will on file 06/12/2021 DPA: Daughter (Venita) Lung nodules 04/02/2021 Noted on cxr 04/02/21. No nodules on chest x-ray [facility] 05/2021 Malignant neoplasm of prostate (HCC) 06/01/2009 PSA per PCP, was released by urology, radiation 06/06 to 08/06 Microscopic hematuria 05/17/2019 Sees Urology Mixed hyperlipidemia 07/16/2005 Nodular prostate with urinary obstruction 05/01/2009 Paroxysmal atrial fibrillation (HCC) 01/05/2019 Seeing Lemuelw: developed during hosp stay at [facility] 12/2018 for angioedema. Was cardioverted. PMR (polymyalgia rheumatica) (HCC) 04/21/[address] Miller Situational depression 04/09/2020 Spondylosis of cervical region without myelopathy or radiculopathy 07/04/2022 Seeing [facility]. Previous Surgical History PAST SURGICAL HISTORY Procedure Laterality Date 2D ECHO (EXEP) 11/25/2019 EF=60%, mild LVH, mild LA enlargement, 1+ [place], CC CORONARY STENT 08/2022 stent to RCA COLONOSCOPY FLX DX W/COLLJ SPEC WHEN PFRMD 10/29, 12/01 Colonoscopy COLONOSCOPY FLX DX W/COLLJ SPEC WHEN PFRMD 07/24/2011 Colonoscopy NEUROPLASTY &/TRANSPOS MEDIAN NRV CARPAL TUNNE Left 12/24/2018 PAST SURGICAL HISTORY OF 07/03, 11/02 Heart Cath, stent to LAD PAST SURGICAL HISTORY OF 1975 anal fistula repair PAST SURGICAL HISTORY OF 04/24/2008 Left total knee REMV CATARACT EXTRACAP,INSERT LENS Bilateral 06/2022, 07/2022 Family History FAMILY HISTORY Problem Relation Age of Onset Cancer Mother lung other (lymphoma) Brother Stroke Father Patient Allergies ALLERGIES Allergen Reactions Lisinopril Swelling Tongue swelling, angio edema requiring intubation. Amlodipine Other: See Comments SOB Current Medications Current Outpatient Medications on File Prior to Visit Medication Sig metFORMIN ER (GLUCOPHAGE XR) 500 mg 24 hr tablet Take 1 tablet by mouth daily with breakfast. albuterol HFA (PROVENTIL HFA, VENTOLIN HFA) 90 mcg/actuation inhaler Inhale 2 Puffs as instructed every 4 hours as needed for wheezing/shortness of breath. spironolactone (ALDACTONE) 25 mg tablet Take 25 mg by mouth once daily. isosorbide mononitrate ER (IMDUR) 60 mg 24 hr tablet Take 60 mg by mouth once daily. ranolazine ER (RANEXA) 500 mg 12 hr tablet Take 500 mg by mouth twice daily. atorvastatin (LIPITOR) 40 mg tablet Take 1 tablet by mouth daily at bedtime. Per Иван Cardio famotidine (PEPCID) 20 mg tablet Take 1 tablet by mouth at bedtime as needed. levothyroxine (SYNTHROID) 50 mcg tablet Take 1 tablet by mouth once daily. Take on empty stomach. For thyroid. nitroglycerin sublingual (NITROSTAT) 0.4 mg SL tablet DISSOLVE 1 TABLET UNDER TONGUE EVERY 5 MINUTES X3 NEEDED FOR CHESTPAIN furosemide (LASIX) 40 mg tablet Take 40 mg by mouth once daily. clopidogrel (PLAVIX) 75 mg tablet Take 1 tablet by mouth once daily. Per Cardio, Dr. Fuentes cholecalciferol, vitamin D3, (VITAMIN D3 ORAL) Take 2,000 Units by mouth. Per Rheumatology aspirin, enteric coated (ASPIRIN, ENTERIC COATED) 81 mg EC tablet Take 81 mg by mouth once daily. Xlhczqkeazppx-Yszpukyq-Pfjfue (CENTRUM SILVER) tab Take 1 tablet by mouth once daily. Oiovhceolgf-Fgkmsvtsf-Uex C-Mn (GLUCOSAMINE CHONDROITIN MAXSTR) 500-400 mg cap Take 1 capsule by mouth once daily. atenolol (TENORMIN) 25 mg tablet Take 0.5 tablets by mouth once daily. Benzonatate 200 mg capsule Take 1 capsule by mouth three times a day as needed. predniSONE (DELTASONE) 20 mg tablet 2 tabs a day by mouth for the next 5 days (Patient not taking: Reported on 03/18/2023) amLODIPine (NORVASC) 5 mg tablet Take 5 mg by mouth once daily. diclofenac (VOLTAREN) 1 % topical gel Apply a total of 2 grams to the back of each hand over the joints up to 4 times a day. No current facility-administered medications on file prior to visit. Social History Social History Tobacco Use Smoking status: Former Types: Cigars Smokeless tobacco: Never Tobacco comments: Quit Substance Use Topics Alcohol use: Yes Comment: occasionally wine 1-2 times weekly Drug use: No Review of Symptoms REVIEW OF SYSTEMS GENERAL: No weight loss, malaise or fevers NECK: Negative for lumps, goiter, pain and significant neck swelling RESPIRATORY: Negative for hemoptysis, wheezing, COPD, dyspnea or shortness of breath. See HPI CARDIOVASCULAR: Negative for chest pain, leg swelling, hypertension, CHF or palpitations GI: No nausea, vomiting, or diarrhea and No heartburn or reflux symptoms : No history of dysuria, blood PSYCH: Negative for sleep disturbance, mood disorder and recent psychosocial stressors ENDOCRINE: Negative for cold or heat intolerance, polyuria, polydipsia and goiter NEURO: No history of headaches, syncope, paralysis, seizures or tremors EXAM: BP 104/64 (BP Site: Left Arm, BP Position: Sitting, BP Cuff Size: Large Adult) Pulse 70 Temp 36.5 C (97.7 F) Wt 128.8 kg (284 lb) SpO2 94% BMI 41.04 kg/m Last 5 Encounter Wt Readings: Date: Wt: 03/18/2023 128.8 kg (284 lb) 02/24/2023 131.9 kg (290 lb 12.8 oz) 01/21/2023 130.6 kg (288 lb) 12/16/2022 130.8 kg (288 lb 6.4 oz) 11/05/2022 131.5 kg (290 lb) General Appearance: Well appearing, alert, in no acute distress, well-hydrated, well nourished. and Obese. Eyes: Anicteric sclera. Pupils are equally round and reactive to light. Extraocular movements are intact. . Neck: Supple, no adenopathy; thyroid symmetric, normal size, no bruits. Lungs: No rhonchi, rales.. slight wheeze in the bases. Heart: RRR without murmur, gallop, or rubs. No ectopy. Abdomen: Normal abdominal exam, Abdomen soft, non-tender. Bowel sounds normal. No masses, organomegaly. Extremities: No deformities, edema, skin discoloration, Good capillary refill. . Peripheral Pulses: Normal. Neurologic: Gait normal. Sensation to light touch and crainal nerves 2-12 intact.. Health Maintenance List RSV Vaccine(1 - 1-dose 60+ series) Never done Shingrix Vaccine(1 of 2) due on 08/14/2023 Urine Albumin:Creatinine Ratio due on 06/26/2023 LDL Cholesterol due on 06/26/2023 HbA1C due on 08/14/2023 Dilated Retinal Exam due on 01/17/2024 DTaP,Tdap,Td Vaccine(3 - Td or Tdap) due on 07/12/2028 Influenza Vaccine Completed Advance Directive Discussion Completed Covid-19 Vaccine Completed Pneumococcal Vaccine: 65+ Completed Diabetic Foot Exam Discontinued Data reviewed A/P ASSESSMENT/PLAN: 1. Controlled type 2 diabetes mellitus without complication, without long-term current use of insulin ([facility]) - ICD9: 250.00, ICD10: E11.9 (primary diagnosis) - has manuel controlled await labs. - Continue current medications - Counseled on healthy diet and regular exercise - Discussed need for and benefit of weight loss. BMI 41.04 kg/(m^2) Check - COMP METABOLIC PANEL - LIPID PANEL, NONFASTING - HGB A1C - CBC + DIFF 2. Diabetic eye exam ([facility]) - ICD9: V72.0, 250.00, ICD10: Z01.00, E11.9 - up to date 3. Mixed hyperlipidemia - ICD9: 272.2, ICD10: E78.2 - await labs - Continue current medications - Counseled on healthy diet and regular exercise Check - COMP METABOLIC PANEL - LIPID PANEL, NONFASTING 4. Hypothyroidism, acquired - ICD9: 244.9, ICD10: E03.9 - Instructed patient on importance of taking on an empty stomach either first thing in the morning or at bedtime. - continue current dose of Synthroid Check - TSH BLD - CBC + DIFF 5. Gastroesophageal reflux disease without esophagitis - ICD9: 530.81, ICD10: K21.9 - Continue treatment with Pepcid 20 mg QHS 6. Coronary artery disease due to lipid rich plaque - ICD9: 414.00, 414.3, ICD10: I25.10, I25.83 - stable and management per cardio. Check - LIPID PANEL, NONFASTING 7. Paroxysmal atrial fibrillation ([facility]) - ICD9: 427.31, ICD10: I48.0 - a s per #6 8. Bilateral carotid artery stenosis - ICD9: 433.10, 433.30, ICD10: I65.23 Check - LIPID PANEL, NONFASTING 9. PMR (polymyalgia rheumatica) ([facility]) - ICD9: 725, ICD10: M35.3 - management per Rheum 10. Situational depression - ICD9: 309.0, ICD10: F43.21 - resolved 11. Abnormal chest x-ray - ICD9: 793.2, ICD10: R93.89 Check - XR CHEST 2V FRONTAL/LAT: if still abnormal will discuss with Dr. Billy Burks and also inform him of patient's Sever Sleep Apnea. 12. BMI 40.0-44.9, adult ([facility]) - ICD9: V85.41, ICD10: Z68.41 Weight decreasing - Behavioral intervention F/u July 2023 for extensive exam Mary Grace Edmonds MD documented in this encounter [facility] 02-24-2023 Note HNO ID: [id number] Author: Lucy Jiménez RT(R) Service: Radiology Author Type: Technologist Type: Progress Notes Filed: 02/24/2023 2:55 PM Note Text: Radiology Service Progress Note PATIENT NAME: Gus Wesley DATE OF SERVICE: February 24, 2023 TIME: 2:47 PM PATIENT IDENTITY VERIFICATION COMPLETED USING TWO (2) IDENTIFIERS: Name and Date of confirmed by patient verbally. FALL SCREENING: Has the patient had 2 falls in the last year or 1 fall with injury or currently using an Ambulatory Assistive Device (Walker, Cane, Wheelchair, Crutches, etc.)? No PATIENT GENDER DATA: Male PATIENT RELEVANT IMPLANT DATA REVIEWED: Yes RADIOLOGY DEPARTMENT: General X-ray: Exam(s) Completed: Chest X-Ray PERIPHERAL IV DATA: Not applicable SIGNED BY: RT Anoop(R) February 24, 2023 2:47 PM [facility] 02-24-2023 Note HNO ID: [id number] Author: Maurice Davila APRN.TELEPHONE EXCHANGE OPERATOR Service: ? Author Type: Nurse Practitioner Type: Progress Notes Filed: 02/24/2023 6:54 PM Note Text: This note was created using NoteWriter. Subjective Gus Wesley is a 87 year old male. 87 year old male with PMH PMR, hyperlipidemia, CAD, afib present for cough. Acute onset 3 days ago +cough Dry for most part Denies accompanying URI sx Denies fever or chills. Denies body aches and fatigue. Denies hemoptysis. Denies CP Of note, he had pneumonia October, November, and December Had an appt scheduled today with Dr. Edmonds,but was cancelled. Denies tobacco usage. The history is provided by the patient. No language therapist was used. Cough This is a new problem. The current episode started more than 2 days ago. The problem occurs constantly. The problem has not changed since onset.The cough is Non-productive. There has been no fever. Pertinent negatives include no chest pain, no chills, no sweats, no weight loss, no ear congestion, no ear pain, no headaches, no rhinorrhea, no sore throat, no myalgias, no shortness of breath, no wheezing and no eye redness. He has tried nothing for the symptoms. The treatment provided no relief. He is not a smoker. His past medical history does not include bronchitis, pneumonia, bronchiectasis, COPD, emphysema or asthma. PAST MEDICAL HISTORY Diagnosis Date Benign neoplasm of colon colon polyps Benign prostatic hyperplasia with lower urinary tract symptoms 04/17/2005 Bilateral carotid artery stenosis 04/05/2021 US 04/20 20-40% bilaterall Bladder neck obstruction 04/17/2005 BMI 40.0-44.9, adult ([facility]) 09/19/2015 Controlled type 2 diabetes mellitus without complication, without long-term current use of insulin ([facility]) 09/19/2015 Coronary artery disease due to lipid rich plaque 10/15/2005 Dr. Fuentes [facility] 07-09-05 3 LAD stents DDD (degenerative disc disease), cervical 07/04/2022 Seeing [facility]. Decreased appetite 04/09/2020 Diabetic eye exam ([facility]) 03/12/2017 Last done: 08/28/2017 Diverticulosis of colon (without mention of hemorrhage) Ex-smoker 04/30/2018 Foot callus 06/06/2020 Sees Podiatry Gastroesophageal reflux disease without esophagitis 07/16/2005 History of prostate cancer 06/01/2009 PSA per PCP, was released by urology. Treated with radiation Hypothyroidism, acquired 05/17/2019 Knee joint 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 02/18/2005 Left inguinal hernia 02/17/2017 Very small and none tender will monitor Living will on file 06/12/2021 DPA: Daughter (Venita) Lung nodules 04/02/2021 Noted on cxr 04/02/21. No nodules on chest x-ray [facility] 05/2021 Malignant neoplasm of prostate (HCC) 06/01/2009 PSA per PCP, was released by urology, radiation 06/06 to 08/06 Microscopic hematuria 05/17/2019 Sees Urology Mixed hyperlipidemia 07/16/2005 Nodular prostate with urinary obstruction 05/01/2009 Paroxysmal atrial fibrillation (HCC) 01/05/2019 Seeing [facility]: developed during hosp stay at [facility] 12/2018 for angioedema. Was cardioverted. PMR (polymyalgia rheumatica) (HCC) 04/21/[address] Miller Situational depression 04/09/2020 Spondylosis of cervical region without myelopathy or radiculopathy 07/04/2022 Seeing [facility]. PAST SURGICAL HISTORY Procedure Laterality Date 2D ECHO (EXEP) 11/25/2019 EF=60%, mild LVH, mild LA enlargement, 1+ WI, CC CORONARY STENT 08/2022 stent to RCA COLONOSCOPY FLX DX W/COLLJ SPEC WHEN PFRMD 10/29, 12/01 Colonoscopy COLONOSCOPY FLX DX W/COLLJ SPEC WHEN PFRMD 07/24/2011 Colonoscopy NEUROPLASTY AND/TRANSPOS MEDIAN NRV CARPAL TUNNE Left 12/24/2018 PAST SURGICAL HISTORY OF 07/03, 11/02 Heart Cath, stent to LAD PAST SURGICAL HISTORY OF 1975 anal fistula repair PAST SURGICAL HISTORY OF 04/24/2008 Left total knee REMV CATARACT EXTRACAP,INSERT LENS Bilateral 06/2022, 07/2022 ALLERGIES Lisinopril and Amlodipine MEDICATIONS metFORMIN ER (GLUCOPHAGE XR) 500 mg 24 hr tablet Take 1 tablet by mouth daily with breakfast. predniSONE (DELTASONE) 20 mg tablet 2 tabs a day by mouth for the next 5 days Benzonatate 200 mg capsule Take 1 capsule by mouth three times a day as needed. albuterol HFA (PROVENTIL HFA, VENTOLIN HFA) 90 mcg/actuation inhaler Inhale 2 Puffs as instructed every 4 hours as needed for wheezing/shortness of breath. spironolactone (ALDACTONE) 25 mg tablet Take 25 mg by mouth once daily. isosorbide mononitrate ER (IMDUR) 60 mg 24 hr tablet Take 60 mg by mouth once daily. ranolazine ER (RANEXA) 500 mg 12 hr tablet Take 500 mg by mouth twice daily. atorvastatin (LIPITOR) 40 mg tablet Take 1 tablet by mouth daily at bedtime. Per [facility] Cardio famotidine (PEPCID) 20 mg tablet Take 1 tablet by mouth at bedtime as needed. levothyroxine (SYNTHROID) 50 mcg tablet Take 1 tablet by mouth once daily. Take on empty stomach. For thyroid. nitroglycerin sublingual (NITROSTAT) 0.4 mg SL tablet DISSOLVE 1 TAB (more content not included)... [facility] 02-12-2023 Miscellaneous Notes Patient was notified that provider only refills 6 months at a time in order to make sure appointment for future are scheduled correctly Sonya Alonso Ma documented in this encounter [facility] 02-09-2023 Miscellaneous Notes Patient has been identified by name and date of : Yes Requested Prescriptions Pending Prescriptions Disp Refills metFORMIN ER (GLUCOPHAGE XR) 500 mg 24 hr tablet 90 tablet 1 Sig: Take 1 tablet by mouth daily with breakfast. RX INSTRUCTIONS: Patient aware RX will be sent to pharmacy. No need to notify patient. Cheli Lovelace MA Donato 07/2022 Nov 02/18/2023 Last refill: 06/2022 documented in this encounter [facility] 01-22-2023 Miscellaneous Notes Pt notified of same. Naomi German LPN Let patient know the chest x-ray shows an early pneumonia. documented in this encounter [facility] 01-21-2023 Note HNO ID: [id number] Author: Sarai Valderrama RT(R) Service: ? Author Type: Prosthetic Dentist Type: Progress Notes Filed: 01/21/2023 2:45 PM Note Text: Radiology Service Progress Note PATIENT NAME: Gus Wesley DATE OF SERVICE: January 21, 2023 TIME: 2:32 PM PATIENT IDENTITY VERIFICATION COMPLETED USING TWO (2) IDENTIFIERS: Name and Date of confirmed by patient verbally. FALL SCREENING: Has the patient had 2 falls in the last year or 1 fall with injury or currently using an Ambulatory Assistive Device (Walker, Cane, Wheelchair, Crutches, etc.)? No PATIENT GENDER DATA: Male PATIENT RELEVANT IMPLANT DATA REVIEWED: Yes RADIOLOGY DEPARTMENT: General X-ray: Exam(s) Completed: Chest X-Ray PERIPHERAL IV DATA: Not applicable SIGNED BY: Sarai Valderrama, RT(R) January 21, 2023 2:32 PM [facility] 01-21-2023 Note HNO ID: [id number] Author: Mary Grace Edmonds MD Service: ? Author Type: Physician Type: Progress Notes Filed: 01/21/2023 10:35 PM Note Text: Chief Complaint Patient presents with: Cough HPI Gus Wesley is a 87 year old male who presents here today for continued cough. My cough never completely went away. Now it's back. I don't always bring something up I just cough and cough. It's like when I had pneumonia. It makes me really short of breath when I get one of those spells. Cough dry or productive? Productive with a yellow/acosta mucus, No blood. Ribs are tender Fever? No N/V/D? No Any sinus pain? No No sore throat Patient indicated that the cough started back up again on Thursday. Patient indicated that when he coughs up stuff it has a copper taste to it. Patient is seeing Dr. Antoine Burks Pulmonary. Patient uses oxygen only when exercising or moving around long distance. Past medical history, appointments, medications, allergies reviewed. Previous Medical History PAST MEDICAL HISTORY Diagnosis Date Benign neoplasm of colon colon polyps Benign prostatic hyperplasia with lower urinary tract symptoms 04/17/2005 Bilateral carotid artery stenosis 04/05/2021 04/20 20-40% bilaterall Bladder neck obstruction 04/17/2005 BMI 40.0-44.9, adult ([facility]) 09/19/2015 Controlled type 2 diabetes mellitus without complication, without long-term current use of insulin ([facility]) 09/19/2015 Coronary artery disease due to lipid rich plaque 10/15/2005 Dr. Fuentes [facility] 07-09-05 3 LAD stents DDD (degenerative disc disease), cervical 07/04/2022 Seeing [facility]. Decreased appetite 04/09/2020 Diabetic eye exam ([facility]) 03/12/2017 Last done: 08/28/2017 Diverticulosis of colon (without mention of hemorrhage) Ex-smoker 04/30/2018 Foot callus 06/06/2020 Sees Podiatry Gastroesophageal reflux disease without esophagitis 07/16/2005 History of prostate cancer 06/01/2009 PSA per PCP, was released by urology. Treated with radiation Hypothyroidism, acquired 05/17/2019 Knee joint 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 02/18/2005 Left inguinal hernia 02/17/2017 Very small and none tender will monitor Living will on file 06/12/2021 DPA: Daughter (Venita) Lung nodules 04/02/2021 Noted on cxr 04/02/21. No nodules on chest x-ray [facility] 05/2021 Malignant neoplasm of prostate (HCC) 06/01/2009 PSA per PCP, was released by urology, radiation 06/06 to 08/06 Microscopic hematuria 05/17/2019 Sees Urology Mixed hyperlipidemia 07/16/2005 Nodular prostate with urinary obstruction 05/01/2009 Paroxysmal atrial fibrillation (HCC) 01/05/2019 Seeing [place]: developed during hosp stay at [facility] 12/2018 for angioedema. Was cardioverted. PMR (polymyalgia rheumatica) ([facility]) 04/21/[address] Miller Situational depression 04/09/2020 Spondylosis of cervical region without myelopathy or radiculopathy 07/04/2022 Seeing [facility]. Previous Surgical History PAST SURGICAL HISTORY Procedure Laterality Date 2D ECHO (EXEP) 11/25/2019 EF=60%, mild LVH, mild LA enlargement, 1+ WI, CC CORONARY STENT 08/2022 stent to RCA COLONOSCOPY FLX DX W/COLLJ SPEC WHEN PFRMD 10/29, 12/01 Colonoscopy COLONOSCOPY FLX DX W/COLLJ SPEC WHEN PFRMD 07/24/2011 Colonoscopy NEUROPLASTY AND/TRANSPOS MEDIAN NRV CARPAL TUNNE Left 12/24/2018 PAST SURGICAL HISTORY OF 07/03, 11/02 Heart Cath, stent to LAD PAST SURGICAL HISTORY OF 1974 anal fistula repair PAST SURGICAL HISTORY OF 04/24/2008 Left total knee REMV CATARACT EXTRACAP,INSERT LENS Bilateral 06/2022, 07/2022 Family History FAMILY HISTORY Problem Relation Age of Onset Cancer Mother lung other (lymphoma) Brother Stroke Father Patient Allergies ALLERGIES Allergen Reactions Lisinopril Swelling Tongue swelling, angio edema requiring intubation. Amlodipine Other: See Comments SOB Current Medications Current Outpatient Medications on File Prior to Visit Medication Sig spironolactone (ALDACTONE) 25 mg tablet Take 25 mg by mouth once daily. albuterol HFA (PROVENTIL HFA, VENTOLIN HFA) 90 mcg/actuation inhaler Inhale 2 Puffs as instructed every 4 hours as needed for wheezing/shortness of breath. isosorbide mononitrate ER (IMDUR) 60 mg 24 hr tablet Take 60 mg by mouth once daily. ranolazine ER (RANEXA) 500 mg 12 hr tablet Take 500 mg by mouth twice daily. amLODIPine (NORVASC) 5 mg tablet Take 5 mg by mouth once daily. atorvastatin (LIPITOR) 40 mg tablet Take 1 tablet by mouth daily at bedtime. Per [facility] Cardio famotidine (PEPCID) 20 mg tablet Take 1 tablet by mouth at bedtime as needed. levothyroxine (SYNTHROID) 50 mcg tablet Take 1 tablet by mouth once daily. Take on empty stomach. For thyroid. metFORMIN ER (GLUCOPHAGE XR) 500 mg 24 hr tablet Take 1 tablet by mouth daily with breakfast. nitroglycerin sublingual (NITROSTAT) 0.4 mg SL tablet DISSOLVE 1 TABLET UNDER TONGUE EVERY 5 MINUTES X3 NEEDED FOR CHESTPAIN diclofenac (VOLTAREN) 1 (more content not included)... [facility] 01-21-2023 History of Presen t illness Narrative Chief Complaint Patient presents with: Cough HPI Gus Wesley is a 87 year old male who presents here today for continued cough. My cough never completely went away. Now it's back. I don't always bring something up I just cough and cough. It's like when I had pneumonia. It makes me really short of breath when I get one of those spells. Cough dry or productive? Productive with a yellow/acosta mucus, No blood. Ribs are tender Fever? No N/V/D? No Any sinus pain? No No sore throat Patient indicated that the cough started back up again on Thursday. Patient indicated that when he coughs up stuff it has a copper taste to it. Patient is seeing Dr. Antoine Burks Pulmonary. Patient uses oxygen only when exercising or moving around long distance. Past medical history, appointments, medications, allergies reviewed. Previous Medical History PAST MEDICAL HISTORY Diagnosis Date Benign neoplasm of colon colon polyps Benign prostatic hyperplasia with lower urinary tract symptoms 04/17/2005 Bilateral carotid artery stenosis 04/05/2021 US 04/20 20-40% bilaterall Bladder neck obstruction 04/17/2005 BMI 40.0-44.9, adult ([facility]) 09/19/2015 Controlled type 2 diabetes mellitus without complication, without long-term current use of insulin ([facility]) 09/19/2015 Coronary artery disease due to lipid rich plaque 10/15/2005 Dr. Fuentes [facility] 07-09-05 3 LAD stents DDD (degenerative disc disease), cervical 07/04/2022 Seeing [facility]. Decreased appetite 04/09/2020 Diabetic eye exam ([facility]) 03/12/2017 Last done: 08/28/2017 Diverticulosis of colon (without mention of hemorrhage) Ex-smoker 04/30/2018 Foot callus 06/06/2020 Sees Podiatry Gastroesophageal reflux disease without esophagitis 07/16/2005 History of prostate cancer 06/01/2009 PSA per PCP, was released by urology. Treated with radiation Hypothyroidism, acquired 05/17/2019 Knee joint 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 02/18/2005 Left inguinal hernia 02/17/2017 Very small and none tender will monitor Living will on file 06/12/2021 DPA: Daughter (Venita) Lung nodules 04/02/2021 Noted on cxr 04/02/21. No nodules on chest x-ray [facility] 05/2021 Malignant neoplasm of prostate ([facility]) 06/01/2009 PSA per PCP, was released by urology, radiation 06/06 to 08/06 Microscopic hematuria 05/17/2019 Sees Urology Mixed hyperlipidemia 07/16/2005 Nodular prostate with urinary obstruction 05/01/2009 Paroxysmal atrial fibrillation ([facility]) 01/05/2019 Seeing Alfredo: developed during hosp stay at [facility] 12/2018 for angioedema. Was cardioverted. PMR (polymyalgia rheumatica) ([facility]) 04/21/[address] Miller Situational depression 04/09/2020 Spondylosis of cervical region without myelopathy or radiculopathy 07/04/2022 Seeing [facility]. Previous Surgical History PAST SURGICAL HISTORY Procedure Laterality Date 2D ECHO (EXEP) 11/25/2019 EF=60%, mild LVH, mild LA enlargement, 1+ WI, CC CORONARY STENT 08/2022 stent to RCA COLONOSCOPY FLX DX W/COLLJ SPEC WHEN PFRMD 10/29, 12/01 Colonoscopy COLONOSCOPY FLX DX W/COLLJ SPEC WHEN PFRMD 07/24/2011 Colonoscopy NEUROPLASTY &/TRANSPOS MEDIAN NRV CARPAL TUNNE Left 12/24/2018 PAST SURGICAL HISTORY OF 07/03, 11/02 Heart Cath, stent to LAD PAST SURGICAL HISTORY OF 1974 anal fistula repair PAST SURGICAL HISTORY OF 04/24/2008 Left total knee REMV CATARACT EXTRACAP,INSERT LENS Bilateral 06/2022, 07/2022 Family History FAMILY HISTORY Problem Relation Age of Onset Cancer Mother lung other (lymphoma) Brother Stroke Father Patient Allergies ALLERGIES Allergen Reactions Lisinopril Swelling Tongue swelling, angio edema requiring intubation. Amlodipine Other: See Comments SOB Current Medications Current Outpatient Medications on File Prior to Visit Medication Sig spironolactone (ALDACTONE) 25 mg tablet Take 25 mg by mouth once daily. albuterol HFA (PROVENTIL HFA, VENTOLIN HFA) 90 mcg/actuation inhaler Inhale 2 Puffs as instructed every 4 hours as needed for wheezing/shortness of breath. isosorbide mononitrate ER (IMDUR) 60 mg 24 hr tablet Take 60 mg by mouth once daily. ranolazine ER (RANEXA) 500 mg 12 hr tablet Take 500 mg by mouth twice daily. amLODIPine (NORVASC) 5 mg tablet Take 5 mg by mouth once daily. atorvastatin (LIPITOR) 40 mg tablet Take 1 tablet by mouth daily at bedtime. Per [facility] Cardio famotidine (PEPCID) 20 mg tablet Take 1 tablet by mouth at bedtime as needed. levothyroxine (SYNTHROID) 50 mcg tablet Take 1 tablet by mouth once daily. Take on empty stomach. For thyroid. metFORMIN ER (GLUCOPHAGE XR) 500 mg 24 hr tablet Take 1 tablet by mouth daily with breakfast. nitroglycerin sublingual (NITROSTAT) 0.4 mg SL tablet DISSOLVE 1 TABLET UNDER TONGUE EVERY 5 MINUTES X3 NEEDED FOR CHESTPAIN diclofenac (VOLTAREN) 1 % topical gel Apply a total of 2 grams to the back of each hand over the joints up to 4 times a day. furosemide (LASIX) 40 mg tablet Take 40 mg by mouth once daily. clopidogrel (PLAVIX) 75 mg tablet Take 1 tablet by mouth once daily. Per Cardio, Dr. Fuentes cholecalciferol, vitamin D3, (VITAMIN D3 ORAL) Take 2,000 Units by mouth. Per Rheumatology aspirin, enteric coated (ASPIRIN, ENTERIC COATED) 81 mg EC tablet Take 81 mg by mouth once daily. Zymjdoddkwdus-Ukynddpe-Snqtzf (CENTRUM SILVER) tab Take 1 tablet by mouth once daily. Riiwnuwboxu-Lpkofevun-Ajr C-Mn (GLUCOSAMINE CHONDROITIN MAXSTR) 500-400 mg cap Take 1 capsule by mouth once daily. atenolol (TENORMIN) 25 mg tablet Take 0.5 tablets by mouth once daily. No current facility-administered medications on file prior to visit. Social History Social History Tobacco Use Smoking status: Former Types: Cigars Smokeless tobacco: Never Tobacco comments: Quit Substance Use Topics Alcohol use: Yes Comment: occasionally wine 1-2 times weekly Drug use: No Review of Symptoms REVIEW OF SYSTEMS See HPI EXAM: BP 118/62 (BP Site: Right Arm, BP Position: Sitting, BP Cuff Size: Large Adult) Pulse 75 Temp 36.9 C (98.4 F) (Tympanic) Resp 20 Wt 130.6 kg (288 lb) SpO2 95% BMI 41.62 kg/m General Appearance: Well appearing, alert, in no acute distress, well-hydrated, well nourished. and Morbidly obese. Ears: External ears, TM's normal, canals clear. Nose/Sinuses: Nares normal, septum midline, mucosa normal, no drainage or sinus tenderness. Oropharynx: Lips, mucosa, and tongue normal, teeth and gums normal, oropharynx normal. Neck: Supple, no adenopathy; thyroid symmetric, normal size, no bruits. Lungs: No rhonchi, rales. Has mild inspiratory wheezing. There sounds to be some soft crackles in the left mid lung region. Heart: RRR without murmur, gallop, or rubs. No ectopy. Health Maintenance List Hepatitis B Vaccine(1 of 3 - Risk 3-dose series) Never done RSV Vaccine(1 - 1-dose 60+ series) Never done Influenza Vaccine(1) due on 11/28/2022 Covid-19 Vaccine(2022- season) due on 11/28/2022 HbA1C due on 12/26/2022 Shingrix Vaccine(1 of 2) due on 08/14/2023 Urine Albumin:Creatinine Ratio due on 06/26/2023 LDL Cholesterol due on 06/26/2023 Dilated Retinal Exam due on 01/17/2024 DTaP,Tdap,Td Vaccine(3 - Td or Tdap) due on 07/12/2028 [facility] Directive Discussion Completed Pneumococcal Vaccine: 65+ Completed Diabetic Foot Exam Discontinued Data reviewed A/P ASSESSMENT/PLAN: 1. Bacterial pneumonia - ICD9: 482.9, ICD10: J15.9 (primary diagnosis) - will start on levaquin 500 mg a day for 10 days. - XR CHEST 2V FRONTAL/LAT 2. Lung crackles - ICD9: 786.7, ICD10: R09.89 Check - XR CHEST 2V FRONTAL/LAT - as above 3. Wheezing - ICD9: 786.07, ICD10: R06.2 Check - XR CHEST 2V FRONTAL/LAT - place on steroid burst at 40 mg a day for 5 days. 4. Encounter for immunization - ICD9: V03.89, ICD10: Z23 - INFLUENZA VACCINE, PRSV FREE, AGE 65+ YR, HIGH DOSE, QUADRIVALENT (FLUZONE HIGH-DOSE): given - Levels Beyond COVID-19 VACCINE (2022- SEASON) AGE 12+ YR: given Requested Prescriptions Signed Prescriptions Disp Refills levoFLOXacin (LEVAQUIN) 500 mg tablet 10 tablet 0 Sig: Take 1 tablet by mouth once daily for 10 days. predniSONE (DELTASONE) 20 mg tablet 10 tablet 0 Si tabs a day by mouth for the next 5 days Benzonatate 200 mg capsule 45 capsule 1 Sig: Take 1 capsule by mouth three times a day as needed. Will re-eval at appt on 02/18/2023 Patient was asked at end of visit if they had any questions or input regarding the plan of care we had discussed. Mary Grace Edmonds MD documented in this encounter [facility] 01-20-2023 Miscellaneous Notes Please also see separate encounter with same date. Nothing further at this time. JM Nazario documented in this encounter [facility] 01-20-2023 Note HNO ID: [id number] Author: Caitie Hoffmann Ma Service: ? Author Type: ? Type: Progress Notes Filed: 01/20/2023 8:46 PM Note Text: Dilated retinal exam. HM updated. Scan on 01/16/2023 3:10 PM by ProviderJacki PA-C: Consultation - Ophthalmology [facility] 01-20-2023 Miscellaneous Notes Pt called in and will see Dr. Edmonds tomorrow 01-20-23 at 1:40 arriving at 1:25 pm. Enedelia Paz LPN documented in this encounter [facility] 01-20-2023 History of Presen t illness Narrative Dilated retinal exam. HM updated. Scan on 01/16/2023 3:10 PM by ProviderJacki PA-C: Consultation - Ophthalmology documented in this encounter [facility] 01-16-2023 Note HNO ID: [id number] Author: Naomi German LPN Service: ? Author Type: ? Type: Progress Notes Filed: 01/16/2023 11:17 AM Note Text: Scan on 01/15/2023 1:59 PM by ProviderJacki PA-C: Consultation - Cardiology [facility] 01-16-2023 History of Presen t illness Narrative Scan on 01/15/2023 1:59 PM by Jacki Goldman PA-C: Consultation - Cardiology documented in this encounter [facility] 12-24-2022 Note HNO ID: [id number] Author: Naomi German LPN Service: ? Author Type: ? Type: Progress Notes Filed: 12/29/2022 12:16 PM Note Text: Scan on 12/23/2022 12:11 PM by ProviderJacki PA-C: Chemistry [facility] 12-24-2022 History of Presen t illness Narrative Scan on 12/23/2022 12:11 PM by ProviderJacki PA-C: Chemistry documented in this encounter [facility] 12-16-2022 Note HNO ID: [id number] Author: Jamie Bautista MD Service: ? Author Type: Physician Type: Progress Notes Filed: 12/17/2022 3:02 PM Note Text: Chief Complaint Patient presents with: left leg swelling: Patient advised it may be cellulitis. Doppler negative- ECP ordered at his visit HPI Gus Wesley is a 87 year old male who presents here today for Above Complaints. Patient states that he was having ECP today and the explosive technician was concerned that his left leg was swollen and red so they ordered a venous duplex which was negative for DVT. Advised to follow up with our office for evaluation of cellulitis. Denies fever/chills, warmth to touch, leg pain, swelling. Past medical history, appointments, medications, allergies reviewed. Previous Medical History PAST MEDICAL HISTORY Diagnosis Date Benign neoplasm of colon colon polyps Benign prostatic hyperplasia with lower urinary tract symptoms 04/17/2005 Bilateral carotid artery stenosis 04/05/2021 04/20 20-40% bilaterall Bladder neck obstruction 04/17/2005 BMI 40.0-44.9, adult ([facility]) 09/19/2015 Controlled type 2 diabetes mellitus without complication, without long-term current use of insulin ([facility]) 09/19/2015 Coronary artery disease due to lipid rich plaque 10/15/2005 Dr. Fuentes Cath, [facility] 07-09-05 3 LAD stents DDD (degenerative disc disease), cervical 07/04/2022 Seeing [facility]. Decreased appetite 04/09/2020 Diabetic eye exam ([facility]) 03/12/2017 Last done: 08/28/2017 Diverticulosis of colon (without mention of hemorrhage) Ex-smoker 04/30/2018 Foot callus 06/06/2020 Sees Podiatry Gastroesophageal reflux disease without esophagitis 07/16/2005 History of prostate cancer 06/01/2009 PSA per PCP, was released by urology. Treated with radiation Hypothyroidism, acquired 05/17/2019 Knee joint 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 02/18/2005 Left inguinal hernia 02/17/2017 Very small and none tender will monitor Living will on file 06/12/2021 DPA: Daughter (Venita) Lung nodules 04/02/2021 Noted on cxr 04/02/21. No nodules on chest x-ray [facility] 05/2021 Malignant neoplasm of prostate (HCC) 06/01/2009 PSA per PCP, was released by urology, radiation 06/06 to 08/06 Microscopic hematuria 05/17/2019 Sees Urology Mixed hyperlipidemia 07/16/2005 Nodular prostate with urinary obstruction 05/01/2009 Paroxysmal atrial fibrillation ([facility]) 01/05/2019 Seeing [facility]: developed during hosp stay at [facility] 12/2018 for angioedema. Was cardioverted. PMR (polymyalgia rheumatica) ([facility]) 04/21/[address] Miller Situational depression 04/09/2020 Spondylosis of cervical region without myelopathy or radiculopathy 07/04/2022 Seeing [facility]. Previous Surgical History PAST SURGICAL HISTORY Procedure Laterality Date 2D ECHO (EXEP) 11/25/2019 EF=60%, mild LVH, mild LA enlargement, 1+ WI, COLONOSCOPY FLX DX W/COLLJ SPEC WHEN PFRMD 10/29, 12/01 Colonoscopy COLONOSCOPY FLX DX W/COLLJ SPEC WHEN PFRMD 07/24/2011 Colonoscopy NEUROPLASTY AND/TRANSPOS MEDIAN NRV CARPAL TUNNE Left 12/24/2018 PAST SURGICAL HISTORY OF 07/03, 11/02 Heart Cath PAST SURGICAL HISTORY OF 1975 anal fistula repair PAST SURGICAL HISTORY OF 04/24/2008 Left total knee REMV CATARACT EXTRACAP,INSERT LENS Bilateral 06/2022, 07/2022 Family History FAMILY HISTORY Problem Relation Age of Onset Cancer Mother lung other (lymphoma) Brother Stroke Father Patient Allergies ALLERGIES Allergen Reactions Lisinopril Swelling Tongue swelling, angio edema requiring intubation. Amlodipine Other: See Comments SOB Current Medications Current Outpatient Medications on File Prior to Visit Medication Sig spironolactone (ALDACTONE) 25 mg tablet Take 25 mg by mouth once daily. albuterol HFA (PROVENTIL HFA, VENTOLIN HFA) 90 mcg/actuation inhaler Inhale 2 Puffs as instructed every 4 hours as needed for wheezing/shortness of breath. isosorbide mononitrate ER (IMDUR) 60 mg 24 hr tablet Take 60 mg by mouth once daily. ranolazine ER (RANEXA) 500 mg 12 hr tablet Take 500 mg by mouth twice daily. amLODIPine (NORVASC) 5 mg tablet Take 5 mg by mouth once daily. atorvastatin (LIPITOR) 40 mg tablet Take 1 tablet by mouth daily at bedtime. Per [facility] famotidine (PEPCID) 20 mg tablet Take 1 tablet by mouth at bedtime as needed. levothyroxine (SYNTHROID) 50 mcg tablet Take 1 tablet by mouth once daily. Take on empty stomach. For thyroid. metFORMIN ER (GLUCOPHAGE XR) 500 mg 24 hr tablet Take 1 tablet by mouth daily with breakfast. furosemide (LASIX) 40 mg tablet Take 40 mg by mouth once daily. clopidogrel (PLAVIX) 75 mg tablet Take 1 tablet by mouth once daily. Per Cardio, Dr. Fuentes cholecalciferol, vitamin D3, (VITAMIN D3 ORAL) Take 2,000 Units by mouth. Per Rheumatology aspirin, enteric coated (ASPIRIN, ENTERIC COATED) 81 mg EC tablet Take 81 mg by mouth once daily. Vnhordzaokm-Urneplbcw-Qvs C-Mn (GLUCOSAMINE CHONDROITIN MAXSTR) 500-400 mg ca (more content not included)... [facility] 12-16-2022 History of Presen t illness Narrative Chief Complaint Patient presents with: left leg swelling: Patient advised it may be cellulitis. Doppler negative- ECP ordered at his visit HPI Gus Wesley is a 87 year old male who presents here today for Above Complaints. Patient states that he was having ECP today and the explosive technician was concerned that his left leg was swollen and red so they ordered a venous duplex which was negative for DVT. Advised to follow up with our office for evaluation of cellulitis. Denies fever/chills, warmth to touch, leg pain, swelling. Past medical history, appointments, medications, allergies reviewed. Previous Medical History PAST MEDICAL HISTORY Diagnosis Date Benign neoplasm of colon colon polyps Benign prostatic hyperplasia with lower urinary tract symptoms 04/17/2005 Bilateral carotid artery stenosis 04/05/2021 US 04/20 20-40% bilaterall Bladder neck obstruction 04/17/2005 BMI 40.0-44.9, adult (HCC) 09/19/2015 Controlled type 2 diabetes mellitus without complication, without long-term current use of insulin ([facility]) 09/19/2015 Coronary artery disease due to lipid rich plaque 10/15/2005 Dr. Fuentes [facility], [facility] 07-09-05 3 LAD stents DDD (degenerative disc disease), cervical 07/04/2022 Seeing [facility]. Decreased appetite 04/09/2020 Diabetic eye exam ([facility]) 03/12/2017 Last done: 08/28/2017 Diverticulosis of colon (without mention of hemorrhage) Ex-smoker 04/30/2018 Foot callus 06/06/2020 Sees Podiatry Gastroesophageal reflux disease without esophagitis 07/16/2005 History of prostate cancer 06/01/2009 PSA per PCP, was released by urology. Treated with radiation Hypothyroidism, acquired 05/17/2019 Knee joint 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 02/18/2005 Left inguinal hernia 02/17/2017 Very small and none tender will monitor Living will on file 06/12/2021 DPA: Daughter (Venita) Lung nodules 04/02/2021 Noted on cxr 04/02/21. No nodules on chest x-ray [facility] 05/2021 Malignant neoplasm of prostate ([facility]) 06/01/2009 PSA per PCP, was released by urology, radiation 06/06 to 08/06 Microscopic hematuria 05/17/2019 Sees Urology Mixed hyperlipidemia 07/16/2005 Nodular prostate with urinary obstruction 05/01/2009 Paroxysmal atrial fibrillation ([facility]) 01/05/2019 Seeing Alfredo: developed during hosp stay at [facility] 12/2018 for angioedema. Was cardioverted. PMR (polymyalgia rheumatica) ([facility]) 04/21/[address] Miller Situational depression 04/09/2020 Spondylosis of cervical region without myelopathy or radiculopathy 07/04/2022 Seeing [facility]. Previous Surgical History PAST SURGICAL HISTORY Procedure Laterality Date 2D ECHO (EXEP) 11/25/2019 EF=60%, mild LVH, mild LA enlargement, 1+ WI, COLONOSCOPY FLX DX W/COLLJ SPEC WHEN PFRMD 10/29, 12/01 Colonoscopy COLONOSCOPY FLX DX W/COLLJ SPEC WHEN PFRMD 07/24/2011 Colonoscopy NEUROPLASTY &/TRANSPOS MEDIAN NRV CARPAL TUNNE Left 12/24/2018 PAST SURGICAL HISTORY OF 4/06, 11/02 Heart Cath PAST SURGICAL HISTORY OF 1974 anal fistula repair PAST SURGICAL HISTORY OF 04/24/2008 Left total knee REMV CATARACT EXTRACAP,INSERT LENS Bilateral 06/2022, 07/2022 Family History FAMILY HISTORY Problem Relation Age of Onset Cancer Mother lung other (lymphoma) Brother Stroke Father Patient Allergies ALLERGIES Allergen Reactions Lisinopril Swelling Tongue swelling, angio edema requiring intubation. Amlodipine Other: See Comments SOB Current Medications Current Outpatient Medications on File Prior to Visit Medication Sig spironolactone (ALDACTONE) 25 mg tablet Take 25 mg by mouth once daily. albuterol HFA (PROVENTIL HFA, VENTOLIN HFA) 90 mcg/actuation inhaler Inhale 2 Puffs as instructed every 4 hours as needed for wheezing/shortness of breath. isosorbide mononitrate ER (IMDUR) 60 mg 24 hr tablet Take 60 mg by mouth once daily. ranolazine ER (RANEXA) 500 mg 12 hr tablet Take 500 mg by mouth twice daily. amLODIPine (NORVASC) 5 mg tablet Take 5 mg by mouth once daily. atorvastatin (LIPITOR) 40 mg tablet Take 1 tablet by mouth daily at bedtime. Per [facility] famotidine (PEPCID) 20 mg tablet Take 1 tablet by mouth at bedtime as needed. levothyroxine (SYNTHROID) 50 mcg tablet Take 1 tablet by mouth once daily. Take on empty stomach. For thyroid. metFORMIN ER (GLUCOPHAGE XR) 500 mg 24 hr tablet Take 1 tablet by mouth daily with breakfast. furosemide (LASIX) 40 mg tablet Take 40 mg by mouth once daily. clopidogrel (PLAVIX) 75 mg tablet Take 1 tablet by mouth once daily. Per Cardio, Dr. Fuentes cholecalciferol, vitamin D3, (VITAMIN D3 ORAL) Take 2,000 Units by mouth. Per Rheumatology aspirin, enteric coated (ASPIRIN, ENTERIC COATED) 81 mg EC tablet Take 81 mg by mouth once daily. Dpaboipuzwz-Yvwpbdvpr-Jxu C-Mn (GLUCOSAMINE CHONDROITIN MAXSTR) 500-400 mg cap Take 1 capsule by mouth once daily. atenolol (TENORMIN) 25 mg tablet Take 0.5 tablets by mouth once daily. nitroglycerin sublingual (NITROSTAT) 0.4 mg SL tablet DISSOLVE 1 TABLET UNDER TONGUE EVERY 5 MINUTES X3 NEEDED FOR CHESTPAIN diclofenac (VOLTAREN) 1 % topical gel Apply a total of 2 grams to the back of each hand over the joints up to 4 times a day. Iorvxvnpagdbl-Ddajtgfv-Hbjlha (CENTRUM SILVER) tab Take 1 tablet by mouth once daily. No current facility-administered medications on file prior to visit. Social History Social History Tobacco Use Smoking status: Former Types: Cigars Smokeless tobacco: Never Tobacco comments: Quit Substance Use Topics Alcohol use: Yes Comment: occasionally wine 1-2 times weekly Drug use: No Review of Symptoms REVIEW OF SYSTEMS See HPI EXAM: BP 134/72 Pulse 79 Temp 36.6 C (97.8 F) Resp 18 Wt 130.8 kg (288 lb 6.4 oz) SpO2 91% BMI 41.68 kg/m General Appearance: Well appearing, alert, in no acute distress, well-hydrated, well nourished.. Skin: Mild erythema on left distal 1/2 of burciaga which is dependent and resolves with elevation on his left leg. Extremities: No edema. Spider veins noted in left LE and around ankle/foot. No TTP or warmth to touch. Health Maintenance List Hepatitis B Vaccine(1 of 3 - Risk 3-dose series) Never done Covid-19 Vaccine(5 - Moderna series) due on 05/05/2022 Influenza Vaccine(1) due on 11/28/2022 Shingrix Vaccine(1 of 2) due on 08/14/2023 HbA1C due on 12/26/2022 Dilated Retinal Exam due on 06/13/2023 Urine Albumin:Creatinine Ratio due on 06/26/2023 LDL Cholesterol due on 06/26/2023 DTaP,Tdap,Td Vaccine(3 - Td or Tdap) due on 07/12/2028 Advance Directive Discussion Completed Pneumococcal Vaccine: 65+ Completed Diabetic Foot Exam Discontinued ASSESSMENT/PLAN: 1. Dependent rubor - ICD9: 695.9, ICD10: L53.9 Left leg erythema resolves completely with leg elevation. Without other signs of cellulitis, would not treat with abx at this time. Discussed symptoms of skin infection which he should call with. Recommend keeping legs elevated with rest and will have him f/u with PCP. Jamie Bautista MD documented in this encounter [facility] 12-16-2022 Note HNO ID: [id number] Author: Magdaleno Stratton LPN Service: ? Author Type: ? Type: Progress Notes Filed: 12/18/2022 11:21 AM Note Text: Scan on 12/16/2022 1:42 PM by Provider, External, PA-C: Ultrasound [facility] 12-12-2022 Note HNO ID: [id number] Author: Naomi German LPN Service: ? Author Type: ? Type: Progress Notes Filed: 12/14/2022 4:03 PM Note Text: Scan on 12/09/2022 4:16 PM by Provider, External PA-C: Pulmonary [facility] 12-12-2022 History of Presen t illness Narrative Scan on 12/09/2022 4:16 PM by ProviderJacki PA-C: Pulmonary documented in this encounter [facility] 12-04-2022 Note HNO ID: [id number] Author: Mel Kilgore Ma Service: ? Author Type: ? Type: Progress Notes Filed: 12/07/2022 8:56 PM Note Text: CT scans below View External Imaging - CT Scan [ID [id number]] [facility] 12-04-2022 History of Presen t illness Narrative CT scans below View External Imaging - CT Scan [ID [id number]] documented in this encounter [facility] 11-20-2022 Note HNO ID: [id number] Author: Naomi German LPN Service: ? Author Type: ? Type: Progress Notes Filed: 11/23/2022 9:24 PM Note Text: Scan on 11/20/2022 11:39 AM by Provider, External, PA-C: Chemistry [facility] 11-20-2022 Note HNO ID: [id number] Author: Cheli Lovelace MA Service: ? Author Type: Creative Services Director Type: Progress Notes Filed: 11/20/2022 8:20 AM Note Text: Scan on 11/12/2022 1:07 PM by ProviderJacki PA-C: X-ray Scan on 11/15/2022 1:43 AM by Jacki Goldman PA-C: Consultation - Rheumatology Cheli Lovelace MA [facility] 11-20-2022 History of Presen t illness Narrative Scan on 11/12/2022 1:07 PM by Jacki Goldman PA-C: X-ray Scan on 11/15/2022 1:43 AM by Jacki Goldman PA-C: Consultation - Rheumatology Cheli Lovelace MA documented in this encounter [facility] 11-13-2022 Note HNO ID: [id number] Author: Naomi German LPN Service: ? Author Type: ? Type: Progress Notes Filed: 11/13/2022 8:09 PM Note Text: Scan on 11/12/2022 1:07 PM by ProviderJacki PA-C: X-ray [facility] 11-11-2022 Note HNO ID: [id number] Author: Sonya Alonso Ma Service: ? Author Type: ? Type: Progress Notes Filed: 11/12/2022 12:31 AM Note Text: View External Labs - Hematology [ID [id number]] View External Labs - Chemistry [ID [id number]] [facility] 11-11-2022 History of Presen t illness Narrative View External Labs - Hematology [ID [id number]] View External Labs - Chemistry [ID [id number]] documented in this encounter [facility] 11-05-2022 Note HNO ID: [id number] Author: Cheli Lovelace MA Service: ? Author Type: Creative Services Director Type: Progress Notes Filed: 11/05/2022 8:24 PM Note Text: Scan on 10/27/2022 12:13 PM by Provider, DESI Echeverria: Ultrasound AAA US Cheli Lovelace MA [facility] 11-05-2022 Note HNO ID: [id number] Author: Tatiana Mckinney APRN.TELEPHONE EXCHANGE OPERATOR Service: ? Author Type: Nurse Practitioner Type: Progress Notes Filed: 11/05/2022 2:37 PM Note Text: Subjective Shortness of Breath Pertinent negatives include no chest pain, fever or vomiting. Gus Wesley is a 87 year old male who presents with cough, shortness of breath, and decreased oxygen saturation at home. States his sats have been 91 % at home at rest, and during cardiac rehab he has dropped to as low as 85%. He denies fever, chills, back pain or chest pain. His cough is productive of yellow sputum. He has not taken any medication at home for his symptoms. Review of Systems Constitutional: Positive for malaise/fatigue. Negative for chills, diaphoresis and fever. HENT: Negative for congestion. Respiratory: Positive for cough and shortness of breath. Cardiovascular: Negative for chest pain. Gastrointestinal: Negative for nausea and vomiting. Musculoskeletal: Negative for back pain. BP 125/64 Pulse 66 Temp 37.1 ?C (98.8 ?F) Resp 22 Wt 131.5 kg (290 lb) SpO2 93% BMI 41.91 kg/m? PAST MEDICAL HISTORY Diagnosis Date Benign neoplasm of colon colon polyps Benign prostatic hyperplasia with lower urinary tract symptoms 04/17/2005 Bilateral carotid artery stenosis 04/05/2021 04/20 20-40% bilaterall Bladder neck obstruction 04/17/2005 BMI 40.0-44.9, adult ([facility]) 09/19/2015 Controlled type 2 diabetes mellitus without complication, without long-term current use of insulin ([facility]) 09/19/2015 Coronary artery disease due to lipid rich plaque 10/15/2005 Dr. Fuentes Cath, [facility] 07-09-05 3 LAD stents DDD (degenerative disc disease), cervical 07/04/2022 Seeing [facility]. Decreased appetite 04/09/2020 Diabetic eye exam ([facility]) 03/12/2017 Last done: 08/28/2017 Diverticulosis of colon (without mention of hemorrhage) Ex-smoker 04/30/2018 Foot callus 06/06/2020 Sees Podiatry Gastroesophageal reflux disease without esophagitis 07/16/2005 History of prostate cancer 06/01/2009 PSA per PCP, was released by urology. Treated with radiation Hypothyroidism, acquired 05/17/2019 Knee joint 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 02/18/2005 Left inguinal hernia 02/17/2017 Very small and none tender will monitor Living will on file 06/12/2021 DPA: Daughter (Venita) Lung nodules 04/02/2021 Noted on cxr 04/02/21. No nodules on chest x-ray [facility] 05/2021 Malignant neoplasm of prostate (HCC) 06/01/2009 PSA per PCP, was released by urology, radiation 06/06 to 08/06 Microscopic hematuria 05/17/2019 Sees Urology Mixed hyperlipidemia 07/16/2005 Nodular prostate with urinary obstruction 05/01/2009 Paroxysmal atrial fibrillation ([facility]) 01/05/2019 Seeing [facility]: developed during hosp stay at [facility] 12/2018 for angioedema. Was cardioverted. PMR (polymyalgia rheumatica) ([facility]) 04/21/[address] Miller Situational depression 04/09/2020 Spondylosis of cervical region without myelopathy or radiculopathy 07/04/2022 Seeing [facility]. PAST SURGICAL HISTORY Procedure Laterality Date 2D ECHO (EXEP) 11/25/2019 EF=60%, mild LVH, mild LA enlargement, 1+ WI, COLONOSCOPY FLX DX W/COLLJ SPEC WHEN PFRMD 10/29, 12/01 Colonoscopy COLONOSCOPY FLX DX W/COLLJ SPEC WHEN PFRMD 07/24/2011 Colonoscopy NEUROPLASTY AND/TRANSPOS MEDIAN NRV CARPAL TUNNE Left 12/24/2018 PAST SURGICAL HISTORY OF 07/03, 11/02 Heart Cath PAST SURGICAL HISTORY OF 1975 anal fistula repair PAST SURGICAL HISTORY OF 04/24/2008 Left total knee REMV CATARACT EXTRACAP,INSERT LENS Bilateral 06/2022, 07/2022 ALLERGIES Lisinopril and Amlodipine MEDICATIONS albuterol HFA (PROVENTIL HFA, VENTOLIN HFA) 90 mcg/actuation inhaler Inhale 2 Puffs as instructed every 4 hours as needed for wheezing/shortness of breath. isosorbide mononitrate ER (IMDUR) 60 mg 24 hr tablet Take 60 mg by mouth once daily. ranolazine ER (RANEXA) 500 mg 12 hr tablet Take 500 mg by mouth twice daily. amLODIPine (NORVASC) 5 mg tablet Take 5 mg by mouth once daily. atorvastatin (LIPITOR) 40 mg tablet Take 1 tablet by mouth daily at bedtime. Per [place] [facility] famotidine (PEPCID) 20 mg tablet Take 1 tablet by mouth at bedtime as needed. levothyroxine (SYNTHROID) 50 mcg tablet Take 1 tablet by mouth once daily. Take on empty stomach. For thyroid. metFORMIN ER (GLUCOPHAGE XR) 500 mg 24 hr tablet Take 1 tablet by mouth daily with breakfast. nitroglycerin sublingual (NITROSTAT) 0.4 mg SL tablet DISSOLVE 1 TABLET UNDER TONGUE EVERY 5 MINUTES X3 NEEDED FOR CHESTPAIN diclofenac (VOLTAREN) 1 % topical gel Apply a total of 2 grams to the back of each hand over the joints up to 4 times a day. furosemide (LASIX) 40 mg tablet Take 40 mg by mouth once daily. clopidogrel (PLAVIX) 75 mg tablet Take 1 tablet by mouth once daily. Per Cardio, Dr. Fuentes cholecalciferol, vitamin D3, (VITAMIN D3 ORAL) Take 2,000 Units by mouth. Per Rheumatology aspirin, enteric coated (ASPIRIN, ENTERIC COATED) 8 (more content not included)... [facility] 11-05-2022 Note HNO ID: [id number] Author: Vanessa Mitchell RT(R) Service: Radiology Author Type: Technologist Type: Progress Notes Filed: 11/05/2022 1:49 PM Note Text: Radiology Service Progress Note PATIENT NAME: Gus Wesley DATE OF SERVICE: November 05, 2022 TIME: 1:43 PM PATIENT IDENTITY VERIFICATION COMPLETED USING TWO (2) IDENTIFIERS: Name and Date of confirmed by patient verbally. FALL SCREENING: Has the patient had 2 falls in the last year or 1 fall with injury or currently using an Ambulatory Assistive Device (Walker, Cane, Wheelchair, Crutches, etc.)? No PATIENT GENDER DATA: Male PATIENT RELEVANT IMPLANT DATA REVIEWED: Not Applicable RADIOLOGY DEPARTMENT: General X-ray: Exam(s) Completed: Chest X-Ray PERIPHERAL IV DATA: Not applicable SIGNED BY: RT Prosper(R) November 05, 2022 1:43 PM [facility] 11-05-2022 Instructions Tatiana Mckinney APRN.TELEPHONE EXCHANGE OPERATOR - 11/05/2022 2:18 PM EDT ASSESSMENT/PLAN: 1. Acute cough - ICD9: 786.2, ICD10: R05.1 (primary diagnosis) - XR CHEST 2V FRONTAL/LAT- Radiologist IMPRESSION: Prior bilateral airways thickening appears improved. No acute Consolidation. Medical Services Assistant: SHAYY Transcribe Date/Time: Nov 05 2022 1:55P Dictated by : Apolonia FLORES MD 2. Lower resp. tract infection - ICD9: 519.8, ICD10: J22 - AZITHROMYCIN 250 MG TABLET - CEFUROXIME (CEFTIN) 500 MG TABLET - Treating due to abnormal lung exam and history supportive of infectious process. - Follow-up with your PCP in 3-5 days if symptoms have not improved or sooner if symptoms worsen - Discussed red flags and need for immediate medical evaluation if any occur. - Discussed supportive care treatment with fluids, rest and analgesia. - Discussed expected course of illness Tatiana Mckinney APRN.TELEPHONE EXCHANGE OPERATOR documented in this encounter [facility] 11-05-2022 History of Presen t illness Narrative Subjective Shortness of Breath Pertinent negatives include no chest pain, fever or vomiting. Gus Wesley is a 87 year old male who presents with cough, shortness of breath, and decreased oxygen saturation at home. States his sats have been 91 % at home at rest, and during cardiac rehab he has dropped to as low as 85%. He denies fever, chills, back pain or chest pain. His cough is productive of yellow sputum. He has not taken any medication at home for his symptoms. Review of Systems Constitutional: Positive for malaise/fatigue. Negative for chills, diaphoresis and fever. HENT: Negative for congestion. Respiratory: Positive for cough and shortness of breath. Cardiovascular: Negative for chest pain. Gastrointestinal: Negative for nausea and vomiting. Musculoskeletal: Negative for back pain. BP 125/64 Pulse 66 Temp 37.1 C (98.8 F) Resp 22 Wt 131.5 kg (290 lb) SpO2 93% BMI 41.91 kg/m PAST MEDICAL HISTORY Diagnosis Date Benign neoplasm of colon colon polyps Benign prostatic hyperplasia with lower urinary tract symptoms 04/17/2005 Bilateral carotid artery stenosis 04/05/2021 US 04/20 20-40% bilaterall Bladder neck obstruction 04/17/2005 BMI 40.0-44.9, adult ([facility]) 09/19/2015 Controlled type 2 diabetes mellitus without complication, without long-term current use of insulin ([facility]) 09/19/2015 Coronary artery disease due to lipid rich plaque 10/15/2005 Dr. Fuentes [facility] 07-09-05 3 LAD stents DDD (degenerative disc disease), cervical 07/04/2022 Seeing [facility]. Decreased appetite 04/09/2020 Diabetic eye exam ([facility]) 03/12/2017 Last done: 08/28/2017 Diverticulosis of colon (without mention of hemorrhage) Ex-smoker 04/30/2018 Foot callus 06/06/2020 Sees Podiatry Gastroesophageal reflux disease without esophagitis 07/16/2005 History of prostate cancer 06/01/2009 PSA per PCP, was released by urology. Treated with radiation Hypothyroidism, acquired 05/17/2019 Knee joint 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 02/18/2005 Left inguinal hernia 02/17/2017 Very small and none tender will monitor Living will on file 06/12/2021 DPA: Daughter (Venita) Lung nodules 04/02/2021 Noted on cxr 04/02/21. No nodules on chest x-ray [facility] 05/2021 Malignant neoplasm of prostate ([facility]) 06/01/2009 PSA per PCP, was released by urology, radiation 06/06 to 08/06 Microscopic hematuria 05/17/2019 Sees Urology Mixed hyperlipidemia 07/16/2005 Nodular prostate with urinary obstruction 05/01/2009 Paroxysmal atrial fibrillation ([facility]) 01/05/2019 Seeing Alfredo: developed during hosp stay at [facility] 12/2018 for angioedema. Was cardioverted. PMR (polymyalgia rheumatica) ([facility]) 04/21/[address] Miller Situational depression 04/09/2020 Spondylosis of cervical region without myelopathy or radiculopathy 07/04/2022 Seeing [facility]. PAST SURGICAL HISTORY Procedure Laterality Date 2D ECHO (EXEP) 11/25/2019 EF=60%, mild LVH, mild LA enlargement, 1+ WI, COLONOSCOPY FLX DX W/COLLJ SPEC WHEN PFRMD 10/29, 12/01 Colonoscopy COLONOSCOPY FLX DX W/COLLJ SPEC WHEN PFRMD 07/24/2011 Colonoscopy NEUROPLASTY &/TRANSPOS MEDIAN NRV CARPAL TUNNWenceslao Left 12/24/2018 PAST SURGICAL HISTORY OF 07/03, 11/02 Heart Cath PAST SURGICAL HISTORY OF 1975 anal fistula repair PAST SURGICAL HISTORY OF 04/24/2008 Left total knee REMV CATARACT EXTRACAP,INSERT LENS Bilateral 06/2022, 07/2022 ALLERGIES Lisinopril and Amlodipine MEDICATIONS albuterol HFA (PROVENTIL HFA, VENTOLIN HFA) 90 mcg/actuation inhaler Inhale 2 Puffs as instructed every 4 hours as needed for wheezing/shortness of breath. isosorbide mononitrate ER (IMDUR) 60 mg 24 hr tablet Take 60 mg by mouth once daily. ranolazine ER (RANEXA) 500 mg 12 hr tablet Take 500 mg by mouth twice daily. amLODIPine (NORVASC) 5 mg tablet Take 5 mg by mouth once daily. atorvastatin (LIPITOR) 40 mg tablet Take 1 tablet by mouth daily at bedtime. Per Иван Cardio famotidine (PEPCID) 20 mg tablet Take 1 tablet by mouth at bedtime as needed. levothyroxine (SYNTHROID) 50 mcg tablet Take 1 tablet by mouth once daily. Take on empty stomach. For thyroid. metFORMIN ER (GLUCOPHAGE XR) 500 mg 24 hr tablet Take 1 tablet by mouth daily with breakfast. nitroglycerin sublingual (NITROSTAT) 0.4 mg SL tablet DISSOLVE 1 TABLET UNDER TONGUE EVERY 5 MINUTES X3 NEEDED FOR CHESTPAIN diclofenac (VOLTAREN) 1 % topical gel Apply a total of 2 grams to the back of each hand over the joints up to 4 times a day. furosemide (LASIX) 40 mg tablet Take 40 mg by mouth once daily. clopidogrel (PLAVIX) 75 mg tablet Take 1 tablet by mouth once daily. Per Cardio, Dr. Fuentes cholecalciferol, vitamin D3, (VITAMIN D3 ORAL) Take 2,000 Units by mouth. Per Rheumatology aspirin, enteric coated (ASPIRIN, ENTERIC COATED) 81 mg EC tablet Take 81 mg by mouth once daily. Uqysastdgxjyr-Qkzzkbtq-Cqhmge (CENTRUM SILVER) tab Take 1 tablet by mouth once daily. Hwasvaidqha-Qvmmwdghs-Lyc C-Mn (GLUCOSAMINE CHONDROITIN MAXSTR) 500-400 mg cap Take 1 capsule by mouth once daily. atenolol (TENORMIN) 25 mg tablet Take 0.5 tablets by mouth once daily. FAMILY HISTORY Problem Relation Age of Onset Cancer Mother lung other (lymphoma) Brother Stroke Father Social History Tobacco Use Smoking status: Former Types: Cigars Smokeless tobacco: Never Tobacco comments: Quit Substance Use Topics Alcohol use: Yes Comment: occasionally wine 1-2 times weekly Drug use: No Objective Physical Exam Vitals and nursing note reviewed. Constitutional: Appearance: Normal appearance. HENT: Mouth/Throat: Pharynx: Uvula midline. Cardiovascular: Rate and Rhythm: Normal rate and regular rhythm. Heart sounds: Normal heart sounds. Pulmonary: Effort: Pulmonary effort is normal. No tachypnea or respiratory distress. Breath sounds: Examination of the right-lower field reveals rales. Examination of the left-lower field reveals rales. Rales present. No wheezing. Musculoskeletal: Cervical back: Neck supple. Lymphadenopathy: Cervical: No cervical adenopathy. Skin: General: Skin is warm and dry. Findings: No erythema or rash. Neurological: Mental Status: He is alert. Last labs for kidney function: Component Latest Ref Rng & Units 06/25/2022 Protein, Total 6.3 - 8.0 g/dL 6.8 Albumin 3.9 - 4.9 g/dL 3.8 (L) Calcium 8.5 - 10.2 mg/dL 9.3 Bilirubin, Total 0.2 - 1.3 mg/dL 1.0 Alkaline Phosphatase 38 - 113 U/L 25 (L) AST 14 - 40 U/L 19 ALT 10 - 54 U/L 18 Glucose 74 - 99 mg/dL 141 (H) BUN 9 - 24 mg/dL 20 Creatinine 0.73 - 1.22 mg/dL 0.93 Sodium 136 - 144 mmol/L 139 Potassium 3.7 - 5.1 mmol/L 4.7 Chloride 97 - 105 mmol/L 99 CO2 22 - 30 mmol/L 30 Anion Gap 9 - 18 mmol/L 10 eGFR >=60 mL/min/1.73m 79 ASSESSMENT/PLAN: 1. Acute cough - ICD9: 786.2, ICD10: R05.1 (primary diagnosis) - XR CHEST 2V FRONTAL/LAT- Radiologist IMPRESSION: Prior bilateral airways thickening appears improved. No acute Consolidation. Medical Services Assistant: SHAYY Transcribe Date/Time: Nov 05 2022 1:55P Dictated by : Apolonia FLORES MD 2. Lower resp. tract infection - ICD9: 519.8, ICD10: J22 - AZITHROMYCIN 250 MG TABLET - CEFUROXIME (CEFTIN) 500 MG TABLET - Treating due to abnormal lung exam and history supportive of infectious process. - Follow-up with your PCP in 3-5 days if symptoms have not improved or sooner if symptoms worsen - Discussed red flags and need for immediate medical evaluation if any occur. - Discussed supportive care treatment with fluids, rest and analgesia. - Discussed expected course of illness Tatiana Mckinney APRN.TELEPHONE EXCHANGE OPERATOR documented in this encounter [facility] 11-05-2022 Miscellaneous Notes Spoke with pt and advised of Michelle's message. Pt states oxygen level at home has been running around 90-91%.states he really isn't feeling bad. Advised pt readings are still low and since it has been dropping at cardiac rehab should really be evaluated. Pt advises that he [facility] to be [facility]. Naomi German LPN With that low of oxygen he needs to be evaluated today. Have him to EC or go to ER. Please see pt's message. Do you want pt to be re evaluated in office? Naomi German LPN documented in this encounter [facility] 10-27-2022 Miscellaneous Notes Pt notified via [employer] that the lab orders have been placed for him to get done in Nov before his appt. Mel Kilgore Ma documented in this encounter [facility] 10-23-2022 Note HNO ID: [id number] Author: Carlotta Garcia APRN.TELEPHONE EXCHANGE OPERATOR Service: ? Author Type: Nurse Practitioner Type: Progress Notes Filed: 10/23/2022 2:44 PM Note Text: Chief Complaint Patient presents with: Follow Up HPI Gus Wesley is a 87 year old male who presents here today for Above Complaints.. Patient presents for follow up. Patient was seen 2 weeks ago and diagnosed with Pneumonia. Patient was treated with azithromycin and augmentin. Patient was also giving steroids and an inhaler. Patient reports he is improved and feeling much better. Reports shortness of breath but this is improving. Patient reports he is attending cardiac rehab. Past medical history, appointments, medications, allergies reviewed. Previous Medical History PAST MEDICAL HISTORY Diagnosis Date Benign neoplasm of colon colon polyps Benign prostatic hyperplasia with lower urinary tract symptoms 04/17/2005 Bilateral carotid artery stenosis 04/05/2021 04/20 20-40% bilaterall Bladder neck obstruction 04/17/2005 BMI 40.0-44.9, adult ([facility]) 09/19/2015 Controlled type 2 diabetes mellitus without complication, without long-term current use of insulin ([facility]) 09/19/2015 Coronary artery disease due to lipid rich plaque 10/15/2005 Dr. Fuentes [facility] 07-09-05 3 LAD stents DDD (degenerative disc disease), cervical 07/04/2022 Seeing [facility]. Decreased appetite 04/09/2020 Diabetic eye exam ([facility]) 03/12/2017 Last done: 08/28/2017 Diverticulosis of colon (without mention of hemorrhage) Ex-smoker 04/30/2018 Foot callus 06/06/2020 Sees Podiatry Gastroesophageal reflux disease without esophagitis 07/16/2005 History of prostate cancer 06/01/2009 PSA per PCP, was released by urology. Treated with radiation Hypothyroidism, acquired 05/17/2019 Knee joint 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 02/18/2005 Left inguinal hernia 02/17/2017 Very small and none tender will monitor Living will on file 06/12/2021 DPA: Daughter (Venita) Lung nodules 04/02/2021 Noted on cxr 04/02/21. No nodules on chest x-ray [facility] 05/2021 Malignant neoplasm of prostate ([facility]) 06/01/2009 PSA per PCP, was released by urology, radiation 06/06 to 08/06 Microscopic hematuria 05/17/2019 Sees Urology Mixed hyperlipidemia 07/16/2005 Nodular prostate with urinary obstruction 05/01/2009 Paroxysmal atrial fibrillation ([facility]) 01/05/2019 Seeing [place]: developed during hosp stay at [facility] 12/2018 for angioedema. Was cardioverted. PMR (polymyalgia rheumatica) ([facility]) 04/21/[address] Miller Situational depression 04/09/2020 Spondylosis of cervical region without myelopathy or radiculopathy 07/04/2022 Seeing [facility]. Previous Surgical History PAST SURGICAL HISTORY Procedure Laterality Date 2D ECHO (EXEP) 11/25/2019 EF=60%, mild LVH, mild LA enlargement, 1+ WI, COLONOSCOPY FLX DX W/COLLJ SPEC WHEN PFRMD 10/29, 12/01 Colonoscopy COLONOSCOPY FLX DX W/COLLJ SPEC WHEN PFRMD 07/24/2011 Colonoscopy NEUROPLASTY AND/TRANSPOS MEDIAN NRV CARPAL TUNNE Left 12/24/2018 PAST SURGICAL HISTORY OF 07/03, 11/02 Heart Cath PAST SURGICAL HISTORY OF 1974 anal fistula repair PAST SURGICAL HISTORY OF 04/24/2008 Left total knee REMV CATARACT EXTRACAP,INSERT LENS Bilateral 06/2022, 07/2022 Family History FAMILY HISTORY Problem Relation Age of Onset Cancer Mother lung other (lymphoma) Brother Stroke Father Patient Allergies ALLERGIES Allergen Reactions Lisinopril Swelling Tongue swelling, angio edema requiring intubation. Amlodipine Other: See Comments SOB Current Medications Current Outpatient Medications on File Prior to Visit Medication Sig isosorbide mononitrate ER (IMDUR) 60 mg 24 hr tablet Take 60 mg by mouth once daily. ranolazine ER (RANEXA) 500 mg 12 hr tablet Take 500 mg by mouth twice daily. amLODIPine (NORVASC) 5 mg tablet Take 5 mg by mouth once daily. albuterol HFA (PROVENTIL HFA, VENTOLIN HFA) 90 mcg/actuation inhaler Inhale 2 Puffs as instructed every 4 hours as needed for wheezing/shortness of breath. atorvastatin (LIPITOR) 40 mg tablet Take 1 tablet by mouth daily at bedtime. Per Иван Cardio famotidine (PEPCID) 20 mg tablet Take 1 tablet by mouth at bedtime as needed. levothyroxine (SYNTHROID) 50 mcg tablet Take 1 tablet by mouth once daily. Take on empty stomach. For thyroid. metFORMIN ER (GLUCOPHAGE XR) 500 mg 24 hr tablet Take 1 tablet by mouth daily with breakfast. nitroglycerin sublingual (NITROSTAT) 0.4 mg SL tablet DISSOLVE 1 TABLET UNDER TONGUE EVERY 5 MINUTES X3 NEEDED FOR CHESTPAIN diclofenac (VOLTAREN) 1 % topical gel Apply a total of 2 grams to the back of each hand over the joints up to 4 times a day. (Patient not taking: Reported on 10/06/2022) furosemide (LASIX) 40 mg tablet Take 40 mg by mouth once daily. clopidogrel (PLAVIX) 75 mg tablet Take 1 tablet by mouth once daily. Per Cardio, Dr. Fuentes cholecalciferol, vitamin D3, (VITAMIN D3 ORAL) Take 2,000 Units by mouth. (more content not included)... [facility] 10-23-2022 Instructions Carlotta Garcia APRN.GLORIA - 10/23/2022 2:43 PM EDT Continue use of IS and albuterol inhaler. documented in this encounter [facility] 10-23-2022 History of Presen t illness Narrative Chief Complaint Patient presents with: Follow Up HPI Gus Wesley is a 87 year old male who presents here today for Above Complaints.. Patient presents for follow up. Patient was seen 2 weeks ago and diagnosed with Pneumonia. Patient was treated with azithromycin and augmentin. Patient was also giving steroids and an inhaler. Patient reports he is improved and feeling much better. Reports shortness of breath but this is improving. Patient reports he is attending cardiac rehab. Past medical history, appointments, medications, allergies reviewed. Previous Medical History PAST MEDICAL HISTORY Diagnosis Date Benign neoplasm of colon colon polyps Benign prostatic hyperplasia with lower urinary tract symptoms 04/17/2005 Bilateral carotid artery stenosis 04/05/2021 US 04/20 20-40% bilaterall Bladder neck obstruction 04/17/2005 BMI 40.0-44.9, adult ([facility]) 09/19/2015 Controlled type 2 diabetes mellitus without complication, without long-term current use of insulin ([facility]) 09/19/2015 Coronary artery disease due to lipid rich plaque 10/15/2005 Dr. Fuentes [facility] 07-09-05 3 LAD stents DDD (degenerative disc disease), cervical 07/04/2022 Seeing [facility]. Decreased appetite 04/09/2020 Diabetic eye exam ([facility]) 03/12/2017 Last done: 08/28/2017 Diverticulosis of colon (without mention of hemorrhage) Ex-smoker 04/30/2018 Foot callus 06/06/2020 Sees Podiatry Gastroesophageal reflux disease without esophagitis 07/16/2005 History of prostate cancer 06/01/2009 PSA per PCP, was released by urology. Treated with radiation Hypothyroidism, acquired 05/17/2019 Knee joint 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 02/18/2005 Left inguinal hernia 02/17/2017 Very small and none tender will monitor Living will on file 06/12/2021 DPA: Daughter (Venita) Lung nodules 04/02/2021 Noted on cxr 04/02/21. No nodules on chest x-ray [facility] 05/2021 Malignant neoplasm of prostate ([facility]) 06/01/2009 PSA per PCP, was released by urology, radiation 06/06 to 08/06 Microscopic hematuria 05/17/2019 Sees Urology Mixed hyperlipidemia 07/16/2005 Nodular prostate with urinary obstruction 05/01/2009 Paroxysmal atrial fibrillation ([facility]) 01/05/2019 Seeing Alfredo: developed during hosp stay at [facility] 12/2018 for angioedema. Was cardioverted. PMR (polymyalgia rheumatica) ([facility]) 04/21/[address] Miller Situational depression 04/09/2020 Spondylosis of cervical region without myelopathy or radiculopathy 07/04/2022 Seeing [facility]. Previous Surgical History PAST SURGICAL HISTORY Procedure Laterality Date 2D ECHO (EXEP) 11/25/2019 EF=60%, mild LVH, mild LA enlargement, 1+ WI, COLONOSCOPY FLX DX W/COLLJ SPEC WHEN PFRMD 10/29, 12/01 Colonoscopy COLONOSCOPY FLX DX W/COLLJ SPEC WHEN PFRMD 07/24/2011 Colonoscopy NEUROPLASTY &/TRANSPOS MEDIAN NRV CARPAL TUNNE Left 12/24/2018 PAST SURGICAL HISTORY OF 07/03, 11/02 Heart Cath PAST SURGICAL HISTORY OF 1974 anal fistula repair PAST SURGICAL HISTORY OF 04/24/2008 Left total knee REMV CATARACT EXTRACAP,INSERT LENS Bilateral 06/2022, 07/2022 Family History FAMILY HISTORY Problem Relation Age of Onset Cancer Mother lung other (lymphoma) Brother Stroke Father Patient Allergies ALLERGIES Allergen Reactions Lisinopril Swelling Tongue swelling, angio edema requiring intubation. Amlodipine Other: See Comments SOB Current Medications Current Outpatient Medications on File Prior to Visit Medication Sig isosorbide mononitrate ER (IMDUR) 60 mg 24 hr tablet Take 60 mg by mouth once daily. ranolazine ER (RANEXA) 500 mg 12 hr tablet Take 500 mg by mouth twice daily. amLODIPine (NORVASC) 5 mg tablet Take 5 mg by mouth once daily. albuterol HFA (PROVENTIL HFA, VENTOLIN HFA) 90 mcg/actuation inhaler Inhale 2 Puffs as instructed every 4 hours as needed for wheezing/shortness of breath. atorvastatin (LIPITOR) 40 mg tablet Take 1 tablet by mouth daily at bedtime. Per Иван Cardio famotidine (PEPCID) 20 mg tablet Take 1 tablet by mouth at bedtime as needed. levothyroxine (SYNTHROID) 50 mcg tablet Take 1 tablet by mouth once daily. Take on empty stomach. For thyroid. metFORMIN ER (GLUCOPHAGE XR) 500 mg 24 hr tablet Take 1 tablet by mouth daily with breakfast. nitroglycerin sublingual (NITROSTAT) 0.4 mg SL tablet DISSOLVE 1 TABLET UNDER TONGUE EVERY 5 MINUTES X3 NEEDED FOR CHESTPAIN diclofenac (VOLTAREN) 1 % topical gel Apply a total of 2 grams to the back of each hand over the joints up to 4 times a day. (Patient not taking: Reported on 10/06/2022) furosemide (LASIX) 40 mg tablet Take 40 mg by mouth once daily. clopidogrel (PLAVIX) 75 mg tablet Take 1 tablet by mouth once daily. Per CardioDr. Fuentes cholecalciferol, vitamin D3, (VITAMIN D3 ORAL) Take 2,000 Units by mouth. Per Rheumatology aspirin, enteric coated (ASPIRIN, ENTERIC COATED) 81 mg EC tablet Take 81 mg by mouth once daily. Icynklzqkgitr-Kutohpzl-Mxmket (CENTRUM SILVER) tab Take 1 tablet by mouth once daily. Jzazkxkefkt-Ccgpwgumz-Ywp C-Mn (GLUCOSAMINE CHONDROITIN MAXSTR) 500-400 mg cap Take 1 capsule by mouth once daily. atenolol (TENORMIN) 25 mg tablet Take 0.5 tablets by mouth once daily. No current facility-administered medications on file prior to visit. Social History Social History Tobacco Use Smoking status: Former Types: Cigars Smokeless tobacco: Never Tobacco comments: Quit Substance Use Topics Alcohol use: Yes Comment: occasionally wine 1-2 times weekly Drug use: No Review of Symptoms REVIEW OF SYSTEMS SEE HPI EXAM: BP 126/74 Pulse 78 Resp 16 Wt 130.6 kg (288 lb) BMI 41.62 kg/m General Appearance: Well appearing, alert, in no acute distress, well-hydrated, well nourished.. Lungs: Lungs clear to auscultation. No wheezing, rhonchi, rales.. Heart: RRR without murmur, gallop, or rubs. No ectopy. Health Maintenance List COVID-19 VACCINE(5 - Moderna series) due on 05/05/2022 SHINGRIX VACCINE(1 of 2) due on 08/14/2023 INFLUENZA(1) due on 11/28/2022 HBA1C due on 12/26/2022 DILATED RETINAL EXAM due on 06/13/2023 URINE ALBUMIN:CREATININE RATIO due on 06/26/2023 LDL CHOLESTEROL due on 06/26/2023 DTAP,TDAP,TD(3 - Td or Tdap) due on 07/12/2028 ADVANCE DIRECTIVE DISCUSSION Completed PNEUMOCOCCAL: 65+ Completed DIABETIC FOOT EXAM Discontinued ASSESSMENT/PLAN: 1. Bacterial pneumonia - ICD9: 482.9, ICD10: J15.9 -Improving - Continue IS and inhaler as needed Carlotta Garcia APRN.TELEPHONE EXCHANGE OPERATOR documented in this encounter [facility] 10-07-2022 Miscellaneous Notes Patient notified of results and provider's instructions. Patient verbalizes understanding. Naomi German LPN Covid and flu negative. Continue as discussed yesterday. documented in this encounter [facility] 10-06-2022 Note HNO ID: [id number] Author: RT Anoop(R) Service: Radiology Author Type: Technologist Type: Progress Notes Filed: 10/06/2022 12:56 PM Note Text: Radiology Service Progress Note PATIENT NAME: Gus Wesley DATE OF SERVICE: October 06, 2022 TIME: 12:50 PM PATIENT IDENTITY VERIFICATION COMPLETED USING TWO (2) IDENTIFIERS: Name and Date of confirmed by patient verbally. FALL SCREENING: Has the patient had 2 falls in the last year or 1 fall with injury or currently using an Ambulatory Assistive Device (Walker, Cane, Wheelchair, Crutches, etc.)? No PATIENT GENDER DATA: Male PATIENT RELEVANT IMPLANT DATA REVIEWED: Yes RADIOLOGY DEPARTMENT: General X-ray: Exam(s) Completed: Chest X-Ray PERIPHERAL IV DATA: Not applicable SIGNED BY: RT Anoop(R) October 06, 2022 12:50 PM [facility] 10-06-2022 Note HNO ID: [id number] Author: Michelle Ramirez PA-C Service: ? Author Type: Physician Lockstitch Topstitcher Type: Progress Notes Filed: 10/06/2022 1:22 PM Note Text: Chief Complaint No chief complaint on file. HPI Gus Wesley is a 87 year old male who presents here today for cough and congestion. Patient reports that starting yesterday he felt chilled and then started having cough and mild shortness of breath. Cough is productive at times. He is feeling a little better today. Some body aches Chills improved. Didn't check temp today. Past medical history, appointments, medications, allergies reviewed. Previous Medical History PAST MEDICAL HISTORY Diagnosis Date Benign neoplasm of colon colon polyps Benign prostatic hyperplasia with lower urinary tract symptoms 04/17/2005 Bilateral carotid artery stenosis 04/05/2021 04/20 20-40% bilaterall Bladder neck obstruction 04/17/2005 BMI 40.0-44.9, adult ([facility]) 09/19/2015 Controlled type 2 diabetes mellitus without complication, without long-term current use of insulin ([facility]) 09/19/2015 Coronary artery disease due to lipid rich plaque 10/15/2005 Dr. Fuentes Cath, [facility] 07-09-05 3 LAD stents DDD (degenerative disc disease), cervical 07/04/2022 Seeing [facility]. Decreased appetite 04/09/2020 Diabetic eye exam (HCC) 03/12/2017 Last done: 08/28/2017 Diverticulosis of colon (without mention of hemorrhage) Ex-smoker 04/30/2018 Foot callus 06/06/2020 Sees Podiatry Gastroesophageal reflux disease without esophagitis 07/16/2005 History of prostate cancer 06/01/2009 PSA per PCP, was released by urology. Treated with radiation Hypothyroidism, acquired 05/17/2019 Knee joint 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 02/18/2005 Left inguinal hernia 02/17/2017 Very small and none tender will monitor Living will on file 06/12/2021 DPA: Daughter (Venita) Lung nodules 04/02/2021 Noted on cxr 04/02/21. No nodules on chest x-ray [facility] 05/2021 Malignant neoplasm of prostate (HCC) 06/01/2009 PSA per PCP, was released by urology, radiation 06/06 to 08/06 Microscopic hematuria 05/17/2019 Sees Urology Mixed hyperlipidemia 07/16/2005 Nodular prostate with urinary obstruction 05/01/2009 Paroxysmal atrial fibrillation ([facility]) 01/05/2019 Seeing Alfredo: developed during hosp stay at [facility] 12/2018 for angioedema. Was cardioverted. PMR (polymyalgia rheumatica) ([facility]) 04/21/[address] Miller Situational depression 04/09/2020 Spondylosis of cervical region without myelopathy or radiculopathy 07/04/2022 Seeing [facility]. Previous Surgical History PAST SURGICAL HISTORY Procedure Laterality Date 2D ECHO (EXEP) 11/25/2019 EF=60%, mild LVH, mild LA enlargement, 1+ WI, COLONOSCOPY FLX DX W/COLLJ SPEC WHEN PFRMD 10/29, 12/01 Colonoscopy COLONOSCOPY FLX DX W/COLLJ SPEC WHEN PFRMD 07/24/2011 Colonoscopy NEUROPLASTY AND/TRANSPOS MEDIAN NRV CARPAL TUNNE Left 12/24/2018 PAST SURGICAL HISTORY OF 07/03, 11/02 Heart Cath PAST SURGICAL HISTORY OF 1975 anal fistula repair PAST SURGICAL HISTORY OF 04/24/2008 Left total knee REMV CATARACT EXTRACAP,INSERT LENS Bilateral 06/2022, 07/2022 Family History FAMILY HISTORY Problem Relation Age of Onset Cancer Mother lung other (lymphoma) Brother Stroke Father Patient Allergies ALLERGIES Allergen Reactions Lisinopril Swelling Tongue swelling, angio edema requiring intubation. Amlodipine Other: See Comments SOB Current Medications Current Outpatient Medications on File Prior to Visit Medication Sig isosorbide mononitrate ER (IMDUR) 60 mg 24 hr tablet Take 60 mg by mouth once daily. ranolazine ER (RANEXA) 500 mg 12 hr tablet Take 500 mg by mouth twice daily. amLODIPine (NORVASC) 5 mg tablet Take 5 mg by mouth once daily. atorvastatin (LIPITOR) 40 mg tablet Take 1 tablet by mouth daily at bedtime. Per [place] [facility] famotidine (PEPCID) 20 mg tablet Take 1 tablet by mouth at bedtime as needed. levothyroxine (SYNTHROID) 50 mcg tablet Take 1 tablet by mouth once daily. Take on empty stomach. For thyroid. metFORMIN ER (GLUCOPHAGE XR) 500 mg 24 hr tablet Take 1 tablet by mouth daily with breakfast. nitroglycerin sublingual (NITROSTAT) 0.4 mg SL tablet DISSOLVE 1 TABLET UNDER TONGUE EVERY 5 MINUTES X3 NEEDED FOR CHESTPAIN furosemide (LASIX) 40 mg tablet Take 40 mg by mouth once daily. clopidogrel (PLAVIX) 75 mg tablet Take 1 tablet by mouth once daily. Per Cardio, Dr. Fuentes cholecalciferol, vitamin D3, (VITAMIN D3 ORAL) Take 2,000 Units by mouth. Per Rheumatology aspirin, enteric coated (ASPIRIN, ENTERIC COATED) 81 mg EC tablet Take 81 mg by mouth once daily. Igdlhchkxnowh-Paehehhk-Aahwox (CENTRUM SILVER) tab Take 1 tablet by mouth once daily. Phjcimhtbyy-Yirrisqhe-Kpg C-Mn (GLUCOSAMINE CHONDROITIN MAXSTR) 500-400 mg cap Take 1 capsule by mouth once daily. atenolol (TENORMIN) 25 mg tablet Take 0.5 tablets by mouth once daily. diclofenac (VOLTAREN) 1 % topical gel Apply a (more content not included)... [facility] 10-06-2022 Miscellaneous Notes Patient notified of results and provider's instructions. Patient verbalizes understanding. Appointment scheduled at this time, pt aware of same. Naomi German LPN Let patient know that his xray does show possible pneumonia b/l lung troy. Will need to start atb (dual antibiotic therapy sent. Augmentin and zpak) and will need a 2-3 week follow up. documented in this encounter [facility] 10-06-2022 History of Presen t illness Narrative Chief Complaint No chief complaint on file. HPI Gus Wesley is a 87 year old male who presents here today for cough and congestion. Patient reports that starting yesterday he felt chilled and then started having cough and mild shortness of breath. Cough is productive at times. He is feeling a little better today. Some body aches Chills improved. Didn't check temp today. Past medical history, appointments, medications, allergies reviewed. Previous Medical History PAST MEDICAL HISTORY Diagnosis Date Benign neoplasm of colon colon polyps Benign prostatic hyperplasia with lower urinary tract symptoms 04/17/2005 Bilateral carotid artery stenosis 04/05/2021 US 04/20 20-40% bilaterall Bladder neck obstruction 04/17/2005 BMI 40.0-44.9, adult ([facility]) 09/19/2015 Controlled type 2 diabetes mellitus without complication, without long-term current use of insulin ([facility]) 09/19/2015 Coronary artery disease due to lipid rich plaque 10/15/2005 Dr. Fuentes [facility], [facility] 07-09-05 3 LAD stents DDD (degenerative disc disease), cervical 07/04/2022 Seeing [facility]. Decreased appetite 04/09/2020 Diabetic eye exam ([facility]) 03/12/2017 Last done: 08/28/2017 Diverticulosis of colon (without mention of hemorrhage) Ex-smoker 04/30/2018 Foot callus 06/06/2020 Sees Podiatry Gastroesophageal reflux disease without esophagitis 07/16/2005 History of prostate cancer 06/01/2009 PSA per PCP, was released by urology. Treated with radiation Hypothyroidism, acquired 05/17/2019 Knee joint 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 02/18/2005 Left inguinal hernia 02/17/2017 Very small and none tender will monitor Living will on file 06/12/2021 DPA: Daughter (Venita) Lung nodules 04/02/2021 Noted on cxr 04/02/21. No nodules on chest x-ray [facility] 05/2021 Malignant neoplasm of prostate (HCC) 06/01/2009 PSA per PCP, was released by urology, radiation 06/06 to 08/06 Microscopic hematuria 05/17/2019 Sees Urology Mixed hyperlipidemia 07/16/2005 Nodular prostate with urinary obstruction 05/01/2009 Paroxysmal atrial fibrillation (HCC) 01/05/2019 Seeing [place]: developed during hosp stay at [facility] 12/2018 for angioedema. Was cardioverted. PMR (polymyalgia rheumatica) ([facility]) 04/21/[address] Miller Situational depression 04/09/2020 Spondylosis of cervical region without myelopathy or radiculopathy 07/04/2022 Seeing [facility]. Previous Surgical History PAST SURGICAL HISTORY Procedure Laterality Date 2D ECHO (EXEP) 11/25/2019 EF=60%, mild LVH, mild LA enlargement, 1+ WI, COLONOSCOPY FLX DX W/COLLJ SPEC WHEN PFRMD 10/29, 12/01 Colonoscopy COLONOSCOPY FLX DX W/COLLJ SPEC WHEN PFRMD 07/24/2011 Colonoscopy NEUROPLASTY &/TRANSPOS MEDIAN NRV CARPAL TUNNE Left 12/24/2018 PAST SURGICAL HISTORY OF 07/03, 11/02 Heart Cath PAST SURGICAL HISTORY OF 1975 anal fistula repair PAST SURGICAL HISTORY OF 04/24/2008 Left total knee REMV CATARACT EXTRACAP,INSERT LENS Bilateral 06/2022, 07/2022 Family History FAMILY HISTORY Problem Relation Age of Onset Cancer Mother lung other (lymphoma) Brother Stroke Father Patient Allergies ALLERGIES Allergen Reactions Lisinopril Swelling Tongue swelling, angio edema requiring intubation. Amlodipine Other: See Comments SOB Current Medications Current Outpatient Medications on File Prior to Visit Medication Sig isosorbide mononitrate ER (IMDUR) 60 mg 24 hr tablet Take 60 mg by mouth once daily. ranolazine ER (RANEXA) 500 mg 12 hr tablet Take 500 mg by mouth twice daily. amLODIPine (NORVASC) 5 mg tablet Take 5 mg by mouth once daily. atorvastatin (LIPITOR) 40 mg tablet Take 1 tablet by mouth daily at bedtime. Per [place] [facility] famotidine (PEPCID) 20 mg tablet Take 1 tablet by mouth at bedtime as needed. levothyroxine (SYNTHROID) 50 mcg tablet Take 1 tablet by mouth once daily. Take on empty stomach. For thyroid. metFORMIN ER (GLUCOPHAGE XR) 500 mg 24 hr tablet Take 1 tablet by mouth daily with breakfast. nitroglycerin sublingual (NITROSTAT) 0.4 mg SL tablet DISSOLVE 1 TABLET UNDER TONGUE EVERY 5 MINUTES X3 NEEDED FOR CHESTPAIN furosemide (LASIX) 40 mg tablet Take 40 mg by mouth once daily. clopidogrel (PLAVIX) 75 mg tablet Take 1 tablet by mouth once daily. Per Cardio, Dr. Fuentes cholecalciferol, vitamin D3, (VITAMIN D3 ORAL) Take 2,000 Units by mouth. Per Rheumatology aspirin, enteric coated (ASPIRIN, ENTERIC COATED) 81 mg EC tablet Take 81 mg by mouth once daily. Aeuzjydcppmkm-Jxuthdut-Utgzow (CENTRUM SILVER) tab Take 1 tablet by mouth once daily. Xhzbkfcjzjc-Ibvjanhqi-Lic C-Mn (GLUCOSAMINE CHONDROITIN MAXSTR) 500-400 mg cap Take 1 capsule by mouth once daily. atenolol (TENORMIN) 25 mg tablet Take 0.5 tablets by mouth once daily. diclofenac (VOLTAREN) 1 % topical gel Apply a total of 2 grams to the back of each hand over the joints up to 4 times a day. (Patient not taking: Reported on 10/06/2022) predniSONE (DELTASONE) 1 mg tablet Take 0.5 tablets by mouth once daily. Per Rheum (Patient not taking: Reported on 10/06/2022) No current facility-administered medications on file prior to visit. Social History Social History Tobacco Use Smoking status: Former Types: Cigars Smokeless tobacco: Never Tobacco comments: Quit Substance Use Topics Alcohol use: Yes Comment: occasionally wine 1-2 times weekly Drug use: No Review of Symptoms REVIEW OF SYSTEMS See hpi EXAM: BP 120/70 (BP Site: Right Arm, BP Position: Sitting, BP Cuff Size: Large Adult) Pulse 77 Temp 36.9 C (98.5 F) Resp 20 Wt 129.3 kg (285 lb) SpO2 91% BMI 41.19 kg/m General Appearance: Well appearing, alert, in no acute distress, well-hydrated, well nourished. and Obese. Eyes: Anicteric sclera. Pupils are equally round and reactive to light. Extraocular movements are intact. . Ears: TMs pearly acosta, External ears normal, canals clear. Nose/Sinuses: Nares normal, septum midline, mucosa normal, no drainage or sinus tenderness. Oropharynx: Lips, mucosa, and tongue normal, teeth and gums normal, oropharynx normal. Neck: Supple, no adenopathy; thyroid symmetric, normal size, no bruits. Lungs: wheezes in all lung troy. . Heart: RRR without murmur, gallop, or rubs. No ectopy. Health Maintenance List COVID-19 VACCINE(5 - Moderna series) due on 05/05/2022 SHINGRIX VACCINE(1 of 2) due on 08/14/2023 INFLUENZA(1) due on 11/28/2022 HBA1C due on 12/26/2022 DILATED RETINAL EXAM due on 06/13/2023 URINE ALBUMIN:CREATININE RATIO due on 06/26/2023 LDL CHOLESTEROL due on 06/26/2023 DTAP,TDAP,TD(3 - Td or Tdap) due on 07/12/2028 ADVANCE DIRECTIVE DISCUSSION Completed PNEUMOCOCCAL: 65+ Completed DIABETIC FOOT EXAM Discontinued Data reviewed ASSESSMENT/PLAN: 1. Acute cough - ICD9: 786.2, ICD10: R05.1 (primary diagnosis) Check covid/flu Check CXR today. Start steroid and albuterol. Follow up prn - COVID WITH FLUA+B, ROUTINE - XR CHEST 2V FRONTAL/LAT 2. Bronchitis - ICD9: 490, ICD10: J40 As above. Michelle Ramirez PA-C documented in this encounter [facility] 10-03-2022 Note HNO ID: [id number] Author: Sonya Alonso Ma Service: ? Author Type: ? Type: Progress Notes Filed: 10/03/2022 12:35 PM Note Text: Scan on 10/03/2022 9:53 AM by External Provider, DESI: Consultation - Cardiology [facility] 10-03-2022 History of Presen t illness Narrative Scan on 10/03/2022 9:53 AM by External Provider, DESI: Consultation - Cardiology documented in this encounter [facility] 09-12-2022 Note HNO ID: [id number] Author: Jackie Hall Service: ? Author Type: ? Type: Progress Notes Filed: 09/12/2022 11:56 AM Note Text: Sleep Study Check-In Documentation Date: September 12, 2022 Name: Gus Wesley Comments: HST was returned in working order without all sleep questionnaires Patient was not reached. A voicemail was left with patient to call back to complete questionnaires. Jackie Hall [facility] 09-12-2022 History of Presen t illness Narrative Sleep Study Check-In Documentation Date: September 12, 2022 Name: Gus Wesley Comments: HST was returned in working order without all sleep questionnaires Patient was not reached. A voicemail was left with patient to call back to complete questionnaires. Jackie Hall Nomad: [id number] Date: 09/09/22 [employer] Mailout Tracking Number: [id number] [employer] Return Tracking Number: [id number] August 19, 2022 Standing PSG Orders signed in the last 90 days None Future PSG Orders signed in the last 90 days Ordered Auth. provider HOME SLEEP APNEA TEST (HSAT) [[id number]] 08/13/22 Mary Grace Edmonds MD Assoc. diagnoses: BMI 40.0-44.9, adult (HCC) [Z68.41], Hypersomnolence [G47.10] Q: Indications: A: Obstructive sleep apnea Q: STOP-BANG conditions - Select All That Apply: A: GENDER = male A2: BMI > 35 kg/m2 A3: AGE > 50 A4: SNORING that is loud or disruptive A5: TIREDNESS, fatigue or sleepiness during the day Q: Current use of supplemental oxygen during sleep period?: A: No All Prior Sleep Studies (past 365 days) Some values may be hidden. Unless noted otherwise, only the newest values recorded on each date are displayed. Sleep Studies HOME SLEEP APNEA TEST (HSAT) Future Expected: Expires: 08/13/23 BMI Readings from Last 2 Encounters: 08/13/22 : 41.62 kg/m 07/04/22 : 41.91 kg/m PAST MEDICAL HISTORY Diagnosis Date Benign neoplasm of colon colon polyps Benign prostatic hyperplasia with lower urinary tract symptoms 04/17/2005 Bilateral carotid artery stenosis 04/05/2021 04/20 20-40% bilaterall Bladder neck obstruction 04/17/2005 BMI 40.0-44.9, adult ([facility]) 09/19/2015 Controlled type 2 diabetes mellitus without complication, without long-term current use of insulin ([facility]) 09/19/2015 Coronary artery disease due to lipid rich plaque 10/15/2005 Dr. Fuentes Cath, [facility] 07-09-05 3 LAD stents DDD (degenerative disc disease), cervical 07/04/2022 Seeing [facility]. Decreased appetite 04/09/2020 Diabetic eye exam ([facility]) 03/12/2017 Last done: 08/28/2017 Diverticulosis of colon (without mention of hemorrhage) Ex-smoker 04/30/2018 Foot callus 06/06/2020 Sees Podiatry Gastroesophageal reflux disease without esophagitis 07/16/2005 History of prostate cancer 06/01/2009 PSA per PCP, was released by urology. Treated with radiation Hypothyroidism, acquired 05/17/2019 Knee joint 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 02/18/2005 Left inguinal hernia 02/17/2017 Very small and none tender will monitor Living will on file 06/12/2021 DPA: Daughter (Venita) Lung nodules 04/02/2021 Noted on cxr 04/02/21. No nodules on chest x-ray [facility] 05/2021 Malignant neoplasm of prostate (HCC) 06/01/2009 PSA per PCP, was released by urology, radiation 06/06 to 08/06 Microscopic hematuria 05/17/2019 Sees Urology Mixed hyperlipidemia 07/16/2005 Nodular prostate with urinary obstruction 05/01/2009 Paroxysmal atrial fibrillation (HCC) 01/05/2019 Seeing Alfredo: developed during hosp stay at [facility] 12/2018 for angioedema. Was cardioverted. PMR (polymyalgia rheumatica) ([facility]) 04/21/[address] Miller Situational depression 04/09/2020 Spondylosis of cervical region without myelopathy or radiculopathy 07/04/2022 Seeing [facility]. The medical record was reviewed to determine if the proposed sleep study conforms to the AASM Practice Parameters for the Indications for Polysomnography and Related Procedures, or if the sleep study is indicated for other reasons. Indications for study: ABIOLA suspected with comorbid medical or sleep disorders: Morbid obesity (BMI>40 kg/m2) Sleep study to be performed: Home Sleep Apnea Test (HSAT) Special instructions: None-follow laboratory protocol Corinna Norton - Sleep Medicine Staff Note: I have read the above protocol, edited as needed, and agree to the plan. David Landa III, PhD 3:38 PM, 08/19/2022 August 15, 2022 An order has been received for Home Sleep Apnea Test (HSAT) from [facility]. [facility] Staff. Visit prep complete. Comments :No The sleep study is scheduled for 09/09. Insurance: Payor: MEDICARE / Plan: MEDICARE A AND B / Product Type: Medicare / Payer/Plan Subscr Sex Relation Sub. Ins. ID Effective Group Num 1. [place]ARE - [place]* GUS WESLEY 1935 Male Self [id number] [birth year] [address] [employer] - [place]* GUS WESLEY 1935 Male Self [id number] [birth year] [id number] [address] [address] Nick Juárez documented in this encounter [facility] 09-09-2022 Note HNO ID: [id number] Author: Cheli Lovelace MA Service: ? Author Type: Creative Services Director Type: Progress Notes Filed: 09/09/2022 3:15 PM Note Text: Scan on 09/03/2022 11:17 AM by External Provider, PA-C: X-ray Scan on 09/03/2022 1:40 PM by External Provider, PA-C: Consultation - Emergency Medicine Scan on 09/03/2022 5:29 PM by External Provider, PA-C: Consultation - Cardiology Scan on 09/04/2022 2:22 PM by External Provider, PA-C: Cardiac Cath Scan on 09/04/2022 3:48 PM by External Provider, PA-C: Consultation - Emergency Medicine Scan on 09/04/2022 4:17 PM by External Provider, PA-C: Cardiac Cath Cheli Lovelace MA [facility] 09-09-2022 Miscellaneous Notes Spoke with patient as he has had a hospital follow up with Dr. Edmonds. I told patient we would not need to see him for the that follow up. Patient is scheduled to see his cardiology 10/02. Dr. Mervin Calderon. Patient also didn't confirm on the sleep study as he indicated that he did hear back. I will forward a note so that they can reach out to patient to re confirm. Cheli Lovelace MA Left message for patient to contact office. Please Cheli Lovelace MA Let patient know I would still want him to get the sleep study since sleep apnea can play a factor in heart disease. Also as long as he has a f/u with cardio he does not need to see me since this would just be a duplicate of services. Patient sent to my chart message. The discharge papers said that I should make an appointment in the next two weeks. Call me if this can happen? Also should I do the sleep study on the ? if not I need to call Thursday no later then the . Cheli Lovelace MA documented in this encounter [facility] 09-04-2022 Note HNO ID: [id number] Author: Zahra LEE Service: ? Author Type: ? Type: Progress Notes Filed: 09/12/2022 11:56 AM Note Text: Nomad: [id number] Date: 09/09/22 [employer]ex Mailout Tracking Number: [id number] [employer]ex Return Tracking Number: [id number] [facility] 09-04-2022 Note HNO ID: [id number] Author: Naomi German LPN Service: ? Author Type: ? Type: Progress Notes Filed: 09/04/2022 10:04 PM Note Text: Scan on 09/03/2022 1:40 PM by External Provider, PA-C: Consultation - Emergency Medicine Scan on 09/03/2022 5:29 PM by External Provider, PA-C: Consultation - Cardiology [facility] 08-29-2022 Miscellaneous Notes Patient notified and voiced understanding. Cheli Lovelace MA Let patient know B12 and folate were ok. documented in this encounter [facility] 08-19-2022 Note HNO ID: [id number] Author: David Landa III, PhD Service: ? Author Type: Physician Type: Progress Notes Filed: 09/12/2022 11:56 AM Note Text: August 19, 2022 Standing PSG Orders signed in the last 90 days None Future PSG Orders signed in the last 90 days Ordered Auth. provider HOME SLEEP APNEA TEST (HSAT) [[id number]] 08/13/22 Mary Grace Edmonds MD Assoc. diagnoses: BMI 40.0-44.9, adult (HCC) [Z68.41], Hypersomnolence [G47.10] Q: Indications: A: Obstructive sleep apnea Q: STOP-BANG conditions - Select All That Apply: A: GENDER = male A2: BMI > 35 kg/m2 A3: AGE > 50 A4: SNORING that is loud or disruptive A5: TIREDNESS, fatigue or sleepiness during the day Q: Current use of supplemental oxygen during sleep period?: A: No All Prior Sleep Studies (past 365 days) Some values may be hidden. Unless noted otherwise, only the newest values recorded on each date are displayed. Sleep Studies HOME SLEEP APNEA TEST (HSAT) Future Expected: Expires: 08/13/23 BMI Readings from Last 2 Encounters: 08/13/22 : 41.62 kg/m? 07/04/22 : 41.91 kg/m? PAST MEDICAL HISTORY Diagnosis Date Benign neoplasm of colon colon polyps Benign prostatic hyperplasia with lower urinary tract symptoms 04/17/2005 Bilateral carotid artery stenosis 04/05/2021 04/20 20-40% bilaterall Bladder neck obstruction 04/17/2005 BMI 40.0-44.9, adult ([facility]) 09/19/2015 Controlled type 2 diabetes mellitus without complication, without long-term current use of insulin ([facility]) 09/19/2015 Coronary artery disease due to lipid rich plaque 10/15/2005 Dr. Fuentes [facility], [facility] 07-09-05 3 LAD stents DDD (degenerative disc disease), cervical 07/04/2022 Seeing [facility]. Decreased appetite 04/09/2020 Diabetic eye exam ([facility]) 03/12/2017 Last done: 08/28/2017 Diverticulosis of colon (without mention of hemorrhage) Ex-smoker 04/30/2018 Foot callus 06/06/2020 Sees Podiatry Gastroesophageal reflux disease without esophagitis 07/16/2005 History of prostate cancer 06/01/2009 PSA per PCP, was released by urology. Treated with radiation Hypothyroidism, acquired 05/17/2019 Knee joint 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 02/18/2005 Left inguinal hernia 02/17/2017 Very small and none tender will monitor Living will on file 06/12/2021 DPA: Daughter (Venita) Lung nodules 04/02/2021 Noted on cxr 04/02/21. No nodules on chest x-ray [facility] 05/2021 Malignant neoplasm of prostate (HCC) 06/01/2009 PSA per PCP, was released by urology, radiation 06/06 to 08/06 Microscopic hematuria 05/17/2019 Sees Urology Mixed hyperlipidemia 07/16/2005 Nodular prostate with urinary obstruction 05/01/2009 Paroxysmal atrial fibrillation ([facility]) 01/05/2019 Seeing [place]: developed during hosp stay at [facility] 12/2018 for angioedema. Was cardioverted. PMR (polymyalgia rheumatica) ([facility]) 04/21/[address] Miller Situational depression 04/09/2020 Spondylosis of cervical region without myelopathy or radiculopathy 07/04/2022 Seeing [facility]. The medical record was reviewed to determine if the proposed sleep study conforms to the AASM Practice Parameters for the Indications for Polysomnography and Related Procedures, or if the sleep study is indicated for other reasons. Indications for study: ABIOLA suspected with comorbid medical or sleep disorders: Morbid obesity (BMI>40 kg/m2) Sleep study to be performed: Home Sleep Apnea Test (HSAT) Special instructions: None-follow laboratory protocol Corinnadarius Norton - Sleep Medicine Staff Note: I have read the above protocol, edited as needed, and agree to the plan. David Landa III, PhD 3:38 PM, 08/19/2022 [facility] 08-15-2022 Note HNO ID: [id number] Author: Nick Juárez Service: ? Author Type: ? Type: Progress Notes Filed: 09/12/2022 11:56 AM Note Text: August 15, 2022 An order has been received for Home Sleep Apnea Test (HSAT) from [facility]. [facility] Staff. Visit prep complete. Comments :No The sleep study is scheduled for 09/09. Insurance: Payor: MEDICARE / Plan: MEDICARE A AND B / Product Type: Medicare / Payer/Plan Subscr Sex Relation Sub. Ins. ID Effective Group Num 1. MEDICARE - [place]* GUS WESLEY 1935 Male Self [id number] [birth year] [address]. [employer] - [place]* GUS WESLEY 1935 Male Self [id number] [birth year] [id number] [address] [address] Nick [facility] 08-13-2022 Note HNO ID: [id number] Author: Mary Grace Edmonds MD Service: ? Author Type: Physician Type: Progress Notes Filed: 08/14/2022 10:14 AM Note Text: Chief Complaint Patient presents with: Medicare Wellness Exam HPI Gus Wesley is a 87 year old male who presents here today for Chronic Medical Conditions. and Medicare Annual Visit. Office visit - medicare wellness Patient with Hx of DM 2, CAD, Hyperlipidemia, Hx of prostate Ca, GERD, PMR, hypothyroidism, A. Fib seeing cardio, Obesity, BPH As well as those reviewed and addressed below and in ROS. Patient indicated that for the past few weeks he has had increased fatigue/weakness. Did have DM foot exam about 1 month ago at [facility]. Office visit - 6 month follow up Patient with Hx of DM 2, CAD, Hyperlipidemia, Hx of prostate Ca, GERD, PMR, hypothyroidism, A. Fib seeing cardio, Obesity, BPH As well as those reviewed and addressed below and in ROS. Continues to see Rheum for the PMR and his steroid is at 1/2 of 1 mg a day. Past medical history, appointments, medications, allergies reviewed. Previous Medical History PAST MEDICAL HISTORY Diagnosis Date Benign neoplasm of colon colon polyps Benign prostatic hyperplasia with lower urinary tract symptoms 04/17/2005 Bilateral carotid artery stenosis 04/05/2021 04/20 20-40% bilaterall Bladder neck obstruction 04/17/2005 BMI 40.0-44.9, adult (HCC) 09/19/2015 Controlled type 2 diabetes mellitus without complication, without long-term current use of insulin ([facility]) 09/19/2015 Coronary artery disease due to lipid rich plaque 10/15/2005 Dr. Fuentes [facility], [facility] 07-09-05 3 LAD stents DDD (degenerative disc disease), cervical 07/04/2022 Seeing [facility]. Decreased appetite 04/09/2020 Diabetic eye exam (HCC) 03/12/2017 Last done: 08/28/2017 Diverticulosis of colon (without mention of hemorrhage) Ex-smoker 04/30/2018 Foot callus 06/06/2020 Sees Podiatry Gastroesophageal reflux disease without esophagitis 07/16/2005 History of prostate cancer 06/01/2009 PSA per PCP, was released by urology. Treated with radiation Hypothyroidism, acquired 05/17/2019 Knee joint 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 02/18/2005 Left inguinal hernia 02/17/2017 Very small and none tender will monitor Living will on file 06/12/2021 DPA: Daughter (Venita) Malignant neoplasm of prostate (HCC) 06/01/2009 PSA per PCP, was released by urology, radiation 06/06 to 08/06 Microscopic hematuria 05/17/2019 Sees Urology Mixed hyperlipidemia 07/16/2005 Nodular prostate with urinary obstruction 05/01/2009 Paroxysmal atrial fibrillation ([facility]) 01/05/2019 Seeing [place]: developed during hosp stay at [facility] 12/2018 for angioedema. Was cardioverted. PMR (polymyalgia rheumatica) ([facility]) 04/21/[address] Miller Situational depression 04/09/2020 Spondylosis of cervical region without myelopathy or radiculopathy 07/04/2022 Seeing [facility]. Previous Surgical History PAST SURGICAL HISTORY Procedure Laterality Date 2D ECHO (EXEP) 11/25/2019 EF=60%, mild LVH, mild LA enlargement, 1+ WI, COLONOSCOPY FLX DX W/COLLJ SPEC WHEN PFRMD 10/29, 12/01 Colonoscopy COLONOSCOPY FLX DX W/COLLJ SPEC WHEN PFRMD 07/24/2011 Colonoscopy NEUROPLASTY AND/TRANSPOS MEDIAN NRV CARPAL TUNNE Left 12/24/2018 PAST SURGICAL HISTORY OF 07/03, 11/02 Heart Cath PAST SURGICAL HISTORY OF 1974 anal fistula repair PAST SURGICAL HISTORY OF 04/24/08 Left total knee Family History FAMILY HISTORY Problem Relation Age of Onset Cancer Mother lung other (lymphoma) Brother Stroke Father Patient Allergies ALLERGIES Allergen Reactions Lisinopril Swelling Tongue swelling, angio edema requiring intubation. Amlodipine Other: See Comments SOB Current Medications Current Outpatient Medications on File Prior to Visit Medication Sig famotidine (PEPCID) 20 mg tablet Take 1 tablet by mouth at bedtime as needed. levothyroxine (SYNTHROID) 50 mcg tablet Take 1 tablet by mouth once daily. Take on empty stomach. For thyroid. metFORMIN ER (GLUCOPHAGE XR) 500 mg 24 hr tablet Take 1 tablet by mouth daily with breakfast. nitroglycerin sublingual (NITROSTAT) 0.4 mg SL tablet DISSOLVE 1 TABLET UNDER TONGUE EVERY 5 MINUTES X3 NEEDED FOR CHESTPAIN diclofenac (VOLTAREN) 1 % topical gel Apply a total of 2 grams to the back of each hand over the joints up to 4 times a day. predniSONE (DELTASONE) 1 mg tablet Take 0.5 tablets by mouth once daily. Per Rheum furosemide (LASIX) 40 mg tablet Take 40 mg by mouth once daily. clopidogrel (PLAVIX) 75 mg tablet Take 1 tablet by mouth once daily. Per Cardio, Dr. Fuentes cholecalciferol, vitamin D3, (VITAMIN D3 ORAL) Take 2,000 Units by mouth. Per Rheumatology aspirin, enteric coated (ASPIRIN, ENTERIC COATED) 81 mg EC tablet Take 81 mg by mouth once daily. Xhbcxvqpdxleg-Vpolmgsn-Xuncba (CENTRUM SILVER) tab Take 1 tablet by mouth once daily. Hyniwkgpklr-Ndeqljcbh-Mcb C-Mn (GLUC (more content not included)... [facility] 08-11-2022 Miscellaneous Notes Patient has been identified by name and date of : Yes Requested Prescriptions Pending Prescriptions Disp Refills levothyroxine (SYNTHROID) 50 mcg tablet 90 tablet 1 Sig: Take 1 tablet by mouth once daily. Take on empty stomach. For thyroid. RX INSTRUCTIONS: Patient aware RX will be sent to pharmacy. No need to notify patient. ANDRAE Agustin 12/2021Feb 0107/2022 Last refill: 11/2021 documented in this encounter [facility] 08-11-2022 Miscellaneous Notes Patient has been identified by name and date of : Yes Requested Prescriptions Pending Prescriptions Disp Refills famotidine (PEPCID) 20 mg tablet 30 tablet 11 Sig: Take 1 tablet by mouth at bedtime as needed. RX INSTRUCTIONS: Patient aware RX will be sent to pharmacy. No need to notify patient. ANDRAE Agustin 12/2021; 07/2022 Last refill: 05/2021 documented in this encounter [facility] 07-15-2022 Miscellaneous Notes Patient has been identified by name and date of : Yes Requested Prescriptions Pending Prescriptions Disp Refills metFORMIN ER (GLUCOPHAGE XR) 500 mg 24 hr tablet 90 tablet 1 Sig: Take 1 tablet by mouth daily with breakfast. nitroglycerin sublingual (NITROSTAT) 0.4 mg SL tablet 25 tablet 1 Sig: DISSOLVE 1 TABLET UNDER TONGUE EVERY 5 MINUTES X3 NEEDED FOR CHESTPAIN RX INSTRUCTIONS: Patient aware RX will be sent to pharmacy. No need to notify patient. Patient last office visit: 07/04/22 Patient next office visit: 08/13/22 Aleyda Sanchez MA documented in this encounter [facility] 07-11-2022 Note HNO ID: [id number] Author: Naomi German LPN Service: ? Author Type: ? Type: Progress Notes Filed: 07/13/2022 2:23 PM Note Text: Scan on 07/11/2022 1:58 AM by External Provider: Consultation - Rheumatology [facility] 07-11-2022 History of Presen t illness Narrative Scan on 07/11/2022 1:58 AM by External Provider: Consultation - Rheumatology documented in this encounter [facility] 07-04-2022 Note HNO ID: [id number] Author: Mary Grace Edmonds MD Service: ? 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 Patient has been getting pain in the back of his hands since about March. Worse in the morning or after a period of rest. Denies erythema, warmth or swelling. Patient is back on prednisone 1 mg two tabs a day which he restarted himself. Had reached out to Rheumatology and got no input. At one point took a motrin just once. Office visit - 6 month follow up 01/02/2022 Patient with Hx of DM 2, CAD, Hyperlipidemia, Hx of prostate Ca, GERD, PMR, hypothyroidism, A. Fib seeing cardio, Obesity, BPH As well as those reviewed and addressed below and in ROS. Continues to see Rheum for the PMR and his steroid is at 1/2 of 1 mg a day. Past medical history, appointments, medications, allergies reviewed. Previous Medical History PAST MEDICAL HISTORY Diagnosis Date Benign neoplasm of colon colon polyps Benign prostatic hyperplasia with lower urinary tract symptoms 04/17/2005 Bilateral carotid artery stenosis 04/05/2021 04/20 20-40% bilaterall Bladder neck obstruction 04/17/2005 BMI 40.0-44.9, adult ([facility]) 09/19/2015 Controlled type 2 diabetes mellitus without complication, without long-term current use of insulin ([facility]) 09/19/2015 Coronary artery disease due to lipid rich plaque 10/15/2005 Dr. Fuentes Cath, [facility] 07-09-05 3 LAD stents Decreased appetite 04/09/2020 Diabetic eye exam ([facility]) 03/12/2017 Last done: 08/28/2017 Diverticulosis of colon (without mention of hemorrhage) Ex-smoker 04/30/2018 Foot callus 06/06/2020 Sees Podiatry Gastroesophageal reflux disease without esophagitis 07/16/2005 History of prostate cancer 06/01/2009 PSA per PCP, was released by urology. Treated with radiation Hypothyroidism, acquired 05/17/2019 Knee joint 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 02/18/2005 Left inguinal hernia 02/17/2017 Very small and none tender will monitor Living will on file 06/12/2021 DPA: Daughter (Venita) Malignant neoplasm of prostate ([facility]) 06/01/2009 PSA per PCP, was released by urology, radiation 06/06 to 08/06 Microscopic hematuria 05/17/2019 Sees Urology Mixed hyperlipidemia 07/16/2005 Nodular prostate with urinary obstruction 05/01/2009 Paroxysmal atrial fibrillation (HCC) 01/05/2019 Seeing Alfredo: developed during hosp stay at [facility] 12/2018 for angioedema. Was cardioverted. PMR (polymyalgia rheumatica) ([facility]) 04/21/[address] Miller Situational depression 04/09/2020 Previous Surgical History PAST SURGICAL HISTORY Procedure Laterality Date 2D ECHO (EXEP) 11/25/2019 EF=60%, mild LVH, mild LA enlargement, 1+ WI, COLONOSCOPY FLX DX W/COLLJ SPEC WHEN PFRMD 10/29, 12/01 Colonoscopy COLONOSCOPY FLX DX W/COLLJ SPEC WHEN PFRMD 07/24/2011 Colonoscopy NEUROPLASTY AND/TRANSPOS MEDIAN NRV CARPAL TUNNE Left 12/24/2018 PAST SURGICAL HISTORY OF 07/03, 11/02 Heart Cath PAST SURGICAL HISTORY OF 1974 anal fistula repair PAST SURGICAL HISTORY OF 04/24/08 Left total knee Family History FAMILY HISTORY Problem Relation Age of Onset Cancer Mother lung other (lymphoma) Brother Stroke Father Patient Allergies ALLERGIES Allergen Reactions Lisinopril Swelling Tongue swelling, angio edema requiring intubation. Amlodipine Other: See Comments SOB Current Medications Current Outpatient Medications on File Prior to Visit Medication Sig predniSONE (DELTASONE) 1 mg tablet Take 0.5 tablets by mouth once daily. Per Rheum levothyroxine (SYNTHROID) 50 mcg tablet Take 1 tablet by mouth once daily. Take on empty stomach. For thyroid. metFORMIN ER (GLUCOPHAGE XR) 500 mg 24 hr tablet Take 1 tablet by mouth daily with breakfast. famotidine (PEPCID) 20 mg tablet Take 1 tablet by mouth at bedtime as needed. furosemide (LASIX) 40 mg tablet Take 40 mg by mouth once daily. clopidogrel (PLAVIX) 75 mg tablet Take 1 tablet by mouth once daily. Per Cardio, Dr. Fuentes cholecalciferol, vitamin D3, (VITAMIN D3 ORAL) Take 2,000 Units by mouth. Per Rheumatology aspirin, enteric coated (ASPIRIN, ENTERIC COATED) 81 mg EC tablet Take 81 mg by mouth once daily. NITROSTAT 0.4 mg SL tablet DISSOLVE 1 TABLET UNDER TONGUE EVERY 5 MINUTES X3 NEEDED FOR CHESTPAIN Pegqokfdexaat-Dsuphkwq-Ggklgi (CENTRUM SILVER) tab Take 1 tablet by mouth once daily. Spyxyofixwl-Cjlnfaimi-Esk C-Mn (GLUCOSAMINE CHONDROITIN MAXSTR) 500-400 mg cap Take 1 capsule by mouth once daily. atorvastatin (LIPITOR) 20 mg tablet Take 1 tablet by mouth daily at bedtime. For cholesterol. atenolol (TENORMIN) 25 mg tablet Take 0 (more content not included)... [facility] 04-03-2022 Miscellaneous Notes Faxed x-ray per patient request. Cheli Lovelace MA documented in this encounter [facility] 03-25-2022 Note HNO ID: [id number] Author: RT Walter(R) Service: ? Author Type: Prosthetic Dentist Type: Progress Notes Filed: 03/25/2022 4:34 PM Note Text: Radiology Service Progress Note PATIENT NAME: Gus Wesley DATE OF SERVICE: March 25, 2022 TIME: 4:22 PM PATIENT IDENTITY VERIFICATION COMPLETED USING TWO (2) IDENTIFIERS: Name and Date of confirmed by patient verbally. FALL SCREENING: Has the patient had 2 falls in the last year or 1 fall with injury or currently using an Ambulatory Assistive Device (Walker, Cane, Wheelchair, Crutches, etc.)? No PATIENT GENDER DATA: Male PATIENT RELEVANT IMPLANT DATA REVIEWED: Yes RADIOLOGY DEPARTMENT: General X-ray: Exam(s) Completed: Upper Extremity X-Ray(s): Hand, left PERIPHERAL IV DATA: Not applicable SIGNED BY: RT Walter(R) March 25, 2022 4:22 PM [facility] 03-25-2022 Note HNO ID: [id number] Author: Carlotta Garcia APRN.TELEPHONE EXCHANGE OPERATOR Service: ? Author Type: Nurse Practitioner Type: Progress Notes Filed: 03/25/2022 4:19 PM Note Text: Chief Complaint Patient presents with: Hand Pain HPI Gus Wesley is a 86 year old male who presents here today for Above Complaints.. Patient presents with left hand stiffness and pain. Patient states is started 2 weeks ago. Patient also reports bruising to the dorsal aspect of his hand. Patient reports use of horse ointment and running his hand under warm water with some improvement to ROM but does not improve pain. Past medical history, appointments, medications, allergies reviewed. Previous Medical History PAST MEDICAL HISTORY Diagnosis Date Benign neoplasm of colon colon polyps Benign prostatic hyperplasia with lower urinary tract symptoms 04/17/2005 Bilateral carotid artery stenosis 04/05/2021 US 04/20 20-40% bilaterall Bladder neck obstruction 04/17/2005 BMI 40.0-44.9, adult ([facility]) 09/19/2015 Controlled type 2 diabetes mellitus without complication, without long-term current use of insulin ([facility]) 09/19/2015 Coronary artery disease due to lipid rich plaque 10/15/2005 Dr. Fuentes Cath, [facility] 07-09-05 3 LAD stents Decreased appetite 04/09/2020 Diabetic eye exam ([facility]) 03/12/2017 Last done: 08/28/2017 Diverticulosis of colon (without mention of hemorrhage) Ex-smoker 04/30/2018 Foot callus 06/06/2020 Sees Podiatry Gastroesophageal reflux disease without esophagitis 07/16/2005 History of prostate cancer 06/01/2009 PSA per PCP, was released by urology. Treated with radiation Hypothyroidism, acquired 05/17/2019 Knee joint 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 02/18/2005 Left inguinal hernia 02/17/2017 Very small and none tender will monitor Living will on file 06/12/2021 DPA: Daughter (Venita) Malignant neoplasm of prostate ([facility]) 06/01/2009 PSA per PCP, was released by urology, radiation 06/06 to 08/06 Microscopic hematuria 05/17/2019 Sees Urology Mixed hyperlipidemia 07/16/2005 Nodular prostate with urinary obstruction 05/01/2009 Paroxysmal atrial fibrillation ([facility]) 01/05/2019 Seeing Alfredo: developed during hosp stay at [facility] 12/2018 for angioedema. Was cardioverted. PMR (polymyalgia rheumatica) ([facility]) 04/21/[address] Miller Situational depression 04/09/2020 Previous Surgical History PAST SURGICAL HISTORY Procedure Laterality Date 2D ECHO (EXEP) 11/25/2019 EF=60%, mild LVH, mild LA enlargement, 1+ WI, COLONOSCOPY FLX DX W/COLLJ SPEC WHEN PFRMD 10/29, 12/01 Colonoscopy COLONOSCOPY FLX DX W/COLLJ SPEC WHEN PFRMD 07/24/2011 Colonoscopy NEUROPLASTY AND/TRANSPOS MEDIAN NRV CARPAL TUNNE Left 12/24/2018 PAST SURGICAL HISTORY OF 07/03, 11/02 Heart Cath PAST SURGICAL HISTORY OF 1975 anal fistula repair PAST SURGICAL HISTORY OF 04/24/08 Left total knee Family History FAMILY HISTORY Problem Relation Age of Onset Cancer Mother lung other (lymphoma) Brother Stroke Father Patient Allergies ALLERGIES Allergen Reactions Lisinopril Swelling Tongue swelling, angio edema requiring intubation. Amlodipine Other: See Comments SOB Current Medications Current Outpatient Medications on File Prior to Visit Medication Sig predniSONE (DELTASONE) 1 mg tablet Take 0.5 tablets by mouth once daily. Per Rheum levothyroxine (SYNTHROID) 50 mcg tablet Take 1 tablet by mouth once daily. Take on empty stomach. For thyroid. metFORMIN ER (GLUCOPHAGE XR) 500 mg 24 hr tablet Take 1 tablet by mouth daily with breakfast. famotidine (PEPCID) 20 mg tablet Take 1 tablet by mouth at bedtime as needed. furosemide (LASIX) 40 mg tablet Take 40 mg by mouth once daily. clopidogrel (PLAVIX) 75 mg tablet Take 1 tablet by mouth once daily. Per Cardio, Dr. Fuentes cholecalciferol, vitamin D3, (VITAMIN D3 ORAL) Take 2,000 Units by mouth. Per Rheumatology aspirin, enteric coated (ASPIRIN, ENTERIC COATED) 81 mg EC tablet Take 81 mg by mouth once daily. NITROSTAT 0.4 mg SL tablet DISSOLVE 1 TABLET UNDER TONGUE EVERY 5 MINUTES X3 NEEDED FOR CHESTPAIN Eyhievddruajn-Jnpriqaw-Zitvkx (CENTRUM SILVER) tab Take 1 tablet by mouth once daily. Bpbhmhqmxml-Baiekluvs-Yft C-Mn (GLUCOSAMINE CHONDROITIN MAXSTR) 500-400 mg cap Take 1 capsule by mouth once daily. atorvastatin (LIPITOR) 20 mg tablet Take 1 tablet by mouth daily at bedtime. For cholesterol. atenolol (TENORMIN) 25 mg tablet Take 0.5 tablets by mouth once daily. No current facility-administered medications on file prior to visit. Social History Social History Tobacco Use Smoking status: Former Types: Cigars Smokeless tobacco: Never Tobacco comments: Quit Substance Use Topics Alcohol use: Yes Comment: occasionally wine 1-2 times weekly Drug use: No Review of Symptoms REVIEW OF SYSTEMS SEE HPI EXAM: BP 130/72 Pulse 75 Resp 14 Wt 131.1 kg (289 lb) BMI 42.07 kg/m? General Appearance: Well appearing, alert, in no ac (more content not included)... [facility] 03-25-2022 Instructions Carlotta Garcia APRN.[facility] - 03/25/2022 4:15 PM EST Use Tylenol as needed Complete Hand xray documented in this encounter [facility] 03-25-2022 History of Presen t illness Narrative Chief Complaint Patient presents with: Hand Pain HPI Gus Wesley is a 86 year old male who presents here today for Above Complaints.. Patient presents with left hand stiffness and pain. Patient states is started 2 weeks ago. Patient also reports bruising to the dorsal aspect of his hand. Patient reports use of horse ointment and running his hand under warm water with some improvement to ROM but does not improve pain. Past medical history, appointments, medications, allergies reviewed. Previous Medical History PAST MEDICAL HISTORY Diagnosis Date Benign neoplasm of colon colon polyps Benign prostatic hyperplasia with lower urinary tract symptoms 04/17/2005 Bilateral carotid artery stenosis 04/05/2021 04/20 20-40% bilaterall Bladder neck obstruction 04/17/2005 BMI 40.0-44.9, adult ([facility]) 09/19/2015 Controlled type 2 diabetes mellitus without complication, without long-term current use of insulin ([facility]) 09/19/2015 Coronary artery disease due to lipid rich plaque 10/15/2005 Dr. Fuentes Cath, [facility] 07-09-05 3 LAD stents Decreased appetite 04/09/2020 Diabetic eye exam ([facility]) 03/12/2017 Last done: 08/28/2017 Diverticulosis of colon (without mention of hemorrhage) Ex-smoker 04/30/2018 Foot callus 06/06/2020 Sees Podiatry Gastroesophageal reflux disease without esophagitis 07/16/2005 History of prostate cancer 06/01/2009 PSA per PCP, was released by urology. Treated with radiation Hypothyroidism, acquired 05/17/2019 Knee joint 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 02/18/2005 Left inguinal hernia 02/17/2017 Very small and none tender will monitor Living will on file 06/12/2021 DPA: Daughter (Venita) Malignant neoplasm of prostate (HCC) 06/01/2009 PSA per PCP, was released by urology, radiation 06/06 to 08/06 Microscopic hematuria 05/17/2019 Sees Urology Mixed hyperlipidemia 07/16/2005 Nodular prostate with urinary obstruction 05/01/2009 Paroxysmal atrial fibrillation (HCC) 01/05/2019 Seeing Alfredo: developed during hosp stay at [facility] 12/2018 for angioedema. Was cardioverted. PMR (polymyalgia rheumatica) (HCC) 04/21/[address] Miller Situational depression 04/09/2020 Previous Surgical History PAST SURGICAL HISTORY Procedure Laterality Date 2D ECHO (EXEP) 11/25/2019 EF=60%, mild LVH, mild LA enlargement, 1+ WI, COLONOSCOPY FLX DX W/COLLJ SPEC WHEN PFRMD 10/29, 12/01 Colonoscopy COLONOSCOPY FLX DX W/COLLJ SPEC WHEN PFRMD 07/24/2011 Colonoscopy NEUROPLASTY &/TRANSPOS MEDIAN NRV CARPAL TUNNE Left 12/24/2018 PAST SURGICAL HISTORY OF 07/03, 11/02 Heart Cath PAST SURGICAL HISTORY OF 1974 anal fistula repair PAST SURGICAL HISTORY OF 04/24/08 Left total knee Family History FAMILY HISTORY Problem Relation Age of Onset Cancer Mother lung other (lymphoma) Brother Stroke Father Patient Allergies ALLERGIES Allergen Reactions Lisinopril Swelling Tongue swelling, angio edema requiring intubation. Amlodipine Other: See Comments SOB Current Medications Current Outpatient Medications on File Prior to Visit Medication Sig predniSONE (DELTASONE) 1 mg tablet Take 0.5 tablets by mouth once daily. Per Rheum levothyroxine (SYNTHROID) 50 mcg tablet Take 1 tablet by mouth once daily. Take on empty stomach. For thyroid. metFORMIN ER (GLUCOPHAGE XR) 500 mg 24 hr tablet Take 1 tablet by mouth daily with breakfast. famotidine (PEPCID) 20 mg tablet Take 1 tablet by mouth at bedtime as needed. furosemide (LASIX) 40 mg tablet Take 40 mg by mouth once daily. clopidogrel (PLAVIX) 75 mg tablet Take 1 tablet by mouth once daily. Per Cardio, Dr. Fuentes cholecalciferol, vitamin D3, (VITAMIN D3 ORAL) Take 2,000 Units by mouth. Per Rheumatology aspirin, enteric coated (ASPIRIN, ENTERIC COATED) 81 mg EC tablet Take 81 mg by mouth once daily. NITROSTAT 0.4 mg SL tablet DISSOLVE 1 TABLET UNDER TONGUE EVERY 5 MINUTES X3 NEEDED FOR CHESTPAIN Fnjflgfobojdu-Yysfvyey-Qtdsjj (CENTRUM SILVER) tab Take 1 tablet by mouth once daily. Zxrnmnybvey-Njkyymrqk-Epx C-Mn (GLUCOSAMINE CHONDROITIN MAXSTR) 500-400 mg cap Take 1 capsule by mouth once daily. atorvastatin (LIPITOR) 20 mg tablet Take 1 tablet by mouth daily at bedtime. For cholesterol. atenolol (TENORMIN) 25 mg tablet Take 0.5 tablets by mouth once daily. No current facility-administered medications on file prior to visit. Social History Social History Tobacco Use Smoking status: Former Types: Cigars Smokeless tobacco: Never Tobacco comments: Quit Substance Use Topics Alcohol use: Yes Comment: occasionally wine 1-2 times weekly Drug use: No Review of Symptoms REVIEW OF SYSTEMS SEE HPI EXAM: BP 130/72 Pulse 75 Resp 14 Wt 131.1 kg (289 lb) BMI 42.07 kg/m General Appearance: Well appearing, alert, in no acute distress, well-hydrated, well nourished.. Skin: Positives: Ecchymosis: hands. Extremities: Pulses: 3+, Positive findings: joint location: swelling on left mcp(s) loss of ROM and stiffness, on left pip(s) loss of ROM and stiffness, on left dip(s) loss of ROM and stiffness. Health Maintenance List SHINGRIX VACCINE(1 of 2) Never done URINE ALBUMIN:CREATININE RATIO due on 05/24/2022 DILATED RETINAL EXAM due on 06/04/2022 HBA1C due on 06/09/2022 DIABETIC FOOT EXAM due on 06/12/2022 LDL CHOLESTEROL due on 12/10/2022 DTAP,TDAP,TD(3 - Td or Tdap) due on 07/12/2028 INFLUENZA Completed ADVANCE DIRECTIVE DISCUSSION Completed COVID-19 VACCINE Completed PNEUMOCOCCAL: 65+ Completed ASSESSMENT/PLAN: 1. Left hand pain - ICD9: 729.5, ICD10: M79.642 - XR HAND GENERAL 3V PA/LAT/OBL LEFT - Use tylenol 1000mg 2-3 times a day as needed. Carlotta Garcia APRN.TELEPHONE EXCHANGE OPERATOR documented in this encounter [facility] 03-25-2022 Miscellaneous Notes Contacted patient by telephone. Scheduled OV with DK today 03/25/22. Jacquelyn Meraz MA documented in this encounter [facility] 01-02-2022 Instructions Mary Grace Edmonds MD - 01/02/2022 11:35 AM EDT Please get labs and urine test done on or after 06/20/2022 prior to your next visit. documented in this encounter [facility] 01-02-2022 History of Presen t illness Narrative Chief Complaint No chief complaint on file. HPI Gus Wesley is a 86 year old male who presents here today for 6 month follow up. Patient with Hx of DM 2, CAD, Hyperlipidemia, Hx of prostate Ca, GERD, PMR, hypothyroidism, A. Fib seeing cardio, Obesity, BPH As well as those reviewed and addressed below and in ROS. Continues to see Rheum for the PMR and his steroid is at 1/2 of 1 mg a day. Past medical history, appointments, medications, allergies reviewed. Previous Medical History PAST MEDICAL HISTORY Diagnosis Date Benign neoplasm of colon colon polyps Benign prostatic hyperplasia with lower urinary tract symptoms 04/17/2005 Bilateral carotid artery stenosis 04/05/2021 04/20 20-40% bilaterall Bladder neck obstruction 04/17/2005 BMI 40.0-44.9, adult ([facility]) 09/19/2015 Controlled type 2 diabetes mellitus without complication, without long-term current use of insulin ([facility]) 09/19/2015 Coronary artery disease due to lipid rich plaque 10/15/2005 Dr. Fuentes Cath, [facility] 07-09-05 3 LAD stents Decreased appetite 04/09/2020 Diabetic eye exam ([facility]) 03/12/2017 Last done: 08/28/2017 Diverticulosis of colon (without mention of hemorrhage) Ex-smoker 04/30/2018 Foot callus 06/06/2020 Sees Podiatry Gastroesophageal reflux disease without esophagitis 07/16/2005 History of prostate cancer 06/01/2009 PSA per PCP, was released by urology. Treated with radiation Hypothyroidism, acquired 05/17/2019 Knee joint 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 02/18/2005 Left inguinal hernia 02/17/2017 Very small and none tender will monitor Living will on file 06/12/2021 DPA: Daughter (Venita) Malignant neoplasm of prostate (HCC) 06/01/2009 PSA per PCP, was released by urology, radiation 06/06 to 08/06 Microscopic hematuria 05/17/2019 Sees Urology Mixed hyperlipidemia 07/16/2005 Nodular prostate with urinary obstruction 05/01/2009 Paroxysmal atrial fibrillation (HCC) 01/05/2019 Seeing Alfredo: developed during hosp stay at [facility] 12/2018 for angioedema. Was cardioverted. PMR (polymyalgia rheumatica) (HCC) 04/21/[address] Miller Situational depression 04/09/2020 Previous Surgical History PAST SURGICAL HISTORY Procedure Laterality Date 2D ECHO (EXEP) 11/25/2019 EF=60%, mild LVH, mild LA enlargement, 1+ WI, COLONOSCOPY FLX DX W/COLLJ SPEC WHEN PFRMD 10/29, 12/01 Colonoscopy COLONOSCOPY FLX DX W/COLLJ SPEC WHEN PFRMD 07/24/2011 Colonoscopy NEUROPLASTY &/TRANSPOS MEDIAN NRV CARPAL TUNNE Left 12/24/2018 PAST SURGICAL HISTORY OF 07/03, 11/02 Heart Cath PAST SURGICAL HISTORY OF 1975 anal fistula repair PAST SURGICAL HISTORY OF 04/24/08 Left total knee Family History FAMILY HISTORY Problem Relation Age of Onset Cancer Mother lung other (lymphoma) Brother Stroke Father Patient Allergies ALLERGIES Allergen Reactions Lisinopril Swelling Tongue swelling, angio edema requiring intubation. Current Medications Current Outpatient Medications on File Prior to Visit Medication Sig levothyroxine (SYNTHROID) 50 mcg tablet Take 1 tablet by mouth once daily. Take on empty stomach. For thyroid. metFORMIN ER (GLUCOPHAGE XR) 500 mg 24 hr tablet Take 1 tablet by mouth daily with breakfast. famotidine (PEPCID) 20 mg tablet Take 1 tablet by mouth at bedtime as needed. predniSONE (DELTASONE) 1 mg tablet Take 3 tablets by mouth once daily. Per Rheum (Patient taking differently: Take 3 mg by mouth once daily. 1/2 tablet daily Per Rheum) clopidogrel (PLAVIX) 75 mg tablet Take 1 tablet by mouth once daily. Per Cardio, Dr. Fuentes cholecalciferol, vitamin D3, (VITAMIN D3 ORAL) Take 2,000 Units by mouth. Per Rheumatology aspirin, enteric coated (ASPIRIN, ENTERIC COATED) 81 mg EC tablet Take 81 mg by mouth once daily. NITROSTAT 0.4 mg SL tablet DISSOLVE 1 TABLET UNDER TONGUE EVERY 5 MINUTES X3 NEEDED FOR CHESTPAIN Asbgtovatxbwt-Twiasjsy-Wnqwpa (CENTRUM SILVER) tab Take 1 tablet by mouth once daily. Ramhaceiadg-Ystkdyqno-Lsj C-Mn (GLUCOSAMINE CHONDROITIN MAXSTR) 500-400 mg cap Take 1 capsule by mouth once daily. atorvastatin (LIPITOR) 20 mg tablet Take 1 tablet by mouth daily at bedtime. For cholesterol. atenolol (TENORMIN) 25 mg tablet Take 0.5 tablets by mouth once daily. amLODIPine (NORVASC) 5 mg tablet Takes 1/2 tab daily per cardio furosemide (LASIX) 40 mg tablet Take 40 mg by mouth once daily. No current facility-administered medications on file prior to visit. Social History Social History Tobacco Use Smoking status: Former Types: Cigars Smokeless tobacco: Never Tobacco comments: Quit 1959' Substance Use Topics Alcohol use: Yes Comment: occasionally wine 1-2 times weekly Drug use: No Review of Symptoms REVIEW OF SYSTEMS GENERAL: No significant weight loss, malaise or fevers NECK: Negative for lumps, goiter, pain and significant neck swelling RESPIRATORY: Negative for cough, hemoptysis, wheezing, COPD, dyspnea or increased shortness of breath CARDIOVASCULAR: Negative for chest pain, increased.leg swelling, hypertension, CHF or palpitations GI: No nausea, vomiting, or diarrhea and No heartburn or reflux symptoms : No history of dysuria, blood PSYCH: Negative for sleep disturbance, mood disorder and recent psychosocial stressors ENDOCRINE: Negative for symptoms of low BS's NEURO: No history of headaches, syncope, paralysis, seizures or significant increase in tremors EXAM: BP 140/84 (BP Site: Left Arm, BP Position: Sitting, BP Cuff Size: Large Adult) Pulse 70 Resp 18 Wt 130.2 kg (287 lb) BMI 41.77 kg/m BP 134/70 Pulse 70 Resp 18 Wt 130.2 kg (287 lb) BMI 41.77 kg/m Last 4 Encounter Wt Readings: Date: Wt: 01/02/2022 130.2 kg (287 lb) 06/14/2021 131.1 kg (289 lb) 06/12/2021 131.5 kg (290 lb) 04/02/2021 129.3 kg (285 lb) General Appearance: Well appearing, alert, in no acute distress, well-hydrated, well nourished.. Eyes: Anicteric sclera. Pupils are equally round and reactive to light. Extraocular movements are intact. . Neck: Supple, no adenopathy; thyroid symmetric, normal size, no bruits. Lungs: Lungs clear to auscultation. No wheezing, rhonchi, rales.. Heart: RRR without murmur, gallop, or rubs. No ectopy. Abdomen: Normal abdominal exam, Abdomen soft, non-tender. Bowel sounds normal. No masses, organomegaly. Extremities: No deformities, edema, skin discoloration, Good capillary refill. . Peripheral Pulses: Normal. Neurologic: Gait normal. Reflexes normal and symmetric. Sensation to light touch and crainal nerves 2-12 intact.. Health Maintenance List SHINGRIX VACCINE(1 of 2) Never done COVID-19 VACCINE(4 - Booster for Moderna series) due on 03/19/2021 INFLUENZA(1) due on 11/28/2021 URINE ALBUMIN:CREATININE RATIO due on 05/24/2022 DILATED RETINAL EXAM due on 06/04/2022 HBA1C due on 06/09/2022 DIABETIC FOOT EXAM due on 06/12/2022 LDL CHOLESTEROL due on 12/10/2022 DTAP,TDAP,TD(3 - Td or Tdap) due on 07/12/2028 ADVANCE DIRECTIVE DISCUSSION Completed PNEUMOCOCCAL: 65+ Completed Data reviewed Component Latest Ref Rng & Units 05/23/2021 12/10/2021 WBC 3.70 - 11.00 k/uL 8.99 RBC 4.20 - 6.00 m/uL 4.57 Hemoglobin 13.0 - 17.0 g/dL 15.2 Hematocrit 39.0 - 51.0 % 47.5 MCV 80.0 - 100.0 fL 103.9 (H) MCH 26.0 - 34.0 pG 33.3 MCHC 30.5 - 36.0 g/dL 32.0 RDW-CV 11.5 - 15.0 % 12.9 Platelet Count 150 - 400 k/uL 224 MPV 9.0 - 12.7 fL 10.0 Neut% % 68.8 Abs Neut (ANC) 1.45 - 7.50 k/uL 6.19 Lymph% % 9.8 Abs Lymph 1.00 - 4.00 k/uL 0.88 (L) [place]% % 15.7 Abs [place] <0.87 k/uL 1.41 (H) Eosin% % 4.9 Abs Eosin <0.46 k/uL 0.44 Baso% % 0.8 Abs Baso <0.11 k/uL 0.07 Nucleated Reds 0 /100 WBC 0.0 Absolute nRBC <0.01 k/uL <0.01 Diff Type Auto Diff Protein, Total 6.3 - 8.0 g/dL 7.4 Albumin 3.9 - 4.9 g/dL 4.1 Calcium 8.5 - 10.2 mg/dL 9.8 Bilirubin, Total 0.2 - 1.3 mg/dL 1.3 Alkaline Phosphatase 38 - 113 U/L 28 (L) AST 14 - 40 U/L 26 Glucose 74 - 99 mg/dL 168 (H) BUN 9 - 24 mg/dL 15 Creatinine 0.73 - 1.22 mg/dL 0.99 Sodium 136 - 144 mmol/L 139 Potassium 3.7 - 5.1 mmol/L 4.5 Chloride 97 - 105 mmol/L 100 CO2 22 - 30 mmol/L 27 Anion Gap 9 - 18 mmol/L 12 ALT 10 - 54 U/L 15 eGFR- >60 eGFR-All Other Races . >60 Total Cholesterol, Nonfasting <200 mg/dL 138 133 Triglycerides, Nonfasting <150 mg/dL 102 110 HDL Cholesterol, Nonfasting >39 mg/dL 35 (L) 37 (L) LDL Cholesterol, Nonfasting <100 mg/dL 83 74 Non HDL Cholesterol, Nonfasting <130 mg/dL 103 96 VLDL Cholesterol, Nonfasting <30 mg/dL 20 22 Total Chol/HDL Ratio, Nonfasting <5.10 mg/dL 3.94 3.59 LDL/HDL Ratio, Nonfasting <2.54 mg/dL 2.37 2.00 Hemoglobin A1C 4.3 - 5.6 % 7.1 (H) 7.3 (H) Estimated Average Glucose mg/dL 157 163 PSA <2.60 ng/mL 1.90 1.94 TSH 0.270 - 4.200 mIU/L 1.220 2.870 A/P ASSESSMENT/PLAN: 1. Controlled type 2 diabetes mellitus without complication, without long-term current use of insulin (HCC) - ICD9: 250.00, ICD10: E11.9 (primary diagnosis) uncontrolled worsening control - Encouraged regular aerobic exercise and weight loss - Discussed diabetic education issues of diet with patient. - BP goal of <130/80 - LDL goal of <100 - discussed possibly increasing the metformin but will monitor for now. 2. Diabetic eye exam ([facility]) - ICD9: V72.0, 250.00, ICD10: Z01.00, E11.9 - up to date 3. Mixed hyperlipidemia - ICD9: 272.2, ICD10: E78.2 - good control and - improved control - Encouraged following a low fat, low cholesterol diet. - Discussed the benefits of regular aerobic exercise and weight loss. - Encouraged following a low carbohydrate, healthy oil intake diet. - Continue current therapy. 4. Hypothyroidism, acquired - ICD9: 244.9, ICD10: E03.9 - Instructed patient on importance of taking on an empty stomach either first thing in the morning or at bedtime. - continue current dose of Synthroid 5. Gastroesophageal reflux disease without esophagitis - ICD9: 530.81, ICD10: K21.9 - Continue treatment with Pepcid 20 mg QD 6. PMR (polymyalgia rheumatica) ([facility]) - ICD9: 725, ICD10: M35.3 - management per Rheumatology 7. Situational depression - ICD9: 309.0, ICD10: F43.21 - doing ok. Not needing medical therapy. 8. Coronary artery disease due to lipid rich plaque - ICD9: 414.00, 414.3, ICD10: I25.10, I25.83 - clinically stable no changes and seeing cardio. 9. Paroxysmal atrial fibrillation ([facility]) - ICD9: 427.31, ICD10: I48.0 - As per #8 10. Bilateral carotid artery stenosis - ICD9: 433.10, 433.30, ICD10: I65.23 - cont current Tx. 11. BMI 40.0-44.9, adult ([facility]) - ICD9: V85.41, ICD10: Z68.41 Weight decreasing - Behavioral intervention 12. Encounter for immunization - ICD9: V03.89, ICD10: Z23 - INFLUENZA SEASONAL QUADRIVALENT HIGH DOSE AGE 65+: given - Levels Beyond COVID-19 BIVALENT BOOSTER VACCINE, AGE 12+ YR: given 13. History of prostate cancer - ICD9: V10.46, ICD10: Z85.46 - PSA stable will continue to monitor. F/u 6 months extensive check CMP, Lipid, UA, Urine micro albumin, PSA, A1c, CBC prior Mary Grace Edmonds MD documented in this encounter [facility] 12-13-2021 Miscellaneous Notes Patient has been identified by name and date of : Yes Requested Prescriptions Pending Prescriptions Disp Refills levothyroxine (SYNTHROID) 50 mcg tablet 90 tablet 1 Sig: Take 1 tablet by mouth once daily. Take on empty stomach. For thyroid. RX INSTRUCTIONS: Patient aware RX will be sent to pharmacy. No need to notify patient. Cheli Lovelace MA Donato: 05/2021 Has to r/s 12/13/2021 provider out of office r/s to 01/02. Patient will be out of medication by then. Patient did have his TSH checked. Cheli Lovelace MA documented in this encounter [facility] 11-06-2021 Miscellaneous Notes Last refill 07/01/21 Qty: 90 with 1 refill DONATO 06/12/21 NOV 12/13/21 Naomi German LPN documented in this encounter [facility] 2021 Miscellaneous Notes The following approved medication requests have been transmitted electronically. Signed Prescriptions Disp Refills metFORMIN ER (GLUCOPHAGE XR) 500 mg 24 hr tablet 90 tablet 1 Sig: Take 1 tablet by mouth daily with breakfast. ALTHEA: No Mary Grace Edmonds MD Pt is requesting refill. Pt has appt 12/13/21 Naomi German LPN documented in this encounter [facility] documented as of this encounter (statuses as of 08/29/2022) [facility] History of Past illness Narrative* Problem Noted Date Resolved Date Lung nodules 04/02/2021 08/13/2022 Overview: Noted on cxr 04/02/21. No nodules on chest x-ray [facility] 05/2021 OVERWEIGHT 07/16/2005 01/22/2015 documented as of this encounter (statuses as of 09/12/2022) [address]04-2022 History of Past illness Narrative* Problem Noted Date Resolved Date Lung nodules 04/02/2021 08/13/2022 Overview: Noted on cxr 04/02/21. No nodules on chest x-ray [facility] 05/2021 OVERWEIGHT 07/16/2005 01/22/2015 documented as of this encounter (statuses as of 09/18/2022) [address]04-2022 History of Past illness Narrative* Problem Noted Date Resolved Date Lung nodules 04/02/2021 08/13/2022 Overview: Noted on cxr 04/02/21. No nodules on chest x-ray [facility] 05/2021 OVERWEIGHT 07/16/2005 01/22/2015 documented as of this encounter (statuses as of 10/03/2022) [address]04-2022 History of Past illness Narrative* Problem Noted Date Diagnosed Date Resolved Date Lung nodules 04/02/2021 08/13/2022 Overview: Noted on cxr 04/02/21. No nodules on chest x-ray [facility] 05/2021 OVERWEIGHT 07/16/2005 01/22/2015 documented as of this encounter (statuses as of 10/06/2022) [address]04-2022 History of Past illness Narrative* Problem Noted Date Diagnosed Date Resolved Date Lung nodules 04/02/2021 08/13/2022 Overview: Noted on cxr 04/02/21. No nodules on chest x-ray [facility] 05/2021 OVERWEIGHT 07/16/2005 01/22/2015 documented as of this encounter (statuses as of 10/06/2022) [address]04-2022 History of Past illness Narrative* Problem Noted Date Diagnosed Date Resolved Date Lung nodules 04/02/2021 08/13/2022 Overview: Noted on cxr 04/02/21. No nodules on chest x-ray [facility] 05/2021 OVERWEIGHT 07/16/2005 01/22/2015 documented as of this encounter (statuses as of 10/07/2022) [address]04-2022 History of Past illness Narrative* Problem Noted Date Diagnosed Date Resolved Date Lung nodules 04/02/2021 08/13/2022 Overview: Noted on cxr 04/02/21. No nodules on chest x-ray [facility] 05/2021 OVERWEIGHT 07/16/2005 01/22/2015 documented as of this encounter (statuses as of 10/23/2022) [address]04-2022 History of Past illness Narrative* Problem Noted Date Diagnosed Date Resolved Date Lung nodules 04/02/2021 08/13/2022 Overview: Noted on cxr 04/02/21. No nodules on chest x-ray [facility] 05/2021 OVERWEIGHT 07/16/2005 01/22/2015 documented as of this encounter (statuses as of 10/27/2022) [address]04-2022 History of Past illness Narrative* Problem Noted Date Diagnosed Date Resolved Date Lung nodules 04/02/2021 08/13/2022 Overview: Noted on cxr 04/02/21. No nodules on chest x-ray [facility] 05/2021 OVERWEIGHT 07/16/2005 01/22/2015 documented as of this encounter (statuses as of 11/05/2022) [address]04-2022 History of Past illness Narrative* Problem Noted Date Diagnosed Date Resolved Date Lung nodules 04/02/2021 08/13/2022 Overview: Noted on cxr 04/02/21. No nodules on chest x-ray [facility] 05/2021 OVERWEIGHT 07/16/2005 01/22/2015 documented as of this encounter (statuses as of 11/06/2022) [address]04-2022 History of Past illness Narrative* Problem Noted Date Diagnosed Date Resolved Date Lung nodules 04/02/2021 08/13/2022 Overview: Noted on cxr 04/02/21. No nodules on chest x-ray [facility] 05/2021 OVERWEIGHT 07/16/2005 01/22/2015 documented as of this encounter (statuses as of 11/12/2022) [address]04-2022 History of Past illness Narrative* Problem Noted Date Diagnosed Date Resolved Date Lung nodules 04/02/2021 08/13/2022 Overview: Noted on cxr 04/02/21. No nodules on chest x-ray [facility] 05/2021 OVERWEIGHT 07/16/2005 01/22/2015 documented as of this encounter (statuses as of 11/20/2022) [address]04-2022 History of Past illness Narrative* Problem Noted Date Diagnosed Date Resolved Date Lung nodules 04/02/2021 08/13/2022 Overview: Noted on cxr 04/02/21. No nodules on chest x-ray [facility] 05/2021 OVERWEIGHT 07/16/2005 01/22/2015 documented as of this encounter (statuses as of 12/08/2022) [address]04-2022 History of Past illness Narrative* Problem Noted Date Diagnosed Date Resolved Date Lung nodules 04/02/2021 08/13/2022 Overview: Noted on cxr 04/02/21. No nodules on chest x-ray [facility] 05/2021 OVERWEIGHT 07/16/2005 01/22/2015 documented as of this encounter (statuses as of 12/14/2022) [address]04-2022 History of Past illness Narrative* Problem Noted Date Diagnosed Date Resolved Date Lung nodules 04/02/2021 08/13/2022 Overview: Noted on cxr 04/02/21. No nodules on chest x-ray [facility] 05/2021 OVERWEIGHT 07/16/2005 01/22/2015 documented as of this encounter (statuses as of 12/18/2022) [address]04-2022 History of Past illness Narrative* Problem Noted Date Diagnosed Date Resolved Date Lung nodules 04/02/2021 08/13/2022 Overview: Noted on cxr 04/02/21. No nodules on chest x-ray [facility] 05/2021 OVERWEIGHT 07/16/2005 01/22/2015 documented as of this encounter (statuses as of 12/30/2022) [address]04-2022 History of Past illness Narrative* Problem Noted Date Diagnosed Date Resolved Date Lung nodules 04/02/2021 08/13/2022 Overview: Noted on cxr 04/02/21. No nodules on chest x-ray [facility] 05/2021 OVERWEIGHT 07/16/2005 01/22/2015 documented as of this encounter (statuses as of 01/16/2023) [address]04-2022 History of Past illness Narrative* Problem Noted Date Diagnosed Date Resolved Date Lung nodules 04/02/2021 08/13/2022 Overview: Noted on cxr 04/02/21. No nodules on chest x-ray [facility] 05/2021 OVERWEIGHT 07/16/2005 01/22/2015 documented as of this encounter (statuses as of 01/20/2023) [address]04-2022 History of Past illness Narrative* Problem Noted Date Diagnosed Date Resolved Date Lung nodules 04/02/2021 08/13/2022 Overview: Noted on cxr 04/02/21. No nodules on chest x-ray [facility] 05/2021 OVERWEIGHT 07/16/2005 01/22/2015 documented as of this encounter (statuses as of 01/21/2023) [address]04-2022 History of Past illness Narrative* Problem Noted Date Diagnosed Date Resolved Date Lung nodules 04/02/2021 08/13/2022 Overview: Noted on cxr 04/02/21. No nodules on chest x-ray [facility] 05/2021 OVERWEIGHT 07/16/2005 01/22/2015 documented as of this encounter (statuses as of 01/22/2023) [address]04-2022 History of Past illness Narrative* Problem Noted Date Diagnosed Date Resolved Date Lung nodules 04/02/2021 08/13/2022 Overview: Noted on cxr 04/02/21. No nodules on chest x-ray [facility] 05/2021 OVERWEIGHT 07/16/2005 01/22/2015 documented as of this encounter (statuses as of 01/22/2023) [address]04-2022 History of Past illness Narrative* Problem Noted Date Diagnosed Date Resolved Date Lung nodules 04/02/2021 08/13/2022 Overview: Noted on cxr 04/02/21. No nodules on chest x-ray H 05/2021 OVERWEIGHT 07/16/2005 01/22/2015 documented as of this encounter (statuses as of 02/09/2023) [address]04-2022 History of Past illness Narrative* Problem Noted Date Diagnosed Date Resolved Date Lung nodules 04/02/2021 08/13/2022 Overview: Noted on cxr 04/02/21. No nodules on chest x-ray [facility] 05/2021 OVERWEIGHT 07/16/2005 01/22/2015 documented as of this encounter (statuses as of 02/12/2023) [address]04-2022 History of Past illness Narrative* Problem Noted Date Diagnosed Date Resolved Date Lung nodules 04/02/2021 08/13/2022 Overview: Noted on cxr 04/02/21. No nodules on chest x-ray [facility] 05/2021 OVERWEIGHT 07/16/2005 01/22/2015 documented as of this encounter (statuses as of 02/23/2023) [address]04-2022 History of Past illness Narrative* Problem Noted Date Diagnosed Date Resolved Date Lung nodules 04/02/2021 08/13/2022 Overview: Noted on cxr 04/02/21. No nodules on chest x-ray [facility] 05/2021 Situational depression 04/09/202003/18 documented as of this encounter (statuses as of 03/20/2023) [address]04-2022 History of Past illness Narrative* Problem Noted Date Diagnosed Date Resolved Date Lung nodules 04/02/2021 08/13/2022 Overview: Noted on cxr 04/02/21. No nodules on chest x-ray [facility] 05/2021 Situational depression 04/09/202003/18 documented as of this encounter (statuses as of 03/20/2023) [address] History of Past illness Narrative* Problem Noted Date Resolved Date OVERWEIGHT 07/16/2005 01/22/2015 documented as of this encounter (statuses as of 2021) [address] History of Past illness Narrative* Problem Noted Date Resolved Date OVERWEIGHT 07/16/2005 01/22/2015 documented as of this encounter (statuses as of 11/06/2021) [address] History of Past illness Narrative* Problem Noted Date Resolved Date OVERWEIGHT 07/16/2005 01/22/2015 documented as of this encounter (statuses as of 12/09/2021) [address] History of Past illness Narrative* Problem Noted Date Resolved Date OVERWEIGHT 07/16/2005 01/22/2015 documented as of this encounter (statuses as of 12/13/2021) [address] History of Past illness Narrative* Problem Noted Date Resolved Date OVERWEIGHT 07/16/2005 01/22/2015 documented as of this encounter (statuses as of 01/03/2022) [address] History of Past illness Narrative* Problem Noted Date Resolved Date OVERWEIGHT 07/16/2005 01/22/2015 documented as of this encounter (statuses as of 03/30/2022) [address] History of Past illness Narrative* Problem Noted Date Resolved Date OVERWEIGHT 07/16/2005 01/22/2015 documented as of this encounter (statuses as of 03/31/2022) [address] History of Past illness Narrative* Problem Noted Date Resolved Date OVERWEIGHT 07/16/2005 01/22/2015 documented as of this encounter (statuses as of 04/04/2022) [address] History of Past illness Narrative* Problem Noted Date Resolved Date OVERWEIGHT 07/16/2005 01/22/2015 documented as of this encounter (statuses as of 07/13/2022) [address]19-2006 History of Past illness Narrative* Problem Noted Date Resolved Date OVERWEIGHT 07/16/2005 01/22/2015 documented as of this encounter (statuses as of 07/15/2022) [address]19[address]2006 History of Past illness Narrative* Problem Noted Date Resolved Date OVERWEIGHT 07/16/2005 01/22/2015 documented as of this encounter (statuses as of 08/11/2022) [address]19[address]2006 History of Past illness Narrative* Problem Noted Date Resolved Date OVERWEIGHT 07/16/2005 01/22/2015 documented as of this encounter (statuses as of 08/11/2022) [facility] note* Diagnosis Controlled type 2 diabetes mellitus without complication, without long-term current use of insulin ([facility])- Primary Diabetic eye exam ([facility]) Type II or unspecified type diabetes mellitus without mention of complication, not stated as uncontrolled Mixed hyperlipidemia Hypothyroidism, acquired Unspecified hypothyroidism Gastroesophageal reflux disease without esophagitis Esophageal reflux PMR (polymyalgia rheumatica) ([facility]) Polymyalgia rheumatica Situational depression Adjustment disorder with depressed mood Coronary artery disease due to lipid rich plaque Paroxysmal atrial fibrillation ([facility]) Atrial fibrillation Bilateral carotid artery stenosis Occlusion and stenosis of carotid artery without mention of cerebral infarction BMI 40.0-44.9, adult ([facility]) Body Mass Index 40.0-44.9, adult Encounter for immunization Need for other specified prophylactic vaccination against single bacterial disease History of prostate cancer Personal history of malignant neoplasm of prostate documented in this encounter [facility] note* Diagnosis Left hand pain- Primary Pain in limb [facility] in this [facility]* Diagnosis Acute cough- Primary Bronchitis Bronchitis, not specified as acute or chronic documented in this encounter [facility]* Diagnosis Bacterial pneumonia- Primary Bacterial pneumonia, unspecified documented in this encounter [facility]* Diagnosis Acute cough- Primary Lower resp. tract infection Other diseases of respiratory system, not elsewhere classified documented in this encounter [facility] note* Diagnosis Dependent rubor- Primary Unspecified erythematous condition documented in this encounter [facility]* Diagnosis Bacterial pneumonia- Primary Bacterial pneumonia, unspecified Lung crackles Abnormal chest sounds Wheezing Encounter for immunization Need for other specified prophylactic vaccination against single bacterial disease [facility] Diagnosis Controlled type 2 diabetes mellitus without complication, without long-term current use of insulin (HCC)- Primary Diabetic eye exam ([facility]) Type II or unspecified type diabetes mellitus without mention of complication, not stated as uncontrolled Mixed hyperlipidemia Hypothyroidism, acquired Unspecified hypothyroidism Gastroesophageal reflux disease without esophagitis Esophageal reflux Coronary artery disease due to lipid rich plaque Paroxysmal atrial fibrillation (HCC) Atrial fibrillation Bilateral carotid artery stenosis Occlusion and stenosis of carotid artery without mention of cerebral infarction PMR (polymyalgia rheumatica) ([facility]) Polymyalgia rheumatica Situational depression Adjustment disorder with depressed mood Abnormal chest x-ray Other nonspecific abnormal finding of lung field BMI 40.0-44.9, adult ([facility]) Body Mass Index 40.0-44.9, adult [facility] Diagnostic Procedure Only (Routine) - Closed Specialty Diagnoses / Procedures Referred By Contac t Referred To Contact XR IMAGING Diagnoses Left hand pain Procedures XR HAND GENERAL 3V PA/LAT/OBL LEFT RADEX HAND MINIMUM 3 VIEWS Carlotta Garcia APRN.CNP [address] [place] [address] Xr Imaging Referral ID Status Reason Start Date Expiration Date V isits Requested Visits Authorized [id number] Closed Auto-Generate d Referral 03/25/2022 04/24/2023 1 1 [facility] Advance Directives Documents on File Type Date Recorded Patient Aeronautical Engineer Expl anation Advance Directive(s) 08/01/2009 4:57 PM Documents on File Type Date Recorded Patient Aeronautical Engineer Expl anation Advance Directive(s) 08/01/2009 4:57 PM Summary Purpose Family History No Family History Records Found Additional Source Comments Source Comments (unrecognize d section and content) In the event this informatio n is protected by the Federal Confidentiality of Alcohol and Drug Abuse Patient Records regulations: The Federal rules restrict any use of the information to criminally investigate or prosecute any alcohol or drug abuse patient.[facility] the event this information is protected by the Federal Confidentiality of Alcohol and Drug Abuse Patient Records regulations: The Federal rules restrict any use of the information to criminally investigate or prosecute any alcohol or drug abuse patient.[facility] the event this information is protected by the Federal Confidentiality of Alcohol and Drug Abuse Patient Records regulations: The Federal rules restrict any use of the information to criminally investigate or prosecute any alcohol or drug abuse patient.[facility] the event this information is protected by the Federal Confidentiality of Alcohol and Drug Abuse Patient Records regulations: The Federal rules restrict any use of the information to criminally investigate or prosecute any alcohol or drug abuse patient.[facility] the event this information is protected by the Federal Confidentiality of Alcohol and Drug Abuse Patient Records regulations: The Federal rules restrict any use of the information to criminally investigate or prosecute any alcohol or drug abuse patient.[facility] the event this information is protected by the Federal Confidentiality of Alcohol and Drug Abuse Patient Records regulations: The Federal rules restrict any use of the information to criminally investigate or prosecute any alcohol or drug abuse patient.[facility] the event this information is protected by the Federal Confidentiality of Alcohol and Drug Abuse Patient Records regulations: The Federal rules restrict any use of the information to criminally investigate or prosecute any alcohol or drug abuse patient.[facility] HospitalIn the event this information is protected by the Federal Confidentiality of Alcohol and Drug Abuse Patient Records regulations: The Federal rules restrict any use of the information to criminally investigate or prosecute any alcohol or drug abuse patient.[facility] HospitalIn the event this information is protected by the Federal Confidentiality of Alcohol and Drug Abuse Patient Records regulations: The Federal rules restrict any use of the information to criminally investigate or prosecute any alcohol or drug abuse patient.[facility] HospitalIn the event this information is protected by the Federal Confidentiality of Alcohol and Drug Abuse Patient Records regulations: The Federal rules restrict any use of the information to criminally investigate or prosecute any alcohol or drug abuse patient.[facility] HospitalIn the event this information is protected by the Federal Confidentiality of Alcohol and Drug Abuse Patient Records regulations: The Federal rules restrict any use of the information to criminally investigate or prosecute any alcohol or drug abuse patient.[facility] HospitalIn the event this information is protected by the Federal Confidentiality of Alcohol and Drug Abuse Patient Records regulations: The Federal rules restrict any use of the information to criminally investigate or prosecute any alcohol or drug abuse patient.[facility] HospitalIn the event this information is protected by the Federal Confidentiality of Alcohol and Drug Abuse Patient Records regulations: The Federal rules restrict any use of the information to criminally investigate or prosecute any alcohol or drug abuse patient.[facility] HospitalIn the event this information is protected by the Federal Confidentiality of Alcohol and Drug Abuse Patient Records regulations: The Federal rules restrict any use of the information to criminally investigate or prosecute any alcohol or drug abuse patient.[facility] HospitalIn the event this information is protected by the Federal Confidentiality of Alcohol and Drug Abuse Patient Records regulations: The Federal rules restrict any use of the information to criminally investigate or prosecute any alcohol or drug abuse patient.[facility] HospitalIn the event this information is protected by the Federal Confidentiality of Alcohol and Drug Abuse Patient Records regulations: The Federal rules restrict any use of the information to criminally investigate or prosecute any alcohol or drug abuse patient.[facility] HospitalIn the event this information is protected by the Federal Confidentiality of Alcohol and Drug Abuse Patient Records regulations: The Federal rules restrict any use of the information to criminally investigate or prosecute any alcohol or drug abuse patient.[facility] HospitalIn the event this information is protected by the Federal Confidentiality of Alcohol and Drug Abuse Patient Records regulations: The Federal rules restrict any use of the information to criminally investigate or prosecute any alcohol or drug abuse patient.[facility] HospitalIn the event this information is protected by the Federal Confidentiality of Alcohol and Drug Abuse Patient Records regulations: The Federal rules restrict any use of the information to criminally investigate or prosecute any alcohol or drug abuse patient.[facility] HospitalIn the event this information is protected by the Federal Confidentiality of Alcohol and Drug Abuse Patient Records regulations: The Federal rules restrict any use of the information to criminally investigate or prosecute any alcohol or drug abuse patient.[facility] HospitalIn the event this information is protected by the Federal Confidentiality of Alcohol and Drug Abuse Patient Records regulations: The Federal rules restrict any use of the information to criminally investigate or prosecute any alcohol or drug abuse patient.[facility] HospitalIn the event this information is protected by the Federal Confidentiality of Alcohol and Drug Abuse Patient Records regulations: The Federal rules restrict any use of the information to criminally investigate or prosecute any alcohol or drug abuse patient.[facility] HospitalIn the event this information is protected by the Federal Confidentiality of Alcohol and Drug Abuse Patient Records regulations: The Federal rules restrict any use of the information to criminally investigate or prosecute any alcohol or drug abuse patient.[facility] HospitalIn the event this information is protected by the Federal Confidentiality of Alcohol and Drug Abuse Patient Records regulations: The Federal rules restrict any use of the information to criminally investigate or prosecute any alcohol or drug abuse patient.[facility] HospitalIn the event this information is protected by the Federal Confidentiality of Alcohol and Drug Abuse Patient Records regulations: The Federal rules restrict any use of the information to criminally investigate or prosecute any alcohol or drug abuse patient.[facility] HospitalIn the event this information is protected by the Federal Confidentiality of Alcohol and Drug Abuse Patient Records regulations: The Federal rules restrict any use of the information to criminally investigate or prosecute any alcohol or drug abuse patient.[facility] HospitalIn the event this information is protected by the Federal Confidentiality of Alcohol and Drug Abuse Patient Records regulations: The Federal rules restrict any use of the information to criminally investigate or prosecute any alcohol or drug abuse patient.[facility] HospitalIn the event this information is protected by the Federal Confidentiality of Alcohol and Drug Abuse Patient Records regulations: The Federal rules restrict any use of the information to criminally investigate or prosecute any alcohol or drug abuse patient.[facility] HospitalIn the event this information is protected by the Federal Confidentiality of Alcohol and Drug Abuse Patient Records regulations: The Federal rules restrict any use of the information to criminally investigate or prosecute any alcohol or drug abuse patient.[facility] HospitalIn the event this information is protected by the Federal Confidentiality of Alcohol and Drug Abuse Patient Records regulations: The Federal rules restrict any use of the information to criminally investigate or prosecute any alcohol or drug abuse patient.[facility] HospitalIn the event this information is protected by the Federal Confidentiality of Alcohol and Drug Abuse Patient Records regulations: The Federal rules restrict any use of the information to criminally investigate or prosecute any alcohol or drug abuse patient.[facility] HospitalIn the event this information is protected by the Federal Confidentiality of Alcohol and Drug Abuse Patient Records regulations: The Federal rules restrict any use of the information to criminally investigate or prosecute any alcohol or drug abuse patient.[facility] HospitalIn the event this information is protected by the Federal Confidentiality of Alcohol and Drug Abuse Patient Records regulations: The Federal rules restrict any use of the information to criminally investigate or prosecute any alcohol or drug abuse patient.[facility] HospitalIn the event this information is protected by the Federal Confidentiality of Alcohol and Drug Abuse Patient Records regulations: The Federal rules restrict any use of the information to criminally investigate or prosecute any alcohol or drug abuse patient.[facility] HospitalIn the event this information is protected by the Federal Confidentiality of Alcohol and Drug Abuse Patient Records regulations: The Federal rules restrict any use of the information to criminally investigate or prosecute any alcohol or drug abuse patient.[facility] HospitalIn the event this information is protected by the Federal Confidentiality of Alcohol and Drug Abuse Patient Records regulations: The Federal rules restrict any use of the information to criminally investigate or prosecute any alcohol or drug abuse patient.[facility] HospitalIn the event this information is protected by the Federal Confidentiality of Alcohol and Drug Abuse Patient Records regulations: The Federal rules restrict any use of the information to criminally investigate or prosecute any alcohol or drug abuse patient.[facility] HospitalIn the event this information is protected by the Federal Confidentiality of Alcohol and Drug Abuse Patient Records regulations: The Federal rules restrict any use of the information to criminally investigate or prosecute any alcohol or drug abuse patient.[facility] HospitalIn the event this information is protected by the Federal Confidentiality of Alcohol and Drug Abuse Patient Records regulations: The Federal rules restrict any use of the information to criminally investigate or prosecute any alcohol or drug abuse patient.[facility] HospitalIn the event this information is protected by the Federal Confidentiality of Alcohol and Drug Abuse Patient Records regulations: The Federal rules restrict any use of the information to criminally investigate or prosecute any alcohol or drug abuse patient.[facility] HospitalIn the event this information is protected by the Federal Confidentiality of Alcohol and Drug Abuse Patient Records regulations: The Federal rules restrict any use of the information to criminally investigate or prosecute any alcohol or drug abuse patient.[facility] Care Teams (unrecognized sec tion and content) Cloud Architect Relationship Specialty Start Date End Date Mary Grace Edmonds MD [address] [place] [address] PCP - General Family Practice 11/24/16 Cloud Architect Relationship Specialty Start Date End Date Mary Grace Edmonds MD [facility] [place] [address] PCP - General Family Practice 11/24/16 Cloud Architect Relationship Specialty Start Date End Date Mary Grace Edmonds MD [facility] [place] [address] PCP - General Family Medicine 11/24/16 Cloud Architect Relationship Specialty Start Date End Date Mary Grace Edmonds MD [facility] [place] [address] PCP - General Family Medicine 11/24/16 Cloud Architect Relationship Specialty Start Date End Date Mary Grace Edmonds MD [address] [place] [phone] PCP - General Family Medicine 11/24/16 Cloud Architect Relationship Specialty Start Date End Date Mary Grace Edmonds MD [address] [place] [address] PCP - General Family Medicine 11/24/16 Cloud Architect Relationship Specialty Start Date End Date Mary Grace Edmonds MD [address] [place] [address] PCP - General Family Medicine 11/24/16 Cloud Architect Relationship Specialty Start Date End Date Mary Grace Edmonds MD [address] [place] [address] PCP - General Family Medicine 11/24/16 Cloud Architect Relationship Specialty Start Date End Date Mary Grace Edmonds MD [address] [place] [address] PCP - General Family Medicine 11/24/16 Cloud Architect Relationship Specialty Start Date End Date Mary Grace Edmonds MD [address] [place] [address] PCP - General Family Medicine 11/24/16 Cloud Architect Relationship Specialty Start Date End Date Mary Grace Edmonds MD [address] [place] [address] PCP - General Family Medicine 11/24/16 Cloud Architect Relationship Specialty Start Date End Date Mary Grace Edmonds MD [address] [place] [address] PCP - General Family Medicine 11/24/16 Cloud Architect Relationship Specialty Start Date End Date Mary Grace Edmonds MD [address] [place] [address] PCP - General Family Medicine 11/24/16 Cloud Architect Relationship Specialty Start Date End Date Mary Grace Edmonds MD [address] [place], [place] 494[address] [phone] PCP - General Family Medicine 11/24/16 Cloud Architect Relationship Specialty Start Date End Date Mary Grace Edmonds MD [address] [place], [place] [address] [phone] PCP - General Family Medicine 11/24/16 Cloud Architect Relationship Specialty Start Date End Date Mary Grace Edmonds MD [address] [place] [address] PCP - General Family Medicine 11/24/16 Cloud Architect Relationship Specialty Start Date End Date Mary Grace Edmonds MD [address] [place] [address] PCP - General Family Medicine 11/24/16 Cloud Architect Relationship Specialty Start Date End Date Mary Grace Edmonds MD [address] [place] [address] PCP - General Family Medicine 11/24/16 Cloud Architect Relationship Specialty Start Date End Date Mray Grace Edmonds MD [address] [place] [address] PCP - General Family Medicine 11/24/16 Cloud Architect Relationship Specialty Start Date End Date Mary Grace Edmonds MD [address] [place], [place] [id number] [phone] PCP - General Family Medicine 11/24/16 Reason for Visit (unrecogniz ed section and content) Reason Onset Date Comments Refill Request 12/13/2021 Reason Comments F/U 6 months Reason Comments Hand Pain Reason Comments Outside Rheumatology Reason Onset Date Comments Refill Request 07/15/2022 Reason Onset Date Comments Refill Request 08/11/2022 Reason Comments Results Reason Comments HSAT Check In (Adult) Reason Comments Follow Up Reason Comments Shortness of Breath States started havin g cough and SOB x3 days Reason Comments ext results CT scan Reason Comments outside pulmonary function test Reason Comments left leg swelling Patient advised it m ay be cellulitis. Doppler negative- ECP ordered at his visit Reason Comments Outside [id number] Ordered Reason Comments Outside Cardiology Reason Comments Ophthalmology visit Diabetic Reason Comments Cough Reason Onset Date Comments Refill Request 02/07/2023 (unrecognized sect ion and content) No Status Records Found INFORMATION SOURCE (unrecogn ized section and content) FOR RECORDS PERTAINING TO PATIENTS WHO ARE OR HAVE BEEN ENROLLED IN A CHEMICAL DEPENDENCY/SUBSTANCEABUSE PROGRAM, SOME INFORMATION MAY BE OMITTED. This clinical summary was aggregated from multiple sources. Caution should be exercised in using it in the provision of clinical care. This summary normalizes information from multiple sources, and as a consequence, information in this document may materially change the coding, format and clinical context of patient data. In addition, data may be omitted in some cases. CLINICAL DECISIONS SHOULD BE BASED ON THE PRIMARY CLINICAL RECORDS. [employer] provides no warranty or guarantee of the accuracy or completeness of information in this document.
== END | disposition home or self-care (01) ==
LOC: CT 13:53
PROVIDERS: PCP Family Medicine; Referring Provider Internal Medicine Critical Care Medicine; Visit Provider Internal Medicine Critical Care Medicine
DX: R91.1 Solitary pulmonary nodule (principal); R06.00 Dyspnea, unspecified
CPT/HCPCS: 71250

== ENCOUNTER 2023-04-28 08:00 | Outpatient (RCR) | payer SELFPAY | END 2023-04-29 23:59 | LOC: CR 08:00 | PROVIDERS: PCP Family Medicine; Referring Provider Internal Medicine Cardiovascular Disease; Visit Provider Internal Medicine Cardiovascular Disease | DX: Z00.00 Encounter for general adult medical examination without abnormal findings (principal) ==

== ENCOUNTER 2023-05-28 08:00 | Outpatient (RCR) | payer SELFPAY | END 2023-05-28 23:59 | LOC: CR 08:00 | PROVIDERS: PCP Family Medicine; Referring Provider Internal Medicine Cardiovascular Disease; Visit Provider Internal Medicine Cardiovascular Disease | DX: Z00.00 Encounter for general adult medical examination without abnormal findings (principal) ==

== ENCOUNTER 2023-06-25 08:00 | Outpatient (RCR) | payer SELFPAY | END 2023-06-28 23:59 | LOC: CR 08:00 | PROVIDERS: PCP Family Medicine; Referring Provider Internal Medicine Cardiovascular Disease; Visit Provider Internal Medicine Cardiovascular Disease | DX: Z00.00 Encounter for general adult medical examination without abnormal findings (principal) ==

== ENCOUNTER 2023-07-28 08:00 | Outpatient (RCR) | payer SELFPAY | END 2023-07-28 23:59 | LOC: CR 08:00 | PROVIDERS: PCP Family Medicine; Referring Provider Internal Medicine Cardiovascular Disease; Visit Provider Internal Medicine Cardiovascular Disease | DX: Z00.00 Encounter for general adult medical examination without abnormal findings (principal) ==

== ENCOUNTER 2023-08-27 08:00 | Outpatient (RCR) | payer SELFPAY | END 2023-08-28 23:59 | LOC: CR 08:00 | PROVIDERS: PCP Family Medicine; Referring Provider Internal Medicine Cardiovascular Disease; Visit Provider Internal Medicine Cardiovascular Disease | DX: Z00.00 Encounter for general adult medical examination without abnormal findings (principal) ==

== ENCOUNTER 2023-09-22 08:00 | Outpatient (RCR) | payer SELFPAY | END 2023-09-27 23:59 | LOC: CR 08:00 | PROVIDERS: PCP Family Medicine; Referring Provider Internal Medicine Cardiovascular Disease; Visit Provider Internal Medicine Cardiovascular Disease | DX: Z00.00 Encounter for general adult medical examination without abnormal findings (principal) ==

== ENCOUNTER → 2023-10-15 | Outpatient (CLI) | payer MEDICARE, OTHER, SELFPAY | END | disposition home or self-care (01) | LOC: LAB.FUTURE 11:07 → LAB 11:08 | PROVIDERS: PCP Family Medicine; Referring Provider Urology; Visit Provider Urology | DX: R97.21 Rising PSA following treatment for malignant neoplasm of prostate (principal) ==

== ENCOUNTER → 2023-10-19 | Outpatient (CLI) | payer MEDICARE, OTHER, SELFPAY ==
[2023-10-19 12:04] LABS: PSA,Total- Diagnostic 2.02 ng/mL (0.0-4.0)
== END | disposition home or self-care (01) ==
LOC: LAB 11:16
PROVIDERS: PCP Family Medicine; Referring Provider Urology; Visit Provider Urology
DX: R97.21 Rising PSA following treatment for malignant neoplasm of prostate (principal)
CPT/HCPCS: 36415; 84153

== ENCOUNTER 2023-10-27 08:00 | Outpatient (RCR) | payer SELFPAY | END 2023-10-28 23:59 | LOC: CR 08:00 | PROVIDERS: PCP Family Medicine; Referring Provider Internal Medicine Cardiovascular Disease; Visit Provider Internal Medicine Cardiovascular Disease | DX: Z00.00 Encounter for general adult medical examination without abnormal findings (principal) ==

== ENCOUNTER 2023-11-26 08:00 | Outpatient (RCR) | payer SELFPAY | END 2023-11-28 23:59 | LOC: CR 08:00 | PROVIDERS: PCP Family Medicine; Referring Provider Internal Medicine Cardiovascular Disease; Visit Provider Internal Medicine Cardiovascular Disease | DX: Z00.00 Encounter for general adult medical examination without abnormal findings (principal) ==

== ENCOUNTER 2023-12-24 08:00 | Outpatient (RCR) | payer SELFPAY | END 2023-12-28 23:59 | LOC: CR 08:00 | PROVIDERS: PCP Family Medicine; Referring Provider Internal Medicine Cardiovascular Disease; Visit Provider Internal Medicine Cardiovascular Disease | DX: Z00.00 Encounter for general adult medical examination without abnormal findings (principal) ==

== ENCOUNTER 2024-01-28 08:00 | Outpatient (RCR) | payer SELFPAY | END 2024-01-28 23:59 | LOC: CR 08:00 | PROVIDERS: PCP Family Medicine; Referring Provider Internal Medicine Cardiovascular Disease; Visit Provider Internal Medicine Cardiovascular Disease | DX: Z00.00 Encounter for general adult medical examination without abnormal findings (principal) ==

== ENCOUNTER 2024-02-23 08:00 | Outpatient (RCR) | payer SELFPAY | END 2024-02-27 23:59 | LOC: CR 08:00 | PROVIDERS: PCP Family Medicine; Referring Provider Internal Medicine Cardiovascular Disease; Visit Provider Internal Medicine Cardiovascular Disease | DX: Z00.00 Encounter for general adult medical examination without abnormal findings (principal) ==

== ENCOUNTER → 2024-03-14 | Outpatient (CLI) | payer MEDICARE, OTHER, SELFPAY ==
--- NOTE | 2024-03-14 13:19 | CT_ITS ---
STUDY: CT ABDOMEN AND PELVIS WITH CONTRAST REASON FOR EXAM: Male, 88 years old. LLW PAIN, INFECTION IN ABDOMEN, DIVERTICULOSIS OF COLON RADIATION DOSAGE (If Supplied By Facility): CTDIvol = ( 18.48 ) mGy, DLP = ( 1272.42 ) mGycm TECHNIQUE: Transaxial images were obtained from the dome of the diaphragm to the symphysis pubis without oral contrast. Oral and amp; IV Gastrografin and amp; 100mL Isovue-300 was administered. Sagittal and coronal images were reconstructed. Individualized dose optimization techniques were used for this CT. COMPARISON: April 10, 2023. FINDINGS: The visualized lung bases demonstrate stable peripheral interstitial residual prominence. Stable subcentimeter nodular density in the right middle lobe similar to previous study. Degenerative vertebral changes. Normal liver. Cholelithiasis. No dilatation of the extrahepatic biliary system. Normal spleen. Normal pancreas. Normal bilateral adrenal glands. Normal right kidney. Normal left kidney. Normal visualized stomach. Normal small intestine. Diverticulosis of the colon. The appendix is visualized and appears normal. Calcified abdominal aorta. Normal inferior vena cava. Normal retroperitoneum. Normal urinary bladder. Fatty density in the inguinal canals. Mild mesenteric stranding is noted in the left lower quadrant laterally which may be related to epiploic appendagitis. Focal diverticulitis seems to be less likely but cannot be excluded. Normal abdominal wall. Normal osseous structures. CT/Abdomen/Pelvis WITH Contrast IMPRESSION: Mild mesenteric stranding is noted in the left lower quadrant laterally which may be related to epiploic appendagitis. Cholelithiasis. Colonic diverticulosis. Electronically Signed: Shahram Hirsch DO at 16:26 [facility] ,
[2024-03-14 16:01] LABS: CREATININE FINGERSTICK < 1.0 mg/dL (0.70-1.30); EGFR FINGERSTICK > 60.0000 mL/min (>60)
== END | disposition home or self-care (01) ==
PROVIDERS: PCP Family Medicine; Referring Provider Family Medicine; Visit Provider Family Medicine
DX: R10.32 Left lower quadrant pain (principal); K65.9 Peritonitis, unspecified; K57.30 Diverticulosis of large intestine without perforation or abscess without bleeding
CPT/HCPCS: 74177; Q9967; A4216

== ENCOUNTER 2024-03-29 08:00 | Outpatient (RCR) | payer SELFPAY | END 2024-03-29 23:59 | LOC: CR 08:00 | PROVIDERS: PCP Family Medicine; Referring Provider Internal Medicine Cardiovascular Disease; Visit Provider Internal Medicine Cardiovascular Disease | DX: Z00.00 Encounter for general adult medical examination without abnormal findings (principal) ==

== ENCOUNTER → 2024-04-21 | Outpatient (CLI) | payer MEDICARE, OTHER, SELFPAY ==
[2024-04-21 13:41] LABS: PSA,Total- Diagnostic 1.77 ng/mL (0.0-4.0)
== END | disposition home or self-care (01) ==
LOC: LAB 11:40
PROVIDERS: PCP Family Medicine; Referring Provider Urology; Visit Provider Urology
DX: R97.21 Rising PSA following treatment for malignant neoplasm of prostate (principal)
CPT/HCPCS: 36415; 84153

== ENCOUNTER 2024-04-28 08:00 | Outpatient (RCR) | payer SELFPAY | END 2024-04-29 23:59 | LOC: CR 08:00 | PROVIDERS: PCP Family Medicine; Referring Provider Internal Medicine Cardiovascular Disease; Visit Provider Internal Medicine Cardiovascular Disease | DX: Z00.00 Encounter for general adult medical examination without abnormal findings (principal) ==

== ENCOUNTER 2024-05-26 08:00 | Outpatient (RCR) | payer SELFPAY | END 2024-05-27 23:59 | LOC: CR 08:00 | PROVIDERS: PCP Family Medicine; Referring Provider Internal Medicine Cardiovascular Disease; Visit Provider Internal Medicine Cardiovascular Disease | DX: Z00.00 Encounter for general adult medical examination without abnormal findings (principal) ==